=== PATIENT | male | born 1955 | race Hispanic/Latino ===

== ENCOUNTER 2020-06-10 17:31 | Inpatient (IN) | payer MEDICARE ==
[~2020-06-10] VITALS: Ht 167.6 cm; Wt 79.5 kg
--- NOTE | 2020-06-10 17:58 | Emergency Department Note ---
History of Present Illnes History of Present Illness Chief Complaint: General Medicine Complaints History of Present Illness This is a 64 year old male Presents to the ED for chills, n/v since 1600. Recently released from [facility] on 05/21/20 for dialysis infection . Past Medical/Family History Physician Review I have reviewed the patient's past medical and family history. Any updates have been documented here. Review of Systems Review of Systems Constitutional: Reports fever EENTM: Reports no symptoms Cardiovascular: Reports no symptoms Respiratory: Reports no symptoms Gastrointestinal: Reports no symptoms Genitourinary: Reports no symptoms Musculoskeletal: Reports no symptoms Integumentary: Reports no symptoms Neurological: Reports no symptoms Psychological: Reports no symptoms Endocrine: Reports no symptoms Hematological/Lymphatic: Reports no symptoms Physical Exam Related Data Allergies: Coded Allergies: No Known Allergies (Unverified , 06/10/20) Triage Vital Signs Vital Signs Date Time Temp Pulse Resp B/P (MAP) Pulse Ox O2 Delivery O2 Flow Rate FiO2 06/10/20 17:56 102.9 79 18 126/86 97 Room Air Vital signs reviewed: Yes Physical Exam CONSTITUTIONAL Constitutional: Present well-developed, Present well-nourished HENT HENT: Present normocephalic, Present atraumatic, Present oropharynx clear/moist, Present nose normal HENT L/R: Present left ext ear normal, Present right ext ear normal EYES Eyes: Reports PERRL, Reports conjunctivae normal NECK Neck: Present ROM normal PULMONARY Pulmonary: Present effort normal, Present breath sounds normal CARDIOVASCULAR Cardiovascular: Present regular rhythm, Present heart sounds normal, Present capillary refill normal, Present normal rate GASTROINTESTINAL Abdominal: Present soft, Present nontender, Present bowel sounds normal GENITOURINARY Genitourinary: Present exam deferred SKIN Skin: Present warm, Present dry MUSCULOSKELETAL Musculoskeletal: Present ROM normal NEUROLOGICAL Neurological: Present alert, Present oriented x 3, Present no gross motor or sensory deficits PSYCHOLOGICAL Psychological: Present mood/affect normal, Present judgement normal Results Laboratory Lab results reviewed: Yes Laboratory comments Laboratory Tests Test 06/10/20 18:29 White Blood Count 15.40 x10e3/uL (4.8-10.8) Red Blood Count 3.37 x10e6/uL (4.3-5.7) Hemoglobin 9.4 g/dL (14.0-18.0) Hematocrit 30.0 % (38.2-49.6) Mean Corpuscular Volume 89.0 fL (81-99) Mean Corpuscular Hemoglobin 27.9 pg (28-32) Mean Corpuscular Hemoglobin Concent 31.3 g/dL (31-35) Red Cell Distribution Width 14.2 % (11.7-14.4) Platelet Count 200 x10e3/uL (140-360) Neutrophils (%) (Auto) 89.7 % (38.7-80.0) Lymphocytes (%) (Auto) 4.2 % (18.0-39.1) Monocytes (%) (Auto) 5.0 % (4.4-11.3) Eosinophils (%) (Auto) 0.1 % (0.0-6.0) Basophils (%) (Auto) 0.2 % (0.0-1.0) Neutrophils # (Auto) 13.8 (2.1-6.9) Lymphocytes # (Auto) 0.6 (1.0-3.2) Monocytes # (Auto) 0.8 (0.2-0.8) Eosinophils # (Auto) 0.0 (0.0-0.4) Basophils # (Auto) 0.0 (0.0-0.1) Absolute Immature Granulocyte (auto 0.12 x10e3/uL (0-0.1) Sodium Level 139 mmol/L (136-145) Potassium Level 3.8 mmol/L (3.5-5.1) Chloride Level 99 mmol/L (98-107) Carbon Dioxide Level 29 mmol/L (22-29) Anion Gap 14.8 mmol/L (8-16) Blood Urea Nitrogen 24 mg/dL (7-26) Creatinine 5.03 mg/dL (0.72-1.25) Estimat Glomerular Filtration Rate 12 ML/MIN (60-) BUN/Creatinine Ratio 5 (6-25) Glucose Level 206 mg/dL (74-118) Lactic Acid Level 1.7 mmol/L (0.5-2.0) Calcium Level 8.0 mg/dL (8.4-10.2) Total Bilirubin 0.6 mg/dL (0.2-1.2) Aspartate Amino Transf (AST/SGOT) 14 IU/L (5-34) Alanine Aminotransferase (ALT/SGPT) 7 IU/L (0-55) Alkaline Phosphatase 118 IU/L (40-150) Creatine Kinase 31 IU/L (30-200) Creatine Kinase MB 0.40 ng/mL (0-5.0) Troponin I 0.015 ng/mL (0-0.300) Total Protein 6.8 g/dL (6.5-8.1) Albumin 2.8 g/dL (3.5-5.0) Globulin 4.0 g/dL (2.3-3.5) Albumin/Globulin Ratio 0.7 (0.8-2.0) Imaging Imaging results reviewed: Yes Impressions [place] [address] Patient Name: JED BASSETT MR #: [id number] : 1955 Age/Sex: 64/M Req #: [id number] Adm Physician: Ordered by: LILLIANA CRAFT DO Report #: [id number] Location: ER Room/Bed: Procedure: [id number] DX/CHEST SINGLE (PORTABLE) Exam Date: 06/10/20 Exam Time: 1821 REPORT STATUS: Signed EXAMINATION: CHEST SINGLE (PORTABLE) COMPARISON: None INDICATION: ^Chills n/v ^20200610 ^1821 DISCUSSION: Frontal view of the chest obtained at 1822 hours. HEART AND MEDIASTINUM: The heart is top normal in size. There are calcifications of the aortic arch LINES: Dual lumen central venous catheter terminates in the SVC LUNGS/PLEURA: The lungs are well inflated and clear. Pulmonary vascular markings are normal. No pneumonia or pulmonary edema. No pleural effusion or pneumothorax. BONES AND SOFT TISSUES: No focal osseous lesion. The soft tissues are normal. IMPRESSION: No acute cardiopulmonary disease. Signed by: Dr. Anyi Feliciano MD on 06/10/2020 6:48 PM Dictated By: ANYI FELICIANO MD 47 Transcribed By: RICARDO on 06/10/201847 COPY TO: LILLIANA CRAFT DO~ Assessment & Plan Medical Decision Making MDM 64 yom with fever without specific symptoms. Blood cx x 2 and blood cx ordered with abx given. Lactic acid obtained and reviewed. During the COVID-19 virus pandemic and has a clinical picture consistent with a COVID-19 source for sepsis. Thus, patient was treated for suspected viral sepsis rather than bacterial sepsis. Given the potential for ARDS and present suggestions of early data from COVID treatment in other areas, fluids were given sparingly and the SEP-1 guidelines were deviated from. For consideration of other sources, blood and urine cultures, lactic acid and antibiotics were ordered. Will continue to monitor blood pressure and adjust fluid resuscitation accordingly. Unable to discern source of fever. Plan to admit for observation with IV abx and consult to Dr Galdamez for evaluation of PD cathter Assessment & Plan Final Impression: (1) Fever (2) Chronic renal failure Depart Disposition: ADMITTED LILLIANA CRAFT DO Jun 10, 2020 17:58
[2020-06-10] MEDS ORDERED: PIPERACILLIN/TAZO 4.5 GM 100 ML IV STA (18:15)
[2020-06-10 18:45] LABS: BASOPHILS % 0.2 % (0.0-1.0); EOSINOPHILS % 0.1 % (0.0-6.0); HEMOGLOBIN 9.4 g/dL (14.0-18.0); LYMPHOCYTES # (AUTO) 0.6 (1.0-3.2); LYMPHOCYTES % 4.2 % (18.0-39.1); MEAN CORPUSCULAR HEMOGLOBIN 27.9 pg (28-32); MEAN CORPUSCULAR HGB CONC 31.3 g/dL (31-35); MONOCYTES # (AUTO) 0.8 (0.2-0.8); NEUTROPHILS # (AUTO) 13.8 (2.1-6.9); NEUTROPHILS % 89.7 % (38.7-80.0); PLATELET COUNT 200 x10e3/uL (140-360); RED BLOOD COUNT 3.37 x10e6/uL (4.3-5.7); RED CELL DISTRIBUTION WIDTH 14.2 % (11.7-14.4)
[2020-06-10] MEDS ORDERED: ACETAMINOPHEN 325 MG TAB PO ONE (18:49)
--- NOTE | 2020-06-10 18:51 | Diagnostic Imaging Report ---
EXAMINATION: CHEST SINGLE (PORTABLE) COMPARISON: None INDICATION: ^Chills n/v ^20200610 ^1821 DISCUSSION: Frontal view of the chest obtained at 1822 hours. HEART AND MEDIASTINUM: The heart is top normal in size. There are calcifications of the aortic arch LINES: Dual lumen central venous catheter terminates in the SVC LUNGS/PLEURA: The lungs are well inflated and clear. Pulmonary vascular markings are normal. No pneumonia or pulmonary edema. No pleural effusion or pneumothorax. BONES AND SOFT TISSUES: No focal osseous lesion. The soft tissues are normal. IMPRESSION: No acute cardiopulmonary disease. Signed by: Dr. Gemma Feliciano MD on 06/10/2020 6:48 PM
[2020-06-10] MEDS ORDERED: ACETAMINOPHEN 325 MG TAB ONE (18:57)
[2020-06-10 19:15] LABS: ALBUMIN 2.8 g/dL (3.5-5.0); ALBUMIN/GLOBULIN RATIO 0.7 (0.8-2.0); ANION GAP 14.8 mmol/L (8-16); CREATININE, SERUM 5.03 mg/dL (0.72-1.25); POTASSIUM 3.8 mmol/L (3.5-5.1)
--- OUTSIDE RECORDS SUMMARY | 2020-06-10 19:48 | XMS REPORT | Clinical Summary ---
Author Author [employer] [facility] Organization [facility] [employer] [facility] Address Unknown Phone Unavailable Care Team Providers Care Field Cane Scaler Name Role Phone Antony Mosley MD PCP Allergies No Known Allergies Medications End Date Status Medication Sig Dispensed Refills Start Date Active sevelamer (RENAGEL) 800 Take 800 mg 0 MG tablet by mouth 3 (three) times a day with meals. Active atorvastatin (LIPITOR) 80 Take 80 mg by 0 MG tablet mouth daily. Active lisinopril (PRINIVIL) 5 Take 5 mg by 0 mg tablet mouth daily. Active NIFEdipine XL (PROCARDIA Take 60 mg by 0 XL) 60 MG 24 hr tablet mouth daily. Active metoprolol succinate XL Take 50 mg by 0 (TOPROL-XL) 50 mg 24 hr mouth daily. tablet Active chlorthalidone (HYGROTEN) Take 25 mg by 0 25 MG tablet mouth daily. Active insulin degludec (TRESIBA Inject 14 0 FLEXTOUCH U-100) 100 Units under unit/mL (3 mL) insulin the skin pen daily. Active Problems Not on file Encounters Care Team Description Date Type Specialty Jyothi Scott DO Abdominal cramps (Primary Dx); ESRD (end stage renal disease) ([facility]) 08/31/2019 Emergency Emergency Medicine Ras Maharaj MD 2019 Documentation Cardiovascular after 06/10/2019 Immunizations Name Administration Dates Next Due Tdap 04/23/2019 Social History Date Tobacco Use Types Packs/Day Years Used Never Smoker Smokeless Tobacco: Never Used Drinks/Week oz/Week Comments Alcohol Use Never Alcohol Habits Answer Date Recorded How often do you have a drink containing alcohol? Never 04/23/2019 How many drinks containing alcohol do you have on No t asked a typical day when you are drinking? How often do you have six or more drinks on one Not asked occasion? Sex Assigned at Date Recorded Not on file Industry Job Start Date Occupation Not on file Not on file Not on file Travel End Travel History Travel Start No recent travel history available. Last Filed Vital Signs Reading Time Taken Comments Vital Sign 189/78 08/31/2019 9:05 PM [employer]ACE ENGINE[employer] Blood Pressure 71 08/31/2019 9:05 PM [employer]ACE ENGINEER Pulse 37 C (98.6 F) 08/31/2019 9:05 PM SPACE ENGINEER Temperature 19 08/31/2019 9:05 PM SPACE ENGINEER Respiratory Rate 99% 08/31/2019 9:05 PM SPACE ENGINEER Oxygen Saturation - - Inhaled Oxygen Concentration 81.6 kg (180 lb) 08/31/2019 3:20 PM SPACE ENGINEER Weight 167.6 cm (5' 6") 08/31/2019 3:20 PM SPACE ENGINEER Height 29.05 08/31/2019 3:20 PM SPACE ENGINEER Body Mass Index Plan of Treatment Health Maintenance Due Date Last Done Comments DIABETIC RETINAL EYE EXAM 1955 DIABETIC FOOT EXAM 1965 URINE MICROALBUMIN 1967 COLONOSCOPY SCREENING 2007 SHINGLES VACCINES (#2) 04/17/2017 02/15/2017 INFLUENZA VACCINE 07/21/2020 Procedures Comments Procedure Name Priority Date/Time Associated Diag nosis URINALYSIS SCREEN AND STAT 08/31/2019 MICROSCOPY, WITH REFLEX 3:21 PM SPACE ENGINEER TO CULTURE ESTIMATED GFR STAT 08/31/2019 3:19 PM SPACE ENGINEER LIPASE LEVEL STAT 08/31/2019 3:19 PM SPACE ENGINEER COMPREHENSIVE METABOLIC STAT 08/31/2019 PANEL 3:19 PM SPACE ENGINEER HC COMPLETE BLD COUNT STAT 08/31/2019 W/AUTO DIFF 3:19 PM SPACE ENGINEER after 06/10/2019 Results * Urinalysis screen and microscopy, with reflex to culture (08/31/2019 3:21 PM SPACE ENGINEER) Specimen site Clean catch [facility] Color, UA Yellow [facility] Appearance, UA Slightly-Cloudy [facility] Specific 1.015 1.001 - 1.035 [place] gravity, UA [facility] pH, UA 5.0 5.0 - 8.5 [facility] Protein, UA 3+ (A) Negative [facility] Glucose, UA 1+ (A) Negative [facility] Ketones, UA Negative Negative [facility] Bilirubin, UA Negative Negative [facility] Blood, UA Negative Negative [facility] Nitrite, UA Negative Negative [facility] Urobilinogen, Negative <2.0 [facility] Leukocyte Negative Negative [place] esterase, UA [facility] WBC, UA None seen 0 - 1 /HPF [facility] RBC, UA 3 0 - 5 /HPF [facility] Bacteria, UA Trace None seen [facility] Yeast, UA None seen [facility] Yeast with None seen [place] [facility] Specimen Urine Performing Organization Address City/[facility] Ph one Number [facility] DEPARTMENT OF [address] [place] [address] PATHOLOGY AND GENOMIC MEDICINE [address] * Estimated GFR (08/31/2019 3:19 PM SPACE ENGINEER) [facility] Estimated GFR 11 (A) mL/min/1.73 m2 [place] Comment: [facility] G1 >=90 Normal or high G2 60-89 Mildly decreased G3a 45-59 Mildly to moderately decreased G3b 30-44 Moderately to severely decreased G4 15-29 Severely decreased G5 <15 Kidney failure The eGFR was calculated using the Chronic Kidney Disease Epidemiology Collaboration (CKD-EPI) equation. Interpretation is based on recommendations of the National Kidney Foundation-Kidney Disease Outcomes Quality Initiative (NKF-KDOQI) published in 2014. Specimen Plasma specimen Performing Organization Address City/State[facility] Ph one Number [facility] DEPARTMENT OF [address] [place] [address] PATHOLOGY AND GENOMIC MEDICINE [address] * CBC with platelet and differential (08/31/2019 3:19 PM SPACE ENGINEER) [facility] WBC 7.6 4.2 - 11.0 k/uL [facility] RBC 2.97 (L) 4.04 - 5.86 m/uL [facility] HGB 8.1 (L) 13.0 - 17.3 g/dL [facility] HCT 26.5 (L) 34.0 - 45.0 % [facility] MCV 89.2 80.0 - 98.0 fL [facility] MCH 27.3 27.0 - 34.0 pg [facility] MCHC 30.6 (L) 31.5 - 36.5 g/dL [facility] RDW - SD 46.1 37.0 - 51.0 fL [facility] MPV 11.1 (H) 7.4 - 10.4 fL [facility] Platelet count 240 150 - 400 k/uL [facility] Nucleated RBC 0.00 /100 WBC [facility] Neutrophils 62.5 36.0 - 66.0 % [facility] Lymphocytes 26.3 24.0 - 44.0 % [facility] Monocytes 8.5 (H) 0.0 - 6.0 % [facility] Eosinophils 2.0 0.0 - 6.0 % [facility] Basophils 0.4 0.0 - 1.2 % [facility] Immature 0.3 0.0 - 1.0 % [place] granulocytes [facility] Specimen Blood Performing Organization Address City/State/[facility] Ph one Number [facility] DEPARTMENT OF [address] [place] [phone] PATHOLOGY AND GENOMIC MEDICINE [address] * Lipase level (08/31/2019 3:19 PM SPACE ENGINEER) Lipase 33 13 - 60 U/L [facility] Specimen Plasma specimen Performing Organization Address City/State/[facility] Ph one Number [facility] DEPARTMENT OF [address] [place] [address] PATHOLOGY AND GENOMIC MEDICINE [facility] [address] [place] [address] HOSPITAL * Comprehensive metabolic panel (08/31/2019 3:19 PM SPACE ENGINEER) Sodium 138 135 - 150 mEq/L [facility] Potassium 5.1 (H) 3.5 - 5.0 mEq/L [facility] Chloride 105 98 - 112 mEq/L [facility] CO2 15 (L) 24 - 31 mmol/L [facility] Anion gap 18@ANIO (H) 7 - 15 mEq/L [facility] BUN 93 (H) 7 - 18 mg/dL [facility] Creatinine 5.20 (H) 0.70 - 1.20 mg/dL [facility] Glucose 164 (H) 65 - 100 mg/dL [facility] Calcium 7.0 (L) 8.8 - 10.2 mg/dL [facility] Protein 6.5 6.3 - 8.3 g/dL [facility] Albumin 3.1 (L) 3.5 - 5.0 g/dL [facility] A/G ratio 0.9 0.7 - 3.8 [facility] Alkaline 103 0 - 129 U/L [place] phosphatase [facility] AST 17 10 - 50 U/L [facility] ALT 9 5 - 50 U/L [facility] Total bilirubin <0.3 0.2 - 1.2 mg/dL [facility] Specimen Plasma specimen Performing Organization Address City/State/Zipcode Ph one Number [facility] DEPARTMENT OF [address] [place] [phone] PATHOLOGY AND GENOMIC MEDICINE [facility] [place] [address] HOSPITAL after 06/10/2019 Insurance Type Payer Benefit Subscriber ID Effective Phone Address Plan / Dates Group HMO [employer] C[employer]NA xxxxxxxxxxx [id number] [employer] resent [facility] M[facility] ADV Advance Directives For more information, please contact: [phone] Patient Tellers Supervisor Explanation Type Date Recorded Advance Directives, 04/23/2019 11:05 PM Living Will and Medical Power of Financial Services Professional Advance Directives, 08/31/2019 8:28 PM Living Will and Medical Power of Financial Services Professional
--- OUTSIDE RECORDS SUMMARY | 2020-06-10 19:49 | XMS REPORT | Continuity of Care Document ---
Author Author [facility] t Organization [facility] Address [address] [place] [address] Phone Unavailable Care Team Providers Care Professor Of Education Name Role Phone MD ANTONY SMITH PCP LILLIANA CRAFT Attphys Unavailable JOHAN RANGEL Attphys Unavailable Evan Olmedo Attphys Unavailable Umang Levy Attphys Unavailable Marlene Hale Attphys Unavailable Namita Chen MD Attphys Namita CHEN Attphys Unavailable Brett Smith MD Attphys Cande [facility] Skye Attphys Unavailable Shania SHEPHERD, P Gretta Attphys Unavailable Olman Scott DO Attphys [phone] Ras Maharaj MD Attphys JOHAN RANGEL Admphys Unavailable Payers Payer Name Policy Type Policy Number Effective Date Expiration Date [facility] Ppo [id number] 2007 [facility]:00[facility]00 [facility] Contracted xxxxxxxxx [facility] HMO MCR ADVxxxxxx /10/2018-PresentHMO xxxxxxxxxxx 2018 00:00:00 Mera Meth odist Problems Condition Name Condition Details Condition Category Status Onset Date Resolution Date Last Treatment Date Treating Clinician Comments Source ESRD (end stage renal disease) on dialysis ESRD (end s tage renal disease) on dialysis Disease Active 2019-10-21 00:00:00 Overview: currently on HD; planned transition to CCPD [facility] Diabetic retinopathy Diabetic retinopathy Disease Active 00:00:00 Overview: Bilateral; s/p laser surgery t o L eye; pending to R eye [facility] Diabetes mellitus Diabetes mellitus Disease Active 2013-10-21 00:00:00 [facility] Hyperlipidemia Hyperlipidemia Disease Active 2013-10-21 00:00:00 [facility] Hypertension Hypertension Disease Active 1989-10-21 00:00:00 [facility] Fever of unknown origin Problem Active [facility] End-stage renal disease Problem Active [facility] Diabetic foot ulcer Problem Active [facility] Allergies, Adverse Reactions, Alerts Allergy Name Allergy Type Status Severity Reaction(s) Onset Date Inacti ve Date Treating Clinician Comments Source No Known Allergies DA Active U 2019-11-27 00:00:00 [facility] No Known Allergies DA Active U 2015-07-23 00:00:00 [facility] Family History Family Member Diagnosis Comments Start Date Stop Date Source Natural brother Diabetes [facility] Natural brother Hypertension [facility] Natural mother Diabetes [facility] Natural mother Hypertension [facility] Social History Social Habit Start Date Stop Date Quantity Comments Source History SDOH Alcohol Std Drinks [facility] History SDOH Alcohol Binge [facility] Sex Assigned At [facility] History SDOH Alcohol Frequency 2019-11-25 00:00:00 2019-11-25 00:00:0 0 1 [facility] Alcohol intake 2019-08-31 00:00:00 2019-08-31 00:00:00 Lifetime non-drinker (finding) [facility] Smoking Status Start Date Stop Date Source Never smoker [facility] Medications Ordered Medication Name Filled Medication Name Start Date Stop Da te Current Medication? Ordering Clinician Indication Dosage Frequency Signature (SIG) Comments Components Source calcium carbonate (TUMS) 500 mg chewable tablet 2019-11-25 10:56 :38 Yes 1{tbl} QD Take 1 tablet by mouth daily. [facility] insulin degludec (TRESIBA FLEXTOUCH U-200) 200 unit/mL (3 mL ) InPn 2019-11-25 10:54:50 Yes 16U Q24H 16 Units daily. [facility] ferrous fumarate 325 mg (106 mg iron) Tab 2019-11-25 10:54:50 Yes 650mg Q24H 650 mg daily. [facility] NIFEdipine (PROCARDIA-XL) 60 MG (OSM) 24 hr tablet 2019-11 10:54:49 Yes 60mg QD Take 60 mg by mouth daily. [facility] multivitamin (DAILY DIET SUPPORT ORAL) 2019-11-25 10:47:36 Yes QD daily. [facility] atorvastatin (LIPITOR) 80 MG tablet 2019-11-13 00:00:00 Yes QD daily. [facility] HYDROcodone-acetaminophen (NORCO 7.5-325) 7.5-325 mg per tab let 2019-11-10 00:00:00 Yes as needed. [facility] metoprolol (TOPROL-XL) 50 MG 24 hr tablet 2019-11-04 00:00:00 Yes TK 1 T PO ONCE D [facility] chlorthalidone (HYGROTON) 25 MG tablet 2019-11-04 00:00:00 Yes QD daily. [facility] chlorthalidone (HYGROTEN) 25 MG tablet 2019-08-31 20:50:59 Yes 25mg QD Take 25 mg by mouth daily. Ede mendoza insulin degludec (TRESIBA FLEXTOUCH U-100) 100 unit/mL (3 mL ) insulin pen 2019-08-31 20:50:59 Yes 14U QD Inject 14 Units un jesusita the skin daily. [facility] Felix atorvastatin (LIPITOR) 80 MG tablet 2019-08-31 20:50:58 Yes 80mg QD Take 80 mg by mouth daily. [facility] Felix lisinopril (PRINIVIL) 5 mg tablet 2019-08-31 20:50:58 Yes 5mg QD Take 5 mg by mouth daily. [facility] Felix NIFEdipine XL (PROCARDIA XL) 60 MG 24 hr tablet 2019-08-31 20:50 :58 Yes 60mg QD Take 60 mg by mouth daily. Ayo Felix metoprolol succinate XL (TOPROL-XL) 50 mg 24 hr tablet 2019-08-31 20:50:58 Yes 50mg QD Take 50 mg by mouth daily. Ede Felix sevelamer (RENAGEL) 800 MG tablet 2019-08-31 20:47:32 Ye s 800mg Q.[id number] Take 800 mg by mouth 3 (three) times a day with meals. Ede Felix Atorvastatin Calcium Atorvastatin Calcium Yes 80 Daily [facility] Insulin Degludec (Tresiba Flextouch U-100) 100 Unit/1 Ml INSULN.PEN Insulin Degludec (Tresiba Flextouch U-100) 100 Unit/1 Ml INSULN.PEN Yes 24 [facility] Metoprolol Succinate Metoprolol Succinate Yes 50 Daily [facility] Polyethylene Glycol 3350 (Miralax) 17 Gm POWD.PACK Jordan yethylene Glycol 3350 (Miralax) 17 Gm POWD.PACK Yes Daily as nee ded for Constipation [facility] Sevelamer Sevelamer Yes 800 Three Times Daily With Meals [facility] Chlorthalidone Chlorthalidone 2020-05-21 00:00:00 No 25 Daily [facility] Nefediac Nefediac 2020-05-21 00:00:00 No 60 Daily [facility] Immunizations Ordered Immunization Name Filled Immunization Name Date Status Comments Source Tdap 2019-04-23 00:00:00 Completed [facility] Vital Signs Vital Name Observation Time Observation Value Comments Source Body Temperature 2020-05-21 15:18:00 98.6 [degF] [facility] Weight 2020-05-20 00:44:00 173.50 [lb_av] [facility] BMI (Body Mass Index) 2020-05-20 00:44:00 23.5 kg/m2 [facility] Systolic blood pressure 2019-12-16 11:23:00 173 mm[Hg] [facility] Diastolic blood pressure 2019-12-16 11:23:00 70 mm[Hg] [facility] Heart rate 2019-12-16 11:23:00 90 /min [facility] Body height 2019-12-16 09:00:00 167.6 cm [facility] Body weight Measured 2019-12-16 09:00:00 79.833 kg [facility] BMI 2019-12-16 09:00:00 28.41 kg/m2 [facility] Body temperature 2019-11-25 13:03:00 36.61 Lili [facility] Respiratory rate 2019-11-25 13:03:00 18 /min [facility] Systolic blood pressure 2019-08-31 21:05:00 189 mm[Hg] [facility] Diastolic blood pressure 2019-08-31 21:05:00 78 mm[Hg] [facility] Heart rate 2019-08-31 21:05:00 71 /min [facility] Body temperature 2019-08-31 21:05:00 37 Lili Toni [facility] Respiratory rate 2019-08-31 21:05:00 19 /min Toni pugh [facility] Oxygen saturation in Arterial blood by Pulse oximetry 2018-10 21:05:00 99 /min [facility] Body height 2019-08-31 15:20:00 167.6 cm [facility] Body weight 2019-08-31 15:20:00 81.647 kg Ede Felix BMI 2019-08-31 15:20:00 29.05 kg/m2 [facility] Procedures Procedure Date / Time Performed Performing Clinician Hernando lyn PERIPHERAL VASCULAR REPORT - SCAN 2019-12-17 21:22:21 Provid er, Default Scanning [facility] ECHOCARDIOGRAM REPORT - SCAN 2019-12-17 21:20:34 ProviderConsuelo lt Scanning [facility] TRANSFUSION SERVICE REPORT - SCAN 2019-12-17 18:05:20 Provid er, Default Scanning [facility] STRESS ECHO 2019-12-16 11:08:14 Lisa Chen [facility] 2D ECHO W/ DOPPLER (CW/PW/COLOR) 2019-12-16 10:28:46 Andrey Chen [facility] TREADMILL TOLERANCE(NON-NUCLEAR TREADMILL) 2019-12-16 10:00: 09 Unknown, Hl7 Doctor [facility] ECG 12-LEAD 2019-12-16 09:18:16 Lisa Chen [facility] XR CHEST 2 VIEWS 2019-12-16 08:56:00 Lisa Chen [facility] US ABDOMEN COMPLETE 2019-12-16 08:07:00 Lisa Chen CH I [facility] PSA 2019-12-16 07:13:00 iLsa Chen [facility] LIPID PANEL 2019-12-16 07:13:00 Lisa Chen [facility] HEMOGLOBIN A1C 2019-12-16 07:13:00 Lisa Chen [facility] BLOOD TYPING, AUTOMATED 2019-12-16 07:13:00 Lisa Chen [facility] TRANSFUSION SERVICE REPORT - SCAN 2019-11-26 18:07:11 Provid er, Default Scanning [facility] HEPATITIS B SURFACE ANTIBODY 2019-11-25 11:50:00 Snow Chen [facility] HEPATITIS B SURFACE ANTIGEN 2019-11-25 11:50:00 Shital Chen [facility] HEPATITIS B CORE ANTIBODY, IGM 2019-11-25 11:50:00 Timmins, Mary Breaux [facility] HEPATITIS C ANTIBODY 2019-11-25 11:50:00 TimminsLisa [facility] HIV-1 ANTIGEN WITH HIV-1/2 ANTIBODY 2019-11-25 11:50:00 Timmins, Lsia Breaux [facility] PTH, INTACT 2019-11-25 11:50:00 Timmins, Lisa Breaux [facility] T SPOT TB 2019-11-25 11:50:00 Timmins, Lisa Breaux [facility] HLA TYPING CI 2019-11-25 11:50:00 Timmins, Lisa [facility] HLA TYPING CII 2019-11-25 11:50:00 [facility] ([facility]ELIPA[facility]DIRECT ANANYA 2019-11-25 11:50:[address] [facility] BLOOD TYPING, AUTOMATED 2019-11-25 11:50:00 Timmins, Lisa Godoy [facility] CYTOMEGALOVIRUS ANTIBODY, IGG 2019-11-25 11:49:00 Timmins, Clair moss [facility] CYTOMEGALOVIRUS ANTIBODY, IGM 2019-11-25 11:49:00 Timmins, Clair moss [facility] COMPREHENSIVE METABOLIC PANEL 2019-11-25 11:49:[address] [facility] EBV ANTIBODY, IGM 2019-11-25 11:49:00 [facility] GAMMA GLUTAMYL TRANSFERASE (GGT) 2019-11-25 11:49:00 Timmins, Andrey whiteside [facility] LACTATE DEHYDROGENASE (LDH) 2019-11-25 11:49:00 Timmins, Shital gonzalez [facility] PHOSPHORUS 2019-11-25 11:49:[facility]APTT 2019-11-25 11:49:00 [facility] RPR 2019-11-25 11:49:00 [facility] URIC ACID 2019-11-25 11:49:00 [facility] VARICELLA ZOSTER ANTIBODY, IGG 2019-11-25 11:49:00 [facility] FLOW PRA CLASS I WITH REFLEX TO ANTIBODY SPECIFICITY 2019-11 11:49:00 [facility] FLOW PRA CLASS II WITH REFLEX TO ANTIBODY SPECIFICITY 11-25 11:49:00 [facility] TITER 2019-11-25 11:49:00 [facility] TREPONEMA PALLIDUM - SYPHILIS IGG 2019-11-25 11:49:00 [facility] AB SPECIFICITY CLASS I 2019-11-25 11:49:00 [facility] CBC W/PLT COUNT & AUTO DIFFERENTIAL 2019-11-25 11:49:00 [facility] URINALYSIS SCREEN AND MICROSCOPY, WITH REFLEX TO CULTURE 201 07-01-11 15:21:00 Jim Aguillon HC COMPLETE BLD COUNT W/AUTO DIFF 2019-08-31 15:19:00 Myrna Aguillonos Mitul Felix COMPREHENSIVE METABOLIC PANEL 2019-08-31 15:19:00 Jim Aguillon LIPASE LEVEL 2019-08-31 15:19:00 Jim Aguillon ESTIMATED GFR 2019-08-31 15:19:00 Jim Aguillon Plan of Care Planned Activity Planned Date Details Comments Source Future Scheduled Test 2022-12-16 00:00:00 Lipid panel (proce dure) [code = 78379540] [facility] Future Scheduled Test 2021-08-13 00:00:00 PNEUMOCOCCAL VACCI NE 2-64 YEARS AT RISK (3 of 3 - PPSV23) [code = PNEUMOCOCCAL VACCINE 2-64 YEARS AT RISK (3 of 3 - PPSV23)] [facility] Scheduled Test 2020-07-21 00:00:00 INFLUENZA VACCINE [code = INFLUENZA VACCINE] [facility] Scheduled Test 2020-06-21 00:00:00 INFLUENZA VACCINE (#1) [code = INFLUENZA VACCINE (#1)] [facility] Scheduled Test 2020-06-15 00:00:00 Hemoglobin A1c juliette surement (procedure) [code = 51765218] [facility] Scheduled Test 2019-10-22 00:00:00 MEDICARE ANNUAL WE LLNESS (YEAR 2 or FIRST YEAR if no IPPE) [code = MEDICARE ANNUAL WELLNESS (YEAR 2 or FIRST YEAR if no IPPE)] [facility] Scheduled Test 2017-04-17 00:00:00 SHINGLES VACCINES (#2) [code = SHINGLES VACCINES (#2)] [facility] Scheduled Test 2007 00:00:00 COLONOSCOPY SCREEN ING [code = COLONOSCOPY SCREENING] [facility] Scheduled Test 1967 00:00:00 DIABETIC FOOT EXAM [code = DIABETIC FOOT EXAM] [facility] Scheduled Test 1967 00:00:00 URINE MICROALBUMIN [code = URINE MICROALBUMIN] [facility] Scheduled Test 1967 00:00:00 DIABETIC EYE EXAM [code = DIABETIC EYE EXAM] [facility] Scheduled Test 1967 00:00:00 Diabetic foot exam ination (regime/therapy) [code = 931152472] [facility] Future Scheduled Test 1967 00:00:00 Urine screening fo r protein (procedure) [code = 761747308] [facility] Future Scheduled Test 1957 00:00:00 DIABETIC RETINAL E YE EXAM [code = DIABETIC RETINAL EYE EXAM] [facility] Scheduled Test 1957 00:00:00 Screening for barbara gnant neoplasm of colon (procedure) [code = 965296566] [facility] Instructions Antibiotic Resistance [facility] Instructions Diabetes and Diet [facility] Instructions Foot Care for Diabetics [facility] Encounters Start Date/Time End Date/Time Encounter Type Admission Type [facility] Care Department Encounter ID Source 2019-08-31 00:00:00 2019-08-31 00:00:00 Emergency [facility] [id number] [place] [facility] Results Test Description Test Time Test Comments Results Result Comments Source CHEST SINGLE (PORTABLE) 2020-06-10 18:47:00 [facility] [address] [address] Patient Name: JED BASSETT MR #: [id number] : 1955 Age/Sex: 64/M Req #: [id number] Adm Physician: Ordered by: LILLIANA CRAFT DO Report #: [id number] Location: ER Room/Bed: Procedure: [id number] DX/CHEST SINGLE (PORTABLE) Exam Date: 06/10/20 Exam Time: 1821 REPORT STATUS: Signed EXAMINATION: CHEST SINGLE (PORTABLE) COMPARISON: None INDICATION: Chills n/v [id number] DISCUSSION: Frontal view of the chest obtained at 1822 hours. HEART AND MEDIASTINUM: The heart is top normal in size. There are calcifications of the aortic arch LINES: Dual lumen central venous catheter terminates in the SVC LUNGS/PLEURA: The lungs are well inflated and clear. Pulmonary vascular markings are normal. No pneumonia or pulmonary edema. No pleural effusion or pneumothorax. BONES AND SOFT TISSUES: No focal osseous lesion. The soft tissues are normal. IMPRESSION: No acute cardiopulmonary disease. Signed by: Dr. Gemma Harrell MD on 06/10/2020 6:48 PM Dictated By: GEMMA HARRELL MD 47 Transcribed By: RICARDO on 06/10/201847 COPY TO: LILLIANA CRAFT DO Capillary blood glucose measurement by glucometer (mas s/volume) 2020-05-21 14:49:00 Test Item Bedside Glucose (test code = 45476-6) 292 70-120 Meter ID: [id number] LevellandBlood leukocytes automated count (number/volume)2020-05-20 05:15:00* Test Item Value Reference Range Interpretation Comments White Blood Count (test code = 6690-2) 8.36 4.8-10.8 [facility] automated count (number/volume)2020-05-20 05:15:00* Test Item Value Reference Range Interpretation Comments Red Blood Count (test code = 789-8) 3.38 4.3-5.7 [facility] hemoglobin measurement (moles/volume)2020-05-20 05:15:00* Test Item Value Reference Range Interpretation Comments Hemoglobin (test code = 93535-4) 9.7 14.0-18.0 [facility] Center[facility] blood hematocrit (volume fraction)2020-05-20 05:15:00* Test Item Value Reference Range Interpretation Comments Hematocrit (test code = 4544-3) 30.7 38.2-49.6 [facility] Center[facility] erythrocyte mean corpuscular ydzdin4540-03-57 05:15:00* Test Item Value Reference Range Interpretation Comments Mean Corpuscular Volume (test code = 787-2) 90.8 81-99 [facility] Center[facility] erythrocyte mean corpuscular hemoglobin (mass per erythrocyte)2020-05-20 05:15:00* Test Item Value Reference Range Interpretation Comments Mean Corpuscular Hemoglobin (test code = 785-6) 28.7 28-32 [facility] Center[facility] erythrocyte mean corpuscular hemoglobin concentration measurement (mass/volume)2020-05-20 05:15:00* Test Item Value Reference Range Interpretation Comments Mean Corpuscular Hemoglobin Concent (test code = 786-4) 31.6 31-35 [facility] CenterRDW WneEu-Cgb8826-57-31 05:15:00* Test Item Value Reference Range Interpretation Comments Red Cell Distribution Width (test code = 21286-8) 14.0 11.7 -14.4 [facility] Center[facility] blood platelet count (count/volume)2020-05-20 05:15:00* Test Item Value Reference Range Interpretation Comments Platelet Count (test code = 777-3) 191 140-360 [facility] Center[facility] blood segmented neutrophil count as percentage of total oupeazzrdx7947-70-87 05:15:00* Test Item Value Reference Range Interpretation Comments Neutrophils (%) (Auto) (test code = 13792-8) 52.3 38.7-80.0 [facility] Center[facility] blood lymphocyte count as percentage ot total jfbhoytnle3829-86-65 05:15:00* Test Item Value Reference Range Interpretation Comments Lymphocytes (%) (Auto) (test code = 736-9) 30.6 18.0-39.1 [facility] Center[facility] blood monocyte count as percentage of total uukihngato8614-57-98 05:15:00* Test Item Value Reference Range Interpretation Comments Monocytes (%) (Auto) (test code = 5905-5) 14.8 4.4-11.3 [facility] Center[facility] blood eosinophil count as percentage of total wgwxszaxuo3737-62-26 05:15:00* Test Item Value Reference Range Interpretation Comments Eosinophils (%) (Auto) (test code = 713-8) 1.4 0.0-6.0 [facility] CenterAutom[facility] blood basophil count as percentage of total srohicrdet3074-95-86 05:15:00* Test Item Value Reference Range Interpretation Comments Basophils (%) (Auto) (test code = 706-2) 0.5 0.0-1.0 [facility] CenterFluoroscopic procedure less than one hour qvnmfdau7179-56-37 05:15:00* Test Item Value Reference Range Interpretation Comments IM GRANULOCYTES % (test code = IM GRANULOCYTES %) 0.4 0.0- 1.0 [facility] Center[facility] blood neutrophil count 2020-05-20 05:15:00* Test Item Value Reference Range Interpretation Comments Neutrophils # (Auto) (test code = 751-8) 4.4 2.1-6.9 [facility] Center[facility] lymphocytes count (number/volume) 2020-05-20 05:15:00* Test Item Value Reference Range Interpretation Comments Lymphocytes # (Auto) (test code = 18089-4) 2.6 1.0-3.2 [facility] Center[facility] monocytes automated count (number/volume)2020-05-20 05:15:00* Test Item Value Reference Range Interpretation Comments Monocytes # (Auto) (test code = 742-7) 1.2 0.2-0.8 [facility] Center[facility] blood eosinophil count 2020-05-20 05:15:00* Test Item Value Reference Range Interpretation Comments Eosinophils # (Auto) (test code = 711-2) 0.1 0.0-0.4 [facility] CenterAutom[facility] blood basophil count (count/volume)2020-05-20 05:15:00* Test Item Value Reference Range Interpretation Comments Basophils # (Auto) (test code = 704-7) 0.0 0.0-0.1 [facility] CenterFluoroscopic procedure less than one hour ihhudoav8689-36-01 05:15:00* Test Item Value Reference Range Interpretation Comments Absolute Immature Granulocyte (auto (marlon t code = Absolute Immature Granulocyte (auto) 0.03 0-0.1 [facility] or plasma sodium measurement (moles/volume)2020-05-18 04:40:00* Test Item Value Reference Range Interpretation Comments Sodium Level (test code = 2951-2) 140 136-145 [facility] Campuserum or plasma potassium measurement (moles/volume)2020-05-18 04:40:00* Test Item Value Reference Range Interpretation Comments Potassium Level (test code = 2823-3) 4.7 3.5-5.1 [facility] Campuserum or plasma chloride measurement (moles/volume)2020-05-18 04:40:00* Test Item Value Reference Range Interpretation Comments Chloride Level (test code = 2075-0) 103 98-107 [facility] Campuserum or plasma carbon dioxide, total measurement (moles/volume)2020-05-18 04:40:00* Test Item Value Reference Range Interpretation Comments Carbon Dioxide Level (test code = 2028-9) 26 22-29 [facility] Camp[facility]um or plasma anion tix0904-26-68 04:40:00* Test Item Value Reference Range Interpretation Comments Anion Gap (test code = 80927-3) 15.7 8-16 [facility] Camp[facility]um or plasma urea nitrogen measurement (mass/volume)2020-05-18 04:40:00* Test Item Value Reference Range Interpretation Comments Blood Urea Nitrogen (test code = 3094-0) 40 7-26 [facility] Campuserum or plasma creatinine measurement (mass/volume)2020-05-18 04:40:00* Test Item Value Reference Range Interpretation Comments Creatinine (test code = 2160-0) 5.59 0.72-1.25 [facility] Campuserum or plasma urea nitrogen/creatinine mass owzlu5532-32-41 04:40:00* Test Item Value Reference Range Interpretation Comments BUN/Creatinine Ratio (test code = 3097-3) 7 6-25 [facility] CenterEstimated glomerular filtration rate (GFR) yyiohptxemnyu1491-41-64 04:40:00* Test Item Value Reference Range Interpretation Comments Estimat Glomerular Filtration Rate (test code = 393834255) 10 >60 Ranges were taken from the National Kidney Disease Education Program and the [facility] Kid[facility] Foundation literature.Reference ranges:60 or greater: [id number] ( for 3 consecutive months): Chronic kidney disease 15 or less: Kidney failureSaint Camillus Medical CenterGlucose rvjkytkcubj0652-78-59 04:40:00* Test Item Value Reference Range Interpretation Comments Glucose Level (test code = DYH9898) 149 74-118 [facility] Campuserum or plasma calcium measurement (mass/volume)2020-05-18 04:40:00* Test Item Value Reference Range Interpretation Comments Calcium Level (test code = 82804-9) 8.3 8.4-10.2 [facility] CenterFluoroscopic procedure less than one hour [id number] 04:40:00* Test Item Value Reference Range Interpretation Comments Hemoglobin A1c Percent (test code = Hemoglobin A1c Percent) 8.3 4.0-7.0 [facility] Campuserum or plasma total bilirubin measurement (mass/volume)2020-05-18 04:40:00* Test Item Value Reference Range Interpretation Comments Total Bilirubin (test code = 1975-2) 0.5 0.2-1.2 [facility] CenterFluoroscopic procedure less than one hour ujwpzgah3879-26-69 04:40:00* Test Item Value Reference Range Interpretation Comments Aspartate Amino Transf (AST/SGOT) (test code = Aspartate Amino Transf (AST/SGOT)) 14 5-34 [facility] Campuserum or plasma alanine aminotransferase measurement (enzymatic activity/volume)2020-05-18 04:40:00* Test Item Value Reference Range Interpretation Comments Alanine Aminotransferase (ALT/SGPT) (test code = 1742-6) 12 0-55 [facility] Campuserum or plasma protein measurement (mass/volume)2020-05-18 04:40:00* Test Item Value Reference Range Interpretation Comments Total Protein (test code = 2885-2) 6.7 6.5-8.1 [facility] Campuserum or plasma albumin measurement (mass/volume)2020-05-18 04:40:00* Test Item Value Reference Range Interpretation Comments Albumin (test code = 1751-7) 2.7 3.5-5.0 [facility] CenterPlasma globulin measurement (mass/volume) 2020-05-18 04:40:00* Test Item Value Reference Range Interpretation Comments Globulin (test code = 80607-9) 4.0 2.3-3.5 [facility] Campuserum or plasma albumin/globulin mass bbirr0893-53-17 04:40:00* Test Item Value Reference Range Interpretation Comments Albumin/Globulin Ratio (test code = 1759-0) 0.7 0.8-2.0 [facility] Campuserum or plasma alkaline phosphatase measurement (enzymatic activity/volume)2020-05-18 04:40:00* Test Item Value Reference Range Interpretation Comments Alkaline Phosphatase (test code = 6768-6) 103 40-150 [facility] Campuserum or plasma triglyceride measurement (mass/volume)2020-05-18 04:40:00* Test Item Value Reference Range Interpretation Comments Triglycerides Level (test code = 2571-8) 122 0-149 [facility] Campuserum or plasma cholesterol measurement (mass/volume)2020-05-18 04:40:00* Test Item Value Reference Range Interpretation Comments Cholesterol Level (test code = 2093-3) 74 0-199 Less than 200 mg/dL Low Nlec833 - 239 mg/dL Borderline Wjiu010 m g/dl and greater High Risk [facility] Campuserum or plasma cholesterol in LDL measurement (mass/volume) 2020-05-18 04:40:00* Test Item Value Reference Range Interpretation Comments LDL Cholesterol (test code = 2089-1) 34 60-130 [facility] Campuserum or plasma cholesterol in HDL measurement (mass/volume)2020-05-18 04:40:00* Test Item Value Reference Range Interpretation Comments HDL Cholesterol (test code = 2085-9) 16 40-60 [facility] Campuserum or plasma total cholesterol/cholesterol in HDL mass qcqnv5471-19-61 04:40:00* Test Item Value Reference Range Interpretation Comments Cholesterol/HDL Ratio (test code = 9830-1) 4.6 3.9-4.7 [facility] CenterFOOT LEFT [id number] 14:45:00 [facility] [address] [address] Patient Name: EJD BASSETT JR MR #: [id number] : 1955 Age/Sex: 64/M Req #: [id number] Adm Physician: JOHAN RANGEL MD Ordered by: MAGDA SANABRIA MD Report #: [id number] Location: [facility] Room/Bed: [address] [place] [address] Procedure: [id number] DX/FOOT LEFT C OMPLETE Exam Date: 05/17/20 Exam Time: 1409 REPORT STATUS: Signed EXAMINATION: FOOT LEFT COMPLETE INDICATION: Plantar foot ulcer COMPARISON: None FINDINGS: AP, lateral and oblique radiographs of the left foot were obtained. No acute fracture or dislocation. Alignment is anatomic. Scattered d egenerative changes. Small plantar calcaneal spur. Soft tissues appear unremar kable. No specific radiographic evidence of osteomyelitis. Atherosclerotic art erial calcifications. IMPRESSION: No acute osseous injury. No spe cific radiographic evidence of osteomyelitis. Signed by: Cesia Polanco MD on 05/17/2020 2:47 PM Dictated By: CESIA POLANCO MD 46 Transcribed By: RICARDO on 05/17/201446 CO PY TO: MAGDA SANABRIA MD Urine color jrldiupilswut0165-12-94 13:39:00* Test Item Value Reference Range Interpretation Comments Urine Color (test code = 5778-6) YELLOW YELLOW [facility] CenterUrine adrkgbn6277-17-98 13:39:00* Test Item Value Reference Range Interpretation Comments Urine Clarity (test code = 66979-4) CLEAR CLEAR [facility] Campuspecific gravity of Urine by Test strip 2020-05-17 13:39:00* Test Item Value Reference Range Interpretation Comments Urine Specific [place] (test code = 5811-5) 1.020 1.010-1.02 5 [facility] CenterUrine pH measurement by automated test ccdxq6886-94-68 13:39:00* Test Item Value Reference Range Interpretation Comments Urine pH (test code = 81911-7) 6.5 5-7 [facility] CenterUrine leukocyte esterase detection by bwbkuknb7928-68-80 13:39:00* Test Item Value Reference Range Interpretation Comments Urine Leukocyte Esterase (test code = 5799-2) NEGATIVE NEGATIVE [facility] CenterUrine nitrite ltvlhlhbu1191-39-98 13:39:00* Test Item Value Reference Range Interpretation Comments Urine Nitrite (test code = 89929-9) NEGATIVE NEGATIVE [facility] CenterUrine protein measurement by test strip (mass/volume)2020-05-17 13:39:00* Test Item Value Reference Range Interpretation Comments Urine Protein (test code = 5804-0) >=300 NEGATIVE [facility] CenterUrine glucose bngcrlszr0975-34-66 13:39:00* Test Item Value Reference Range Interpretation Comments Urine Glucose (UA) (test code = 2349-9) NEGATIVE NEGATIVE [facility] CenterUrine ketones detection by automated test kwpzi0460-00-60 13:39:00* Test Item Value Reference Range Interpretation Comments Urine Ketones (test code = 12007-2) TRACE NEGATIVE [facility] CenterUrine urobilinogen measurement by test strip (mass/volume)2020-05-17 13:39:00* Test Item Value Reference Range Interpretation Comments Urine Urobilinogen (test code = 00713-5) 0.2 0.2-1 [facility] CenterUrine total bilirubin measurement (mass/volume)2020-05-17 13:39:00* Test Item Value Reference Range Interpretation Comments Urine Bilirubin (test code = 1978-6) SMALL NEGATIVE [facility] CenterUrine erythrocytes iuhduptex6313-20-18 13:39:00* Test Item Value Reference Range Interpretation Comments Urine Blood (test code = 79387-8) SMALL NEGATIVE [facility] CenterAutomated urine sediment leukocyte count by microscopy (number/high power field)2020-05-17 13:39:00* Test Item Value Reference Range Interpretation Comments Urine WBC (test code = 5821-4) 6-10 0-5 [facility] CenterErythrocytes detection in urine sediment by light jvnxpkhkdj0121-17-27 13:39:00* Test Item Value Reference Range Interpretation Comments Urine RBC (test code = 17082-3) 6-10 0-5 [facility] CenterBacteria detection in urine sediment by light sduazkyhmx8913-69-01 13:39:00* Test Item Value Reference Range Interpretation Comments Urine Bacteria (test code = 53408-6) RARE NONE [facility] CenterEpithelial cells detection in urine sediment by light rmhezomdzc3895-01-45 13:39:00* Test Item Value Reference Range Interpretation Comments Urine Epithelial Cells (test code = 04413-4) FEW NONE [facility] CenterCHEST SINGLE (PORTABLE)2020-05-17 12:54:00 [facility] [address] [address] Patient Name: JED BASSETT JR MR #: [id number] : 1955 Age/Sex: 64/M Req #: [id number] Adm Physician: JOHAN RANGEL MD Ordered by: MAGDA SANABRIA MD Report #: [id number] Location: [facility] Room/Bed: [employer] Procedure: [id number] DX/CHEST SINGL E (PORTABLE) Exam Date: 05/17/20 Exam Time: 1220 REPORT STATUS: Signed EXAMINATION: CHEST SINGLE (PORTABLE) INDICATION: Fever COMPARISON: None FINDINGS: LINES/TUBES:Right IJ tunneled hemodialysis catheter terminates in the superior vena cava. EKG leads overlie the chest. LUNGS:The lungs are well-inflated. No focal consolidation or pulmonary edema. PLEURA:No pl eural effusion or pneumothorax. MEDIASTINUM:The cardiomediastinal silhouett e appears normal in size and shape. Atherosclerotic calcifications of the thor acic aorta. BONES/SOFT TISSUES:No acute osseous injury. ABDOMEN:No susan e air under the diaphragm. IMPRESSION: No focal pneumonia or pulmonar y edema. Signed by: Cesia Polanco MD on 05/17/2020 12:54 PM Dictated By : CESIA POLANCO MD [id number] Trans cribed By: RICARDO on 05/17/20 1254 COPY TO: MAGDA SANABRIA MD Prothrombin time (PT) in platelet poor plasma by coagulation ywyzk1269-37-43 11:20:00* Test Item Value Reference Range Interpretation Comments Prothrombin Time (test code = 5902-2) 14.3 11.9-14.5 [facility] CenterINR in Platelet poor plasma by Coagulation eoaov0696-59-18 11:20:00* Test Item Value Reference Range Interpretation Comments Prothromb Time International Ratio (test code = 6301-6) 1.05 Oral Anticoagulant Therapy INR Values:1. Low Intensity Therapy 1.5 - 2.02 . Moderate Intensity Therapy 2.0 - 3.03. High Intensity Therapy(1) 2.5 - 3. 54. High Intensity Therapy(2) 3.0 - 4.05. Panic Value INR > 5.0 [facility] CenterActivated partial thromboplastin time (aPTT) in platelet poor plasma by coagulation biqmv2213-55-73 11:20:00* Test Item Value Reference Range Interpretation Comments Activated Partial Thromboplast Time (test code = 37892-8) 57.7 23.8-35.5 [facility] CenterFluoroscopic procedure less than one hour xznqjlbx8486-59-77 11:20:00* Test Item Value Reference Range Interpretation Comments Lactic Acid Level (test code = Lactic Acid Level) 2.3 0.5- 2.0 Results repeated and called to REZA HARRELL at 1302 on 05/17/20 by Daniel Montgomery . Read back and verified.[facility] CenterBNP Bld-mCnc 2020-05-17 11:20:00* Test Item Value Reference Range Interpretation Comments B-Type Natriuretic Peptide (test code = 95823-1) 608.5 0-100 [facility] Campuserum or plasma creatine kinase measurement (enzymatic activity/volume)2020-05-17 11:20:00* Test Item Value Reference Range Interpretation Comments Creatine Kinase (test code = 2157-6) 40 30-200 [facility] Campuserum or plasma creatine kinase MB measurement (mass/volume)2020-05-17 11:20:00* Test Item Value Reference Range Interpretation Comments Creatine Kinase MB (test code = 55683-2) 0.30 0-5.0 [facility] CenterTroponin I measurement by highly sensitive enzyme whqexlvahda4596-24-64 11:20:00* Test Item Value Reference Range Interpretation Comments Troponin I (test code = 61354-0) 0.032 0-0.300 [facility] CenterFluoroscopic procedure less than one hour dfopbcue5630-37-88 11:20:00* Test Item Value Reference Range Interpretation Comments Coronavirus (PCR) (test code = Coronavirus (PCR)) NOT DETECTED NOTD ETECTED SARS-COV2/RT-PCRNegative results do not preclude SARS-CoV-2 infection and should not be used as the sole basis for patient management decisions. Negative results must be combined with clinical observations, patient history, and epidemiologi eleni information. A false negative result may occur if a specimen is improperly c ollected, transported or handled.The limit of detection for this assay is 250 co pies/mLThe SARS-CoV-2 test is a rapid, real-time RT-PCR test intended for the qu alitative detection of nucleic acid from SARS-CoV-2 in nasopharyngeal swab speci men collected from individuals suspected of COVID-19 by their healthcare provide r. This test has not been Food and Drug Administration (FDA) cleared or approved and has been authorized by FDA under an Emergency Use Authorization (EUA). This EUA will be effective until the declaration that circumstances exist justifying the authorization of the emergency use of in vitro diagnostic test for detection and or diagnosis of COVID-19 is terminated under section 564(b) of the Act, or the the EUA is revoked under 564(g) of the ACT.Testing performed by [facility], [place] [address]GRWSaint Camillus Medical CenterBlood iosplob4735-48-93 11:20:00* Test Item Value Reference Range Interpretation Comments Blood Culture (test code = 69142170) NO GROWTH AFTER 72 HOURS [facility] CenterBacterial blood fhvhboe8498-23-35 11:20:00* Test Item Value Reference Range Interpretation Comments Blood Culture (test code = 600-7) ENTEROBACTER CLOACAE [facility] CenterTreadmill tolerance(Non-Nuclear Treadmill)2019-12-22 16:44:12Interface, External Ris In - 12/22/2019 4:44 PM CSTProtocol Name DOBUT TM-1 Time In Exercise Phase 00:12:15 Max. Systolic BP 206 mmHgMax Diastolic BP 78 mmHgMax Heart Rate 157 BPMMax Predicted Heart Rate 158 BPMReason For Termination Arrhythmias Reason for Test ESRD Target HR Formula (220 - Age)*100% Arrhythmias Sustained Ventricular Tachycardia Resting ECG Normal sinus rhythm ST Changes No Significant Changes Overall Impression Abnormal stress ECG Chest Pain none HR Response To Exercise appropriate BP Response To Exercise APPROPRIATE RESPONSE Functional Capacity Indeterminate due to pharmacologic stress NIFEDIPINEmetoprololTest suspended d/t VT The Ventricular Tachycardia was sustained, but self-terminated. Confirmed by MD SALDANA RAYMOND ([id number]) on 12/22/2019 4:44:04 [facility] CenterECG 12 [id number] 11:06:53Interface, External Ris In - 12/17/2019 11:06 AM CSTVentricular Rate 69 BPMAtrial Rate 69 BPMP-R Interval 282 msQRS Duration 100 msQ-T Interval 442 msQTC Calculation(Bazett) 473 msP [place] 71 degreesR [place] -43 degreesT [place] 60 degreesSinus rhythm with 1st degree A-V blockLeft axis deviationAbnormal ECGNo previous ECGs availableConfirmed by MD Randy, Alejandro ([id number]) on 12/17/2019 11:06:[address] [facility]2D Echo W/Doppler(CW/PW/Color)2019-12-17 07:21:02Ejection FractionSLEH ECHO HEARTLAB MKCKESSON CPACSInterface, External Ris In - 12/17/2019 7:21 AM CSTTransthoracic Echocardiography Report (TTE) Demographics Patient Name JED BASSETT Date of Study 12/16/2019 Gender Male Visit Number [id number] Race Unknown Room Number Number Date of 1955 Referring Physician April Breaux Age 64 year(s) [employer] Levy Alberto Interpreting Vijaya Whaley Physician Fellow Harrison Pond MD Procedure Type of Study TTE procedure:2DECHO W DOPPLER(CW/PW/COLOR) (Routine) Indications:Pre-surgical evaluation of organ transplant.Clinical HistoryDMESRDHTNHLDHeight: 66 inches Weight: 79.83 kg (176 lbs) BSA: 1.89 m^2 BMI: 28.41 kg/m^2HR: 65 bpm BP: 195/89 mmHg Summary 1. Normal LV size and fu nction. All segments contract normally. LV EF 2. Normal RV size and function. 3. Grade 1 diastolic dysfunction (impaired relaxation and low-normal LA pressure). 4. No significant pericardial effusion is visualized. Previous Study No prior studies available for comparison. Signature Findings Technical Quality: Technically adequa te exam. Rhythm/BP Regular sinus rhythm during the exam. Left Vent ricle The left ventricle is chamber size (by vol index) is normal (male - LVED vol - 34-74ml/m2). LV septal thickness is normal (0.6-1.1cm). LV posterior wall thic kness is mildly increased (1.2-1.4cm) . Borderline concentric LV hypertrophy. Grade 1 diast olic dysfunction (impaired relaxation and low-normal LA p ressure). Estimated LVEF by qualitative assessment is nor mal (>60%) . Left Atrium LA size is normal . Right Ventricle The right ventricular chamber size and systolic function are within normal limits. Right Atrium RA size is normal. Atrial Septum Normal interatrial septum by available views. Aortic Valve Normal AoV structure There is mild aortic stenosis. Mitral Valve Mild mitral annular calcification. No significant mitral regurgitation. Tricuspid Valve TV structure is normal. A trace of tricuspid regurgitation. Estimated peak systolic PA pressure is 20-25 mmHg . Pulmonic Valve Normal PV structure and function. Aorta Aortic root size (SInus of Valsalva diameter) is normal . Pericardium No significant pericardial effusion is visualized. IVC/SVC/PA/PV/Pleural The estimated RA pressure by IVC dynamics 5-10mmHg . Chambers/Structures Left Atrium LA Volume: 39.88 ml LA Area: 15.32 cm^2 LA Vol. Index: 21 ml/m^2 Left Ventricle LVIDd: 4.19 cm LVEDV:84.33 ml LV Septum Diastolic: 1.29 cm LV Septum Systolic: 1.11 cm LV PW Diastolic: 1.29 cm LV Length: 9.03 cm LV PW Systolic: 1.13 cm LVEDV Bernal's:77.83 ml LVEDVI: 41 ml/m^2 LVESV Bernal's:25.42 ml LVESVI: 13 ml/m^2 LVEF Bernal's: 67.3 % LVOT Diameter: 2.12 cm Right Ventricle RV Diast Dim.: 2.73 cm Aorta Ao Root S of Sofie.: 3.04 cm Ascending Aorta: 3.29 cm Doppler/Quantitative Measurements Mitral Valve MV Peak E-Wave: 0.77 m/s MV Peak A-Wave: 0.86 m/s E/A Ratio: 0.9 Mean Velocity: 0.67 m/s Peak Gradient: 2.38 mmHg Mean Gradient: 1.98 mmHg Deceleration Time: 272.9 msec Area (continuity): 2.08 cm^2 MV VTI: 36.1 cm MV Dario. Peak: 1.02 m/s Tissue Doppler E' Septal Velocity: 0.11 m/s E/E': 6.87 E' Lateral Velocity: 0.1 m/s Aortic Valve Peak Velocity: 1.47 m/s Mean Velocity: 0.95 m/s Peak Gradient: 8.62 mmHg Mean Gradient: 4.14 mmHg AV Area (continuity): 2.12 cm^2 AV VTI: 35.41 cm AV DVI: 0.6 LVOT Peak Velocity: 0.89 m/s Peak Gradient: 3.13 mmHg Mean Velocity: 0.58 m/s Mean Gradient: 1.56 mmHg LVOT Diameter: 2.12 cm LVOT VTI: 21.25 cm LVOT Area: 3.53 cm^2 LVOT SV:74.97 ml LVOT CO: 4.87 l/min LVOT CI: 2.58 l/min/m^2 RVOT RVOT VTI (PW): 23.72 cm [facility] Echo With [id number] 07:14:29Ejection FractionSLEH ECHO HEARTLAB MKCKESSON CPACSInterface, External Ris In - 12/17/2019 7:14 AM CSTStress Echocardiography Report Demographics Patient Name JED BASSETT Date of Study 12/16/2019 Gender Male Visit Number [id number] Race Unknown Room Number Number Date of 1955 Referring Physician April Breaux Age 64 year(s) [employer] Levy Alberto Interpreting Vijaya Whaley, Physician MD Fellow Harrison Pond MD Procedure Type of Study Stress procedure:STRESS(TMT)ECHO W/TMT TRACING (Routine) Indications:Pre-surgical evaluation of organ transplant.Clinical Hist oryDMESRDHTNHLDContrast Medium: Definity.Height: 66 inches Weight: 79.83 kg (176 lbs) BSA: 1.89 m^2 BMI: 28.41 kg/m^2HR: 65 bpm BP: 195/89 mmHg Rest ECG Sinus Rhythm. 1st Degree AV-block. Stress Stress Type: Pharmacologic Peak HR: 100 b pm HR BP Product: Peak BP: 206/78 mmHg Predicted HR : 158 bpm % of predicted HR: 63 Test Duration: 4:31 min Stress Interpretation Target HR was achieved (>85% peak predicted HR). All segments contract normally at baseline and at all stages of stress. Echocardiographically normal stress echo. ECG portion notable for hemodynamically stable, asymptomatic sustained VT with rate up to 190s. Results ECG no significant ST-T wave changes. Patient developed hemodynamically stable, sustained VT lasting up to 1 min w/ HR up to 190. Arrhythmias sustained ventricular tachycardia Symptoms No symptoms during stress test. Stress Protocol: Pharmacologic - Dobutamine+-----+-----+------+ +------+-----+--------+ --+--------+----+------+!Stage!Time !Dosage!Other !Dosage!Heart!Blood !CP! Pain !Pain!Pain !!# ! ! !Medication! !Rate !Pressure! !Loc ation!Type!Action!+-----+-----+------+ +------+-----+--------+--+------ --+----+------+!1.0 !03:21!10.00 ! ! !88 !206/78 ! ! ! ! !+-----+-----+------+ +------+-----+--------+--+--------+--- -+------+!2.0 !04:25!20.00 ! ! !100 !181/61 ! ! ! ! !+-----+-----+------+ +------+-----+--------+--+--------+----+---- --+!3.0 !04:31!30.00 ! ! !96 !160/52 ! ! ! ! ! +-----+-----+------+ +------+-----+--------+--+--------+----+------+ Gann flaquita This is a negative Echocardiographic Stress Test. Signature [facility] CampusHemoglobin [id number] 11:16:00* Test Item Value Reference Range Interpretation Comments Hemoglobin A1C (test code = 4548-4) 7.7 % 4.3-6.1 H Lab Interpretation (test code = 37362-6) Abnormal [facility] CampusHEMOGLOBIN [id number] 11:16:00* Test Item Value Reference Range Interpretation Comments HEMOGLOBIN A1C (BEAKER) (test code = 368) 7.7 % 4.3-6.1 H RAD, CHEST, 2 [id number] 10:01:00Reason for Exam:->Pre kidney transplant evaluation.FINAL REPORT INDICATION: Pre kidney transplant evaluation. COMPARISON: None TECHNIQUE: Frontal and lateral views of the chest. FINDINGS: Lungs and pleura: Clear lungs. No effusion.Heart and mediastinum: Normal heart size. Unremarkable mediastinal contours.Osseous structures: No acute abnormality.Additional findings: Right IJ dual-lumen central venous catheter terminates over the superior vena cava. IMPRESSION: No acute intrathoracic abnormality. Signed: JR Ev, Jesse [facility] Verified Date/Time: 12/16/2019 10:01:55 Reading Location: [facility] Radiology Reading Room chest 2 [id number] 10:01:00Interface, External Ris In - 12/16/2019 10:04 AM CSTFINAL REPORT INDICATION: Pre kidney transplant evaluation. COMPARISON: None TECHNIQUE: Frontal and lateral views of the chest. FINDINGS: Lungs and pleura: Clear lungs. No effusion.Heart and mediastinum: Normal heart size. Unremarkable mediastinal contours.Osseous structures: No acute abnormality.Additional findings: Right IJ dual-lumen central venous catheter terminates over the superior vena cava. IMPRESSION: No acute intrathoracic abnormality. Signed: JR Carreno Robert MDReport Verified Date/Time: 12/16/2019 10:01:55 Reading Location: [facility] Radiology Reading Room Electronically signed by: JESSE CARRENO on 0 12/16/2019 10:01 AM [facility] CampusU/S, ABDOMINAL, COMPLETE 2019-12-16 09:36:00Reason for Exam:->Kidney transplant evaluation; comment on number of renal cysts on each side to meet criteria for Acquired Cystic Kidney DiseaseFINAL REPORT Abdominal ultrasound dated 12/16/2019 History: Kidney transplant evaluation. COMPARISON: None Findings: Liver is normal in size and echogenicity. The liver measures 14 cm in length. No focal lesion is noted in the liver. Spleen is normal in size, 8.8 cm in length, without focal abnormality. Gallbladder is normal in appearance. No gallstone or biliary dilatation seen. Common bile duct measures four mm in diameter. Main portal vein measures 1.2 cm in diameter. Pancreas is normal in appearance. Right kidney measures 9.8 x 5.8 x 5.8 cm. Left kidney measures 9.8 x 5.4 x 4.6 cm. Echogenicity of both kidneys is normal. There is a 1.1 x 0.7 x 0.8 cm cyst in the mid region of the left kidney. No hydronephrosis, solid mass, or calculus seen. No ascites is present in the abdomen. Abdominal aorta is normal in caliber. IVC and hepatic veins are patent. Impression: Single 1.1 cm left renal cyst, otherwise unremarkable. Signed: Marianna Gaytaneport Verified Date/Time: 12/16/2019 09:36:15 Reading Location: [address] Radiology Reading Room abdomen [id number] 09:36:00Interface, External Ris In - 12/16/2019 9:38 AM CSTFINAL REPORT Abdominal ultrasound dated 12/16/2019 History: Kidney transplant evaluation. COMPARISON: None Findings: Liver is normal in size and echogenicity. The liver measures 14 cm in length. No focal lesion is noted in the liver. Spleen is normal in size, 8.8 cm in length, without focal abnormality. Gallbladder is normal in appearance. No gallstone or biliary dilatation seen. Common bile duct measures four mm in diameter. Main portal vein measures 1.2 cm in diameter. Pancreas is normal in appearance. Right kidney measures 9.8 x 5.8 x 5.8 cm. Left kidney measures 9.8 x 5.4 x 4.6 cm. Echogenicity of both kidneys is normal. There is a 1.1 x 0.7 x 0.8 cm cyst in the mid region of the left kidney. No hydronephrosis, solid mass, or calculus seen. No ascites is present in the abdomen. Abdominal aorta is normal in caliber. IVC and hepatic veins are patent. Impression: Single 1.1 cm left renal cyst, otherwise unremarkable. Signed: Marianna Gaytaneport Verified Date/Time: 12/16/2019 09:36:15 Reading Location: [address] Radiology Reading Room [facility]PSA2020-02-[facility] 08:48:00* Test Item Value Reference Range Interpretation Comments PSA (test code = 2857-1) 0.3 ng/mL 0-4 SOUTH (test code = SOUTH) Pipe Finishing Supervisor ID - DB Lab Interpretation (test code = 44782-9) Normal [facility]PSA2020-02-26 08:48:00* Test Item Value Reference Range Interpretation Comments PROSTATE SPECIFIC ANTIGEN (BEAKER) (test code = 844) 0.3 ng/mL 0 .0-4.0 Pipe Finishing Supervisor ID - DBBlood typing, [id number] 07:58:00* Test Item Value Reference Range Interpretation Comments ABO/RH AUTOMATED (BEAKER) (test code = 2260) O POSITIVE [facility] CampusLipid [id number] 07:56:00* Test Item Value Reference Range Interpretation Comments Triglycerides (test code = 2571-8) 120 mg/dL Cholesterol (test code = 2093-3) 105 mg/dL HDL (test code = 2085-9) 32 mg/dL LDL Calculated (test code = 28311-3) 49 mg/dL SOUTH (test code = SOUTH) Triglyceride Reference Range : Low Risk <150 Borderline 150-199 High Risk 200-499 Very High Risk >=500 Cholesterol Reference Range: Low Risk <200 Borderline 200-239 High Risk >240 HDL Cholesterol Reference Range: Low Risk >=60 High Risk <40 LDL Cholesterol Reference Range: Optimal <100 Near Optimal 100-129 Borderline 130-159 High 160-189 Very High >=190 Pipe Finishing Supervisor ID Lashell Yates [facility] CampusLIPID [id number] 07:56:00* Test Item Value Reference Range Interpretation Comments TRIGLYCERIDES (BEAKER) (test code = 540) 120 mg/dL CHOLESTEROL (BEAKER) (test code = 631) 105 mg/dL HDL CHOLESTEROL (BEAKER) (test code = 976) 32 mg/dL LDL CHOLESTEROL CALCULATED (BEAKER) (test code = 633) 49 mg/dL Triglyceride Reference Range: Low Risk <150 Borderline 150-199 High Risk 200-499 Very High Risk >=500Cholesterol Reference Range: Low Risk <200 Borderline 200-239 High Risk >240HDL Cholesterol Reference Range: Low Risk >=60 High Risk <40LDL Cholesterol Reference Range: Optimal <100 Near Optimal 100-129 Borderline 130-159 High 160-189 Very High >=190 Pipe Finishing Supervisor CARON SCOTTLA TYPING [id number] 22:51:00* Test Item Value Reference Range Interpretation Comments HLA-A AG1 (test code = 3466) 2 HLA-A AG2 (test code = 3467) 3 HLA-B AG1 (test code = 3468) 35 HLA-B AG2 (test code = 3469) 35 HLA-C AG1 (test code = 3470) 4 HLA-C AG2 (test code = 3471) 4 HLA-B BW1 (test code = 3234) 6 HLA-B BW2 (test code = 3235) 6 SOUTH (test code = SOUTH) Disclaimer: This test was de veloped and its performance characteristics determined by the [facility]. It has not been cleared or approved by the U.S. Food and Drug Administration. The FDA has determined that such clearance or approval is not necessary. This test is used for clinical purposes. It should not be regarded as investigational or for research. This laboratory is certified under the Clinical Laboratory Improvement Amendments of 1988 (CLIA-88) as qualified to perform high complexity clinical laboratory testing. [facility] CampusHLA TYPING [id number] 22:51:00* Test Item Value Reference Range Interpretation Comments HLA-DR AG1 (test code = 3465) 10 HLA-DR AG2 (test code = 3472) 1 HLA-DQA1 AG 1-1 (test code = 3463) 1 HLA-DQA1 AG 1-2 (test code = 3464) 1 HLA-DQB1 AG 1-1 (test code = 3244) 5 HLA-DQB1 AG 1-2 (test code = 3245) 5 HLA-DPA1 AG 1-1 (test code = 3246) 2 HLA-DPA1 AG 1-2 (test code = 3247) 2 HLA-DPB1 AG 1-1 (test code = 3248) 10:01 HLA-DPB1 AG 1-2 (test code = 3249) 17:01 SOUTH (test code = SOUTH) Disclaimer: This test was de veloped and its performance characteristics determined by the [facility]. It has not been cleared or approved by the U.S. Food and Drug Administration. The FDA has determined that such clearance or approval is not necessary. This test is used for clinical purposes. It should not be regarded as investigational or for research. This laboratory is certified under the Clinical Laboratory Improvement Amendments of 1988 (CLIA-88) as qualified to perform high complexity clinical laboratory testing. [facility]- XR RIBS UNI W/CXR 3+V [id number] 19:52:00 FAX: Maldonado Goldman Maribel: [place] St: REG Name: JED WHITEHEAD [facility] FS : [birth year] 59 Age/S: 64/M [address] [facility] Unit #: [id number] Loc: BRII [address] Phys: Maldonado Goldman MD [place], [place] [address] Acct: [id number] Dis Date: Status: REG ER PHONE #: Exam Date: 12/04/2019 6376 FAX #: Reason: FALL, RIGHT RIB PAIN EXAMS: CPT CODE: [id number] XR RIBS UNI W/CXR 3+V RT 19777 EXAM: Right-sided rib series, 4 vi ews; INFORMATION: Right-sided rib pain after fall; F INDINGS: There is a slightly displaced fracture of the anterior portion of the seventh rib on the right. There is also irregular configuration of the anterior lateral aspect of the 10th rib. This could be due to a no ndisplaced fracture or potentially an old fracture. The remainder of the ribs is intact. There is no evidence of pulmonary contusion or of a p neumothorax. IMPRESSION: 1. Acute fracture of the sevent h rib on the right. 2. Is a nondisplaced acute or chronic fracture of th e 10th rib on the right. Location code: [facility] at 1949 Reported and signed by: Hardy Juarez M.D. CC: Maldonado Goldman MD Technologist: April Louis Trnnerd Date/Time/By: 12/04/2019 (1949) : By: [email or web address] Orig Print D/T: S: 12/04/2019 (1953) PAGE 1 Signed Report HERNIA [id number] 14:34:00 RUN DATE: 12/03/19 [place] - Lab PAGE 1 RUN TIME: 1434 Specimen Inqui ry RUN USER: INTERFACE PATIENT: JED BASSETT JR ACCT #: [id number] [facility] #: [id number] AGE/SX: 64/M ROOM: RE12/02/19REG DR: Keron Galdamez MD : 59 BED: DIS: STATUS: [facility] TLOC: SPEC #: [id number] RECD: 12/02/19 [facility] RE #: [id number] SUSAN: 12/02/19- [facility] DR: Keron Galdamez MD ENTERED: 12/02/19 SP TYPE: HERNIA SAC OTHR DR: Antony Cox MD ORDERED: GROSS COPIES TO: Keron Galdamez MD [address] [place], [place] [id number] [place] [address] [place] [address] PROCEDURES: GROSS (12/03/19-1106) TISS UES: 1. INGUINAL REGION, NOS - RIGHT LIPOMA 2. INGUINAL REGION , NOS - LEFT LIPOMA CLINICAL HISTORY COLLECTION DATE: 12/02/19 FINAL DIAGNOSIS Right inguinal lipoma, inguinal hernia repair: ADIPOSE TISSUE CONSISTENT WITH HERNIA CONTENTS Left inguinal lipoma, ing uinal hernia repair: ADIPOSE TISSUE CONSISTENT WITH HERNIA CONTENTS DMW/sm D [id number] MACROSCOPIC Specimen (1) is received in [facility] labeled with the patient's name, "right lipoma" and consists of a porti on of yellow fatty tissue with smooth rounded margins that measures 11 cm in l ength with a diameter ranging from 1.5 up to 3.8 cm. The cut surface is homo genous. Geotechnical Engineering Technician tissue is submitted for histologic evaluation as (1). CONTINUED ON NEXT PAGE RUN DATE : 12/03/19 [facility] PAGE 2 RUN TIME: 1434 Specimen Inquiry RUN USER: INTERFACE SPEC #: [id number] PATIENT: JED BASSETT #V [id number] (Continued) MACROSCOPIC (Continue d) Specimen (2) is received in formalin labeled with the patient's name, "left lipoma" and consists of a portion of yellow fatty tissue with smooth rou nded contours measuring 7 cm in length with diameters up to 1.5 cm. The cut s urface is homogenous and yellow with no areas of hemorrhage and necrosis. R epresentative tissue is submitted as (2). GROSS PERFORMED AT [facility] [address] [place] [address] LINDA BHATTI [address] (p)[phone] MICROSCOPIC All of the stains, i ncluding any controls performed, stain appropriately. MICROSCOPIC PERFOR MED AT [facility] [address] [place] [address] (P)[phone] PERFORMING SITE Diagnosis performed at: [facility] [place] [facility] [address] [facility], [place] [address] Signed SIGNATURE ON FILE Margarito Moore MD 12/03/19 1434 END OF REPORT AB SPECIFICITY CLASS [id number] 11:01:00* Test Item Value Reference Range Interpretation Comments AB Specificity Class I (test code = 3457) NO CLASS I A NTIBODY DETECTED WITH MFIs > 4000 SOUTH (test code = SOUTH) Disclaimer: This test was de veloped and its performance characteristics determined by the [facility]. It has not been cleared or approved by the U.S. Food and Drug Administration. The FDA has determined that such clearance or approval is not necessary. This test is used for clinical purposes. It should not be regarded as investigational or for research. This laboratory is certified under the Clinical Laboratory Improvement Amendments of 1988 (CLIA-88) as qualified to perform high complexity clinical laboratory testing. [facility] CampusGLUBED2020-02-12 10:27:00* Test Item Value Reference Range Interpretation Comments GLUBED (test code = GLUBED) 180 mg/dL 74-106 H Performed by certified knife machine operator at [facility] [id number] 07:57:00* Test Item Value Reference Range Interpretation Comments POTASSIUM (test code = K) 3.8 mmol/L 3.5-5.1 N [id number] 07:49:00* Test Item Value Reference Range Interpretation Comments GLUBED (test code = GLUBED) 204 mg/dL 74-106 H Performed by certified knife machine operator at [facility] FLOW PRA CLASS I WITH REFLEX TO ANTIBODY [id number] 11:44:00* Test Item Value Reference Range Interpretation Comments Flow Class I Percent Positive (test code = 3229) 10 SOUTH (test code = SOUTH) Disclaimer: This test was de veloped and its performance characteristics determined by the [facility]. It has not been cleared or approved by the U.S. Food and Drug Administration. The FDA has determined that such clearance or approval is not necessary. This test is used for clinical purposes. It should not be regarded as investigational or for research. This laboratory is certified under the Clinical Laboratory Improvement Amendments of 1988 (CLIA-88) as qualified to perform high complexity clinical laboratory testing. [facility] CampusFLOW PRA CLASS II WITH REFLEX TO ANTIBODY [id number] 11:44:00* Test Item Value Reference Range Interpretation Comments Flow Class II Percent Positive (test code = 3231) 0 SOUTH (test code = SOUTH) Disclaimer: This test was de veloped and its performance characteristics determined by the [facility]. It has not been cleared or approved by the U.S. Food and Drug Administration. The FDA has determined that such clearance or approval is not necessary. This test is used for clinical purposes. It should not be regarded as investigational or for research. This laboratory is certified under the Clinical Laboratory Improvement Amendments of 1988 (CLIA-88) as qualified to perform high complexity clinical laboratory testing. [facility] CampusT Spot [id number] 19:29:00* Test Item Value Reference Range Interpretation Comments T-Spot TB (test code = 65734-0) Negative Neg Ctrl Spot Count (test code = 21753-6) 0 Panel A Spot (test code = 81844-0) 0 Panel B Spot (test code = 68586-0) [address] (test code = 33674-0) 0 Scan Result (test code = 9528533) [facility] CampusBASI METABOLIC [id number] 12:11:00* Test Item Value Reference Range Interpretation Comments SODIUM (test code = NA) 135 mmol/L 136-145 L POTASSIUM (test code = K) 3.5 mmol/L 3.5-5.1 N CHLORIDE (test code = CL) 97.0 mmol/L 98-107 L CARBON DIOXIDE (test code = CO2) 33.0 mmol/L 21-32 H ANION GAP (test code = GAP) 8.5 10-20 L GLUCOSE (test code = GLU) 244 mg/dL 74-106 H BLOOD UREA NITROGEN (test code = BUN) 29 mg/dL 7-18 H GLOMERULAR FILTRATION RATE (test code = GFR) 16 mL/min >=60 Estimated GFR by using Modified MDRD formula.Chronic kidney disease is defined as either kidney damageor GFR <60 mL/min/1.73 m2 for >3 months. CREATININE (test code = CREAT) 3.90 mg/dL 0.7-1.3 H BUN/CREATININE RATIO (test code = BUN/CREA) 7.4 10-20 L CALCIUM (test code = CA) 7.5 mg/dL 8.5-10.1 L CBC W/AUTO [id number] 11:39:00* Test Item Value Reference Range Interpretation Comments WHITE BLOOD CELL (test code = WBC) 8.7 K/mm3 4.5-12.5 N RED BLOOD CELL (test code = RBC) 3.90 mill/mm3 4.0-5.8 L HEMOGLOBIN (test code = HGB) 10.7 gram/dL 13.0-17.5 L HEMATOCRIT (test code = HCT) 34.0 % 42.0-52.0 L MEAN CELL VOLUME (test code = MCV) 87.2 fL 80-98 N MEAN CELL HGB (test code = MCH) 27.4 picogram 27.0-33.0 N MEAN CELL HGB CONCETRATION (test code = MCHC) 31.5 gram/dL 33.0-36. 0 L RED CELL DISTRIBUTION WIDTH (test code = RDW) 13.6 % 11.6-16. 2 N RED CELL DISTRIBUTION WIDTH SD (test code = RDW-SD) 41.8 fL 37 .0-51.0 N PLATELET COUNT (test code = PLT) 234 K/mm3 150-450 N MEAN PLATELET VOLUME (test code = MPV) 11.2 fL 6.7-11.0 H NEUTROPHIL % (test code = NT%) 60.4 % 39.0-69.0 N IMMATURE GRANULOCYTE % (test code = IG%) 0.3 % 0.0-5.0 N LYMPHOCYTE % (test code = LY%) 27.7 % 25.0-55.0 N MONOCYTE % (test code = MO%) 8.4 % 0.0-10.0 N EOSINOPHIL % (test code = EO%) 2.9 % 0.0-5.0 N BASOPHIL % (test code = BA%) 0.3 % 0.0-1.0 N NUCLEATED RBC % (test code = NRBC%) 0.0 % 0-0 N NEUTROPHIL # (test code = NT#) 5.21 K/mm3 1.8-7.7 N IMMATURE GRANULOCYTE # (test code = IG#) 0.03 x10 3/uL 0-0.03 N LYMPHOCYTE # (test code = LY#) 2.40 K/mm3 1.0-5.0 N MONOCYTE # (test code = MO#) 0.73 K/mm3 0-0.8 N EOSINOPHIL # (test code = EO#) 0.25 K/mm3 0.0-0.5 N BASOPHIL # (test code = BA#) 0.03 K/mm3 0.0-0.2 N NUCLEATED RBC # (test code = NRBC#) 0.00 K/mm3 0.0-0.1 N Cytomegalovirus antibody, [id number] 04:11:00* Test Item Value Reference Range Interpretation Comments CYTOMEGALOVIRUS, IGG (test code = 3429) Positive Negative, Equi vocal A SOUTH (test code = SOUTH) CMV IgG Result Interpretatio n: </= 0.8 Al Negative 0.9- 1.0 Al Equivocal >/=1.1 Al Positive Lab Interpretation (test code = 57485-4) Abnormal [facility] antibody, [id number] 04:11:00* Test Item Value Reference Range Interpretation Comments KEELY SHIEH VIRAL CAPSID ANTIGEN IGG (test code = 3415) Pos itive Negative, Equivocal A SOUTH (test code = SOUTH) Keely Hsieh Viral Capsid An tigen IgG Result Interpretation: </= 0.8 Al Negative 0.9-1.0 Al Equivocal >/= 1.1 Al Positive Lab Interpretation (test code = 08739-2) Abnormal [facility] CampusEBV-VCA antibody, [id number] 04:11:00* Test Item Value Reference Range Interpretation Comments KEELY HSIEH VIRAL CAPSID ANTIGEN IGM (test code = 3418) Neg ative Negative, Equivocal SOUTH (test code = SOUTH) Keely Hsieh Viral Capsid An tigen IgM Result Interpretation: </= 0.8 Al Negative 0.9-1.0 Al Equivocal >/= 1.1 Al Positive Lab Interpretation (test code = 83996-9) Normal [facility] CampusCytomegalovirus antibody, [id number] 04:11:00* Test Item Value Reference Range Interpretation Comments CMV IGM (test code = 3437) Negative Negative, Equivocal SOUTH (test code = SOUTH) CMV IgM Result Interpretatio n: </= 0.8 Al Negative 0.9-1.0 Al Equivocal >/= 1.1 Al Positive Lab Interpretation (test code = 20386-2) Normal [facility] CampusMHA - [id number] 04:11:00* Test Item Value Reference Range Interpretation Comments TREPONEMA PALLIDUM, SYPHILIS IGG (test code = 6561-5) Reactive Nonreactive AA SOUTH (test code = SOUTH) Test performed by CALEB method. Lab Interpretation (test code = 61607-6) Abnormal [facility] CampusCYTOMEGALOVIRUS ANTIBODY, [id number] 04:11:00* Test Item Value Reference Range Interpretation Comments CYTOMEGALOVIRUS, IGG (BEAKER) (test code = 3429) Positive Negat joe, Equivocal A CMV IgG Result Interpretation: </= 0.8 Al Negative 0.9-1.0 Al Equivocal > /=1.1 Al PositiveCYTOMEGALOVIRUS ANTIBODY, [id number] 04:11:00* Test Item Value Reference Range Interpretation Comments CYTOMEGALOVIRUS IGM ANTIBODY (BEAKER) (test code = 3437) Neg ative Negative, Equivocal CMV IgM Result Interpretation: </= 0.8 Al Negative 0.9-1.0 Al Equivocal > /= 1.1 Al PositiveEBV ANTIBODY, [id number] 04:11:00* Test Item Value Reference Range Interpretation Comments KEELY HSIEH VIRAL CAPSID ANTIGEN IGG (RdioAKER) (test code = 3415) Positive Negative, Equivocal A Keely Hsieh Viral Capsid Antigen IgG Result Interpretation: </= 0.8 Al Negative 0.9-1.0 Al Equivocal >/= 1.1 Al PositiveEBV ANTIBODY, [id number] 04:11:00* Test Item Value Reference Range Interpretation Comments KEELY HSIEH VIRAL CAPSID ANTIGEN IGM (RdioAKER) (test code = 3418) Negative Negative, Equivocal Keely Hsieh Viral Capsid Antigen IgM Result Interpretation: </= 0.8 Al Negative 0.9-1.0 Al Equivocal >/= 1.1 Al PositiveTREPONEMA PALLIDUM - SYPHILIS [id number] 04:11:00* Test Item Value Reference Range Interpretation Comments TREPONEMA PALLIDUM, SYPHILIS IGG (TWANAKER) (test code = 3427) Reactive Nonreactive AA Test performed by CALEB method.Varicella Zoster Antibody, [id number] 03:46:00 * Test Item Value Reference Range Interpretation Comments Varicella IgG (test code = 23038-9) 7.2 SOUTH (test code = SOUTH) VARICELLA ZOSTER RESULT INTE RPRETATIONS: <=0.8 Al Nonreactive: Presumed non-immune to VZV 0.9-1.0 Al Equivocal >=1.1 Al Reactive: Presumed immune to VZV [facility] CampusVARICELLA ZOSTER ANTIBODY, [id number] 03:46:00* Test Item Value Reference Range Interpretation Comments VARICELLA ZOSTER IGG (AL) (BEAKER) (test code = 3197) 7.2 VARICELLA ZOSTER RESULT INTERPRETATIONS: <=0.8 Al Nonreactive: Presumed non-immune to VZV 0.9-1.0 Al Equivocal >=1.1 Al Reactive: Presumed immune to VZVRPR [id number] 02:59:00* Test Item Value Reference Range Interpretation Comments RPR Titer (test code = 49616-4) 1:4 [facility] CampusRPR [id number] 02:59:00* Test Item Value Reference Range Interpretation Comments RPR TITER (BEAKER) (test code = 1485) :4 [id number] 02:58:00* Test Item Value Reference Range Interpretation Comments RPR (test code = 86387-8) Reactive Nonreactive A Lab Interpretation (test code = 77690-2) Abnormal [facility] CampusRPR2020-02-07 02:58:00* Test Item Value Reference Range Interpretation Comments RPR SCREEN (BEAKER) (test code = 420) Reactive Nonreactive A Hepatitis C [id number] 15:09:00* Test Item Value Reference Range Interpretation Comments Hepatitis C Ab (test code = 53703-9) Reactive Nonreactive A SOUTH (test code = SOUTH) Pipe Finishing Supervisor ID - TagorizeMAXWELL Lab Interpretation (test code = 36898-7) Abnormal [facility] CampusHEPATITIS C [id number] 15:09:00* Test Item Value Reference Range Interpretation Comments HEPATITIS C ANTIBODY (BEAKER) (test code = 367) Reactive Nonrea ctive Database Support ID - AFSANEHGDirect AHG (FELIPA)/Direct [id number] 14:09:00* Test Item Value Reference Range Interpretation Comments Direct AHG-IGG (test code = 1006-6) NEGATIVE saline control-negative Direct AHG-C3B, C3D (test code = 1003-3) NEGATVIE [facility] CampusHeselect specialty hospitaltis B surface [id number] 13:48:00* Test Item Value Reference Range Interpretation Comments Hep B S Ab (test code = 67397-4) <8.0 <8.0 mIU/mL SOUTH (test code = SOUTH) Pipe Finishing Supervisor ID - TagorizeJESS Lab Interpretation (test code = 20404-6) Normal [facility] B SURFACE [id number] 13:48:00* Test Item Value Reference Range Interpretation Comments HEPATITIS B SURFACE ANTIBODY (BEAKER) (test code = 647) < mIU/mL <8.0 Pipe Finishing Supervisor ID - ROSIANepatitis B surface [id number] 13:45:00* Test Item Value Reference Range Interpretation Comments HBsAg Screen (test code = 5195-3) Nonreactive Nonreactive SOUTH (test code = SOUTH) Pipe Finishing Supervisor ID - TagorizeMAXWELL Lab Interpretation (test code = 26609-9) Normal [facility] B core antibody, [id number] 13:45:00* Test Item Value Reference Range Interpretation Comments Hep B C IgM (test code = 33623-2) Nonreactive Nonreactive SOUTH (test code = SOUTH) Pipe Finishing Supervisor ID - PAPI Lab Interpretation (test code = 56927-5) Normal [facility] CampusHIV-1 Antigen with HIV-1/2 [id number] 13:45:00* Test Item Value Reference Range Interpretation Comments HIV-1 Antigen with HIV 1&2 Antibody (test code = 68185-2) No nreactive Nonreactive SOUTH (test code = SOUTH) Pipe Finishing Supervisor ID - PAPI Lab Interpretation (test code = 61336-5) Normal [facility] CampusHEPATITIS B SURFACE [id number] 13:45:00* Test Item Value Reference Range Interpretation Comments HEPATITIS B SURFACE ANTIGEN (2) (BEAKER) (test code = 2585) Nonreactive Nonreactive Pipe Finishing Supervisor ID Lashell SHELBYEPATITIS B CORE ANTIBODY, [id number] 13:45:00* Test Item Value Reference Range Interpretation Comments HEPATITIS B CORE IGM ANTIBODY (BEAKER) (test code = 645) Non reactive Nonreactive Pipe Finishing Supervisor ID - AFSANEHIV-1 ANTIGEN WITH HIV-1/2 [id number] 13:45:00* Test Item Value Reference Range Interpretation Comments HIV-1 ANTIGEN WITH HIV 1\\T\\2 ANTIBODY (2) (BEAKER) (te st code = 2586) Nonreactive Nonreactive Pipe Finishing Supervisor ID Lashell [facility], [id number] 13:32:00* Test Item Value Reference Range Interpretation Comments PTH (test code = 2731-8) 462.7 pg/mL 8.5-72.5 H SOUTH (test code = SOUTH) Pipe Finishing Supervisor ID - PAPI Lab Interpretation (test code = 47636-0) Abnormal [facility] CampusPTH, [id number] 13:32:00* Test Item Value Reference Range Interpretation Comments PARATHYROID HORMONE INTACT (BEAKER) (test code = 577) 462.7 pg/mL 8.5-72.5 H Pipe Finishing Supervisor ID - AFSANEHomprehensive metabolic [id number] 13:30:00* Test Item Value Reference Range Interpretation Comments Protein, Total (test code = 2885-2) 7.5 6.0- 8.3 gm/dL Albumin (test code = 82735-2) 4.0 g/dL 3.5-5 Alkaline Phosphatase (test code = 6768-6) 161 U/L 40-150 H Total Bilirubin (test code = 1975-2) 0.5 mg/dL 0.2-1.2 Sodium (test code = 2951-2) 133 meq/L 136-145 L Potassium (test code = 2823-3) 3.2 meq/L 3.5-5.1 L Chloride (test code = 5-0) 94 meq/L 98-107 L CO2 (test code = 2027-9) 27 meq/L 22-29 BUN (test code = 3094-0) 34 mg/dL 7-21 H Creatinine (test code = 2160-0) 5.10 mg/dL 0.57-1.25 H Glucose (test code = 2345-7) 243 mg/dL 70-105 H Calcium (test code = 34296-5) 8.0 mg/dL 8.4-10.2 L AST (test code = 1920-8) 18 U/L 5-34 ALT (test code = 1742-6) 20 U/L 6-55 EGFR (test code = 81785-3) 12 mL/min/1.73 sq m ESTIMATED GFR IS NOT ACCURATE CREATININE CLEARANCE IN PREDICTING GLOMERULAR FILTRATION RATE. ESTIMATED GFR IS NOT APPLICABLE FOR DIALYSIS PATIENTS. SOUTH (test code = SOUTH) Pipe Finishing Supervisor ID - ROSIANG Lab Interpretation (test code = 99513-5) [facility] [id number] 13:30:00* Test Item Value Reference Range Interpretation Comments TOTAL PROTEIN (BEAKER) (test code = 770) 7.5 gm/dL 6.0-8.3 ALBUMIN (BEAKER) (test code = 1145) 4.0 g/dL 3.5-5.0 ALKALINE PHOSPHATASE (BEAKER) (test code = 346) 161 U/L 40-150 H BILIRUBIN TOTAL (BEAKER) (test code = 377) 0.5 mg/dL 0.2-1.2 SODIUM (BEAKER) (test code = 381) 133 meq/L 136-145 L POTASSIUM (BEAKER) (test code = 379) 3.2 meq/L 3.5-5.1 L CHLORIDE (BEAKER) (test code = 382) 94 meq/L 98-107 L CO2 (BEAKER) (test code = 355) 27 meq/L 22-29 BLOOD UREA NITROGEN (BEAKER) (test code = 354) 34 mg/dL 7-21 H CREATININE (BEAKER) (test code = 358) 5.10 mg/dL 0.57-1.25 H GLUCOSE RANDOM (BEAKER) (test code = 652) 243 mg/dL 70-105 H CALCIUM (BEAKER) (test code = 697) 8.0 mg/dL 8.4-10.2 L AST (SGOT) (BEAKER) (test code = 353) 18 U/L 5-34 ALT (SGPT) (BEAKER) (test code = 347) 20 U/L 6-55 EGFR (BEAKER) (test code = 1092) 12 mL/min/1.73 sq m ESTIMATED GFR IS NOT ACCURATE CREATININE CLEARANCE IN PREDICTING GLOMERULAR FILTRATION RATE. ESTIMATED GFR IS NOT APPLICABLE FOR DIALYSIS PATIENTS. Pipe Finishing Supervisor ID - MARIANNEamma Glutamyl Transferase (GGT)2019-11-25 13:19:00* Test Item Value Reference Range Interpretation Comments GGT (test code = 2324-2) 84 U/L 9-64 H SOUTH (test code = SOUTH) Pipe Finishing Supervisor ID - Luminary Micro Lab Interpretation (test code = 24138-9) [facility]normal [facility]act[facility] Dehydrogenase (LDH)2019-11-25 13:19:00* Test Item Value Reference Range Interpretation Comments LDH (test code = 2532-0) 231 U/L 125-220 H SOUTH (test code = SOUTH) Pipe Finishing Supervisor ID - Luminary Micro Lab Interpretation (test code = 18423-8) Abnormal [facility]Phosph[facility]2020-02-05 13:19:00* Test Item Value Reference Range Interpretation Comments Phosphorus (test code = 2777-1) 4.7 mg/dL 2.3-4.7 SOUTH (test code = SOUTH) Pipe Finishing Supervisor ID - TagorizeIANMightyMeeting Lab Interpretation (test code = 27166-5) Normal [facility] CampusUric [id number] 13:19:00* Test Item Value Reference Range Interpretation Comments Uric Acid (test code = 3084-1) 4.6 mg/dL 2.6-7.2 SOUTH (test code = SOUTH) Pipe Finishing Supervisor ID - TagorizeIANG Lab Interpretation (test code = 41125-6) Normal [facility] CampusURIC [id number] 13:19:00* Test Item Value Reference Range Interpretation Comments URIC ACID (BEAKER) (test code = 773) 4.6 mg/dL 2.6-7.2 Pipe Finishing Supervisor ID - [id number] 13:19:00* Test Item Value Reference Range Interpretation Comments PHOSPHORUS (BEAKER) (test code = 604) 4.7 mg/dL 2.3-4.7 Pipe Finishing Supervisor ID - ROSIANGGAMMA GLUTAMYL TRANSFERASE (GGT)2019-11-25 13:19:00* Test Item Value Reference Range Interpretation Comments GAMMA GLUTAMYL TRANSFERASE (BEAKER) (test code = 364) 84 U/L 9-64 H Pipe Finishing Supervisor ID - ROSIANGLACTATE DEHYDROGENASE (LDH)2019-11-25 13:19:00* Test Item Value Reference Range Interpretation Comments LACTATE DEHYDROGENASE (BEAKER) (test code = 635) 231 U/L 125-2 20 H Pipe Finishing Supervisor ID - ROSIANGPT/[id number] 13:04:00* Test Item Value Reference Range Interpretation Comments Protime (test code = 5902-2) 13.7 11.9- 14.2 seconds INR (test code = 6301-6) 1.1 <=5.9 PTT (test code = 94311-6) 31.4 22.5- 36.0 seconds SOUTH (test code = SOUTH) Effective 03/18/2019: PT Refe rence Range ChangeNew: 11.9- 14.2 Previous: 11.7-14.7 RECOMMENDED COUMADIN/WARFARIN INR THERAPY RANGESSTANDARD DOSE: 2.0-3.0 Includes: PROPHYLAXIS for venous thrombosis, sys temic embolization; TREATMENT for venous thrombosis and/or pulmonary embolus.HIGH RISK: Target INR is 2.5-3.5 for patients wiht mechanical heart valves. Lab Interpretation (test code = 16551-0) Normal [facility] CampusPT/[id number] 13:04:00* Test Item Value Reference Range Interpretation Comments PROTIME (BEAKER) (test code = 759) 13.7 seconds 11.9-14.2 INR (BEAKER) (test code = 370) 1.1 <=5.9 PARTIAL THROMBOPLASTIN TIME (BEAKER) (test code = 760) 31.4 seconds 22.5-36.0 Effective 03/18/2019: PT Reference Range ChangeNew: 11.9-14.2 Previous: 11.7-14. 7RECOMMENDED COUMADIN/WARFARIN INR THERAPY RANGESSTANDARD DOSE: 2.0-3.0 Include s: PROPHYLAXIS for venous thrombosis, systemic embolization; TREATMENT for venou s thrombosis and/or pulmonary embolus.HIGH RISK: Target INR is 2.5-3.5 for patie nts wiht mechanical heart valves.CBC with platelet count + automated diff 2019-11-25 12:54:00* Test Item Value Reference Range Interpretation Comments WBC (test code = 6690-2) 10.2 3.5- 10.5 K/L RBC (test code = 789-8) 4.10 4.63- 6.08 M/L L MCHC (test code = 786-4) 32.3 32.3- 36.5 GM/DL L Hematocrit (test code = 4544-3) 35.6 % 40.1-51 L MCV (test code = 787-2) 86.8 fL 79-92.2 MCH (test code = 785-6) 28.0 pg 25.7-32.2 RDW (test code = 788-0) 13.5 % 11.6-14.4 Platelets (test code = 777-3) 265 150- 450 K/CU MM MPV (test code = 85579-3) 10.8 fL 9.4-12.4 nRBC (test code = 413) 0 0- 0 /100 WBC % Neutros (test code = 429) 60 % % Lymphs (test code = 430) 28 % % Monos (test code = 431) 9 % % Eos (test code = 432) 3 % % Baso (test code = 437) 1 % # Neutros (test code = 670) 6.10 1.78- 5.38 K/L H # Lymphs (test code = 414) 2.82 1.32- 3.57 K/L # Monos (test code = 415) 0.92 0.30- 0.82 K/L H # Eos (test code = 416) 0.31 0.04- 0.54 K/L # Baso (test code = 417) 0.05 0.01- 0.08 K/L Immature Granulocytes-Relative (test code = 2801) 0 % 0-1 Lab Interpretation (test code = 93312-6) Abnormal [facility] W/PLT COUNT & AUTO [id number] 12:54:00* Test Item Value Reference Range Interpretation Comments WHITE BLOOD CELL COUNT (BEAKER) (test code = 775) 10.2 K/ L 3.5- 10.5 RED BLOOD CELL COUNT (BEAKER) (test code = 761) 4.10 M/ L 4.63-6 .08 L HEMOGLOBIN (BEAKER) (test code = 410) 11.5 GM/DL 13.7-17.5 L HEMATOCRIT (BEAKER) (test code = 411) 35.6 % 40.1-51.0 L MEAN CORPUSCULAR VOLUME (BEAKER) (test code = 753) 86.8 fL 79. 0-92.2 MEAN CORPUSCULAR HEMOGLOBIN (BEAKER) (test code = 751) 28.0 pg 25.7-32.2 MEAN CORPUSCULAR HEMOGLOBIN CONC (BEAKER) (test code = 752) 32.3 GM/DL 32.3-36.5 RED CELL DISTRIBUTION WIDTH (BEAKER) (test code = 412) 13.5 % 11.6-14.4 PLATELET COUNT (BEAKER) (test code = 756) 265 K/CU MM 150-450 MEAN PLATELET VOLUME (BEAKER) (test code = 754) 10.8 fL 9.4-12 .4 NUCLEATED RED BLOOD CELLS (BEAKER) (test code = 413) 0 /100 WBC 0 -0 NEUTROPHILS RELATIVE PERCENT (BEAKER) (test code = 429) 60 % LYMPHOCYTES RELATIVE PERCENT (BEAKER) (test code = 430) 28 % MONOCYTES RELATIVE PERCENT (BEAKER) (test code = 431) 9 % EOSINOPHILS RELATIVE PERCENT (BEAKER) (test code = 432) 3 % BASOPHILS RELATIVE PERCENT (BEAKER) (test code = 437) 1 % NEUTROPHILS ABSOLUTE COUNT (BEAKER) (test code = 670) 6.10 K/ L 1.78-5.38 H LYMPHOCYTES ABSOLUTE COUNT (BEAKER) (test code = 414) 2.82 K/ L 1.32-3.57 MONOCYTES ABSOLUTE COUNT (BEAKER) (test code = 415) 0.92 K/ L 0. 30-0.82 H EOSINOPHILS ABSOLUTE COUNT (BEAKER) (test code = 416) 0.31 K/ L 0.04-0.54 BASOPHILS ABSOLUTE COUNT (BEAKER) (test code = 417) 0.05 K/ L 0. 01-0.08 IMMATURE GRANULOCYTES-RELATIVE PERCENT (BEAKER) (test code = 2801) 0 % 0-1 BASIC METABOLIC [id number] 19:24:00* Test Item Value Reference Range Interpretation Comments SODIUM (test code = NA) 139 mmol/L 136-145 N POTASSIUM (test code = K) 4.5 mmol/L 3.5-5.1 N CHLORIDE (test code = CL) 108.0 mmol/L 98-107 H CARBON DIOXIDE (test code = CO2) 21.0 mmol/L 21-32 N ANION GAP (test code = GAP) 14.5 10-20 N GLUCOSE (test code = GLU) 152 mg/dL 74-106 H BLOOD UREA NITROGEN (test code = BUN) 86 mg/dL 7-18 H GLOMERULAR FILTRATION RATE (test code = GFR) 8 mL/min >=60 Estimated GFR by using Modified MDRD formula.Chronic kidney disease is defined as either kidney damageor GFR <60 mL/min/1.73 m2 for >3 months. CREATININE (test code = CREAT) 7.30 mg/dL 0.7-1.3 H BUN/CREATININE RATIO (test code = BUN/CREA) 11.8 10-20 N CALCIUM (test code = CA) 6.8 mg/dL 8.5-10.1 L BASIC METABOLIC [id number] 19:16:00* Test Item Value Reference Range Interpretation Comments SODIUM (test code = NA) 139 mmol/L 136-145 N POTASSIUM (test code = K) 4.5 mmol/L 3.5-5.1 N CHLORIDE (test code = CL) 108.0 mmol/L 98-107 H CARBON DIOXIDE (test code = CO2) mmol/L 21-32 ANION GAP (test code = GAP) 10-20 GLUCOSE (test code = GLU) mg/dL 74-106 BLOOD UREA NITROGEN (test code = BUN) mg/dL 7-18 GLOMERULAR FILTRATION RATE (test code = GFR) mL/min >=60 CREATININE (test code = CREAT) mg/dL 0.7-1.3 BUN/CREATININE RATIO (test code = BUN/CREA) 10-20 CALCIUM (test code = CA) mg/dL 8.5-10.1 CBC W/AUTO [id number] 19:04:00* Test Item Value Reference Range Interpretation Comments WHITE BLOOD CELL (test code = WBC) 9.3 K/mm3 4.5-12.5 N RED BLOOD CELL (test code = RBC) 3.61 mill/mm3 4.0-5.8 L HEMOGLOBIN (test code = HGB) 10.1 gram/dL 13.0-17.5 L HEMATOCRIT (test code = HCT) 31.5 % 42.0-52.0 L MEAN CELL VOLUME (test code = MCV) 87.3 fL 80-98 N MEAN CELL HGB (test code = MCH) 28.0 picogram 27.0-33.0 N MEAN CELL HGB CONCETRATION (test code = MCHC) 32.1 gram/dL 33.0-36. 0 L RED CELL DISTRIBUTION WIDTH (test code = RDW) 13.3 % 11.6-16. 2 N RED CELL DISTRIBUTION WIDTH SD (test code = RDW-SD) 41.6 fL 37 .0-51.0 N PLATELET COUNT (test code = PLT) 363 K/mm3 150-450 N MEAN PLATELET VOLUME (test code = MPV) 10.4 fL 6.7-11.0 N NEUTROPHIL % (test code = NT%) 61.6 % 39.0-69.0 N IMMATURE GRANULOCYTE % (test code = IG%) 0.7 % 0.0-5.0 N LYMPHOCYTE % (test code = LY%) 23.7 % 25.0-55.0 L MONOCYTE % (test code = MO%) 9.7 % 0.0-10.0 N EOSINOPHIL % (test code = EO%) 3.9 % 0.0-5.0 N BASOPHIL % (test code = BA%) 0.4 % 0.0-1.0 N NUCLEATED RBC % (test code = NRBC%) 0.0 % 0-0 N NEUTROPHIL # (test code = NT#) 5.75 K/mm3 1.8-7.7 N IMMATURE GRANULOCYTE # (test code = IG#) 0.07 x10 3/uL 0-0.03 H LYMPHOCYTE # (test code = LY#) 2.21 K/mm3 1.0-5.0 N MONOCYTE # (test code = MO#) 0.91 K/mm3 0-0.8 H EOSINOPHIL # (test code = EO#) 0.36 K/mm3 0.0-0.5 N BASOPHIL # (test code = BA#) 0.04 K/mm3 0.0-0.2 N NUCLEATED RBC # (test code = NRBC#) 0.00 K/mm3 0.0-0.1 N MANUAL DIFF REQUIRED (test code = MDIFF) NO [id number] 20:30:00* Test Item Value Reference Range Interpretation Comments GLUBED (test code = GLUBED) 197 mg/dL 74-106 H Performed by certified knife machine operator at [facility] [id number] 19:20:00* Test Item Value Reference Range Interpretation Comments GLUBED (test code = GLUBED) 170 mg/dL 74-106 H Performed by certified knife machine operator at [facility] [id number] 13:00:00* Test Item Value Reference Range Interpretation Comments GLUBED (test code = GLUBED) 146 mg/dL 74-106 H Performed by certified knife machine operator at [facility] BASIC METABOLIC [id number] 07:51:00* Test Item Value Reference Range Interpretation Comments SODIUM (test code = NA) 135 mmol/L 136-145 L POTASSIUM (test code = K) 4.4 mmol/L 3.5-5.1 N CHLORIDE (test code = CL) 98.0 mmol/L 98-107 N CARBON DIOXIDE (test code = CO2) 28.0 mmol/L 21-32 N ANION GAP (test code = GAP) 13.4 10-20 N GLUCOSE (test code = GLU) 181 mg/dL 74-106 H BLOOD UREA NITROGEN (test code = BUN) 54 mg/dL 7-18 H GLOMERULAR FILTRATION RATE (test code = GFR) 8 mL/min >=60 Estimated GFR by using Modified MDRD formula.Chronic kidney disease is defined as either kidney damageor GFR <60 mL/min/1.73 m2 for >3 months. CREATININE (test code = CREAT) 6.90 mg/dL 0.7-1.3 H BUN/CREATININE RATIO (test code = BUN/CREA) 7.8 10-20 L CALCIUM (test code = CA) 8.0 mg/dL 8.5-10.1 L BASIC METABOLIC [id number] 07:47:00* Test Item Value Reference Range Interpretation Comments SODIUM (test code = NA) 135 mmol/L 136-145 L POTASSIUM (test code = K) 4.4 mmol/L 3.5-5.1 N CHLORIDE (test code = CL) 98.0 mmol/L 98-107 N CARBON DIOXIDE (test code = CO2) mmol/L 21-32 ANION GAP (test code = GAP) 10-20 GLUCOSE (test code = GLU) mg/dL 74-106 BLOOD UREA NITROGEN (test code = BUN) mg/dL 7-18 GLOMERULAR FILTRATION RATE (test code = GFR) mL/min >=60 CREATININE (test code = CREAT) mg/dL 0.7-1.3 BUN/CREATININE RATIO (test code = BUN/CREA) 10-20 CALCIUM (test code = CA) 8.0 mg/dL 8.5-10.1 L CBC W/AUTO [id number] 07:32:00* Test Item Value Reference Range Interpretation Comments WHITE BLOOD CELL (test code = WBC) 16.1 K/mm3 4.5-12.5 H RED BLOOD CELL (test code = RBC) 3.24 mill/mm3 4.0-5.8 L HEMOGLOBIN (test code = HGB) 9.0 gram/dL 13.0-17.5 L HEMATOCRIT (test code = HCT) 29.2 % 42.0-52.0 L MEAN CELL VOLUME (test code = MCV) 90.1 fL 80-98 N MEAN CELL HGB (test code = MCH) 27.8 picogram 27.0-33.0 N MEAN CELL HGB CONCETRATION (test code = MCHC) 30.8 gram/dL 33.0-36. 0 L RED CELL DISTRIBUTION WIDTH (test code = RDW) 13.1 % 11.6-16. 2 N RED CELL DISTRIBUTION WIDTH SD (test code = RDW-SD) 42.6 fL 37 .0-51.0 N PLATELET COUNT (test code = PLT) 270 K/mm3 150-450 N MEAN PLATELET VOLUME (test code = MPV) 10.4 fL 6.7-11.0 N NEUTROPHIL % (test code = NT%) 72.0 % 39.0-69.0 H IMMATURE GRANULOCYTE % (test code = IG%) 1.6 % 0.0-5.0 N LYMPHOCYTE % (test code = LY%) 17.8 % 25.0-55.0 L MONOCYTE % (test code = MO%) 7.7 % 0.0-10.0 N EOSINOPHIL % (test code = EO%) 0.7 % 0.0-5.0 N BASOPHIL % (test code = BA%) 0.2 % 0.0-1.0 N NUCLEATED RBC % (test code = NRBC%) 0.1 % 0-0 H NEUTROPHIL # (test code = NT#) 11.57 K/mm3 1.8-7.7 H IMMATURE GRANULOCYTE # (test code = IG#) 0.26 x10 3/uL 0-0.03 H LYMPHOCYTE # (test code = LY#) 2.87 K/mm3 1.0-5.0 N MONOCYTE # (test code = MO#) 1.24 K/mm3 0-0.8 H EOSINOPHIL # (test code = EO#) 0.12 K/mm3 0.0-0.5 N BASOPHIL # (test code = BA#) 0.03 K/mm3 0.0-0.2 N NUCLEATED RBC # (test code = NRBC#) 0.02 K/mm3 0.0-0.1 N MANUAL DIFF REQUIRED (test code = MDIFF) NO [id number] 20:29:00* Test Item Value Reference Range Interpretation Comments GLUBED (test code = GLUBED) 307 mg/dL 74-106 H Performed by certified knife machine operator at [facility] [id number] 17:51:00* Test Item Value Reference Range Interpretation Comments GLUBED (test code = GLUBED) 263 mg/dL 74-106 H Performed by certified knife machine operator at [facility] [id number] 12:58:00* Test Item Value Reference Range Interpretation Comments GLUBED (test code = GLUBED) 336 mg/dL 74-106 H Performed by certified knife machine operator at [facility] BASIC METABOLIC [id number] 07:58:00* Test Item Value Reference Range Interpretation Comments SODIUM (test code = NA) 138 mmol/L 136-145 N POTASSIUM (test code = K) 4.2 mmol/L 3.5-5.1 N CHLORIDE (test code = CL) 100.0 mmol/L 98-107 N CARBON DIOXIDE (test code = CO2) 29.0 mmol/L 21-32 N ANION GAP (test code = GAP) 13.2 10-20 N GLUCOSE (test code = GLU) 188 mg/dL 74-106 H BLOOD UREA NITROGEN (test code = BUN) 29 mg/dL 7-18 H RESULT VERIFIED BY REPEAT ANALYSIS GLOMERULAR FILTRATION RATE (test code = GFR) 15 mL/min >=60 Estimated GFR by using Modified MDRD formula.Chronic kidney disease is defined as either kidney damageor GFR <60 mL/min/1.73 m2 for >3 months. CREATININE (test code = CREAT) 4.10 mg/dL 0.7-1.3 H BUN/CREATININE RATIO (test code = BUN/CREA) 7.1 10-20 L CALCIUM (test code = CA) 7.5 mg/dL 8.5-10.1 L SPECIMEN COMMENTS: ADD ON TO THE AM LABSBASIC METABOLIC [id number] 07:27:00 * Test Item Value Reference Range Interpretation Comments SODIUM (test code = NA) 138 mmol/L 136-145 N POTASSIUM (test code = K) 4.2 mmol/L 3.5-5.1 N CHLORIDE (test code = CL) 100.0 mmol/L 98-107 N CARBON DIOXIDE (test code = CO2) mmol/L 21-32 ANION GAP (test code = GAP) 10-20 GLUCOSE (test code = GLU) mg/dL 74-106 BLOOD UREA NITROGEN (test code = BUN) mg/dL 7-18 GLOMERULAR FILTRATION RATE (test code = GFR) mL/min >=60 CREATININE (test code = CREAT) mg/dL 0.7-1.3 BUN/CREATININE RATIO (test code = BUN/CREA) 10-20 CALCIUM (test code = CA) mg/dL 8.5-10.1 SPECIMEN COMMENTS: ADD ON TO THE AM [id number] 05:46:00* Test Item Value Reference Range Interpretation Comments GLUBED (test code = GLUBED) 183 mg/dL 74-106 H Performed by certified knife machine operator at [facility] CBC W/AUTO [id number] 04:50:00* Test Item Value Reference Range Interpretation Comments WHITE BLOOD CELL (test code = WBC) 10.7 K/mm3 4.5-12.5 N RED BLOOD CELL (test code = RBC) 3.60 mill/mm3 4.0-5.8 L HEMOGLOBIN (test code = HGB) 10.2 gram/dL 13.0-17.5 L HEMATOCRIT (test code = HCT) 31.3 % 42.0-52.0 L MEAN CELL VOLUME (test code = MCV) 86.9 fL 80-98 N MEAN CELL HGB (test code = MCH) 28.3 picogram 27.0-33.0 N MEAN CELL HGB CONCETRATION (test code = MCHC) 32.6 gram/dL 33.0-36. 0 L RED CELL DISTRIBUTION WIDTH (test code = RDW) 13.1 % 11.6-16. 2 N RED CELL DISTRIBUTION WIDTH SD (test code = RDW-SD) 40.9 fL 37 .0-51.0 N PLATELET COUNT (test code = PLT) 281 K/mm3 150-450 N MEAN PLATELET VOLUME (test code = MPV) 10.7 fL 6.7-11.0 N NEUTROPHIL % (test code = NT%) 66.2 % 39.0-69.0 N IMMATURE GRANULOCYTE % (test code = IG%) 0.7 % 0.0-5.0 N LYMPHOCYTE % (test code = LY%) 20.1 % 25.0-55.0 L MONOCYTE % (test code = MO%) 10.4 % 0.0-10.0 H EOSINOPHIL % (test code = EO%) 2.2 % 0.0-5.0 N BASOPHIL % (test code = BA%) 0.4 % 0.0-1.0 N NUCLEATED RBC % (test code = NRBC%) 0.0 % 0-0 N NEUTROPHIL # (test code = NT#) 7.10 K/mm3 1.8-7.7 N IMMATURE GRANULOCYTE # (test code = IG#) 0.07 x10 3/uL 0-0.03 H LYMPHOCYTE # (test code = LY#) 2.16 K/mm3 1.0-5.0 N MONOCYTE # (test code = MO#) 1.12 K/mm3 0-0.8 H EOSINOPHIL # (test code = EO#) 0.24 K/mm3 0.0-0.5 N BASOPHIL # (test code = BA#) 0.04 K/mm3 0.0-0.2 N NUCLEATED RBC # (test code = NRBC#) 0.00 K/mm3 0.0-0.1 N [id number] 20:20:00* Test Item Value Reference Range Interpretation Comments GLUBED (test code = GLUBED) 200 mg/dL 74-106 H Performed by certified knife machine operator at [facility] [id number] 17:48:00* Test Item Value Reference Range Interpretation Comments GLUBED (test code = GLUBED) 145 mg/dL 74-106 H Performed by certified knife machine operator at [facility] UR CREATININE CLEARANCE [id number] 15:13:00* Test Item Value Reference Range Interpretation Comments CREATININE CLEARANCE RESULT (test code = CREATCLR) 8 mL/min 100 -120 L CREATININE (test code = CREAT) 4.00 mg/dL 0.7-1.3 H UR CREATININE RANDOM (test code = CREATU) 50.0 mg/dL 30-125 N UR VOLUME 24HR (test code = VOL) 900 mL/24hrs [id number] TOTAL VOLUME: 900mLUR CREATININE CLEARANCE [id number] 07:37:00* Test Item Value Reference Range Interpretation Comments CREATININE CLEARANCE RESULT (test code = CREATCLR) mL/min 100 -120 CREATININE (test code = CREAT) mg/dL 0.7-1.3 UR CREATININE RANDOM (test code = CREATU) 50.0 mg/dL 30-125 N UR VOLUME 24HR (test code = VOL) mL/24hrs [id number] TOTAL VOLUME: [id number] 06:47:00* Test Item Value Reference Range Interpretation Comments GLUBED (test code = GLUBED) 91 mg/dL 74-106 N Performed by certified knife machine operator at [facility] BASIC METABOLIC [id number] 05:40:00* Test Item Value Reference Range Interpretation Comments SODIUM (test code = NA) 142 mmol/L 136-145 N POTASSIUM (test code = K) 4.0 mmol/L 3.5-5.1 N CHLORIDE (test code = CL) 106.0 mmol/L 98-107 N CARBON DIOXIDE (test code = CO2) 28.0 mmol/L 21-32 N ANION GAP (test code = GAP) 12.0 10-20 N GLUCOSE (test code = GLU) 84 mg/dL 74-106 N BLOOD UREA NITROGEN (test code = BUN) 37 mg/dL 7-18 H GLOMERULAR FILTRATION RATE (test code = GFR) 18 mL/min >=60 Estimated GFR by using Modified MDRD formula.Chronic kidney disease is defined as either kidney damageor GFR <60 mL/min/1.73 m2 for >3 months. CREATININE (test code = CREAT) 3.50 mg/dL 0.7-1.3 H BUN/CREATININE RATIO (test code = BUN/CREA) 10.6 10-20 N CALCIUM (test code = CA) 7.5 mg/dL 8.5-10.1 L BASIC METABOLIC [id number] 05:35:00* Test Item Value Reference Range Interpretation Comments SODIUM (test code = NA) 142 mmol/L 136-145 N POTASSIUM (test code = K) 4.0 mmol/L 3.5-5.1 N CHLORIDE (test code = CL) 106.0 mmol/L 98-107 N CARBON DIOXIDE (test code = CO2) mmol/L 21-32 ANION GAP (test code = GAP) 10-20 GLUCOSE (test code = GLU) mg/dL 74-106 BLOOD UREA NITROGEN (test code = BUN) mg/dL 7-18 GLOMERULAR FILTRATION RATE (test code = GFR) mL/min >=60 CREATININE (test code = CREAT) mg/dL 0.7-1.3 BUN/CREATININE RATIO (test code = BUN/CREA) 10-20 CALCIUM (test code = CA) mg/dL 8.5-10.1 CBC W/O [id number] 05:32:00* Test Item Value Reference Range Interpretation Comments WHITE BLOOD CELL (test code = WBC) 10.0 K/mm3 4.5-12.5 N RED BLOOD CELL (test code = RBC) 3.42 mill/mm3 4.0-5.8 L HEMOGLOBIN (test code = HGB) 9.6 gram/dL 13.0-17.5 L HEMATOCRIT (test code = HCT) 29.8 % 42.0-52.0 L MEAN CELL VOLUME (test code = MCV) 87.1 fL 80-98 N MEAN CELL HGB (test code = MCH) 28.1 picogram 27.0-33.0 N MEAN CELL HGB CONCETRATION (test code = MCHC) 32.2 gram/dL 33.0-36. 0 L RED CELL DISTRIBUTION WIDTH (test code = RDW) 13.1 % 11.6-16. 2 N PLATELET COUNT (test code = PLT) 254 K/mm3 150-450 N MEAN PLATELET VOLUME (test code = MPV) 11.0 fL 6.7-11.0 N [id number] 21:27:00* Test Item Value Reference Range Interpretation Comments GLUBED (test code = GLUBED) 92 mg/dL 74-106 N Performed by certified knife machine operator at [facility] [id number] 17:07:00* Test Item Value Reference Range Interpretation Comments GLUBED (test code = GLUBED) 145 mg/dL 74-106 H Performed by certified knife machine operator at [facility] [id number] 13:57:00* Test Item Value Reference Range Interpretation Comments GLUBED (test code = GLUBED) 155 mg/dL 74-106 H Performed by certified knife machine operator at [facility] AB HEPATITIS B [id number] 13:10:00* Test Item Value Reference Range Interpretation Comments AB HEPATITIS B SURFACE (test code = HBSAB) Non Reactive () Non Reactive: Inconsistent with immunity, less than 10 mIU/mL Reactive: Consistent with immunity, greater than 9.9 mIU/mLPerformed At: [facility] [address] [id number] Shah MD Ph:[phone] HEPATITIS B CORE ANTIBODY,[id number] 13:10:00* Test Item Value Reference Range Interpretation Comments HEPATITIS B CORE ANTIBODY,TOT (test code = HBCAB) Positive Nega tive A Performed At: HD [facility] [address] [id number] Shah MD Ph:[phone] - GUIDANCE [facility] [id number] 08:44:00 Name: JED BASSETT [facility] : 1955 Age/S: 64 / M [address] [facility] Unit #: [id number] Loc: LINDA [place] [address] Phys: Russell Davis MD Acct: [id number] Dis Date: Status: ADM IN PHONE #: [phone] Exam Date: 11/02/2019 1642 FAX #: [phone] Reason: EXAMS: CPT CODE: [id number] US GUIDANCE VASC ACCESS [id number] Fluoro Time: DAP (Gy m2): Air Kerma (mGy): REASON FOR EXAM: ESRD Referring Physician: Russell Davis MD PROCEDURE: Ultrasound and fluoroscopic guided tunneled hemodialysis catheter placement with IV conscious sedation CPT code: 11509, 13555,12044 [id number] procedure time is approximately: 45 minutes FINDINGS: After informed consent was obtained, the patient was brought to special procedures and placed supine on the table. The right neck and chest wall were prepped and draped in the usual fashion. All elements of maximal sterile barrier technique were followed. US shows patency of the right IJ. Images of the vein were submitted to PACS. The vein is patent and compressible. 2% local lidocaine was given for local anesthetic in the neck and chest wall. Under real time ultrasound guidance, a micropuncture needle was used to access the vein. A lobsterman dialysis catheter was tunneled under the subcutaneous tissue and inserted through a sheath with the tip positioned in the SVC under direct fluoroscopic guidance. The catheter was sutured to the subcutaneous tissue with prolene sutures and is ready for use. MEDICATIONS: 1mg versed, 25mcg fentanyl. COMPLICATIONS: None. Blood loss: less than 5cc Fluoroscopic time:6 sec Fluoroscopic dose:1 mGy Number of fluoroscopic images obtained: 2 IMPRESSION: right IJ tunneled hemodialysis catheter is ready for use. at 0844 Reported and signed by: Marcellus Urena M.D. CC: Russell Davis MD; Antony Smith Technologist: Mishel Castillo RT(R) Trnscb Date/Time: 11/03/2019 (843) Tyrell Orig Print D/T: S: 11/03/2019 (1354) PAGE 1 Signed Report - SP FLUORO GUID CTRL ACC DEV 2019-11-03 08:44:00 Name: JED BASSETT [facility] : 1955 Age/S: 64 / M [address] Unit #: [id number] Loc: [place] [address] Phys: Russell Davis MD Acct: [id number] Dis Date: Status: ADM IN PHONE #: [phone] Exam Date: 11/02/2019 1642 FAX #: [phone] Reason: EXAMS: CPT CODE: [id number] SP FLUORO GUID CTRL ACC DEV 56495 Fluoro Time: 6 DAP (Gy m2): 0.51 Air Kerma (mGy): 1 REASON FOR EXAM: ESRD Referring Physician: Russell Davis MD PROCEDURE: Ultrasound and fluoroscopic guided tunneled hemodialysis catheter placement with IV conscious sedation CPT code: 12182, 26081,06338 Prto-vy-vycw procedure time is approximately: 45 minutes FINDINGS: After informed consent was obtained, the patient was brought to special procedures and placed supine on the table. The right neck and chest wall were prepped and draped in the usual fashion. All elements of maximal sterile barrier technique were followed. US shows patency of the right IJ. Images of the vein were submitted to PACS. The vein is patent and compressible. 2% local lidocaine was given for local anesthetic in the neck and chest wall. Under real time ultrasound guidance, a micropuncture needle was used to access the vein. A lobsterman dialysis catheter was tunneled under the subcutaneous tissue and inserted through a sheath with the tip positioned in the SVC under direct fluoroscopic guidance. The catheter was sutured to the subcutaneous tissue with prolene sutures and is ready for use. MEDICATIONS: 1mg versed, 25mcg fentanyl. COMPLICATIONS: None. Blood loss: less than 5cc Fluoroscopic time:6 sec Fluoroscopic dose:1 mGy Number of fluoroscopic images obtained: 2 IMPRESSION: right IJ tunneled hemodialysis catheter is ready for use. at 0844 Reported and signed by: Marcellus Urena M.D. CC: Russell Davis MD; Antony Smith Technologist: Mishel Castillo RT(R) Trnscb Date/Time: 11/03/2019 (0844) HerminioL Orig Print D/T: S: 11/03/2019 (4962) PAGE 1 Signed Report [id number] 06:33:00* Test Item Value Reference Range Interpretation Comments GLUBED (test code = GLUBED) 101 mg/dL 74-106 N Performed by certified knife machine operator at [facility] COMPREHENSIVE METABOLIC [id number] 05:04:00* Test Item Value Reference Range Interpretation Comments SODIUM (test code = NA) 141 mmol/L 136-145 N POTASSIUM (test code = K) 3.8 mmol/L 3.5-5.1 N CHLORIDE (test code = CL) 106.0 mmol/L 98-107 N CARBON DIOXIDE (test code = CO2) 26.0 mmol/L 21-32 N ANION GAP (test code = GAP) 12.8 10-20 N GLUCOSE (test code = GLU) 130 mg/dL 74-106 H BLOOD UREA NITROGEN (test code = BUN) 52 mg/dL 7-18 H RESULT VERIFIED BY REPEAT ANALYSIS GLOMERULAR FILTRATION RATE (test code = GFR) 15 mL/min >=60 Estimated GFR by using Modified MDRD formula.Chronic kidney disease is defined as either kidney damageor GFR <60 mL/min/1.73 m2 for >3 months. CREATININE (test code = CREAT) 4.00 mg/dL 0.7-1.3 H BUN/CREATININE RATIO (test code = BUN/CREA) 13.0 10-20 N TOTAL PROTEIN (test code = PROT) 6.1 gram/dL 6.4-8.2 L ALBUMIN (test code = ALB) 2.4 g/dL 3.4-5.0 L GLOBULIN (test code = GLOB) 3.7 gram/dL 2.7-4.2 N ALBUMIN/GLOBULIN RATIO (test code = A/G) 0.7 0.75-1.50 L CALCIUM (test code = CA) 6.9 mg/dL 8.5-10.1 L BILIRUBIN TOTAL (test code = BILT) 0.20 mg/dL 0.0-1.0 N SGOT/AST (test code = AST) 18 IUnit/L 15-37 N SGPT/ALT (test code = ALT) 22 IUnit/L 12-78 N ALKALINE PHOSPHATASE TOTAL (test code = ALKP) 137 IUnit/L 45-117 H Note change in reference range due to change in reagent. COMPREHENSIVE METABOLIC [id number] 04:48:00* Test Item Value Reference Range Interpretation Comments SODIUM (test code = NA) 141 mmol/L 136-145 N POTASSIUM (test code = K) 3.8 mmol/L 3.5-5.1 N CHLORIDE (test code = CL) 106.0 mmol/L 98-107 N CARBON DIOXIDE (test code = CO2) mmol/L 21-32 ANION GAP (test code = GAP) 10-20 GLUCOSE (test code = GLU) mg/dL 74-106 BLOOD UREA NITROGEN (test code = BUN) mg/dL 7-18 GLOMERULAR FILTRATION RATE (test code = GFR) mL/min >=60 CREATININE (test code = CREAT) mg/dL 0.7-1.3 BUN/CREATININE RATIO (test code = BUN/CREA) 10-20 TOTAL PROTEIN (test code = PROT) gram/dL 6.4-8.2 ALBUMIN (test code = ALB) g/dL 3.4-5.0 GLOBULIN (test code = GLOB) gram/dL 2.7-4.2 ALBUMIN/GLOBULIN RATIO (test code = A/G) 0.75-1.50 CALCIUM (test code = CA) mg/dL 8.5-10.1 BILIRUBIN TOTAL (test code = BILT) mg/dL 0.0-1.0 SGOT/AST (test code = AST) IUnit/L 15-37 SGPT/ALT (test code = ALT) IUnit/L 12-78 ALKALINE PHOSPHATASE TOTAL (test code = ALKP) IUnit/L 45-117 [id number] 21:03:00* Test Item Value Reference Range Interpretation Comments GLUBED (test code = GLUBED) 125 mg/dL 74-106 H Performed by certified knife machine operator at [facility] - XR CHEST 1 [id number] 20:25:00 FAX: Russell Arizmendi [phone] Maribel: B St: ADM FAX: Antony oNble [phone] Name: JED BASSETT [facility] : 1955 Age/S: 64/M [address] Unit #: [id number] Loc: V.2064 [place] [address] Phys: Marcellus Urena MD Acct: [id number] Dis Date: Status: ADM IN PHONE #: [phone] Exam Date: 11/02/2019 1700 FAX #: [phone] Reason: POST LINE PLACEMENT EXAMS: CPT CODE: [id number] XR CHEST 1 V 05534 EXAM: Chest x-ray, one view; INFORMATION: Post line placement; IMPRESSION: 1. The tip of a new tunneled right IJ hemodialysis catheter is positioned at the SVC/right atrial junction. 2. No evidence of a pneumothorax. 3. Otherwise significant improvement compared with yesterday's study with resolution of pulmonary edema and decrease in heart size. The heart is now borderline in size. Location code: [facility] at 2024 Reported and signed by: Hardy Juarez M.D. CC: Russell Davis MD; Antony Smith Technologist: DIPTI TracyR Trnscrd Date/Time/By: 11/02/2019 (2024) : By: SvetlanaGRW Orig Print D/T: S: 11/02/2019 (2027) PAGE 1 Signed Report - CT ABD PELVIS W/O [id number] 16:12:00 Name: JED BASSETT [facility] : 1955 Age/S: 64 / M [address] Unit #: [id number] Loc: [place] [address] Phys: Concepcion Shaw MD Acct: [id number] Dis Date: Status: ADM IN PHONE #: [phone] Exam Date: 11/02/2019 1430 FAX #: [phone] Reason: CONSTIPATION EXAMS: CPT CODE: [id number] CT ABD PELVIS W/O CONT 14247 EXAM: CT of the abdomen and pelvis without contrast; INFORMATION: Abdominal pain, constipation; end-stage renal disease; TECHNIQUE AND FINDINGS: CT dose reduction protocol; 5 mm cuts through the abdomen and pelvis without contrast. Liver and spleen are of normal size and shape; no focal lesions. No abnormalities of the biliary system. Atrophic pancreas without focal lesions. Adrenal glands unremarkable. The kidneys are of normal size and shape; no hydronephrosis, no stones. There are multiple sigmoid diverticula; no evidence of diverticulitis or other acute bowel abnorma lities. Extensive calcifications of the abdominal aorta and visceral as we ll as iliofemoral arteries. No pelvic mass lesions. Lung bases are clear. IMPRESSION: 1. No acute abdominal or pelvic abnormalities. 2. No evidence of renal or ureteral stones or of obstruct joe uropathy. 3. Sigmoid diverticulosis without evidence of diverticulit is. Location code: [facility] Electronically Sig omar by Leni Juarez on 11/02/2019 at 1612 Reported and signed by: Hardy Juarez M.D. CC: Russell Davis MD; Antony Smith; Concepcion Shaw MD Technolog ist:Marlen López RT(R),CT CTDI: DLP: Trnscb Date/Time: 0 11/02/2019 (161) [email or web address] Orig Print D/T: S: 11/02/2019 (1615) PAGE 1 Signed Report FE W/TOTAL IRON BINDING CAP.2019-11-02 15:46:00* Test Item Value Reference Range Interpretation Comments SERUM IRON (test code = IRON) 30 ug/dL 50-175 L TOTAL IRON BINDING CAPACITY (test code = TIBC) 271 mcg/dL 250-450 N IRON SATURATION (test code = FESAT) 11.07 % 13-45 L [id number] 15:46:00* Test Item Value Reference Range Interpretation Comments FERRITIN (test code = KEITH) 71 ng/mL 8-388 N CBC W/AUTO [id number] 14:30:00* Test Item Value Reference Range Interpretation Comments WHITE BLOOD CELL (test code = WBC) 8.3 K/mm3 4.5-12.5 N RED BLOOD CELL (test code = RBC) 2.48 mill/mm3 4.0-5.8 L HEMOGLOBIN (test code = HGB) 6.8 gram/dL 13.0-17.5 L HEMATOCRIT (test code = HCT) 22.2 % 42.0-52.0 L MEAN CELL VOLUME (test code = MCV) 89.5 fL 80-98 N MEAN CELL HGB (test code = MCH) 27.4 picogram 27.0-33.0 N MEAN CELL HGB CONCETRATION (test code = MCHC) 30.6 gram/dL 33.0-36. 0 L RED CELL DISTRIBUTION WIDTH (test code = RDW) 13.1 % 11.6-16. 2 N RED CELL DISTRIBUTION WIDTH SD (test code = RDW-SD) 42.7 fL 37 .0-51.0 N PLATELET COUNT (test code = PLT) 253 K/mm3 150-450 N MEAN PLATELET VOLUME (test code = MPV) 10.5 fL 6.7-11.0 N NEUTROPHIL % (test code = NT%) 67.3 % 39.0-69.0 N IMMATURE GRANULOCYTE % (test code = IG%) 0.5 % 0.0-5.0 N LYMPHOCYTE % (test code = LY%) 21.1 % 25.0-55.0 L MONOCYTE % (test code = MO%) 8.4 % 0.0-10.0 N EOSINOPHIL % (test code = EO%) 2.3 % 0.0-5.0 N BASOPHIL % (test code = BA%) 0.4 % 0.0-1.0 N NUCLEATED RBC % (test code = NRBC%) 0.0 % 0-0 N NEUTROPHIL # (test code = NT#) 5.61 K/mm3 1.8-7.7 N IMMATURE GRANULOCYTE # (test code = IG#) 0.04 x10 3/uL 0-0.03 H LYMPHOCYTE # (test code = LY#) 1.76 K/mm3 1.0-5.0 N MONOCYTE # (test code = MO#) 0.70 K/mm3 0-0.8 N EOSINOPHIL # (test code = EO#) 0.19 K/mm3 0.0-0.5 N BASOPHIL # (test code = BA#) 0.03 K/mm3 0.0-0.2 N NUCLEATED RBC # (test code = NRBC#) 0.00 K/mm3 0.0-0.1 N MANUAL DIFF REQUIRED (test code = MDIFF) NO [id number] 13:55:00* Test Item Value Reference Range Interpretation Comments GLUBED (test code = GLUBED) 237 mg/dL 74-106 H Performed by certified knife machine operator at [facility] [id number] 06:18:00* Test Item Value Reference Range Interpretation Comments GLUBED (test code = GLUBED) 118 mg/dL 74-106 H Performed by certified knife machine operator at [facility] RENAL FUNCTION [id number] 05:02:00* Test Item Value Reference Range Interpretation Comments SODIUM (test code = NA) 144 mmol/L 136-145 N POTASSIUM (test code = K) 4.0 mmol/L 3.5-5.1 N CHLORIDE (test code = CL) 111.0 mmol/L 98-107 H CARBON DIOXIDE (test code = CO2) 23.0 mmol/L 21-32 N ANION GAP (test code = GAP) 14.0 10-20 N GLUCOSE (test code = GLU) 136 mg/dL 74-106 H BLOOD UREA NITROGEN (test code = BUN) 86 mg/dL 7-18 H CREATININE (test code = CREAT) 5.30 mg/dL 0.7-1.3 H ALBUMIN (test code = ALB) 2.3 g/dL 3.4-5.0 L CALCIUM (test code = CA) 6.6 mg/dL 8.5-10.1 L Res ults called to by LENKA 11/02/19 0502Critical results verified and read back by Nurse? PHOSPHORUS (test code = PHOS) 6.1 mg/dL 2.5-4.9 H RENAL FUNCTION [id number] 04:41:00* Test Item Value Reference Range Interpretation Comments SODIUM (test code = NA) 144 mmol/L 136-145 N POTASSIUM (test code = K) 4.0 mmol/L 3.5-5.1 N CHLORIDE (test code = CL) 111.0 mmol/L 98-107 H CARBON DIOXIDE (test code = CO2) mmol/L 21-32 ANION GAP (test code = GAP) 10-20 GLUCOSE (test code = GLU) mg/dL 74-106 BLOOD UREA NITROGEN (test code = BUN) mg/dL 7-18 CREATININE (test code = CREAT) mg/dL 0.7-1.3 ALBUMIN (test code = ALB) g/dL 3.4-5.0 CALCIUM (test code = CA) mg/dL 8.5-10.1 PHOSPHORUS (test code = PHOS) mg/dL 2.5-4.9 AG HEPAT B [id number] 23:10:00* Test Item Value Reference Range Interpretation Comments AG HEPAT B SURF (test code = HBSAG) Nonreactive Index Nonreactive [id number] 20:29:00* Test Item Value Reference Range Interpretation Comments GLUBED (test code = GLUBED) 197 mg/dL 74-106 H Performed by certified knife machine operator at [facility] [id number] 19:30:00* Test Item Value Reference Range Interpretation Comments TROPONIN-I (test code = TROPI) 0.213 ng/mL 0-0.045 HH Results previously called COMMENTS TO REFRIGERATION BRAZER/SOLDERER: COLLECT 3 HOURS AFTER PREVIOUS [id number] 14:31:00* Test Item Value Reference Range Interpretation Comments TROPONIN-I (test code = TROPI) 0.227 ng/mL 0-0.045 HH Results called to [id number] by MARIO 11/01/19 1430Critical results verified and read back by Nurse? Y COMMENTS TO REFRIGERATION BRAZER/SOLDERER: COLLECT 3 HOURS AFTER PREVIOUS SAMPLECBC W/O [id number] 04:32:00* Test Item Value Reference Range Interpretation Comments WHITE BLOOD CELL (test code = WBC) 13.5 K/mm3 4.5-12.5 H RED BLOOD CELL (test code = RBC) 2.83 mill/mm3 4.0-5.8 L HEMOGLOBIN (test code = HGB) 7.8 gram/dL 13.0-17.5 L HEMATOCRIT (test code = HCT) 24.7 % 42.0-52.0 L MEAN CELL VOLUME (test code = MCV) 87.3 fL 80-98 N MEAN CELL HGB (test code = MCH) 27.6 picogram 27.0-33.0 N MEAN CELL HGB CONCETRATION (test code = MCHC) 31.6 gram/dL 33.0-36. 0 L RED CELL DISTRIBUTION WIDTH (test code = RDW) 13.3 % 11.6-16. 2 N RED CELL DISTRIBUTION WIDTH SD (test code = RDW-SD) 43.5 fL 37 .0-51.0 N PLATELET COUNT (test code = PLT) 273 K/mm3 150-450 N MEAN PLATELET VOLUME (test code = MPV) 10.5 fL 6.7-11.0 N B-TYPE NATRIURETIC [id number] 04:30:00* Test Item Value Reference Range Interpretation Comments B-TYPE NATRIURETIC PEPTIDE (test code = BNP) 696 pg/mL 0-100 H BASIC METABOLIC [id number] 04:29:00* Test Item Value Reference Range Interpretation Comments SODIUM (test code = NA) 141 mmol/L 128-145 N POTASSIUM (test code = K) 4.3 mmol/L 3.5-5.1 N CHLORIDE (test code = CL) 105.0 mmol/L 98-107 N CARBON DIOXIDE (test code = CO2) 23.1 mmol/L 22-29 N ANION GAP (test code = GAP) 17 mmol/L 10-20 N GLUCOSE (test code = GLU) 173 mg/dL 70-110 H BLOOD UREA NITROGEN (test code = BUN) 86 mg/dL 7-22 H GLOMERULAR FILTRATION RATE (test code = GFR) 11 mL/min >=60 Estimated GFR by using Modified MDRD formula.Chronic kidney disease is defined as either kidney damageor GFR <60 mL/min/1.73 m2 for >3 months. CREATININE (test code = CREAT) 5.34 mg/dL 0.55-1.3 H BUN/CREATININE RATIO (test code = BUN/CREA) 16.1 10-20 N CALCIUM (test code = CA) 6.2 mg/dL 8.0-10.5 LL HEPATIC FUNCTION [id number] 04:29:00* Test Item Value Reference Range Interpretation Comments TOTAL PROTEIN (test code = PROT) 7.1 gram/dL 6.1-7.8 N ALBUMIN (test code = ALB) 2.8 g/dL 3.3-4.4 L GLOBULIN (test code = GLOB) 4.3 G/DL 1-10 N ALBUMIN/GLOBULIN RATIO (test code = A/G) 0.7 0.75-1.50 L BILIRUBIN TOTAL (test code = BILT) 0.30 mg/dL 0.2-1.2 N BILIRUBIN DIRECT (test code = BILD) 0.10 mg/dL 0.0-0.30 N SGOT/AST (test code = AST) 34 U/L 10-39 N SGPT/ALT (test code = ALT) 49 U/L 10-69 N ALKALINE PHOSPHATASE TOTAL (test code = ALKP) 202 U/L 50-139 H [id number] 04:29:00* Test Item Value Reference Range Interpretation Comments LIPASE (test code = LIP) 117 Unit/L 144-286 L [id number] 04:29:00* Test Item Value Reference Range Interpretation Comments TROPONIN-I (test code = TROPI) 0.02 ng/mL 0.00-0.056 N PROTHROMBIN [id number] 04:27:00* Test Item Value Reference Range Interpretation Comments PROTHROMBIN TIME PATIENT (test code = PTP) 10.3 seconds 9.0-13.0 N INTERNATIONAL NORMAL RATIO (test code = INR) 1.1 0.8-1.2 N The therapeutic range for oral anticoagulant therapy formost indications is an international normalized ratio (INR)of between 2.0 and 3.0. The recommended therapeutic INRrange for various clinical situations is listed below: Clinical Situation INR range Pulmonary e mbolism treatment (2.0-3.0)Venous thrombosis treatmentVenous thrombosis prophylaxis (high risk surgery)Prevention of systemic embolism from: Acute myocardial infarction Valvular heart disease Atrial fibrillation Mechanical prosthetic heart valves (2.5-3.5) IS PATIENT ON ANTICOAGULANTS? NTHROMBOPLASTIN TIME [id number] 04:27:00* Test Item Value Reference Range Interpretation Comments THROMBOPLASTIN TIME PARTIAL (test code = PTT) 27.5 seconds 25.5-34. 3 N Therapeutic Range for patients on Heparin Therapy is 2 to2.5 times their baseline PTT level. IS PATIENT ON ANTICOAGULANTS? NBASIC METABOLIC [id number] 04:23:00* Test Item Value Reference Range Interpretation Comments SODIUM (test code = NA) 141 mmol/L 128-145 N POTASSIUM (test code = K) 4.3 mmol/L 3.5-5.1 N CHLORIDE (test code = CL) 105.0 mmol/L 98-107 N CARBON DIOXIDE (test code = CO2) 23.1 mmol/L 22-29 N ANION GAP (test code = GAP) 17 mmol/L 10-20 N GLUCOSE (test code = GLU) 173 mg/dL 70-110 H BLOOD UREA NITROGEN (test code = BUN) 86 mg/dL 7-22 H GLOMERULAR FILTRATION RATE (test code = GFR) 11 mL/min >=60 Estimated GFR by using Modified MDRD formula.Chronic kidney disease is defined as either kidney damageor GFR <60 mL/min/1.73 m2 for >3 months. CREATININE (test code = CREAT) 5.34 mg/dL 0.55-1.3 H BUN/CREATININE RATIO (test code = BUN/CREA) 16.1 10-20 N CALCIUM (test code = CA) 6.2 mg/dL 8.0-10.5 LL HEPATIC FUNCTION [id number] 04:23:00* Test Item Value Reference Range Interpretation Comments TOTAL PROTEIN (test code = PROT) gram/dL 6.4-8.2 ALBUMIN (test code = ALB) g/dL 3.4-5.0 GLOBULIN (test code = GLOB) G/DL 1-10 ALBUMIN/GLOBULIN RATIO (test code = A/G) 0.75-1.50 BILIRUBIN TOTAL (test code = BILT) mg/dL 0.0-1.0 BILIRUBIN DIRECT (test code = BILD) mg/dL 0.0-0.20 SGOT/AST (test code = AST) IUnit/L 15-37 SGPT/ALT (test code = ALT) IUnit/L 12-78 ALKALINE PHOSPHATASE TOTAL (test code = ALKP) IUnit/L 45-117 [id number] 04:23:00* Test Item Value Reference Range Interpretation Comments LIPASE (test code = LIP) U/L 73.0-393.0 [id number] 04:23:00* Test Item Value Reference Range Interpretation Comments TROPONIN-I (test code = TROPI) ng/mL 0-0.045 - XR CHEST 1 [id number] 04:19:00 FAX: Davy Rose MD [phone] Maribel: [place] St: REG FAX: Catarina Martinez [phone] Name: SERJIOJED [facility] FSED : 1955 Age/S: 64/M [address] [facility] Unit #: [id number] Loc: [employer] [facility] [address] Phys: Davy Adam MD [place], [place] [address] Acct: [id number] Dis Date: Status: REG ER PHONE #: Exam Date: 11/01/2019 0416 FAX #: Reason: CHEST PAIN EXAMS: CPT CODE: [id number] XR CHEST 1 V 01277 - XR CHEST 1 V, 11/01/2019 3:57 AM Reason For Examination: CHEST PAIN Comparison: April 2016 Location: R16 Findings LUNGS: Low lung volumes limit evaluation. Likely moderate pulmonary edema although underlying consolidation difficult to exclude PLEURA: No pleural effusions CARDIOMEDIASTINAL SILHOUETTE Mildly Enlarged IMPRESSION: Mildly enlarged cardiac silhouette Low lung volumes limit evaluation. Likely moderate pulmonary edema although underlying consolidation difficult to exclude at 0419 Reported and signed by: Oneyda Dillard M.D. CC: Davy Adam MD; Antony Martinez MD Technologist: Sean Banda Trnscrd Date/Time/By: 11/01/2019 (0419) : By: SvetlanaSR31 Orig Print D/T: S: 11/01/2019 (9826) PAGE 1 Signed Report Comprehensive metabolic [id number] 16:41:22* Test Item Value Reference Range Interpretation Comments Sodium (test code = 2951-2) 138 135- 150 mEq/L Potassium (test code = 2823-3) 5.1 3.5- 5.0 mEq/L H Chloride (test code = 2075-0) 105 98- 112 mEq/L CO2 (test code = 2027-9) 15 mmol/L 24-31 L Anion gap (test code = 57384-3) 18@ANIO 7- 15 mEq/L H BUN (test code = 3094-0) 93 mg/dL 7-18 H Creatinine (test code = 2160-0) 5.20 mg/dL 0.7-1.2 H Glucose (test code = 2345-7) 164 mg/dL 65-100 H Calcium (test code = 28162-0) 7.0 mg/dL 8.8-10.2 L Protein (test code = 2885-2) 6.5 g/dL 6.3-8.3 Albumin (test code = 1751-7) 3.1 g/dL 3.5-5 L A/G ratio (test code = 1759-0) 0.9 0.7-3.8 Alkaline phosphatase (test code = 6768-6) 103 U/L 0-129 AST (test code = 1920-8) 17 U/L 10-50 ALT (test code = 1742-6) 9 U/L 5-50 Total bilirubin (test code = 1974-2) <0.3 0.2-1.2 Lab Interpretation (test code = 70858-4) Abnormal [place] MethodistLipase [id number] 16:41:21* Test Item Value Reference Range Interpretation Comments Lipase (test code = 3040-3) 33 U/L 13-60 [place] MethodistEstimated [id number] 16:41:21* Test Item Value Reference Range Interpretation Comments Estimated GFR (test code = 5488) 11 mL/min/1.73 m2 A Catergory Units InterpretationG1 >=90 Normal or highG2 60-89 Mildly yplfatmhbG0k 45-59 Mildly to moderately etszeanrqO9t 30-44 Moderately to severely decreasedG4 15-29 Severely decreasedG5 <15 Kidney failureThe eGFR was calculated using the Chronic Kidney Disease Epidemiology Collaboration (CKD-EPI) equation. Interpretation is based on recommendations of the National Kidney Foundation-Kidney Disease Outcomes Quality Initiative (NKF-KDOQI) published in 2014. Lab Interpretation (test code = 16853-4) Abnormal [place] MethodistUrinalysis screen and microscopy, with reflex to culture 2019-08-31 16:37:50* Test Item Value Reference Range Interpretation Comments Specimen site (test code = 8865184) Clean catch Color, UA (test code = 5778-6) Yellow Appearance, UA (test code = 5767-9) Slightly-Cloudy Specific gravity, UA (test code = 5811-5) 1.015 1.001-1.035 pH, UA (test code = 5803-2) 5.0 5.0-8.5 Protein, UA (test code = 01175-9) 3+ Negative A Glucose, UA (test code = 33836-3) 1+ Negative A Ketones, UA (test code = 2514-8) Negative Negative Bilirubin, UA (test code = 5770-3) Negative Negative Blood, UA (test code = 5794-3) Negative Negative Nitrite, UA (test code = 5802-4) Negative Negative Urobilinogen, UA (test code = 63903-1) Negative <2.0 Leukocyte esterase, UA (test code = 5799-2) Negative Negative WBC, UA (test code = 5821-4) None seen 0- 1 /HPF RBC, UA (test code = 13516-1) 3 0- 5 /HPF Bacteria, UA (test code = 79810-1) Trace None seen Yeast, UA (test code = 31465-3) None seen Yeast with pseudohyphae, UA (test code = 00101-1) None seen Lab Interpretation (test code = 08565-0) Abnormal [place] MethodistCBC with platelet and [id number] 16:21:01* Test Item Value Reference Range Interpretation Comments WBC (test code = 45133-4) 7.6 4.2- 11.0 k/uL RBC (test code = 85843-6) 2.97 m/uL 4.04-5.86 L HGB (test code = 718-7) 8.1 g/dL 13-17.3 L HCT (test code = 4544-3) 26.5 % 34-45 L MCV (test code = 787-2) 89.2 fL 80-98 MCH (test code = 785-6) 27.3 pg 27-34 MCHC (test code = 786-4) 30.6 g/dL 31.5-36.5 L RDW - SD (test code = 11905-5) 46.1 fL 37-51 MPV (test code = 32992-1) 11.1 fL 7.4-10.4 H Platelet count (test code = 12790-5) 240 150- 400 k/uL Nucleated RBC (test code = 19863-9) 0.00 /100 WBC Neutrophils (test code = 52390-9) 62.5 % 36-66 Lymphocytes (test code = 36367-0) 26.3 % 24-44 Monocytes (test code = 71446-5) 8.5 % 0-6 H Eosinophils (test code = 08883-9) 2.0 % 0-6 Basophils (test code = 18495-3) 0.4 % 0-1.2 Immature granulocytes (test code = 27901-8) 0.3 % 0-1 Lab Interpretation (test code = 41774-0) Abnormal Ede Felix
--- OUTSIDE RECORDS SUMMARY | 2020-06-10 19:49 | XMS REPORT | Clinical Summary ---
[facility] Address Unknown Phone Unavailable Care Team Providers Care Retail Stocker Name Role Phone Antony Mosley MD PCP Allergies No Known Allergies Medications End Date Status Medication Sig Dispensed Refills Start Date Active multivitamin (DAILY DIET daily. 0 SUPPORT ORAL) Active atorvastatin (LIPITOR) 80 daily. 0 10/22 MG tablet 0 Active NIFEdipine (PROCARDIA-XL) Take 60 mg by 0 60 MG (OSM) 24 hr tablet mouth daily. Active metoprolol (TOPROL-XL) 50 TK 1 T PO 2 10/21 MG 24 hr tablet ONCE D 0 Active chlorthalidone (HYGROTON) daily. 3 10/21 25 MG tablet 0 Active HYDROcodone-acetaminophen as needed. 0 10/22 (NORCO 7.5-325) 7.5-325 0 mg per tablet Active insulin degludec (TRESIBA 16 Units 0 FLEXTOUCH U-200) 200 daily. unit/mL (3 mL) InPn Active ferrous fumarate 325 mg 650 mg daily. 0 (106 mg iron) Tab Active calcium carbonate (TUMS) Take 1 tablet 0 500 mg chewable by mouth tabletIndications: 2 tabs daily. BID Active Problems Problem Noted Date ESRD (end stage renal disease) on dialysis 0 Overview: currently on HD; planned transition to [facility] Diabetic retinopathy 10/21/2018 Overview: Bilateral; s/p laser surgery to L eye; pending to R eye Diabetes mellitus 10/21/2013 Hyperlipidemia 10/21/2013 Hypertension 10/21/1989 Encounters Care Team Description Date Type Specialty Evan Olmedo 01/28/2020 Documentation Transplant Umang Levy Appointment 01/22/2020 Telephone Transplant Marlene Hale 01/13/2020 Telephone Hepatology Marlene Hale Appointment 01/13/2020 Telephone Hepatology Lisa Chen MD CKD (chronic kidney disease), stage IV ( HCC); Hypertensive renal disease; Diabetes mellitus due to underlying condition with chronic kidney disease on chronic dialysis, without long-term current use of insulin (HCC); Pre-transplant evaluation for chronic kidney disease 12/16/2019 Hospital Cardiology Encounter Lisa Chen MD CKD (chronic kidney disease), stage IV ( HCC); Hypertensive renal disease; Diabetes mellitus due to underlying condition with chronic kidney disease on chronic dialysis, without long-term current use of insulin (HCC); Pre-transplant evaluation for chronic kidney disease 12/16/2019 [facility] Cardiology Encounter Lisa Chen MD CKD (chronic kidney disease), stage IV ( HCC); Hypertensive renal disease; Diabetes mellitus due to underlying condition with chronic kidney disease on chronic dialysis, without long-term current use of insulin (HCC); Pre-transplant evaluation for chronic kidney disease 12/16/2019 Hospital Encounter Lisa Chen MD CKD (chronic kidney disease), stage IV ( HCC); Hypertensive renal disease; Diabetes mellitus due to underlying condition with chronic kidney disease on chronic dialysis, without long-term current use of insulin (HCC); Pre-transplant evaluation for chronic kidney disease 12/16/2019 [facility] Radiology Encounter Lisa Chen MD CKD (chronic kidney disease), stage IV ( HCC); Hypertensive renal disease; Diabetes mellitus due to underlying condition with chronic kidney disease on chronic dialysis, without long-term current use of insulin (HCC); Pre-transplant evaluation for chronic kidney disease 12/16/2019 Orders Only Lab Antony Mosley MD 12/16/2019 Outside Orders Skye Castellon RPH 11/26/2019 Documentation Pharmacy Lisa Chen MD Pre-transplant evaluation for chronic ki dney disease (Primary Dx) 11/25/2019 Evaluation Transplant Lisa Chen MD Pre-transplant evaluation for chronic ki dney disease (Primary Dx); Essential hypertension; Type 2 diabetes mellitus with chronic kidney disease on chronic dialysis, 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 use (HCC); Diabetic retinopathy of both eyes without macular edema associated with diabetes mellitus due to underlying condition, unspecified retinopathy severity (HCC); ESRD (end stage renal disease) on dialysis (HCC); Other hyperlipidemia 11/25/2019 Evaluation Transplant Lisa Chen MD Labrador, Florencia P, RN CKD (chronic kidney disease), stage IV ( HCC) (Primary Dx); Hypertensive renal disease; Diabetes mellitus due to underlying condition with chronic kidney disease on chronic dialysis, without long-term current use of insulin (HCC); Pre-transplant evaluation for chronic kidney disease 11/25/2019 Office Visit Transplant Lisa Chen MD CKD (chronic kidney disease), stage IV ( HCC); Hypertensive renal disease; Diabetes mellitus due to underlying condition with chronic kidney disease on chronic dialysis, without long-term current use of insulin (HCC); Pre-transplant evaluation for chronic kidney disease 11/25/2019 Orders Only Transplant Hepatolo gy Evan Olmedo 10/16/2019 Abstract Transplant Evan Olmedo 10/02/2019 Abstract Transplant Evan Olmedo 10/02/2019 Abstract Transplant Evan Olmedo 10/02/2019 Abstract Transplant after 06/10/2019 Family History Medical History Relation Name Comments Diabetes Brother Hypertension Brother Diabetes Mother Hypertension Mother Relation Name Status Comments Brother Mother Social History Date Tobacco Use Types Packs/Day Years Used Never Smoker Smokeless Tobacco: Never Used Tobacco Cessation: Counseling Given: Yes Alcohol Use Drinks/Week oz/Week Comments No Alcohol Habits Answer Date Recorded How often do you have a drink containing alcohol? Never 11/25/2019 How many drinks containing alcohol do you [...] travel history available. Last Filed Vital Signs Time Taken Vital Sign Reading 12/16/2019 11:23 AM [employer] Blood Pressure 173/70 12/16/2019 11:23 AM [employer] Pulse 90 11/25/2019 1:03 PM [employer] Temperature 36.6 C (97.9 F) 11/25/2019 1:03 PM [employer] Respiratory Rate 18 - Oxygen Saturation - - Inhaled Oxygen - Concentration 12/16/2019 9:00 AM [employer] Weight 79.8 kg (176 lb) 12/16/2019 9:00 AM [employer] Height 167.6 cm (5' 6") 12/16/2019 9:00 AM [employer] Body Mass Index 28.41 Plan of Treatment Health Maintenance Due Date Last Done Comments COLON CANCER SCREENING 1955 COLONOSCOPY DIABETIC EYE EXAM 1967 DIABETIC FOOT EXAM 1965 URINE MICROALBUMIN 1965 MEDICARE ANNUAL WELLNESS 10/22/2019 (YEAR 2 or FIRST YEAR if no IPPE) HEMOGLOBIN A1C 06/15/2020 12/16/2019 INFLUENZA VACCINE (#1) 2020 07/20/2017 PNEUMOCOCCAL VACCINE 2-64 08/13/2021 08/13/2016, 04/08/2015 YEARS AT RISK (3 of 3 - PPSV23) LIPID PANEL 12/16/2022 12/16/2019 Procedures Comments Procedure Name Priority Date/Time Associated Diag nosis PERIPHERAL VASCULAR 12/17/2019 REPORT - SCAN 9:22 PM [employer] ECHOCARDIOGRAM REPORT - 12/17/2019 SCAN 9:20 PM [employer] TRANSFUSION SERVICE 12/17/2019 REPORT - SCAN 6:05 PM [employer] STRESS ECHO Routine 12/16/2019 CKD (chronic ki dney 11:08 AM [employer] disease), stage IV (HCC) Hypertensive renal disease Diabetes mellitus due to underlying condition with chronic kidney disease on chronic dialysis, without long-term current use of insulin (HCC) Pre-transplant evaluation for chronic kidney disease 2D ECHO W/ DOPPLER Routine 12/16/2019 CKD (chroni c kidney (CW/PW/COLOR) 10:28 AM [employer] disease), stage IV (HCC) Hypertensive renal disease Diabetes mellitus due to underlying condition with chronic kidney disease on chronic dialysis, without long-term current use of insulin (HCC) Pre-transplant evaluation for chronic kidney disease TREADMILL Routine 12/16/2019 TOLERANCE(NON-NUCLEAR 10:00 AM [employer] TREADMILL) ECG 12-LEAD Routine 12/16/2019 CKD (chronic ki dney 9:18 AM [employer] disease), stage IV (HCC) Hypertensive renal disease Diabetes mellitus due to underlying condition with chronic kidney disease on chronic dialysis, without long-term current use of insulin (HCC) Pre-transplant evaluation for chronic kidney disease XR CHEST 2 VIEWS Routine 12/16/2019 CKD (chronic kidney 8:56 AM [employer] disease), stage IV (HCC) Hypertensive renal disease Diabetes mellitus due to underlying condition with chronic kidney disease on chronic dialysis, without long-term current use of insulin (HCC) Pre-transplant evaluation for chronic kidney disease US ABDOMEN COMPLETE Routine 12/16/2019 CKD (chron ic kidney 8:07 AM [employer] disease), stage IV (HCC) Hypertensive renal disease Diabetes mellitus due to underlying condition with chronic kidney disease on chronic dialysis, without long-term current use of insulin (HCC) Pre-transplant evaluation for chronic kidney disease BLOOD TYPING, AUTOMATED Routine 12/16/2019 CKD (c hronic kidney 7:13 AM [employer] disease), stage IV (HCC) Hypertensive renal disease Diabetes mellitus due to underlying condition with chronic kidney disease on chronic dialysis, without long-term current use of insulin (HCC) Pre-transplant evaluation for chronic kidney disease HEMOGLOBIN A1C Routine 12/16/2019 CKD (chronic ki dney 7:13 AM [employer] disease), stage IV (HCC) Hypertensive renal disease Diabetes mellitus due to underlying condition with chronic kidney disease on chronic dialysis, without long-term current use of insulin (HCC) Pre-transplant evaluation for chronic kidney disease LIPID PANEL Routine 12/16/2019 CKD (chronic ki dney 7:13 AM [employer] disease), stage IV (HCC) Hypertensive renal disease Diabetes mellitus due to underlying condition with chronic kidney disease on chronic dialysis, without long-term current use of insulin (HCC) Pre-transplant evaluation for chronic kidney disease PSA Routine 12/16/2019 CKD (chronic ki dney 7:13 AM [employer] disease), stage IV (HCC) Hypertensive renal disease Diabetes mellitus due to underlying condition with chronic kidney disease on chronic dialysis, without long-term current use of insulin (HCC) Pre-transplant evaluation for chronic kidney disease TRANSFUSION SERVICE 11/26/2019 REPORT - SCAN 6:07 PM [employer] BLOOD TYPING, AUTOMATED Routine 11/25/2019 CKD (c hronic kidney 11:50 AM [employer] disease), stage IV (HCC) Hypertensive renal disease Diabetes mellitus due to underlying condition with chronic kidney disease on chronic dialysis, without long-term current use of insulin (HCC) Pre-transplant evaluation for chronic kidney disease DIRECT AHG (FELIPA)/DIRECT Routine 11/25/2019 CKD (c hronic kidney ZEESHAN 11:50 AM [employer] disease), stage IV (HCC) Hypertensive renal disease Diabetes mellitus due to underlying condition with chronic kidney disease on chronic dialysis, without long-term current use of insulin (HCC) Pre-transplant evaluation for chronic kidney disease HLA TYPING CII Routine 11/25/2019 CKD (chronic ki dney 11:50 AM [employer] disease), stage IV (HCC) Hypertensive renal disease Diabetes mellitus due to underlying condition with chronic kidney disease on chronic dialysis, without long-term current use of insulin (HCC) Pre-transplant evaluation for chronic kidney disease HLA TYPING CI Routine 11/25/2019 CKD (chronic ki dney 11:50 AM [employer] disease), stage IV (HCC) Hypertensive renal disease Diabetes mellitus due to underlying condition with chronic kidney disease on chronic dialysis, without long-term current use of insulin (HCC) Pre-transplant evaluation for chronic kidney disease T SPOT TB Routine 11/25/2019 CKD (chronic ki dney 11:50 AM [employer] disease), stage IV (HCC) Hypertensive renal disease Diabetes mellitus due to underlying condition with chronic kidney disease on chronic dialysis, without long-term current use of insulin (HCC) Pre-transplant evaluation for chronic kidney disease PTH, INTACT Routine 11/25/2019 CKD (chronic ki dney 11:50 AM [employer] disease), stage IV (HCC) Hypertensive renal disease Diabetes mellitus due to underlying condition with chronic kidney disease on chronic dialysis, without long-term current use of insulin (HCC) Pre-transplant evaluation for chronic kidney disease HIV-1 ANTIGEN WITH Routine 11/25/2019 CKD (chroni c kidney HIV-1/2 ANTIBODY 11:50 AM [employer] disease), stage IV (HCC) Hypertensive renal disease Diabetes mellitus due to underlying condition with chronic kidney disease on chronic dialysis, without long-term current use of insulin (HCC) Pre-transplant evaluation for chronic kidney disease HEPATITIS C ANTIBODY Routine 11/25/2019 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 ricky kidney 11:50 AM [employer] disease), stage IV (HCC) Hypertensive renal disease Diabetes mellitus due to underlying condition with chronic kidney disease on chronic dialysis, without long-term current use of insulin (HCC) Pre-transplant evaluation for chronic kidney disease HEPATITIS B CORE Routine 11/25/2019 CKD (chronic kidney ANTIBODY, IGM 11:50 AM [employer] disease), stage IV (HCC) Hypertensive renal disease Diabetes mellitus due to underlying condition with chronic kidney disease on chronic dialysis, without long-term current use of insulin (HCC) Pre-transplant evaluation for chronic kidney disease HEPATITIS B SURFACE Routine 11/25/2019 CKD (chron ic kidney ANTIGEN 11:50 AM [employer] disease), stage IV (HCC) Hypertensive renal disease Diabetes mellitus due to underlying condition with chronic kidney disease on chronic dialysis, without long-term current use of insulin (HCC) Pre-transplant evaluation for chronic kidney disease HEPATITIS B SURFACE Routine 11/25/2019 CKD (chron ic kidney ANTIBODY 11:50 AM [employer] disease), stage IV (HCC) Hypertensive renal disease Diabetes mellitus due to underlying condition with chronic kidney disease on chronic dialysis, without long-term current use of insulin (HCC) Pre-transplant evaluation for chronic kidney disease CBC W/PLT COUNT & AUTO Routine 11/25/2019 CKD (ch ronic kidney DIFFERENTIAL 11:49 AM [employer] disease), stage IV (HCC) Hypertensive renal disease Diabetes mellitus due to underlying condition with chronic kidney disease on chronic dialysis, without long-term current use of insulin (HCC) Pre-transplant evaluation for chronic kidney disease AB SPECIFICITY CLASS I Routine 11/25/2019 CKD (ch ronic kidney 11:49 AM [employer] disease), stage IV (HCC) Hypertensive renal disease Diabetes mellitus due to underlying condition with chronic kidney disease on chronic dialysis, without long-term current use of insulin (HCC) Pre-transplant evaluation for chronic kidney disease TREPONEMA PALLIDUM - Routine 11/25/2019 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 ricky kidney SYPHILIS IGG 11:49 AM [employer] disease), stage IV (HCC) Hypertensive renal disease Diabetes mellitus due to underlying condition with chronic kidney disease on chronic dialysis, without long-term current use of insulin (HCC) Pre-transplant evaluation for chronic kidney disease RPR TITER Routine 11/25/2019 CKD (chronic ki dney 11:49 AM [employer] disease), stage IV (HCC) Hypertensive renal disease Diabetes mellitus due to underlying condition with chronic kidney disease on chronic dialysis, without long-term current use of insulin (HCC) Pre-transplant evaluation for chronic kidney disease FLOW PRA CLASS II WITH Routine 11/25/2019 CKD (ch ronic kidney REFLEX TO ANTIBODY 11:49 AM [employer] disease), stage IV (HCC) SPECIFICITY Hypertensive renal disease Diabetes mellitus due to underlying condition with chronic kidney disease on chronic dialysis, without long-term current use of insulin (HCC) Pre-transplant evaluation for chronic kidney disease FLOW PRA CLASS I WITH Routine 11/25/2019 CKD (chr onic kidney REFLEX TO ANTIBODY 11:49 AM [employer] disease), stage IV (HCC) SPECIFICITY Hypertensive renal disease Diabetes mellitus due to underlying condition with chronic kidney disease on chronic dialysis, without long-term current use of insulin (HCC) Pre-transplant evaluation for chronic kidney disease VARICELLA ZOSTER Routine 11/25/2019 CKD (chronic kidney ANTIBODY, IGG 11:49 AM [employer] disease), stage IV (HCC) Hypertensive renal disease Diabetes mellitus due to underlying condition with chronic kidney disease on chronic dialysis, without long-term current use of insulin (HCC) Pre-transplant evaluation for chronic kidney disease URIC ACID Routine 11/25/2019 CKD (chronic ki dney 11:49 AM [employer] disease), stage IV (HCC) Hypertensive renal disease Diabetes mellitus due to underlying condition with chronic kidney disease on chronic dialysis, without long-term current use of insulin (HCC) Pre-transplant evaluation for chronic kidney disease RPR Routine 11/25/2019 CKD (chronic ki dney 11:49 AM [employer] disease), stage IV (HCC) Hypertensive renal disease Diabetes mellitus due to underlying condition with chronic kidney disease on chronic dialysis, without long-term current use of insulin (HCC) Pre-transplant evaluation for chronic kidney disease PT/APTT Routine 11/25/2019 CKD (chronic ki dney 11:49 AM [employer] disease), stage IV (HCC) Hypertensive renal disease Diabetes mellitus due to underlying condition with chronic kidney disease on chronic dialysis, without long-term current use of insulin (HCC) Pre-transplant evaluation for chronic kidney disease PHOSPHORUS Routine 11/25/2019 CKD (chronic ki dney 11:49 AM [employer] disease), stage IV (HCC) Hypertensive renal disease Diabetes mellitus due to underlying condition with chronic kidney disease on chronic dialysis, without long-term current use of insulin (HCC) Pre-transplant evaluation for chronic kidney disease LACTATE DEHYDROGENASE Routine 11/25/2019 CKD (chr onic kidney (LDH) 11:49 AM [employer] disease), stage IV (HCC) Hypertensive renal disease Diabetes mellitus due to underlying condition with chronic kidney disease on chronic dialysis, without long-term current use of insulin (HCC) Pre-transplant evaluation for chronic kidney disease GAMMA GLUTAMYL Routine 11/25/2019 CKD (chronic ki dney TRANSFERASE (GGT) 11:49 AM [employer] disease), stage IV (HCC) Hypertensive renal disease Diabetes mellitus due to underlying condition with chronic kidney disease on chronic dialysis, without long-term current use of insulin (HCC) Pre-transplant evaluation for chronic kidney disease EBV ANTIBODY, IGM Routine 11/25/2019 CKD (chronic kidney 11:49 AM [employer] disease), stage IV (HCC) Hypertensive renal disease Diabetes mellitus due to underlying condition with chronic kidney disease on chronic dialysis, without long-term current use of insulin (HCC) Pre-transplant evaluation for chronic kidney disease EBV ANTIBODY, IGG Routine 11/25/2019 CKD (chronic kidney 11:49 AM [employer] disease), stage IV (HCC) Hypertensive renal disease Diabetes mellitus due to underlying condition with chronic kidney disease on chronic dialysis, without long-term current use of insulin (HCC) Pre-transplant evaluation for chronic kidney disease COMPREHENSIVE METABOLIC Routine 11/25/2019 CKD (c hronic kidney PANEL 11:49 AM [employer] disease), stage IV (HCC) Hypertensive renal disease Diabetes mellitus due to underlying condition with chronic kidney disease on chronic dialysis, without long-term current use of insulin (HCC) Pre-transplant evaluation for chronic kidney disease CYTOMEGALOVIRUS ANTIBODY, Routine 11/25/2019 CKD (chronic kidney IGM 11:49 AM [employer] disease), stage IV (HCC) Hypertensive renal disease Diabetes mellitus due to underlying condition with chronic kidney disease on chronic dialysis, without long-term current use of insulin (HCC) Pre-transplant evaluation for chronic kidney disease CYTOMEGALOVIRUS ANTIBODY, Routine 11/25/2019 CKD (chronic kidney IGG 11:49 AM [employer] disease), stage IV (HCC) Hypertensive renal disease Diabetes mellitus due to underlying condition with chronic kidney disease on chronic dialysis, without long-term current use of insulin (HCC) Pre-transplant evaluation for chronic kidney disease CBC W/PLT COUNT & AUTO Routine 11/25/2019 CKD (ch ronic kidney DIFFERENTIAL 11:49 AM [employer] disease), stage IV (HCC) Hypertensive renal disease Diabetes mellitus due to underlying condition with chronic kidney disease on chronic dialysis, without long-term current use of insulin (HCC) Pre-transplant evaluation for chronic kidney disease after 06/10/2019 Results * PERIPHERAL VASCULAR REPORT - SCAN (12/17/2019 9:22 PM [employer]) Narrative Performed At This result has an attachment that is n ot available. * ECHOCARDIOGRAM REPORT - SCAN (12/17/2019 9:20 PM [employer]) Narrative Performed At This result has an attachment that is n ot available. * TRANSFUSION SERVICE REPORT - SCAN (12/17/2019 6:05 PM [employer]) Only the most recent of 2 results within the time period is included. Narrative Performed At This result has an attachment that is n ot available. * Stress Echo With Tracing (12/16/2019 11:08 AM [employer]) Ejection Fraction [facility] Specimen Narrative Performed At Stress Echocardiography Report [facility] Demographics [facility] Patient Name ROES HENRIQUEZ ate of Study 12/16/2019 [id number] GenderMale Visit Number [id number] RaceUnk nown [id number] Room Number Number Date of Birth1955 Referring Physician April Breaux Age64 year(s) Screen Printer Helper Levy Whaley, Physician Fellow Harrison Pond MD Procedure Type of Study Stress procedure:STRESS(T MT)ECHO W/TMT TRACING (Routine) Indications:Pre-surgical evaluation of organ transplant. Clinical History DM ESRD HTN HLD Contrast Medium: Definity. Height: 66 inches Weight: 79.83 kg (176 lbs) BSA: 1.89 m^2 BMI: 28.41 kg/m^2 HR: 65 bpm BP: 195/89 mmHg Rest ECG Sinus Rhythm. 1st Degree AV-block. Stress Stress Type: Pharmacologic Peak HR: 100 bpm HR BP Product: Peak BP: 206/78 mmHg Predicted HR: 158 bpm % of predicted HR: 63 Test Duration: 4:31 min Stress Interpretation Target HR was achieved (>85% peak predi cted HR). All segments contract normally at basel ine and at all stages of stress. Echocardiographically normal stress ech o. ECG portion notable for hemodynamically stable, asymptomatic sustained VT with rate up to 190s. Results ECG no significant ST-T wave changes. Patient developed hemodynamically stabl e, sustained VT lasting up to 1 min w/ HR up to 190. Arrhythmias sustained ventricular tachycardia Symptoms No symptoms during stress test. Stress Protocol: Pharmacologic - [place] mine +-----+-----+------+ +------+- ----+--------+--+--------+----+------+ !Stage!Time !Dosage!Other !Dosa ge!Heart!Blood !CP!Pain!Pain!Pain! !#! !!Medic ation!!Rate !Pressure!!Location!Type!Action! +-----+-----+------+ +------+- ----+--------+--+--------+----+------+ !1.0!03:21!10.00 ! !!88 !206/78!!! !! +-----+-----+------+ +------+- ----+--------+--+--------+----+------+ !2.0!04:25!20.00 !!!100!181/61!!! !! +-----+-----+------+ +------+- ----+--------+--+--------+----+------+ !3.0!04:31!30.00 ! !!96 !160/52!!! !! +-----+-----+------+ +------+- ----+--------+--+--------+----+------+ Summary This is a negative Echocardiographic St ress Test. Signature Procedure Note Interface, External Ris In - 12/17/2019 7:14 AM [employer] [employer] Stress Echocardiography Report Demographics Patient Name SILVER HENRIQUEZ Date of Study 12/16/2019 Gender Male Visit Number [id number] Race Unknown Room Number Number Date of 1955 Referring Physician April Breaux Age 64 year(s) Screen Printer Helper Levy Alberto Interpreting Vijaya Whaley, Physician MD Fellow Harrison Pond MD Procedure Type of Study Stress procedure:STRESS(TMT)ECHO W/TMT TRACING (Routine) Indications:Pre-surgical evaluation of organ transplant. Clinical History DM ESRD HTN HLD Contrast Medium: Definity. Height: 66 inches Weight: 79.83 kg (176 lbs) BSA: 1.89 m^2 BMI: 28.41 kg/m^2 HR: 65 bpm BP: 195/89 mmHg Rest ECG Sinus Rhythm. 1st Degree AV-block. Stress Stress Type: Pharmacologic Peak HR: 100 bpm HR BP Product: [id number] Peak BP: 206/78 mmHg Predicted HR: 158 bpm % of predicted HR: 63 [...] during stress test. Stress Protocol: Pharmacologic - Dobutamine +-----+-----+------+ +------+-- ---+--------+--+--------+----+------+ !Stage!Time !Dosage!Other !Dosage!Heart!Blood !CP!Pain !Pain!Pain ! !# ! ! !Medication! !Rate !Pressure! !Location!Type!Action! +-----+-----+------+ +------+-- ---+--------+--+--------+----+------+ !1.0 !03:21!10.00 ! ! !88 !206/78 ! ! ! ! ! +-----+-----+------+ +------+-- ---+--------+--+--------+----+------+ !2.0 !04:25!20.00 ! ! !100 !181/61 ! ! ! ! ! +-----+-----+------+ +------+-- ---+--------+--+--------+----+------+ !3.0 !04:31!30.00 ! ! !96 !160/52 ! ! ! ! ! +-----+-----+------+ +------+-- ---+--------+--+--------+----+------+ Summary This is a negative Echocardiographic Stress Test. Signature Performing Organization Address City/State/Zipcode Ph one Number [facility] * 2D Echo W/Doppler(CW/PW/Color) (12/16/2019 10:28 AM [employer]) Ejection Fraction [facility] [employer] [facility] [facility] Specimen Narrative Performed At Transthoracic Echocardiography Report (TTE) [facility] ECH O [facility] Demographics ANTOINETTE [facility] Patient Name ROSE HENRIQUEZ ate of Study 12/16/2019 [id number] GenderMale Visit Number [id number] Alanis gonzalez [id number] Room Number Number Date of Birth1955 Referring Physician April Breaux Age64 year(s) Screen Printer Helper Levy Whaley, Physician MD Fellow Harrison Pond MD Procedure Type of Study TTE procedure:2DECHO W DO PPLER(CW/PW/COLOR) (Routine) Indications:Pre-surgical evaluation of organ transplant. Clinical History DM ESRD HTN HLD Height: 66 inches Weight: 79.83 kg (176 lbs) BSA: 1.89 m^2 BMI: 28.41 kg/m^2 HR: 65 bpm BP: 195/89 mmHg Summary 1. Normal LV size and function. All seg ments contract normally. LV EF 2. Normal RV size and function. 3. Grade 1 diastolic dysfunction (impai red relaxation and low-normal LA pressure). 4. No significant pericardial effusion is visualized. Previous Study No prior studies available for comparis on. Signature Findings Technical Quality: Technically adequate exam. Rhythm/BPRe gular sinus rhythm during the exam. Left Ventricle The left ventricle is chamber size (by vol index) is normal (male - LVED vol - 34-74ml/m2). LV septal thickness is normal (0.6-1.1cm). LV posterior wall thickness is mildly increased (1.2-1.4cm) . Borderline concentric LV hypertrophy. Grade 1 diastolic dysfunction (impaired relaxation and low-normal LA pressure). Estimated LVEF by qualitative assessment is normal (>60%) . Left AtriumLA s ize is normal . Right VentricleThe righ t ventricular chamber size and systolic function are within normal limits. Right Atrium RA siz e is normal. Atrial SeptumNormal interatrial septum by available views. Aortic Valve Normal AoV structure There is mild aortic stenosis. Mitral Valve Mild m itral annular calcification. No significant mitral regurgitation. Tricuspid ValveTV struc ture is normal. A trace of tricuspid regurgitation. Estimated peak systolic PA pressure is 20-25 mmHg . Pulmonic Valve Normal P V structure and function. Aorta Aortic root size (SInus of Valsalva diameter) is normal . PericardiumNo s ignificant pericardial effusion is visualized. IVC/SVC/PA/PV/PleuralThe estimated RA pressure by IVC dynamics 5-10mmHg [...] l/min/m^2 RVOT RVOT VTI (PW): 23.72 cm Procedure Note Interface, External Ris In - 12/17/2019 7:21 AM [employer] Transthoracic Echocardiography Report (TTE) Demographics Patient Name SILVER HENRIQUEZ Date of Study 12/16/2019 Gender Male Visit Number [id number] Race Unknown Room Number Number Date of 1955 Referring Physician April Breaux Age 64 year(s) Screen Printer Helper Levy Alberto Interpreting Vijaya Whaley, Physician MD Fellow Harrison Pond MD Procedure Type of Study TTE procedure:2DECHO W DOPPLER(CW/PW/COLOR) (Routine) Indications:Pre-surgical evaluation of organ transplant. Clinical History DM ESRD HTN HLD Height: 66 inches Weight: 79.83 kg (176 lbs) BSA: 1.89 m^2 BMI: 28.41 kg/m^2 HR: 65 bpm BP: 195/89 mmHg Summary 1. Normal LV size and function. All segments contract normally. LV EF 2. Normal RV size and function. 3. Grade 1 diastolic dysfunction (impaired relaxation and low-normal LA pressure). 4. No significant pericardial effusion is visualized. Previous Study No prior studies available for comparison. Signature Findings Technical Quality: Technically adequate exam. Rhythm/BP Regular sinus rhythm during the exam. Left Ventricle The left ventricle is chamber size (by vol index) is normal (male - LVED vol - 34-74ml/m2). LV septal thickness is normal (0.6-1.1cm). LV posterior wall thickness is mildly increased (1.2-1.4cm) . Borderline concentric LV hypertrophy. Grade 1 diastolic dysfunction (impaired relaxation and low-normal LA pressure). Estimated LVEF by qualitative assessment is normal (>60%) . Left Atrium LA size is [...] l/min/m^2 RVOT RVOT VTI (PW): 23.72 cm Performing Organization Address City/State/[facility] Ph one Number [facility] ECHO [facility] * Treadmill tolerance(Non-Nuclear Treadmill) (12/16/2019 10:00 AM [employer]) Specimen Narrative Performed At Protocol Name DOBUT TM-1 GE MUSE Time In Exercise Phase 00:12:15 Max. Systolic BP 206 mmHg Max Diastolic BP 78 mmHg Max Heart Rate 157 BPM Max Predicted Heart Rate 158 BPM Reason For Termination Arrhythmias Reason for Test ESRD Target HR Formula (220 - Age)*100% Arrhythmias Sustained Ventricular Tachy cardia Resting ECG Normal sinus rhythm ST Changes No Significant Changes Overall Impression Abnormal stress ECG Chest Pain none HR Response To Exercise appropriate BP Response To Exercise APPROPRIATE RES PONSE Functional Capacity Indeterminate due t o pharmacologic stress NIFEDIPINE metoprolol Test suspended d/t VT The Ventricular T achycardia was sustained, but self-terminated. Confirmed by MD SALDANA RAYMOND ([id number]) on 12/22/2019 4:44:04 PM Procedure Note Interface, External Ris In - 12/22/2019 4:44 PM [employer] Protocol Name DOBUT TM-1 Time In Exercise Phase 00:12:15 Max. Systolic BP 206 mmHg Max Diastolic BP 78 mmHg Max Heart Rate 157 BPM Max Predicted Heart Rate 158 BPM Reason For Termination Arrhythmias Reason for Test ESRD Target HR Formula (220 - Age)*100% Arrhythmias Sustained Ventricular Tachycardia Resting ECG Normal sinus rhythm ST Changes No Significant Changes Overall Impression Abnormal stress ECG Chest Pain none HR Response To Exercise appropriate BP Response To Exercise APPROPRIATE RESPONSE Functional Capacity Indeterminate due to pharmacologic stress NIFEDIPINE metoprolol Test suspended d/t VT The Ventricular Tachycardia was sustained, but self- terminated. Confirmed by MD SALDANA RAYMOND ([id number]) on 12/22/2019 4:44:04 PM Performing Organization Address [facility] one Number GE MUSE * ECG 12 lead (12/16/2019 9:18 AM [employer]) Specimen Narrative Performed At Ventricular Rate 69 BPM GE MUSE Atrial Rate 69 BPM P-R Interval 282 ms QRS Duration 100 ms Q-T Interval 442 ms QTC Calculation(Bazett) 473 ms P Lisco 71 degrees R Lisco -43 degrees T Lisco 60 degrees Sinus rhythm with 1st degree A-V block Left axis deviation Abnormal ECG No previous ECGs available Confirmed by MD Padilla Roberto ([id number]) on 12/17/2019 11:06:49 AM Procedure Note Interface, External Ris In - 12/17/2019 11:06 AM [employer] Ventricular Rate 69 BPM Atrial Rate 69 BPM P-R Interval 282 ms QRS Duration 100 ms Q-T Interval 442 ms QTC Calculation(Bazett) 473 ms P Lisco 71 degrees R Lisco -43 degrees T Lisco 60 degrees Sinus rhythm with 1st degree A-V block Left axis deviation Abnormal ECG No previous ECGs available Confirmed by MD Padilla Roberto ([id number]) on 12/17/2019 11:06:49 AM Performing Organization Address [facility] Ph one Number GE MUSE * XR chest 2 views (12/16/2019 8:56 AM [employer]) Specimen Narrative Performed At FINAL REPORT GE RIS INDICATION: Pre kidney transplant evalu ation. COMPARISON: None TECHNIQUE: Frontal and lateral views of the chest. FINDINGS: Lungs and pleura: Clear lungs. No effus ion. Heart and mediastinum: Normal heart siz e. Unremarkable mediastinal contours. Osseous structures: No acute abnormalit y. Additional findings: Right IJ dual-lume n central venous catheter terminates over the superior vena cava. IMPRESSION: No acute intrathoracic abnormality. Signed: JR Carreno Robert MD Report Verified Date/Time: 0 10:01:55 Reading Location: [facility] Radiolo gy Reading Room Procedure Note Interface, External Ris In - 12/16/2019 10:04 AM [employer] FINAL REPORT INDICATION: Pre kidney transplant evaluation. COMPARISON: None TECHNIQUE: Frontal and lateral views of the chest. FINDINGS: Lungs and pleura: Clear lungs. No effusion. Heart and mediastinum: Normal heart size. Unremarkable mediastinal contours. Osseous structures: No acute abnormality. Additional findings: Right IJ dual-lumen central venous catheter terminates over the superior vena cava. IMPRESSION: No acute intrathoracic abnormality. Signed: JR Carreno Robert MD Report Verified Date/Time: 12/16/2019 10:01:55 Reading Location: [facility] Radiology Reading Room Performing Organization Address City/State/Zipcode Ph one Number [employer] * US abdomen complete (12/16/2019 8:07 AM [employer]) Specimen Narrative Performed At FINAL REPORT [employer] Abdominal ultrasound dated 12/16/2019 History: Kidney transplant evaluation. COMPARISON: None Findings: Liver is normal in size and echogenicit y.The liver cowkttmk78 cm in length.No focal lesion is noted in the liver.Spleen is normal in size, 8.8 cm in length, without foca l abnormality. Gallbladder is normal in appearance. No gallstone or biliary dilatation seen. Common bile duct measu res four mm in diameter.Main portal vein measures 1.2 cm in diameter . Pancreas is normal in appearance. Right kidney measures 9.8 x 5.8 x 5.8 c m.Left kidney measures 9.8 x 5.4 x 4.6 cm.Echogenicity of both k idneys is normal. There is a 1.1 x 0.7 x 0.8 cm cyst in the mid region o f the left kidney. No hydronephrosis, solid mass, or calculus seen. No ascites is present in the abdomen. Abdominal aorta is normal in caliber. I VC and hepatic veins are patent. Impression: Single 1.1 cm left renal cyst, otherwis e unremarkable. Signed: Marianna Gaytan MD Report Verified Date/Time: 0 09:36:15 Reading Location: [address] Radiolo gy Reading Room Procedure Note Interface, External Ris In - 12/16/2019 9:38 AM [employer] FINAL REPORT Abdominal ultrasound dated 12/16/2019 History: Kidney [...] 5.4 x 4.6 cm. Echogenicity of both kidn eys is normal. There is a 1.1 x 0.7 x 0.8 cm cyst in the mid region of the left kidney. No hydronephrosis, solid mass, or calculus seen. No ascites is present in the abdomen. Abdominal aorta is normal in caliber. IVC and hepatic veins are patent. Impression: Single 1.1 cm left renal cyst, otherwise unremarkable. Signed: Marianna Gaytan MD Report Verified Date/Time: 12/16/2019 09:36:15 Reading Location: [address] Radiology Reading Room Performing Organization Address City/State/Zipcode Ph one Number [facility]IS * Blood typing, automated (12/16/2019 7:13 AM [employer]) Only the most recent of 2 results within the time period is included. ABO/RH AUTOMATED (BEAKER) O POSITIVE [facility] Specimen Blood Performing Organization Address [facility] Ph one Number [address] [address] [facility] * PSA (12/16/2019 7:13 AM [employer]) PSA 0.3 0.0 - 4.0 ng/mL [facility] Specimen Blood Narrative Performed At Leather Repairer ID - DB [facility] Performing Organization Address [facility] one Number [address] [address] [facility] * Hemoglobin A1c (12/16/2019 7:13 AM [employer]) Hemoglobin A1C 7.7 (H) 4.3 - 6.1 % [facility] Specimen Blood Performing Organization Address [facility] one Number [address] [facility] * Lipid panel (12/16/2019 7:13 AM [employer]) Triglycerides 120 mg/dL [facility] Cholesterol 105 mg/dL [facility] HDL 32 mg/dL [facility] LDL Calculated 49 mg/dL [facility] Specimen Blood Narrative Performed At Triglyceride Reference Range: [facility] Low Risk <150 [facility] [id number] High Risk 200-499 Very High Risk>=500 Cholesterol Reference Range: Low Risk <200 Boztcvlret266-247 High Risk>240 HDL Cholesterol Reference Range: Low Risk >=60 High Risk <40 LDL Cholesterol Reference Range: Optimal<100 Near [id number] [id number] Bydg545-614 Very High >=190 Leather Repairer ID - HUY Yates Performing Organization Address City/[facility] Ph one Number [facility] [address] [place], [place] [address] [facility] * HLA TYPING CII (11/25/2019 11:50 AM [employer]) HLA-DR AG1 10 [facility] HLA-DR AG2 1 [facility] HLA-DQA1 AG 1-1 01 [facility] HLA-DQA1 AG 1-2 01 [facility] HLA-DQB1 AG 1-1 5 [facility] HLA-DQB1 AG 1-2 5 [facility] HLA-DPA1 AG 1-1 02 [facility] HLA-DPA1 AG 1-2 02 [facility] HLA-DPB1 AG 1-1 10:01 [facility] HLA-DPB1 AG 1-2 17:01 [facility] Specimen Blood Narrative Performed At Disclaimer: [facility] This test was developed and its perform ance characteristics determined by the [facility]. It has not been cleared or approved by the U.S. Food and Drug Administration. The FDA has determined that such clearance or approval is not necessary. This test is used for clinic al purposes. It should not be regarded as investigational or for research. This [facility] is certified under the Clinical Laboratory Improvement Amendments of 19 88 (CLIA-88) as qualified to perform high complexity clinical laboratory testing. Performing Organization Address [facility] one Number [facility] ONE [facility] Shara, MS: [id number], [place] [address] CLIA#[id number] CAP#[id number] UNOS#[id number] * HLA TYPING CI (11/25/2019 11:50 AM [employer]) HLA-A AG1 2 [facility] HLA-A AG2 3 [facility] HLA-B AG1 35 [facility] HLA-B AG2 35 [facility] HLA-C AG1 4 [facility] HLA-C AG2 4 [facility] HLA-B BW1 6 [facility] HLA-B BW2 6 [facility] Specimen Blood Narrative Performed At Disclaimer: [facility] This test was developed and its perform ance characteristics determined by the [facility]. It has not been cleared or approved by the U.S. Food and Drug Administration. The FDA has determined that such clearance or approval is not necessary. This test is used for clinic al purposes. It should not be regarded as investigational or for research. This l aboratory is certified under the Clinical Laboratory Improvement Amendments of 19 88 (CLIA-88) as qualified to perform high complexity clinical laboratory testing. Performing Organization Address City/State/[facility] Ph one Number [facility] ONE Mark Olmedo, MS: [id number], [place] [address] CLIA#[id number] CAP#[id number] UNOS#[id number] * T Spot TB (11/25/2019 11:50 AM [employer]) T-Spot TB Negative [facility] Neg Ctrl Spot Count 0 [facility] Panel A Spot 0 [facility] Panel B Spot 1 [facility] Pos Ctrl Spot Ct 0 [facility] Scan Result [facility] Specimen Blood Narrative Performed At This result has an attachment that is n ot available. Performing Organization Address City/[facility] Ph one Number [facility] [address] [place] [address] LABORATORIES 100 * HIV-1 Antigen with HIV-1/2 Antibody (11/25/2019 11:50 AM [employer]) HIV-1 Antigen with HIV Nonreactive Nonreactive [facility] 1&2 Antibody [facility] Specimen Blood Narrative Performed At Leather Repairer ID [facility] Performing Organization Address City/[facility] Ph one [place] [address] [facility] * Hepatitis C Antibody (11/25/2019 11:50 AM [employer]) Hepatitis C Ab Reactive (A) Nonreactive [facility] Specimen Blood Narrative Performed At Leather Repairer ID [facility] Performing Organization Address City/[facility] Ph one [address] [facility] * Hepatitis B core antibody, IgM (11/25/2019 11:50 AM [employer]) Hep B C IgM Nonreactive Nonreactive [facility] Specimen Blood Narrative Performed At [facility] Performing Organization Address City/[facility] Ph one [place] [address] [address] [phone] [place] [address] * Hepatitis B surface antibody (11/25/2019 11:50 AM [employer]) Hep B S Ab <8.0 <8.0 mIU/mL [facility] Specimen Blood Narrative Performed At Leather Repairer ID - [facility] Performing Organization Address [facility] Ph one [address] * Hepatitis B surface antigen (11/25/2019 11:50 AM [employer]) HBsAg Screen Nonreactive Nonreactive [facility] Specimen Blood Narrative Performed At Leather Repairer ID - [facility] Performing Organization Address [facility] Ph one [address] * Direct [facility] (FELIPA)/Direct Zeeshan (11/25/2019 11:50 AM [employer]) Direct [facility]-IGG NEGATIVEComment: saline [facility] control-negative [facility] Direct [facility]HG-C3B, C3D NEGATVIE [facility] Specimen Blood Performing Organization Address City/[facility]/Zipcode Ph one [place] [address] [phone] [facility] * PTH, Intact (11/25/2019 11:50 AM [employer]) PTH 462.7 (H) 8.5 - 72.5 pg/mL [facility] Specimen Blood Narrative Performed At Leather Repairer ID - [facility] Performing Organization Address City/[facility]/Zipcode Ph one [facility] [address] [place], [place] [address] [facility] * MHA - TP (11/25/2019 11:49 AM [employer]) TREPONEMA PALLIDUM, Reactive (AA) Nonreactive [facility] SY[facility]IL[facility] IGG [facility] Specimen Blood Narrative Performed At Test performed by CALEB method. [facility] Performing Organization Address City/[facility] Ph one Number [facility] [address] [place], [place] [address] [facility] * FLOW PRA CLASS II WITH REFLEX TO ANTIBODY SPECIFICITY (11/25/2019 11:49 AM [employer]) Flow Class II Percent 0 [facility] NG Positive Specimen Blood Narrative Performed At Disclaimer: [facility] This test was developed and its perform ance characteristics determined by the [facility]. It has not been cleared or approved by the U.S. Food and Drug Administration. The FDA has determined that such clearance or approval is not necessary. This test is used for clinic al purposes. It should not be regarded as investigational or for research. This l aboratory is certified under the Clinical Laboratory Improvement Amendments of 19 88 (CLIA-88) as qualified to perform high complexity clinical laboratory testing. Performing Organization Address City/[facility] Ph one Number [facility] ONE Mark Olmedo, MS: [id number], [place] [address] CLIA#[id number] CAP#[id number] UNOS#[id number] * FLOW PRA CLASS I WITH REFLEX TO ANTIBODY SPECIFICITY (11/25/2019 11:49 AM [employer]) Flow Class I Percent 10 [facility] G Positive Specimen Blood Narrative Performed At Disclaimer: [facility] This test was developed and its perform ance characteristics determined by the [facility]. It has not been cleared or approved by the U.S. Food and Drug Administration. The FDA has determined that such clearance or approval is not necessary. This test is used for clinic al purposes. It should not be regarded as investigational or for research. This l aboratory is certified under the Clinical Laboratory Improvement Amendments of 19 88 (CLIA-88) as qualified to perform high complexity clinical laboratory testing. Performing Organization Address City/[facility] Ph one Number [facility] ONE Mark Shara, MS: [id number], [place] [address] CLIA#[id number] CAP#[id number] UNOS#[id number] * AB SPECIFICITY CLASS I (11/25/2019 11:49 AM [employer]) AB Specificity Class I NO CLASS I ANTIBODY DETECTED [facility] TEST[facility] WITH MFIs > 4000 Specimen Blood Narrative Performed At Disclaimer: [facility] This test was developed and its perform ance characteristics determined by the [facility]. It has not been cleared or approved by the U.S. Food and Drug Administration. The FDA has determined that such clearance or approval is not necessary. This test is used for clinic al purposes. It should not be regarded as investigational or for research. This l aboratory is certified under the Clinical Laboratory Improvement Amendments of 19 88 (CLIA-88) as qualified to perform high complexity clinical laboratory testing. Performing Organization Address [facility] Ph one Number [facility] HLA TESTING ONE Mark Olmedo, MS: [id number], [place] [address] CLIA#[id number] CAP#[id number] UNOS#[id number] * RPR Titer (11/25/2019 11:49 AM [employer]) RPR Titer 1:4 [facility] Specimen Blood Performing Organization Address City/[facility] one Number [address] [facility] [facility] * PT/aPTT (11/25/2019 11:49 AM [employer]) Protime 13.7 11.9 - 14.2 seconds [facility] INR 1.1 <=5.9 [facility] PTT 31.4 22.5 - 36.0 seconds [facility] Specimen Blood Narrative Performed At Effective 03/18/2019: PT Reference Range Change [facility] New: 11.9-14.2Previous: 11.7-14.[address] [facility] CE NTER RECOMMENDED COUMADIN/WARFARIN INR THERA PY RANGES STANDARD DOSE: 2.0-3.0Includes: PRO PHYLAXIS for venous thrombosis, systemic embolization; TREATMENT for venous thro mbosis and/or pulmonary embolus. HIGH RISK: Target INR is 2.5-3.5 for pa tients wiht mechanical heart valves. Performing Organization Address City/State/Zipcode Ph one Number [facility] [address] [place], [place] [address] [facility] * CBC with platelet count + automated diff (11/25/2019 11:49 AM [employer]) WBC 10.2 3.5 - 10.5 K/L [facility] RBC 4.10 (L) 4.63 - 6.08 M/L [facility] Hemoglobin 11.5 (L) 13.7 - 17.5 GM/DL [facility] Hematocrit 35.6 (L) 40.1 - 51.0 % [facility] MCV 86.8 79.0 - 92.2 fL [facility] MCH 28.0 25.7 - 32.2 pg [facility] MCHC 32.3 32.3 - 36.5 GM/DL [facility] RDW 13.5 11.6 - 14.4 % [facility] Platelets 265 150 - 450 K/CU MM [facility] MPV 10.8 9.4 - 12.4 fL [facility] nRBC 0 0 - 0 /100 WBC [facility] % Neutros 60 % [facility] % Lymphs 28 % [facility] % Monos 9 % [facility] % Eos 3 % [facility] % Baso 1 % [facility] # Neutros 6.10 (H) 1.78 - 5.38 K/L [facility] # Lymphs 2.82 1.32 - 3.57 K/L [facility] # Monos 0.92 (H) 0.30 - 0.82 K/L [facility] # Eos 0.31 0.04 - 0.54 K/L [facility] # Baso 0.05 0.01 - 0.08 K/L [facility] Immature 0 0 - 1 % [facility] Granulocytes-Relative [facility] Specimen Blood Performing Organization Address [facility] one Number [address] * Cytomegalovirus antibody, IgM (11/25/2019 11:49 AM [employer]) CMV IGM Negative Negative, Equivocal [facility] Specimen Blood Narrative Performed At CMV IgM Result Interpretation: [facility] </= 0.8 Al Negative [facility] 0.9-1.0 Al Equivocal >/= 1.1 Al Positive Performing Organization Address [facility] one Number [address] * EBV-VCA antibody, IgM (11/25/2019 11:49 AM [employer]) KEELY HSIEH VIRAL CAPSID Negative Negative, Equivocal [facility] ANTIGEN IGM [facility] Specimen Blood Narrative Performed At Keely Hsieh Viral Capsid Antigen IgM Result Interpre tation: [facility] </= 0.8 Al Negative [facility] 0.9-1.0 Al Equivocal >/= 1.1 Al Positive Performing Organization Address [facility] one Number [place] [phone] * EBV-VCA antibody, IgG (11/25/2019 11:49 AM [employer]) KEELY HSIEH VIRAL CAPSID Positive (A) Negative, Equivocal [facility] ANTIGEN IGG [facility] Specimen Blood Narrative Performed At Keely Hsieh Viral Capsid Antigen IgG Result Interpre tation: [facility] </= 0.8 Al Negative [facility] 0.9-1.0 Al Equivocal >/= 1.1 Al Positive Performing Organization Address [facility] one Number [place] [address] [phone] [place] [address] * RPR (11/25/2019 11:49 AM [employer]) RPR Reactive (A) Nonreactive [facility] Specimen Blood Performing Organization Address [facility] one Number [address] * Cytomegalovirus antibody, IgG (11/25/2019 11:49 AM [employer]) CYTOMEGALOVIRUS, IGG Positive (A) Negative, Equivocal [facility] Specimen Blood Narrative Performed At CMV IgG Result Interpretation: [facility] </= 0.8 Al Negative [facility] 0.9-1.0 Al Equivocal >/=1.1 AlPositive Performing Organization Address [facility] one Number [address] * Varicella Zoster Antibody, IgG (11/25/2019 11:49 AM [employer]) Varicella IgG 7.2 [facility] Specimen Blood Narrative Performed At VARICELLA ZOSTER RESULT INTERPRETATIONS: [facility] <=0.8 AlNo nreactive:Presumed non-immune to VZV [facility] 0.9-1.0 AlEqui vocal >=1.1 AlRe active:Presumed immune to VZV Performing Organization Address [facility] one Number [place] [address] 0 [phone] [place] [address] * Uric Acid (11/25/2019 11:49 AM [employer]) Uric Acid 4.6 2.6 - 7.2 mg/dL [facility] Specimen Blood Narrative Performed At [employer]airer ID [facility] Performing Organization Address City/[facility] Ph one [address] * Phosphorus (11/25/2019 11:49 AM [employer]) Phosphorus 4.7 2.3 - 4.7 mg/dL [facility] Specimen Blood Narrative Performed At [employer]r [employer] [facility] Performing Organization Address City/[facility] Ph one [address] * Lactate Dehydrogenase (LDH) (11/25/2019 11:49 AM [employer]) LDH 231 (H) 125 - 220 U/L [facility] Specimen Blood Narrative Performed At [employer]r [employer] [facility] Performing Organization Address City/[facility] Ph one [address] * Gamma Glutamyl Transferase (GGT) (11/25/2019 11:49 AM [employer]) GGT 84 (H) 9 - 64 U/L [facility] Specimen Blood Narrative Performed At [employer] [facility] Performing Organization Address City/[facility] Ph one [place] [address] [phone] [place] [address] * Comprehensive metabolic panel (11/25/2019 11:49 AM [employer]) Protein, Total 7.5 6.0 - 8.3 gm/dL [facility] Albumin 4.0 3.5 - 5.0 g/dL [facility] Alkaline Phosphatase 161 (H) 40 - 150 U/L [facility] Total Bilirubin 0.5 0.2 - 1.2 mg/dL [facility] Sodium 133 (L) 136 - 145 meq/L [facility] Potassium 3.2 (L) 3.5 - 5.1 meq/L [facility] Chloride 94 (L) 98 - 107 meq/L [facility] CO2 27 22 - 29 meq/L [facility] BUN 34 (H) 7 - 21 mg/dL [facility] Creatinine 5.10 (H) 0.57 - 1.25 mg/dL [facility] Glucose 243 (H) 70 - 105 mg/dL [facility] Calcium 8.0 (L) 8.4 - 10.2 mg/dL [facility] AST 18 5 - 34 U/L [facility] ALT 20 6 - 55 U/L [facility] EGFR 12Comment: ESTIMATED GFR IS mL/min/1.73 sq m [facility] NOT ACCURATE CREATININE [facility] CLEARANCE IN PREDICTING GLOMERULAR FILTRATION RATE. ESTIMATED GFR IS NOT APPLICABLE FOR DIALYSIS PATIENTS. Specimen Blood Narrative Performed At [employer]ather [employer]airer ID - ROSIANG [facility] Performing Organization Address City/State/Zipcode Ph one Number [facility] [address], [place] [address] [facility] after 06/10/2019 Insurance Payer Benefit Subscriber ID Type Phone Address Plan / Group [employer] NAVAS xxxxxxxxx [facility]ALTHSPRI Contracted [place] [phone]
--- OUTSIDE RECORDS SUMMARY | 2020-06-10 20:28 | XMS REPORT | Clinical Summary ---
Author Author NO[facility] Address Unknown Phone Unavailable Care Team Providers Care Steamfitter Supervisor Name Role Phone Antony Mosley MD PCP [...] Pre-transplant evaluation for chronic kidney disease 12/16/2019 [facility] Cardiology Encounter Lisa Chen MD [...] Pre-transplant evaluation for chronic kidney disease 12/16/2019 [facility] Radiology Encounter Lisa Chen MD [...] kidney disease on chronic dialysis, unspecified whether rat exterminator insulin use (HCC); Diabetic retinopathy of both [...] Taken Vital Sign Reading 12/16/2019 11:23 AM COP BREAKER Blood Pressure 173/70 12/16/2019 11:23 AM COP BREAKER Pulse 90 11/25/2019 1:03 PM COP BREAKER Temperature 36.6 C (97.9 F) 11/25/2019 1:03 PM COP BREAKER Respiratory Rate 18 - Oxygen Saturation - - Inhaled Oxygen - Concentration 12/16/2019 9:00 AM COP BREAKER Weight 79.8 kg (176 lb) 12/16/2019 9:00 AM COP BREAKER Height 167.6 cm (5' 6") 12/16/2019 9:00 AM COP BREAKER Body Mass Index 28.41 Plan of Treatment [...] VASCULAR 12/17/2019 REPORT - SCAN 9:22 PM COP BREAKER ECHOCARDIOGRAM REPORT - 12/17/2019 SCAN 9:20 PM COP BREAKER TRANSFUSION SERVICE 12/17/2019 REPORT - SCAN 6:05 PM COP BREAKER STRESS ECHO Routine 12/16/2019 CKD (chronic ki dney 11:08 AM COP BREAKER disease), stage IV (HCC) Hypertensive renal disease Diabetes mellitus due to underlying condition with chronic kidney disease on chronic dialysis, without long-term current use of insulin (HCC) Pre-transplant evaluation for chronic kidney disease 2D ECHO W/ DOPPLER Routine 12/16/2019 CKD (chroni c kidney (CW/PW/COLOR) 10:28 AM COP BREAKER disease), stage IV (HCC) Hypertensive renal disease Diabetes mellitus due to underlying condition with chronic kidney disease on chronic dialysis, without long-term current use of insulin (HCC) Pre-transplant evaluation for chronic kidney disease TREADMILL Routine 12/16/2019 TOLERANCE(NON-NUCLEAR 10:00 AM COP BREAKER TREADMILL) ECG 12-LEAD Routine 12/16/2019 CKD (chronic ki dney 9:18 AM COP BREAKER disease), stage IV (HCC) Hypertensive renal disease Diabetes mellitus due to underlying condition with chronic kidney disease on chronic dialysis, without long-term current use of insulin (HCC) Pre-transplant evaluation for chronic kidney disease XR CHEST 2 VIEWS Routine 12/16/2019 CKD (chronic kidney 8:56 AM COP BREAKER disease), stage IV (HCC) Hypertensive renal disease Diabetes mellitus due to underlying condition with chronic kidney disease on chronic dialysis, without long-term current use of insulin (HCC) Pre-transplant evaluation for chronic kidney disease US ABDOMEN COMPLETE Routine 12/16/2019 CKD (chron ic kidney 8:07 AM COP BREAKER disease), stage IV (HCC) Hypertensive renal disease Diabetes mellitus due to underlying condition with chronic kidney disease on chronic dialysis, without long-term current use of insulin (HCC) Pre-transplant evaluation for chronic kidney disease BLOOD TYPING, AUTOMATED Routine 12/16/2019 CKD (c hronic kidney 7:13 AM COP BREAKER disease), stage IV (HCC) Hypertensive renal disease Diabetes mellitus due to underlying condition with chronic kidney disease on chronic dialysis, without long-term current use of insulin (HCC) Pre-transplant evaluation for chronic kidney disease HEMOGLOBIN A1C Routine 12/16/2019 CKD (chronic ki dney 7:13 AM COP BREAKER disease), stage IV (HCC) Hypertensive renal disease Diabetes mellitus due to underlying condition with chronic kidney disease on chronic dialysis, without long-term current use of insulin (HCC) Pre-transplant evaluation for chronic kidney disease LIPID PANEL Routine 12/16/2019 CKD (chronic ki dney 7:13 AM COP BREAKER disease), stage IV (HCC) Hypertensive renal disease Diabetes mellitus due to underlying condition with chronic kidney disease on chronic dialysis, without long-term current use of insulin (HCC) Pre-transplant evaluation for chronic kidney disease PSA Routine 12/16/2019 CKD (chronic ki dney 7:13 AM COP BREAKER disease), stage IV (HCC) Hypertensive renal disease Diabetes mellitus due to underlying condition with chronic kidney disease on chronic dialysis, without long-term current use of insulin (HCC) Pre-transplant evaluation for chronic kidney disease TRANSFUSION SERVICE 11/26/2019 REPORT - SCAN 6:07 PM COP BREAKER BLOOD TYPING, AUTOMATED Routine 11/25/2019 CKD (c hronic kidney 11:50 AM COP BREAKER disease), stage IV (HCC) Hypertensive renal disease Diabetes mellitus due to underlying condition with chronic kidney disease on chronic dialysis, without long-term current use of insulin (HCC) Pre-transplant evaluation for chronic kidney disease DIRECT AHG (FELIPA)/DIRECT Routine 11/25/2019 CKD (c hronic kidney ZEESHAN 11:50 AM COP BREAKER disease), stage IV (HCC) Hypertensive renal disease Diabetes mellitus due to underlying condition with chronic kidney disease on chronic dialysis, without long-term current use of insulin (HCC) Pre-transplant evaluation for chronic kidney disease HLA TYPING CII Routine 11/25/2019 CKD (chronic ki dney 11:50 AM COP BREAKER disease), stage IV (HCC) Hypertensive renal disease Diabetes mellitus due to underlying condition with chronic kidney disease on chronic dialysis, without long-term current use of insulin (HCC) Pre-transplant evaluation for chronic kidney disease HLA TYPING CI Routine 11/25/2019 CKD (chronic ki dney 11:50 AM COP BREAKER disease), stage IV (HCC) Hypertensive renal disease Diabetes mellitus due to underlying condition with chronic kidney disease on chronic dialysis, without long-term current use of insulin (HCC) Pre-transplant evaluation for chronic kidney disease T SPOT TB Routine 11/25/2019 CKD (chronic ki dney 11:50 AM COP BREAKER disease), stage IV (HCC) Hypertensive renal disease Diabetes mellitus due to underlying condition with chronic kidney disease on chronic dialysis, without long-term current use of insulin (HCC) Pre-transplant evaluation for chronic kidney disease PTH, INTACT Routine 11/25/2019 CKD (chronic ki dney 11:50 AM COP BREAKER disease), stage IV (HCC) Hypertensive renal disease Diabetes mellitus due to underlying condition with chronic kidney disease on chronic dialysis, without long-term current use of insulin (HCC) Pre-transplant evaluation for chronic kidney disease HIV-1 ANTIGEN WITH Routine 11/25/2019 CKD (chroni c kidney HIV-1/2 ANTIBODY 11:50 AM COP BREAKER disease), stage IV (HCC) Hypertensive renal disease Diabetes mellitus due to underlying condition with chronic kidney disease on chronic dialysis, without long-term current use of insulin (HCC) Pre-transplant evaluation for chronic kidney disease HEPATITIS C ANTIBODY Routine 11/25/2019 CKD (gun synchronizer ricky kidney 11:50 AM COP BREAKER disease), stage IV (HCC) Hypertensive renal disease Diabetes mellitus due to underlying condition with chronic kidney disease on chronic dialysis, without long-term current use of insulin (HCC) Pre-transplant evaluation for chronic kidney disease HEPATITIS B CORE Routine 11/25/2019 CKD (chronic kidney ANTIBODY, IGM 11:50 AM COP BREAKER disease), stage IV (HCC) Hypertensive renal disease Diabetes mellitus due to underlying condition with chronic kidney disease on chronic dialysis, without long-term current use of insulin (HCC) Pre-transplant evaluation for chronic kidney disease HEPATITIS B SURFACE Routine 11/25/2019 CKD (chron ic kidney ANTIGEN 11:50 AM COP BREAKER disease), stage IV (HCC) Hypertensive renal disease Diabetes mellitus due to underlying condition with chronic kidney disease on chronic dialysis, without long-term current use of insulin (HCC) Pre-transplant evaluation for chronic kidney disease HEPATITIS B SURFACE Routine 11/25/2019 CKD (chron ic kidney ANTIBODY 11:50 AM COP BREAKER disease), stage IV (HCC) Hypertensive renal disease Diabetes mellitus due to underlying condition with chronic kidney disease on chronic dialysis, without long-term current use of insulin (HCC) Pre-transplant evaluation for chronic kidney disease CBC W/PLT COUNT & AUTO Routine 11/25/2019 CKD (ch ronic kidney DIFFERENTIAL 11:49 AM COP BREAKER disease), stage IV (HCC) Hypertensive renal disease Diabetes mellitus due to underlying condition with chronic kidney disease on chronic dialysis, without long-term current use of insulin (HCC) Pre-transplant evaluation for chronic kidney disease AB SPECIFICITY CLASS I Routine 11/25/2019 CKD (ch ronic kidney 11:49 AM COP BREAKER disease), stage IV (HCC) Hypertensive renal disease Diabetes mellitus due to underlying condition with chronic kidney disease on chronic dialysis, without long-term current use of insulin (HCC) Pre-transplant evaluation for chronic kidney disease TREPONEMA PALLIDUM - Routine 11/25/2019 CKD (gun synchronizer ricky kidney SYPHILIS IGG 11:49 AM COP BREAKER disease), stage IV (HCC) Hypertensive renal disease Diabetes mellitus due to underlying condition with chronic kidney disease on chronic dialysis, without long-term current use of insulin (HCC) Pre-transplant evaluation for chronic kidney disease RPR TITER Routine 11/25/2019 CKD (chronic ki dney 11:49 AM COP BREAKER disease), stage IV (HCC) Hypertensive renal disease Diabetes mellitus due to underlying condition with chronic kidney disease on chronic dialysis, without long-term current use of insulin (HCC) Pre-transplant evaluation for chronic kidney disease FLOW PRA CLASS II WITH Routine 11/25/2019 CKD (ch ronic kidney REFLEX TO ANTIBODY 11:49 AM COP BREAKER disease), stage IV (HCC) SPECIFICITY Hypertensive renal disease Diabetes mellitus due to underlying condition with chronic kidney disease on chronic dialysis, without long-term current use of insulin (HCC) Pre-transplant evaluation for chronic kidney disease FLOW PRA CLASS I WITH Routine 11/25/2019 CKD (chr onic kidney REFLEX TO ANTIBODY 11:49 AM COP BREAKER disease), stage IV (HCC) SPECIFICITY Hypertensive renal disease Diabetes mellitus due to underlying condition with chronic kidney disease on chronic dialysis, without long-term current use of insulin (HCC) Pre-transplant evaluation for chronic kidney disease VARICELLA ZOSTER Routine 11/25/2019 CKD (chronic kidney ANTIBODY, IGG 11:49 AM COP BREAKER disease), stage IV (HCC) Hypertensive renal disease Diabetes mellitus due to underlying condition with chronic kidney disease on chronic dialysis, without long-term current use of insulin (HCC) Pre-transplant evaluation for chronic kidney disease URIC ACID Routine 11/25/2019 CKD (chronic ki dney 11:49 AM COP BREAKER disease), stage IV (HCC) Hypertensive renal disease Diabetes mellitus due to underlying condition with chronic kidney disease on chronic dialysis, without long-term current use of insulin (HCC) Pre-transplant evaluation for chronic kidney disease RPR Routine 11/25/2019 CKD (chronic ki dney 11:49 AM COP BREAKER disease), stage IV (HCC) Hypertensive renal disease Diabetes mellitus due to underlying condition with chronic kidney disease on chronic dialysis, without long-term current use of insulin (HCC) Pre-transplant evaluation for chronic kidney disease PT/APTT Routine 11/25/2019 CKD (chronic ki dney 11:49 AM COP BREAKER disease), stage IV (HCC) Hypertensive renal disease Diabetes mellitus due to underlying condition with chronic kidney disease on chronic dialysis, without long-term current use of insulin (HCC) Pre-transplant evaluation for chronic kidney disease PHOSPHORUS Routine 11/25/2019 CKD (chronic ki dney 11:49 AM COP BREAKER disease), stage IV (HCC) Hypertensive renal disease Diabetes mellitus due to underlying condition with chronic kidney disease on chronic dialysis, without long-term current use of insulin (HCC) Pre-transplant evaluation for chronic kidney disease LACTATE DEHYDROGENASE Routine 11/25/2019 CKD (chr onic kidney (LDH) 11:49 AM COP BREAKER disease), stage IV (HCC) Hypertensive renal disease Diabetes mellitus due to underlying condition with chronic kidney disease on chronic dialysis, without long-term current use of insulin (HCC) Pre-transplant evaluation for chronic kidney disease GAMMA GLUTAMYL Routine 11/25/2019 CKD (chronic ki dney TRANSFERASE (GGT) 11:49 AM COP BREAKER disease), stage IV (HCC) Hypertensive renal disease Diabetes mellitus due to underlying condition with chronic kidney disease on chronic dialysis, without long-term current use of insulin (HCC) Pre-transplant evaluation for chronic kidney disease EBV ANTIBODY, IGM Routine 11/25/2019 CKD (chronic kidney 11:49 AM COP BREAKER disease), stage IV (HCC) Hypertensive renal disease Diabetes mellitus due to underlying condition with chronic kidney disease on chronic dialysis, without long-term current use of insulin (HCC) Pre-transplant evaluation for chronic kidney disease EBV ANTIBODY, IGG Routine 11/25/2019 CKD (chronic kidney 11:49 AM COP BREAKER disease), stage IV (HCC) Hypertensive renal disease Diabetes mellitus due to underlying condition with chronic kidney disease on chronic dialysis, without long-term current use of insulin (HCC) Pre-transplant evaluation for chronic kidney disease COMPREHENSIVE METABOLIC Routine 11/25/2019 CKD (c hronic kidney PANEL 11:49 AM COP BREAKER disease), stage IV (HCC) Hypertensive renal disease Diabetes mellitus due to underlying condition with chronic kidney disease on chronic dialysis, without long-term current use of insulin (HCC) Pre-transplant evaluation for chronic kidney disease CYTOMEGALOVIRUS ANTIBODY, Routine 11/25/2019 CKD (chronic kidney IGM 11:49 AM COP BREAKER disease), stage IV (HCC) Hypertensive renal disease Diabetes mellitus due to underlying condition with chronic kidney disease on chronic dialysis, without long-term current use of insulin (HCC) Pre-transplant evaluation for chronic kidney disease CYTOMEGALOVIRUS ANTIBODY, Routine 11/25/2019 CKD (chronic kidney IGG 11:49 AM COP BREAKER disease), stage IV (HCC) Hypertensive renal disease Diabetes mellitus due to underlying condition with chronic kidney disease on chronic dialysis, without long-term current use of insulin (HCC) Pre-transplant evaluation for chronic kidney disease CBC W/PLT COUNT & AUTO Routine 11/25/2019 CKD (ch ronic kidney DIFFERENTIAL 11:49 AM COP BREAKER disease), stage IV (HCC) Hypertensive renal disease Diabetes mellitus due to underlying condition with chronic kidney disease on chronic dialysis, without long-term current use of insulin (HCC) Pre-transplant evaluation for chronic kidney disease after 06/10/2019 Results * PERIPHERAL VASCULAR REPORT - SCAN (12/17/2019 9:22 PM COP BREAKER) Narrative Performed At This result has an attachment that is n ot available. * ECHOCARDIOGRAM REPORT - SCAN (12/17/2019 9:20 PM COP BREAKER) Narrative Performed At This result has an attachment that is n ot available. * TRANSFUSION SERVICE REPORT - SCAN (12/17/2019 6:05 PM COP BREAKER) Only the most recent of 2 results within the time period is included. Narrative Performed At This result has an attachment that is n ot available. * Stress Echo With Tracing (12/16/2019 11:08 AM COP BREAKER) Ejection Fraction [facility] ECHO HEARTLAB [facility] Specimen Narrative Performed At Stress Echocardiography Report [facility] ECHO HEARTLAB Demographics [facility] Patient Name ROSE HENRIQUEZ ate of Study 12/16/2019 [id number] GenderMale Visit Number [id number] RaceUnk nown [id number] Room Number Number Date of Birth1955 Referring Physician April Breaux Age64 year(s) Duck Operator Levy Whaley, Physician Fellow Harrison Pond MD [...] External Ris In - 12/17/2019 7:14 AM COP BREAKER Stress Echocardiography Report Demographics Patient Name SILVER HENRIQUEZ Date of Study 12/16/2019 Gender Male Visit Number [id number] Race Unknown Room Number Number Date of 1955 Referring Physician April Breaux Age 64 year(s) Duck Operator Levy Alberto Interpreting Vijaya Whaley, Physician MD [...] Peak HR: 100 bpm HR BP Product: 14669 Peak BP: 206/78 mmHg Predicted HR: 158 [...] Performing Organization Address City/State/Zipcode Ph one Number [facility] [employer] [facility] * 2D Echo W/Doppler(CW/PW/Color) (12/16/2019 10:28 AM COP BREAKER) Ejection Fraction [facility] [employer] [facility] Specimen Narrative Performed At Transthoracic Echocardiography Report (TTE) [facility] ECH O HEARTLAB Demographics [employer] [facility] Patient Name ROSE HENRIQUEZ ate of Study 12/16/2019 [id number] GenderMale Visit Number [id number] Alanis gonzalez [id number] Room Number Number Date of Birth1955 Referring Physician April Breaux Age64 year(s) Duck Operator Levy Whaley, Physician MD Fellow Harrison Pond [...] External Ris In - 12/17/2019 7:21 AM COP BREAKER Transthoracic Echocardiography Report (TTE) Demographics Patient Name SILVER HENRIQUEZ Date of Study 12/16/2019 Gender Male Visit Number [id number] Race Unknown Room Number Number Date of 1955 Referring Physician April Breaux Age 64 year(s) Duck Operator Levy Alberto Interpreting Vijaya Whaley, Physician MD [...] VTI (PW): 23.72 cm Performing Organization Address City/State/[facility] Ph one Number [facility] ECHO HEARTLAB [facility] * Treadmill tolerance(Non-Nuclear Treadmill) (12/16/2019 10:00 AM COP BREAKER) Specimen Narrative Performed At Protocol Name DOBUT [...] but self-terminated. Confirmed by MD SALDANA RAYMOND ([id number]) on 12/22/2019 4:44:04 PM Procedure Note Interface, External Ris In - 12/22/2019 4:44 PM COP BREAKER Protocol Name DOBUT TM-1 Time In Exercise [...] self- terminated. Confirmed by MD SALDANA RAYMOND ([id number]) on 12/22/2019 4:44:04 PM Performing Organization Address [facility] one Number GE MUSE * ECG 12 lead (12/16/2019 9:18 AM COP BREAKER) Specimen Narrative Performed At Ventricular Rate 69 BPM GE MUSE Atrial Rate 69 BPM P-R Interval 282 ms QRS Duration 100 ms Q-T Interval 442 ms QTC Calculation(Bazett) 473 ms P Hondo 71 degrees R Hondo -43 degrees T Hondo 60 degrees Sinus rhythm with 1st degree A-V block Left axis deviation Abnormal ECG No previous ECGs available Confirmed by MD Padilla Roberto ([id number]) on 12/17/2019 11:06:49 AM Procedure Note Interface, External Ris In - 12/17/2019 11:06 AM COP BREAKER Ventricular Rate 69 BPM Atrial Rate 69 BPM P-R Interval 282 ms QRS Duration 100 ms Q-T Interval 442 ms QTC Calculation(Bazett) 473 ms P Hondo 71 degrees R Hondo -43 degrees T Hondo 60 degrees Sinus rhythm with 1st degree A-V block Left axis deviation Abnormal ECG No previous ECGs available Confirmed by MD Padilla Roberto ([id number]) on 12/17/2019 11:06:49 AM Performing Organization Address [facility] Ph one Number GE MUSE * XR chest 2 views (12/16/2019 8:56 AM COP BREAKER) Specimen Narrative Performed At FINAL REPORT GE [...] Report Verified Date/Time: 0 10:01:55 Reading Location: [facility] Radiolo gy Reading Room Procedure Note Interface, External Ris In - 12/16/2019 10:04 AM COP BREAKER FINAL REPORT INDICATION: Pre kidney transplant evaluation. [...] Report Verified Date/Time: 12/16/2019 10:01:55 Reading Location: [facility] Radiology Reading Room Performing Organization Address City/State/Zipcode Ph one Number [facility] * US abdomen complete (12/16/2019 8:07 AM COP BREAKER) Specimen Narrative Performed At FINAL REPORT [facility] Abdominal ultrasound dated 12/16/2019 History: Kidney transplant evaluation. COMPARISON: None Findings: Liver is normal in size and echogenicit y.The liver [id number] cm in length.No focal lesion is noted [...] Report Verified Date/Time: 0 09:36:15 Reading Location: [address] Radiolo gy Reading Room Procedure Note Interface, External Ris In - 12/16/2019 9:38 AM COP BREAKER FINAL REPORT Abdominal ultrasound dated 12/16/2019 History: [...] Report Verified Date/Time: 12/16/2019 09:36:15 Reading Location: [address] Radiology Reading Room Performing Organization Address City/State/Zipcode Ph one Number [facility] * Blood typing, automated (12/16/2019 7:13 AM COP BREAKER) Only the most recent of 2 results within the time period is included. ABO/RH AUTOMATED (BEAKER) O POSITIVE [facility] Specimen Blood Performing Organization Address [facility] Ph one Number [address] [address] [facility] * PSA (12/16/2019 7:13 AM COP BREAKER) PSA 0.3 0.0 - 4.0 ng/mL [facility] Specimen Blood Narrative Performed At Wall Crane Operator ID - DB [facility] Performing Organization Address [facility] one Number [address] [address] [facility] * Hemoglobin A1c (12/16/2019 7:13 AM COP BREAKER) Hemoglobin A1C 7.7 (H) 4.3 - 6.1 % [facility] Specimen Blood Performing Organization Address [facility] one Number [address] [address] [facility] * Lipid panel (12/16/2019 7:13 AM COP BREAKER) Triglycerides 120 mg/dL [facility] Cholesterol 105 mg/dL [facility] HDL 32 mg/dL [facility] LDL Calculated 49 mg/dL [facility] Specimen Blood Narrative Performed At Triglyceride Reference Range: [facility] Low Risk <150 [facility] [id number] High Risk 200-499 Very High Risk>=500 Cholesterol Reference Range: Low Risk <200 [id number] High Risk>240 HDL Cholesterol Reference Range: Low Risk >=60 High Risk <40 LDL Cholesterol Reference Range: Optimal<100 Near [id number] Euoh704-643 Very High >=190 Wall Crane Operator ID - HUY Yates Performing Organization Address City/[facility] Ph one Number [facility] [address] [place], [place] [address] [facility] * HLA TYPING CII (11/25/2019 11:50 AM COP BREAKER) HLA-DR AG1 10 [facility] HLA TESTING HLA-DR AG2 1 [facility] HLA TEST[facility] HLA-DQA1 AG 1-1 01 [facility] HLA TESTING HLA-DQA1 AG 1-2 01 [facility] HLA TESTING HLA-DQB1 AG 1-1 5 [facility] HLA TESTING HLA-DQB1 AG 1-2 5 [facility] HLA TESTING HLA-DPA1 AG 1-1 02 [facility] HLA TESTING HLA-DPA1 AG 1-2 02 [facility] HLA TESTING HLA-DPB1 AG 1-1 10:01 [facility] HLA TESTING HLA-DPB1 AG 1-2 17:01 [facility] TEST[facility] Specimen Blood Narrative Performed At Disclaimer: [facility] TEST[facility] This test was developed and its perform ance characteristics determined by the [facility] Laboratory. It has not been cleared or approved by the U.S. Food and Drug Administration. The FDA has determined that such clearance or approval is not necessary. This test is used for clinic al purposes. It should not be regarded as investigational or for research. [facility] is certified under the Clinical Laboratory Improvement Amendments of 19 88 (CLIA-88) as qualified to perform high complexity clinical laboratory testing. Performing Organization Address [facility] one Number [facility] HLA TEST[facility] [address] [facility] [address], [address]: [id number], [place] [address] CLIA#[id number] CAP#[id number] UNOS#[id number] * HLA TYPING CI (11/25/2019 11:50 AM COP BREAKER) HLA-A AG1 2 [facility] [facility] HLA-A AG2 3 [facility] HLA TESTING HLA[facility]B AG1 35 [facility] HLA TESTING HLA-B AG2 35 [facility] HLA TESTING HLA-C AG1 4 [facility] HLA TESTING HLA-C AG2 4 [facility] HLA TESTING HLA-B BW1 6 [facility] HLA TESTING HLA-B BW2 6 [facility] HLA TESTING Specimen Blood Narrative Performed At Disclaimer: [facility] HLA TESTING This test was developed and its perform ance characteristics determined by the [facility] Laboratory. It has not been cleared or [...] complexity clinical laboratory testing. Performing Organization Address City/State/[facility] Ph one Number [facility] HLA TESTING ONE Mark Olmedo, MS: [id number], [place] [address] CLIA#[id number] CAP#[id number] UNOS#[id number] * T Spot TB (11/25/2019 11:50 AM COP BREAKER) T-Spot TB Negative [facility] Neg Ctrl Spot Count 0 [facility] Panel A Spot 0 [facility] Panel B Spot 1 [facility] Pos Ctrl Spot Ct 0 [facility] Scan Result [facility] Specimen Blood Narrative Performed At This result has an attachment that is n ot available. Performing Organization Address City/[facility] Ph one Number [facility] [address] [place] [address] LABORATORIES 100 * HIV-1 Antigen with HIV-1/2 Antibody (11/25/2019 11:50 AM COP BREAKER) HIV-1 Antigen with HIV Nonreactive Nonreactive [facility] 1&2 Antibody [facility] Specimen Blood Narrative Performed At Wall Crane Operator ID [facility] Performing Organization Address City/[facility] Cent[facility] Ph one [place] [address] [facility] * Hepatitis C Antibody (11/25/2019 11:50 AM COP BREAKER) Hepatitis C Ab Reactive (A) Nonreactive [facility] Specimen Blood Narrative Performed At Wall Crane Operator ID [facility] Performing Organization Address City/[facility] Ph one [address] [facility] * Hepatitis B core antibody, IgM (11/25/2019 11:50 AM COP BREAKER) Hep B C IgM Nonreactive Nonreactive [facility] Specimen Blood Narrative Performed At [facility] Crane [facility] Performing Organization Address City/[facility] Cent[facility]ode Ph one [place] [address] 0 [phone] [place] [address] * Hepatitis B surface antibody (11/25/2019 11:50 AM COP BREAKER) Hep B S Ab <8.0 <8.0 mIU/mL [facility] Specimen Blood Narrative Performed At Wall Crane Operator ID - [facility] Performing Organization Address [facility] Ph one [address] * Hepatitis B surface antigen (11/25/2019 11:50 AM COP BREAKER) HBsAg Screen Nonreactive Nonreactive [facility] Specimen Blood Narrative Performed At Wall Crane Operator ID - [facility] Performing Organization Address [facility] Ph one [address] * Direct [facility]HG (FELIPA)/Direct Zeeshan (11/25/2019 11:50 AM COP BREAKER) Direct [facility]HG-IGG NEGATIVEComment: saline [facility] control-negative [facility] EM[facility] Direct [facility]HG-C3B, C3D NEGATVIE [facility] Specimen Blood Performing Organization Address City/[facility]/Zipcode Ph one [place] [address] [phone] [facility] * PTH, Intact (11/25/2019 11:50 AM COP BREAKER) PTH 462.7 (H) 8.5 - 72.5 pg/mL [facility] Specimen Blood Narrative Performed At Wall Crane Operator ID - [facility] Performing Organization Address City/[facility]/Zipcode Ph one [facility] [address] [place], [place] [address] [facility] * MHA - TP (11/25/2019 11:49 AM COP BREAKER) TREPONEMA PALLIDUM, Reactive (AA) Nonreactive SYPHILIS IGG [facility] Specimen Blood Narrative Performed At Test performed by CALEB method. [facility] Performing Organization Address City/[facility] Ph one Number [facility] [address] [place], [place] [address] [facility] * FLOW PRA CLASS II WITH REFLEX TO ANTIBODY SPECIFICITY (11/25/2019 11:49 AM COP BREAKER) Flow Class II Percent 0 [facility] HLA TESTI NG Positive Specimen Blood Narrative Performed At Disclaimer: [facility] HLA TESTING This test was developed and its perform ance characteristics determined by the [facility] Laboratory. It has not been cleared or [...] complexity clinical laboratory testing. Performing Organization Address City/[facility] Ph one Number [facility] HLA TESTING ONE Mark Olmedo, MS: [id number], [place] [address] CLIA#[id number] CAP#[id number] UNOS#[id number] * FLOW PRA CLASS I WITH REFLEX TO ANTIBODY SPECIFICITY (11/25/2019 11:49 AM COP BREAKER) Flow Class I Percent 10 [facility] HLA TESTIN G Positive Specimen Blood Narrative Performed At Disclaimer: [facility] HLA TESTING This test was developed and its perform ance characteristics determined by the [facility] Laboratory. It has not been cleared or [...] complexity clinical laboratory testing. Performing Organization Address City/[facility] Ph one Number [facility] HLA TESTING ONE Mark Shara, MS: [id number], [place] [address] CLIA#[id number] CAP#[id number] UNOS#[id number] * AB SPECIFICITY CLASS I (11/25/2019 11:49 AM COP BREAKER) AB Specificity Class I NO CLASS I ANTIBODY DETECTED [facility] TESTING WITH MFIs > 4000 Specimen Blood Narrative Performed At Disclaimer: [facility] HLA TESTING This test was developed and its perform ance characteristics determined by the [facility] Laboratory. It has not been cleared or [...] complexity clinical laboratory testing. Performing Organization Address [facility] Ph one Number [facility] HLA TESTING ONE Mark Olmedo, MS: [id number], [place] [address] CLIA#[id number] CAP#[id number] UNOS#[id number] * RPR Titer (11/25/2019 11:49 AM COP BREAKER) RPR Titer 1:4 [facility] Specimen Blood Performing Organization Address City/[facility] one Number [address] [address] MEDICAL CENTER * PT/aPTT (11/25/2019 11:49 AM COP BREAKER) Protime 13.7 11.9 - 14.2 seconds [facility] INR 1.1 <=5.9 [facility] PTT 31.4 22.5 - 36.0 seconds [facility] Specimen Blood Narrative Performed At Effective 03/18/2019: PT Reference Range Change [facility] New: 11.9-14.2Previous: 11.7-14.7 [facility] MEDICAL CE NTER RECOMMENDED COUMADIN/WARFARIN INR THERA PY RANGES STANDARD DOSE: 2.0-3.0Includes: PRO PHYLAXIS for venous thrombosis, systemic embolization; TREATMENT for venous thro mbosis and/or pulmonary embolus. HIGH RISK: Target INR is 2.5-3.5 for pa tients wiht mechanical heart valves. Performing Organization Address City/State/Zipcode Ph one Number [facility] [address] [place], [place] [address] MEDICAL CENTER * CBC with platelet count + automated diff (11/25/2019 11:49 AM COP BREAKER) WBC 10.2 3.5 - 10.5 K/L [facility] RBC 4.10 (L) 4.63 - 6.08 M/L [facility] Hemoglobin 11.5 (L) 13.7 - 17.5 GM/DL [facility] Hematocrit 35.6 (L) 40.1 - 51.0 % [facility] MCV 86.8 79.0 - 92.2 fL [facility] MCH 28.0 25.7 - 32.2 pg [facility] MCHC 32.3 32.3 - 36.5 GM/DL [facility] RDW 13.5 11.6 - 14.4 % [facility] Platelets 265 150 - 450 K/CU MM [facility] MPV 10.8 9.4 - 12.4 fL [facility] nRBC 0 0 - 0 /100 WBC [facility] % Neutros 60 % [facility] % Lymphs 28 % [facility] % Monos 9 % [facility] % Eos 3 % [facility] % Baso 1 % [facility] # Neutros 6.10 (H) 1.78 - 5.38 K/L [facility] # Lymphs 2.82 1.32 - 3.57 K/L [facility] # Monos 0.92 (H) 0.30 - 0.82 K/L [facility] # Eos 0.31 0.04 - 0.54 K/L [facility] # Baso 0.05 0.01 - 0.08 K/L [facility] Immature 0 0 - 1 % [facility] Granulocytes-Relative [facility] Specimen Blood Performing Organization Address [facility] one Number [address] * Cytomegalovirus antibody, IgM (11/25/2019 11:49 AM COP BREAKER) CMV IGM Negative Negative, Equivocal [facility] Specimen Blood Narrative Performed At CMV IgM Result Interpretation: [facility] </= 0.8 Al Negative [facility] 0.9-1.0 Al Equivocal >/= 1.1 Al Positive Performing Organization Address [facility] one Number [address] * EBV-VCA antibody, IgM (11/25/2019 11:49 AM COP BREAKER) KEELY HSIEH VIRAL CAPSID Negative Negative, Equivocal [facility] ANTIGEN IGM [facility] Specimen Blood Narrative Performed At Keely Hsieh Viral Capsid Antigen IgM Result Interpre tation: [facility] </= 0.8 Al Negative [facility] 0.9-1.0 Al Equivocal >/= 1.1 Al Positive Performing Organization Address [facility] one Number [place] [phone] * EBV-VCA antibody, IgG (11/25/2019 11:49 AM COP BREAKER) KEELY HSIEH VIRAL CAPSID Positive (A) Negative, Equivocal [facility] ANTIGEN IGG [facility] Specimen Blood Narrative Performed At Keely Hsieh Viral Capsid Antigen IgG Result Interpre tation: [facility] </= 0.8 Al Negative [facility] 0.9-1.0 Al Equivocal >/= 1.1 Al Positive Performing Organization Address [facility] one Number [place] [address] 0 [phone] [place] [address] * RPR (11/25/2019 11:49 AM COP BREAKER) RPR Reactive (A) Nonreactive [facility] Specimen Blood Performing Organization Address [facility] one Number [address] * Cytomegalovirus antibody, IgG (11/25/2019 11:49 AM COP BREAKER) CYTOMEGALOVIRUS, IGG Positive (A) Negative, Equivocal [facility] Specimen Blood Narrative Performed At CMV IgG Result Interpretation: [facility] </= 0.8 Al Negative [facility] 0.9-1.0 Al Equivocal >/=1.1 AlPositive Performing Organization Address [facility] one Number [address] * Varicella Zoster Antibody, IgG (11/25/2019 11:49 AM COP BREAKER) Varicella IgG 7.2 [facility] Specimen Blood Narrative Performed At VARICELLA ZOSTER RESULT INTERPRETATIONS: [facility] <=0.8 AlNo nreactive:Presumed non-immune to VZV [facility] 0.9-1.0 AlEqui vocal >=1.1 AlRe active:Presumed immune to VZV Performing Organization Address [facility] one Number [place] [address] 0 [phone] [place] [address] * Uric Acid (11/25/2019 11:49 AM COP BREAKER) Uric Acid 4.6 2.6 - 7.2 mg/dL [facility] Specimen Blood Narrative Performed At Wall Crane Operator ID [facility] Performing Organization Address City/[facility] Cent[facility]ode Ph one [address] * Phosphorus (11/25/2019 11:49 AM COP BREAKER) Phosphorus 4.7 2.3 - 4.7 mg/dL [facility] Specimen Blood Narrative Performed At Wall Crane Operator ID [facility] Performing Organization Address City/[facility] Ph one [address] * Lactate Dehydrogenase (LDH) (11/25/2019 11:49 AM COP BREAKER) LDH 231 (H) 125 - 220 U/L [facility] Specimen Blood Narrative Performed At Wall Crane Operator ID [facility] Performing Organization Address City/[facility]ode Ph one [address] * Gamma Glutamyl Transferase (GGT) (11/25/2019 11:49 AM COP BREAKER) GGT 84 (H) 9 - 64 U/L [facility] Specimen Blood Narrative Performed At Wall Crane Operator ID [facility] Performing Organization Address City/[facility] Centercode Ph one [place] [address] 0 [phone] [place] [address] * Comprehensive metabolic panel (11/25/2019 11:49 AM COP BREAKER) Protein, Total 7.5 6.0 - 8.3 gm/dL [facility] Albumin 4.0 3.5 - 5.0 g/dL [facility] Alkaline Phosphatase 161 (H) 40 - 150 U/L [facility] Total Bilirubin 0.5 0.2 - 1.2 mg/dL [facility] Sodium 133 (L) 136 - 145 meq/L [facility] Potassium 3.2 (L) 3.5 - 5.1 meq/L [facility] Chloride 94 (L) 98 - 107 meq/L [facility] CO2 27 22 - 29 meq/L [facility] BUN 34 (H) 7 - 21 mg/dL [facility] Creatinine 5.10 (H) 0.57 - 1.25 mg/dL [facility] Glucose 243 (H) 70 - 105 mg/dL [facility] Calcium 8.0 (L) 8.4 - 10.2 mg/dL [facility] AST 18 5 - 34 U/L [facility] ALT 20 6 - 55 U/L [facility] EGFR 12Comment: ESTIMATED GFR IS mL/min/1.73 sq m [facility] NOT ACCURATE CREATININE [facility] CLEARANCE IN PREDICTING GLOMERULAR FILTRATION RATE. ESTIMATED GFR IS NOT APPLICABLE FOR DIALYSIS PATIENTS. Specimen Blood Narrative Performed At Wall Crane Operator ID - ROSIANG [facility] Performing Organization Address City/State/Zipcode Ph one Number [facility] [address] [place], [place] [address] MEDICAL CENTER after 06/10/2019 Insurance Payer Benefit Subscriber ID Type Phone Address Plan / Group [employer]F [employer]DE NAVAS xxxxxxxxx [facility] HEALTHSPRI Contracted [place] ALL [id number]
--- OUTSIDE RECORDS SUMMARY | 2020-06-10 20:28 | XMS REPORT | Clinical Summary ---
Author Author [facility] Organization [facility] Address Unknown Phone Unavailable Care Team Providers Care Long Distance Billing Operator Name Role Phone Antony Mosley MD PCP [...] (Primary Dx); ESRD (end stage renal disease) ([facility]) 08/31/2019 Emergency Emergency Medicine Ras Maharaj MD [...] Comments Vital Sign 189/78 08/31/2019 9:05 PM SEED CLEANER OPERATOR Blood Pressure 71 08/31/2019 9:05 PM SEED CLEANER OPERATOR Pulse 37 C (98.6 F) 08/31/2019 9:05 PM SEED CLEANER OPERATOR Temperature 19 08/31/2019 9:05 PM SEED CLEANER OPERATOR Respiratory Rate 99% 08/31/2019 9:05 PM SEED CLEANER OPERATOR Oxygen Saturation - - Inhaled Oxygen Concentration 81.6 kg (180 lb) 08/31/2019 3:20 PM SEED CLEANER OPERATOR Weight 167.6 cm (5' 6") 08/31/2019 3:20 PM SEED CLEANER OPERATOR Height 29.05 08/31/2019 3:20 PM SEED CLEANER OPERATOR Body Mass Index Plan of Treatment Health Maintenance Due Date Last Done Comments DIABETIC RETINAL EYE EXAM 1957 DIABETIC FOOT EXAM 1967 URINE MICROALBUMIN 1967 COLONOSCOPY SCREENING 2007 SHINGLES VACCINES (#2) 04/17/2017 02/15/2017 INFLUENZA VACCINE 07/21/2020 Procedures Comments Procedure Name Priority Date/Time Associated Diag nosis URINALYSIS SCREEN AND STAT 08/31/2019 MICROSCOPY, WITH REFLEX 3:21 PM SEED CLEANER OPERATOR TO CULTURE ESTIMATED GFR STAT 08/31/2019 3:19 PM SEED CLEANER OPERATOR LIPASE LEVEL STAT 08/31/2019 3:19 PM SEED CLEANER OPERATOR COMPREHENSIVE METABOLIC STAT 08/31/2019 PANEL 3:19 PM SEED CLEANER OPERATOR HC COMPLETE BLD COUNT STAT 08/31/2019 W/AUTO DIFF 3:19 PM SEED CLEANER OPERATOR after 06/10/2019 Results * Urinalysis screen and microscopy, with reflex to culture (08/31/2019 3:21 PM SEED CLEANER OPERATOR) Specimen site Clean catch [facility] Color, UA Yellow [facility] Appearance, UA Slightly-Cloudy [facility] Specific 1.015 1.001 - 1.035 [place] gravity, UA [facility] pH, UA 5.0 5.0 - 8.5 [facility] Protein, UA 3+ (A) Negative [facility] Glucose, UA 1+ (A) Negative [facility] Ketones, UA Negative Negative [facility] Bilirubin, UA Negative Negative [facility] Blood, UA Negative Negative [facility] Nitrite, UA Negative Negative [facility] Urobilinogen, Negative <2.0 [facility] Leukocyte Negative Negative [place] esterase, UA [facility] WBC, UA None seen 0 - 1 /HPF [facility] RBC, UA 3 0 - 5 /HPF [facility] Bacteria, UA Trace None seen [facility] Yeast, UA None seen [facility] Yeast with None seen [place] [facility] Specimen Urine Performing Organization Address City/[facility] Ph one Number [facility] [place] [place] DEPARTMENT OF [address] [place] [address] PATHOLOGY AND GENOMIC MEDICINE [address] * Estimated GFR (08/31/2019 3:19 PM SEED CLEANER OPERATOR) [facility] Estimated GFR 11 (A) mL/min/1.73 m2 [place] Comment: [facility] G1 >=90 Normal or high G2 60-89 [...] 2014. Specimen Plasma specimen Performing Organization Address [facility] Ph [facility] Number [facility] [place] [place] DEPARTMENT OF [address] [place] [address] PATHOLOGY AND GENOMIC MEDICINE [address] * CBC with platelet and differential (08/31/2019 3:19 PM SEED CLEANER OPERATOR) [facility] WBC 7.6 4.2 - 11.0 k/uL [facility] RBC 2.97 (L) 4.04 - 5.86 m/uL [facility] HGB 8.1 (L) 13.0 - 17.3 g/dL [facility] HCT 26.5 (L) 34.0 - 45.0 % [facility] MCV 89.2 80.0 - 98.0 fL [facility] MCH 27.3 27.0 - 34.0 pg [facility] MCHC 30.6 (L) 31.5 - 36.5 g/dL [facility] RDW - SD 46.1 37.0 - 51.0 fL [facility] MPV 11.1 (H) 7.4 - 10.4 fL [facility] Platelet count 240 150 - 400 k/uL [facility] Nucleated RBC 0.00 /100 WBC [facility] Neutrophils 62.5 36.0 - 66.0 % [facility] Lymphocytes 26.3 24.0 - 44.0 % [facility] Monocytes 8.5 (H) 0.0 - 6.0 % [facility] Eosinophils 2.0 0.0 - 6.0 % [facility] Basophils 0.4 0.0 - 1.2 % [facility] Immature 0.3 0.0 - 1.0 % [place] granulocytes [facility] Specimen Blood Performing Organization Address City/State/[facility] Ph one Number [facility] [place] [place] DEPARTMENT OF [address] [place] [phone] PATHOLOGY AND GENOMIC MEDICINE [address] * Lipase level (08/31/2019 3:19 PM SEED CLEANER OPERATOR) Lipase 33 13 - 60 U/L [facility] Specimen Plasma specimen Performing Organization Address City/State[facility] Ph one Number [facility] [place] [place] DEPARTMENT OF [address] [place] [address] PATHOLOGY AND GENOMIC MEDICINE [facility] [address] [place] [address] HOSPITAL * Comprehensive metabolic panel (08/31/2019 3:19 PM SEED CLEANER OPERATOR) Sodium 138 135 - 150 mEq/L [facility] Potassium 5.1 (H) 3.5 - 5.0 mEq/L [facility] Chloride 105 98 - 112 mEq/L [facility] CO2 15 (L) 24 - 31 mmol/L [facility] Anion gap 18@ANIO (H) 7 - 15 mEq/L [facility] BUN 93 (H) 7 - 18 mg/dL [facility] Creatinine 5.20 (H) 0.70 - 1.20 mg/dL [facility] Glucose 164 (H) 65 - 100 mg/dL [facility] Calcium 7.0 (L) 8.8 - 10.2 mg/dL [facility] Protein 6.5 6.3 - 8.3 g/dL [facility] Albumin 3.1 (L) 3.5 - 5.0 g/dL [facility] A/G ratio 0.9 0.7 - 3.8 [facility] Alkaline 103 0 - 129 U/L [place] phosphatase [facility] AST 17 10 - 50 U/L [facility] ALT 9 5 - 50 U/L [facility] Total bilirubin <0.3 0.2 - 1.2 mg/dL [facility] Specimen Plasma specimen Performing Organization Address City/State/Zipcode Ph one Number [facility] [place] [place] DEPARTMENT OF [address] [place] [phone] PATHOLOGY AND GENOMIC MEDICINE [facility] [place] [address] [address] HOSPITAL after 06/10/2019 Insurance Type Payer Benefit Subscriber ID Effective Phone Address Plan / Dates Group HMO [employer] C[employer] xxxxxxxxxxx [id number] [facility] Advance Directives For more information, please contact: [phone] Patient Loan Auditor Explanation Type Date Recorded Advance Directives, 04/23/2019 11:05 PM Living Will and Medical Power of [employer] Advance Directives, 08/31/2019 8:28 PM Living Will and Medical Power of [employer]
--- OUTSIDE RECORDS SUMMARY | 2020-06-10 20:29 | XMS REPORT | Continuity of Care Document ---
Author Author [facility] [place] t Organization [facility] Address [address] [place] [id number] Phone Unavailable Care Team Providers Care Clinical Lab Technologist Name Role Phone MD ANTONY SMITH PCP LILLIANA CRAFT Attphys Unavailable JOHAN RANGEL Attphys Unavailable Evan Olmedo Attphys Unavailable Umang Levy Attphys Unavailable Marlene Hale Attphys Unavailable Namita Chen MD Attphys Namita CHEN Attphys Unavailable Brett Smith MD Attphys Cande [facility] [place] Attphys Unavailable Shania SHEPHERD, P Gretta Attphys Unavailable Olman Scott DO Attphys [phone] Ras Maharaj MD Attphys JOHAN RANGEL Admphys Unavailable Payers Payer Name Policy Type Policy Number Effective Date Expiration Date [facility] Ppo [id number] 2007 00:00:00 [facility] ALL[facility]xM[facility] Contracted xxxxxxxxx [facility] [employer] HMO MCR ADVxxxxxx /10/2018-PresentHMO xxxxxxxxxxx 2018 00:00:00 Mera Meth odist Problems Condition Name Condition Details Condition Category Status Onset Date Resolution Date Last Treatment Date Treating Clinician Comments Source ESRD (end stage renal disease) on dialysis ESRD (end s tage renal disease) on dialysis Disease Active 2019-10-21 00:00:00 Overview: currently on HD; planned transition to CCPD [facility] Diabetic retinopathy Diabetic retinopathy Disease Active 00:00:00 Overview: Bilateral; s/p laser surgery t o L eye; pending to R eye [facility] Diabetes mellitus Diabetes mellitus Disease Active 2013-10-21 00:00:00 [facility] Hyperlipidemia Hyperlipidemia Disease Active 2013-10-21 00:00:00 [facility] Hypertension Hypertension Disease Active 1989-10-21 00:00:00 [facility] Fever of unknown origin Problem Active [facility] End-stage renal disease Problem Active [facility] Diabetic foot ulcer Problem Active [facility] Allergies, Adverse Reactions, Alerts Allergy Name Allergy Type Status Severity Reaction(s) Onset Date Inacti ve Date Treating Clinician Comments Source No Known Allergies DA Active U 2019-11-27 00:00:00 [facility] No Known Allergies DA Active U 2015-07-23 00:00:00 [facility] Family History Family Member Diagnosis Comments Start Date Stop Date Source Natural brother Diabetes [facility] Natural brother Hypertension [facility] Natural mother Diabetes [facility] Natural mother Hypertension [facility] Social History Social Habit Start Date Stop Date Quantity Comments Source History SDOH Alcohol Std Drinks [facility] History SDOH Alcohol Binge [facility] Sex Assigned At [facility] History SDOH Alcohol Frequency 2019-11-25 00:00:00 2019-11-25 00:00:0 0 1 [facility] Alcohol intake 2019-08-31 00:00:00 2019-08-31 00:00:00 Lifetime non-drinker (finding) [facility] Smoking Status Start Date Stop Date Source Never smoker [facility] Medications Ordered Medication Name Filled Medication Name Start Date Stop Da te Current Medication? Ordering Clinician Indication Dosage Frequency Signature (SIG) Comments Components Source calcium carbonate (TUMS) 500 mg chewable tablet 2019-11-25 10:56 :38 Yes 1{tbl} QD Take 1 tablet by mouth daily. [facility] insulin degludec (TRESIBA FLEXTOUCH U-200) 200 unit/mL (3 mL ) InPn 2019-11-25 10:54:50 Yes 16U Q24H 16 Units daily. [facility] ferrous fumarate 325 mg (106 mg iron) Tab 2019-11-25 10:54:50 Yes 650mg Q24H 650 mg daily. [facility] NIFEdipine (PROCARDIA-XL) 60 MG (OSM) 24 hr tablet 2019-11 10:54:49 Yes 60mg QD Take 60 mg by mouth daily. [facility] multivitamin (DAILY DIET SUPPORT ORAL) 2019-11-25 10:47:36 Yes QD daily. [facility] atorvastatin (LIPITOR) 80 MG tablet 2019-11-13 00:00:00 Yes QD daily. [facility] HYDROcodone-acetaminophen (NORCO 7.5-325) 7.5-325 mg per tab let 2019-11-10 00:00:00 Yes as needed. [facility] metoprolol (TOPROL-XL) 50 MG 24 hr tablet 2019-11-04 00:00:00 Yes TK 1 T PO ONCE D [facility] chlorthalidone (HYGROTON) 25 MG tablet 2019-11-04 00:00:00 Yes QD daily. [facility] chlorthalidone (HYGROTEN) 25 MG tablet 2019-08-31 20:50:59 [...] MG tablet 2019-08-31 20:47:32 Ye s 800mg Q.[id number] Take 800 mg by mouth 3 (three) times a day with meals. [facility] Atorvastatin Calcium Atorvastatin Calcium Yes 80 Daily [facility] Insulin Degludec (Tresiba Flextouch U-100) 100 Unit/1 Ml INSULN.PEN Insulin Degludec (Tresiba Flextouch U-100) 100 Unit/1 Ml INSULN.PEN Yes 24 [facility] Metoprolol Succinate Metoprolol Succinate Yes 50 Daily [facility] Polyethylene Glycol 3350 (Miralax) 17 Gm POWD.PACK Jordan yethylene Glycol 3350 (Miralax) 17 Gm POWD.PACK Yes Daily as nee ded for Constipation [facility] Sevelamer Sevelamer Yes 800 Three Times Daily With Meals [facility] Chlorthalidone Chlorthalidone 2020-05-21 00:00:00 No 25 Daily [facility] Nefediac Nefediac 2020-05-21 00:00:00 No 60 Daily [facility] Immunizations Ordered Immunization Name Filled Immunization Name Date Status Comments Source Tdap 2019-04-23 00:00:00 Completed [facility] Vital Signs Vital Name Observation Time Observation Value Comments Source Body Temperature 2020-05-21 15:18:00 98.6 [degF] [facility] Weight 2020-05-20 00:44:00 173.50 [lb_av] [facility] BMI (Body Mass Index) 2020-05-20 00:44:00 23.5 kg/m2 [facility] Systolic blood pressure 2019-12-16 11:23:00 173 mm[Hg] [facility] Diastolic blood pressure 2019-12-16 11:23:00 70 mm[Hg] [facility] Heart rate 2019-12-16 11:23:00 90 /min [facility] Body height 2019-12-16 09:00:00 167.6 cm [facility] Body weight Measured 2019-12-16 09:00:00 79.833 kg [facility] BMI 2019-12-16 09:00:00 28.41 kg/m2 [facility] Body temperature 2019-11-25 13:03:00 36.61 Lili [facility] Respiratory rate 2019-11-25 13:03:00 18 /min [facility] Systolic blood pressure 2019-08-31 21:05:00 189 mm[Hg] [facility] Diastolic blood pressure 2019-08-31 21:05:00 78 mm[Hg] [facility] Heart rate 2019-08-31 21:05:00 71 /min [facility] Body temperature 2019-08-31 21:05:00 37 Lili [facility] Respiratory rate 2019-08-31 21:05:00 19 /min [facility] Oxygen saturation in Arterial blood by Pulse oximetry 2018-10 21:05:00 99 /min [facility] Body height 2019-08-31 15:20:00 167.6 cm [facility] Body weight 2019-08-31 15:20:00 81.647 kg [facility] BMI 2019-08-31 15:20:00 29.05 kg/m2 [facility] Procedures Procedure Date / Time Performed Performing Clinician Hernando lyn PERIPHERAL VASCULAR REPORT - SCAN 2019-12-17 21:22:21 Provid er, Default Scanning [facility] ECHOCARDIOGRAM REPORT - SCAN 2019-12-17 21:20:34 ProviderConsuelo lt Scanning [facility] TRANSFUSION SERVICE REPORT - SCAN 2019-12-17 18:05:20 Provid er, Default Scanning [facility] STRESS ECHO 2019-12-16 11:08:14 Lisa Chen [facility] 2D ECHO W/ DOPPLER (CW/PW/COLOR) 2019-12-16 10:28:46 Andrey Chen [facility] TREADMILL TOLERANCE(NON-NUCLEAR TREADMILL) 2019-12-16 10:00: 09 Unknown, Hl7 Doctor [facility] ECG 12-LEAD 2019-12-16 09:18:16 Lisa Chen [facility] XR CHEST 2 VIEWS 2019-12-16 08:56:00 Lisa Chen [facility] US ABDOMEN COMPLETE 2019-12-16 08:07:00 Lisa Chen [facility] PSA 2019-12-16 07:13:00 Lisa Chen [facility] LIPID PANEL 2019-12-16 07:13:00 Lisa Chen [facility] HEMOGLOBIN A1C 2019-12-16 07:13:00 Lisa Chen [facility] BLOOD TYPING, AUTOMATED 2019-12-16 07:13:00 Lisa Chen [facility] TRANSFUSION SERVICE REPORT - SCAN 2019-11-26 18:07:11 Provid er, Default Scanning [facility] HEPATITIS B SURFACE ANTIBODY 2019-11-25 11:50:00 Snow Chen [facility] HEPATITIS B SURFACE ANTIGEN 2019-11-25 11:50:00 Shital Chen [facility] HEPATITIS B CORE ANTIBODY, IGM 2019-11-25 11:50:00 Timmins, Mary Breaux [facility] HEPATITIS C ANTIBODY 2019-11-25 11:50:00 TimminsLisa [facility] HIV-1 ANTIGEN WITH HIV-1/2 ANTIBODY 2019-11-25 11:50:00 Timmins, Lisa Breaux [facility] PTH, INTACT 2019-11-25 11:50:00 Timmins, Lisa Breaux [facility] T SPOT TB 2019-11-25 11:50:00 Timmins, Lisa Breaux [facility] HLA TYPING CI 2019-11-25 11:50:00 Timmins, Lisa [facility] HLA TYPING CII 2019-11-25 11:50:00 [facility] (FELIPA[facility]DIRECT ANANYA 2019-11-25 11:50:00 TimminsMary [facility] BLOOD TYPING, AUTOMATED 2019-11-25 11:50:00 Timmins, Lisa God[facility] CYTOMEGALOVIRUS ANTIBODY, IGG 2019-11-25 11:49:00 Timmins, Clair moss [facility] CYTOMEGALOVIRUS ANTIBODY, IGM 2019-11-25 11:49:00 Timmins, Clair moss [facility] COMPREHENSIVE METABOLIC PANEL 2019-11-25 11:49:00 TimminsClair [facility] EBV ANTIBODY, IGM 2019-11-25 11:49:00 [facility]ins[facility] GAMMA GLUTAMYL TRANSFERASE (GGT) 2019-11-25 11:49:00 Timmins, Andrey whiteside [facility] LACTATE DEHYDROGENASE (LDH) 2019-11-25 11:49:00 Timmins, Shital gonzalez [facility] PHOSPHORUS 2019-11-25 11:49:00 [facility] PT/APTT 2019-11-25 11:49:00 [employer] god[facility] RPR 2019-11-25 11:49:00 [facility] URIC ACID 2019-11-25 11:49:00 [facility] VARICELLA ZOSTER ANTIBODY, IGG 2019-11-25 11:49:00 [facility] FLOW PRA CLASS I WITH REFLEX TO ANTIBODY SPECIFICITY 2019-11 11:49:[facility] FLOW PRA CLASS II WITH REFLEX TO ANTIBODY SPECIFICITY 11-25 11:49:00 [facility] RPR TITER 2019-11-25 11:49:00 [facility] TREPONEMA PALLIDUM - SYPHILIS IGG 2019-11-25 11:49:00 [facility] SPECIFICITY CLASS I 2019-11-25 11:49:00 [facility] CBC W/PLT COUNT & AUTO DIFFERENTIAL 2019-11-25 11:49:00 [facility] URINALYSIS SCREEN AND MICROSCOPY, WITH REFLEX [...] 00:00:00 Lipid panel (proce dure) [code = 20987868] [facility] Future Scheduled Test 2021-08-13 00:00:00 PNEUMOCOCCAL VACCI NE 2-64 YEARS AT RISK (3 of 3 - PPSV23) [code = PNEUMOCOCCAL VACCINE 2-64 YEARS AT RISK (3 of 3 - PPSV23)] [facility] Scheduled Test 2020-07-21 00:00:00 INFLUENZA VACCINE [code = INFLUENZA VACCINE] [facility] Scheduled Test 2020-06-21 00:00:00 INFLUENZA VACCINE (#1) [code = INFLUENZA VACCINE (#1)] [facility] Scheduled Test 2020-06-15 00:00:00 Hemoglobin A1c juliette surement (procedure) [code = 06064012] [facility] Scheduled Test 2019-10-22 00:00:00 MEDICARE ANNUAL WE LLNESS (YEAR 2 or FIRST YEAR if no IPPE) [code = MEDICARE ANNUAL WELLNESS (YEAR 2 or FIRST YEAR if no IPPE)] [facility] Scheduled Test 2017-04-17 00:00:00 SHINGLES VACCINES (#2) [code = SHINGLES VACCINES (#2)] [facility] Scheduled Test 2007 00:00:00 COLONOSCOPY SCREEN ING [code = COLONOSCOPY SCREENING] [facility] Scheduled Test 1967 00:00:00 DIABETIC FOOT EXAM [code = DIABETIC FOOT EXAM] [facility] Scheduled Test 1967 00:00:00 URINE MICROALBUMIN [code = URINE MICROALBUMIN] [facility] Scheduled Test 1967 00:00:00 DIABETIC EYE EXAM [code = DIABETIC EYE EXAM] [facility] Scheduled Test 1967 00:00:00 Diabetic foot exam ination (regime/therapy) [code = 370003125] [facility] Future Scheduled Test 1967 00:00:00 Urine screening fo r protein (procedure) [code = 421954939] [facility] Future Scheduled Test 1957 00:00:00 DIABETIC RETINAL E YE EXAM [code = DIABETIC RETINAL EYE EXAM] [facility] Scheduled Test 1957 00:00:00 Screening for barbara gnant neoplasm of colon (procedure) [code = 272398908] [facility] Instructions Antibiotic Resistance [facility] Instructions Diabetes and Diet [facility] Instructions Foot Care for Diabetics [facility] Encounters Start Date/Time End Date/Time Encounter Type Admission Type Attendi [facility] Care Department Encounter ID Source 2019-08-31 00:00:00 2019-08-31 00:00:00 Emergency FR[facility]ES SCOTT [facility] [id number] [place] [employer] Results Test Description Test Time Test Comments Results Result Comments Source CHEST SINGLE (PORTABLE) 2020-06-10 18:47:00 [facility] [address] [address] Patient Name: JED BASSETT MR #: [id number] : 1955 Age/Sex: 64/M Req #: [id number] Adm Physician: Ordered by: LILLIANA CRAFT DO Report #: [id number] Location: ER Room/Bed: Procedure: [id number] DX/CHEST SINGLE (PORTABLE) Exam Date: 06/10/20 Exam [...] Test Item Bedside Glucose (test code = 04677-7) 292 70-120 Meter ID: [id number] [facility] CenterBlood leukocytes automated count (number/volume)2020-05-20 05:15:00* Test Item Value Reference Range Interpretation Comments White Blood Count (test code = 6690-2) 8.36 4.8-10.8 [facility] erythrocytes automated count (number/volume)2020-05-20 05:15:00* Test Item Value Reference Range Interpretation Comments Red Blood Count (test code = 789-8) 3.38 4.3-5.7 [facility] Lake[facility] hemoglobin measurement (moles/volume)2020-05-20 05:15:00* Test Item Value Reference Range Interpretation Comments Hemoglobin (test code = 47294-5) 9.7 14.0-18.0 [facility] Lake[facility]ated blood hematocrit (volume fraction)2020-05-20 05:15:00* Test Item Value Reference Range Interpretation Comments Hematocrit (test code = 4544-3) 30.7 38.2-49.6 [facility] Lake[facility]ated erythrocyte mean corpuscular kaxxdo7079-41-74 05:15:00* Test Item Value Reference Range Interpretation Comments Mean Corpuscular Volume (test code = 787-2) 90.8 81-99 [facility] Lake[facility] erythrocyte mean corpuscular hemoglobin (mass per erythrocyte)2020-05-20 05:15:00* Test Item Value Reference Range Interpretation Comments Mean Corpuscular Hemoglobin (test code = 785-6) 28.7 28-32 [facility] LakeAutomated erythrocyte mean corpuscular hemoglobin concentration measurement (mass/volume)2020-05-20 05:15:00* Test Item Value Reference Range Interpretation Comments Mean Corpuscular Hemoglobin Concent (test code = 786-4) 31.6 31-35 [facility] LakeRDW CrnSf-Lmm5254-15-31 05:15:00* Test Item Value Reference Range Interpretation Comments Red Cell Distribution Width (test code = 95543-9) 14.0 11.7 -14.4 [facility] LakeAutomated blood platelet count (count/volume)2020-05-20 05:15:00* Test Item Value Reference Range Interpretation Comments Platelet Count (test code = 777-3) 191 140-360 [facility] LakeAutomated blood segmented neutrophil count as percentage of total etphtvfkpz8873-41-65 05:15:00* Test Item Value Reference Range Interpretation Comments Neutrophils (%) (Auto) (test code = 86042-7) 52.3 38.7-80.0 [facility] LakeAutomated blood lymphocyte count as percentage ot total tmtlbhzsxm8069-92-37 05:15:00* Test Item Value Reference Range Interpretation Comments Lymphocytes (%) (Auto) (test code = 736-9) 30.6 18.0-39.1 [facility] LakeAutomated blood monocyte count as percentage of total lvusdohwxd1527-29-05 05:15:00* Test Item Value Reference Range Interpretation Comments Monocytes (%) (Auto) (test code = 5905-5) 14.8 4.4-11.3 [facility] Lake[facility]ated blood eosinophil count as percentage of total naoufgwbzt9924-64-76 05:15:00* Test Item Value Reference Range Interpretation Comments Eosinophils (%) (Auto) (test code = 713-8) 1.4 0.0-6.0 [facility] LakeAutomated blood basophil count as percentage of total lqncdabgza7249-77-09 05:15:00* Test Item Value Reference Range Interpretation Comments Basophils (%) (Auto) (test code = 706-2) 0.5 0.0-1.0 [facility] LakeFluoroscopic procedure less than one hour fhwzmwgc2086-02-89 05:15:00* Test Item Value Reference Range Interpretation Comments IM GRANULOCYTES % (test code = IM GRANULOCYTES %) 0.4 0.0- 1.0 [facility] Lake[facility] blood neutrophil count 2020-05-20 05:15:00* Test Item Value Reference Range Interpretation Comments Neutrophils # (Auto) (test code = 751-8) 4.4 2.1-6.9 [facility] Lake[facility] lymphocytes count (number/volume) 2020-05-20 05:15:00* Test Item Value Reference Range Interpretation Comments Lymphocytes # (Auto) (test code = 62126-1) 2.6 1.0-3.2 [facility] Lake[facility] monocytes automated count (number/volume)2020-05-20 05:15:00* Test Item Value Reference Range Interpretation Comments Monocytes # (Auto) (test code = 742-7) 1.2 0.2-0.8 [facility] LakeAutomated blood eosinophil count 2020-05-20 05:15:00* Test Item Value Reference Range Interpretation Comments Eosinophils # (Auto) (test code = 711-2) 0.1 0.0-0.4 [facility] LakeAutomated blood basophil count (count/volume)2020-05-20 05:15:00* Test Item Value Reference Range Interpretation Comments Basophils # (Auto) (test code = 704-7) 0.0 0.0-0.1 [facility] LakeFluoroscopic procedure less than one hour mwekfohu9103-59-04 05:15:00* Test Item Value Reference Range Interpretation Comments Absolute Immature Granulocyte (auto (marlon t code = Absolute Immature Granulocyte (auto) 0.03 0-0.1 [facility] sodium measurement (moles/volume)2020-05-18 04:40:00* Test Item Value Reference Range Interpretation Comments Sodium Level (test code = 2951-2) 140 136-145 [facility] potassium measurement (moles/volume)2020-05-18 04:40:00* Test Item Value Reference Range Interpretation Comments Potassium Level (test code = 2823-3) 4.7 3.5-5.1 [facility] chloride measurement (moles/volume)2020-05-18 04:40:00* Test Item Value Reference Range Interpretation Comments Chloride Level (test code = 2075-0) 103 98-107 [facility] plasma carbon dioxide, total measurement (moles/volume)2020-05-18 04:40:00* Test Item Value Reference Range Interpretation Comments Carbon Dioxide Level (test code = 2028-9) 26 22-29 [facility] anion ide9036-97-39 04:40:00* Test Item Value Reference Range Interpretation Comments Anion Gap (test code = 88834-6) 15.7 8-16 [facility] plasma urea nitrogen measurement (mass/volume)2020-05-18 04:40:00* Test Item Value Reference Range Interpretation Comments Blood Urea Nitrogen (test code = 3094-0) 40 7-26 [facility] plasma creatinine measurement (mass/volume)2020-05-18 04:40:00* Test Item Value Reference Range Interpretation Comments Creatinine (test code = 2160-0) 5.59 0.72-1.25 [facility] plasma urea nitrogen/creatinine mass yfawi7321-02-45 04:40:00* Test Item Value Reference Range Interpretation Comments BUN/Creatinine Ratio (test code = 3097-3) 7 6-25 [facility] LakeEstimated glomerular filtration rate (GFR) gjpuohjeczdgk3767-53-54 04:40:00* Test Item Value Reference Range Interpretation Comments Estimat Glomerular Filtration Rate (test code = 513259418) 10 >60 Ranges were taken from the National Kidney Disease Education Program and the [facility] literature.Reference ranges:60 or greater: Olgivv39-04 ( for 3 consecutive months): Chronic kidney disease 15 or less: Kidney failureHCA Houston Healthcare Clear LakeGlucose ifdvrjwaopo5638-96-59 04:40:00* Test Item Value Reference Range Interpretation Comments Glucose Level (test code = TQQ6548) 149 74-118 [facility] plasma calcium measurement (mass/volume)2020-05-18 04:40:00* Test Item Value Reference Range Interpretation Comments Calcium Level (test code = 59473-2) 8.3 8.4-10.2 [facility] LakeFluoroscopic procedure less than one hour xcpqinuk5040-98-81 04:40:00* Test Item Value Reference Range Interpretation Comments Hemoglobin A1c Percent (test code = Hemoglobin A1c Percent) 8.3 4.0-7.0 [facility] plasma total bilirubin measurement (mass/volume)2020-05-18 04:40:00* Test Item Value Reference Range Interpretation Comments Total Bilirubin (test code = 1975-2) 0.5 0.2-1.2 [facility] LakeFluoroscopic procedure less than one hour blxyyegd9690-76-26 04:40:00* Test Item Value Reference Range Interpretation Comments Aspartate Amino Transf (AST/SGOT) (test code = Aspartate Amino Transf (AST/SGOT)) 14 5-34 [facility] or plasma alanine aminotransferase measurement (enzymatic activity/volume)2020-05-18 04:40:00* Test Item Value Reference Range Interpretation Comments Alanine Aminotransferase (ALT/SGPT) (test code = 1742-6) 12 0-55 [facility] plasma protein measurement (mass/volume)2020-05-18 04:40:00* Test Item Value Reference Range Interpretation Comments Total Protein (test code = 2885-2) 6.7 6.5-8.1 [facility] albumin measurement (mass/volume)2020-05-18 04:40:00* Test Item Value Reference Range Interpretation Comments Albumin (test code = 1751-7) 2.7 3.5-5.0 [facility] LakePlasma globulin measurement (mass/volume) 2020-05-18 04:40:00* Test Item Value Reference Range Interpretation Comments Globulin (test code = 87550-1) 4.0 2.3-3.5 [facility] albumin/globulin mass tijby8291-05-41 04:40:00* Test Item Value Reference Range Interpretation Comments Albumin/Globulin Ratio (test code = 1759-0) 0.7 0.8-2.0 [facility] plasma alkaline phosphatase measurement (enzymatic activity/volume)2020-05-18 04:40:00* Test Item Value Reference Range Interpretation Comments Alkaline Phosphatase (test code = 6768-6) 103 40-150 [facility] triglyceride measurement (mass/volume)2020-05-18 04:40:00* Test Item Value Reference Range Interpretation Comments Triglycerides Level (test code = 2571-8) 122 0-149 [facility] plasma cholesterol measurement (mass/volume)2020-05-18 04:40:00* Test Item Value Reference Range Interpretation Comments Cholesterol Level (test code = 2093-3) 74 0-199 Less than 200 mg/dL Low Fpdg221 - 239 mg/dL Borderline Fluj509 m g/dl and greater High Risk [facility] plasma cholesterol in LDL measurement (mass/volume) 2020-05-18 04:40:00* Test Item Value Reference Range Interpretation Comments LDL Cholesterol (test code = 2089-1) 34 60-130 [facility] plasma cholesterol in HDL measurement (mass/volume)2020-05-18 04:40:00* Test Item Value Reference Range Interpretation Comments HDL Cholesterol (test code = 2085-9) 16 40-60 [facility] or plasma total cholesterol/cholesterol in HDL mass gxhdz9673-44-97 04:40:00* Test Item Value Reference Range Interpretation Comments Cholesterol/HDL Ratio (test code = 9830-1) 4.6 3.9-4.7 [facility] LakeFOOT LEFT FLNGTPVK3882-84-01 14:45:00 [facility] [address] [address] Patient Name: JED BASSETT JR MR #: [id number] : 1955 Age/Sex: 64/M Req #: [id number] Adm Physician: JOHAN RANGEL MD Ordered by: MAGAD SANABRIA MD Report #: [id number] Location: [facility] Room/Bed: [address] [address] Procedure: [id number] DX/FOOT LEFT C OMPLETE Exam Date: 05/17/20 [...] PY TO: MAGDA SANABRIA MD Urine color imlxbndrqucli4215-72-63 13:39:00* Test Item Value Reference Range Interpretation Comments Urine Color (test code = 5778-6) YELLOW YELLOW [facility] LakeUrine gezxhcx4365-76-59 13:39:00* Test Item Value Reference Range Interpretation Comments Urine Clarity (test code = 14089-1) CLEAR CLEAR [facility] Centerpecific gravity of Urine by Test strip 2020-05-17 13:39:00* Test Item Value Reference Range Interpretation Comments Urine Specific [place] (test code = 5811-5) 1.020 1.010-1.02 5 [facility] Lake[facility] pH measurement by automated test gnvcc3788-59-05 13:39:00* Test Item Value Reference Range Interpretation Comments Urine pH (test code = 70258-6) 6.5 5-7 [facility] LakeUrine leukocyte esterase detection by medponqv1094-06-96 13:39:00* Test Item Value Reference Range Interpretation Comments Urine Leukocyte Esterase (test code = 5799-2) NEGATIVE NEGATIVE [facility] LakeUrine nitrite fnbuafmrh1507-71-21 13:39:00* Test Item Value Reference Range Interpretation Comments Urine Nitrite (test code = 22448-3) NEGATIVE NEGATIVE [facility] LakeUrine protein measurement by test strip (mass/volume)2020-05-17 13:39:00* Test Item Value Reference Range Interpretation Comments Urine Protein (test code = 5804-0) >=300 NEGATIVE [facility] LakeUrine glucose pcsumsosc3968-42-64 13:39:00* Test Item Value Reference Range Interpretation Comments Urine Glucose (UA) (test code = 2349-9) NEGATIVE NEGATIVE [facility] LakeUrine ketones detection by automated test lukex8495-54-89 13:39:00* Test Item Value Reference Range Interpretation Comments Urine Ketones (test code = 87937-4) TRACE NEGATIVE [facility] LakeUrine urobilinogen measurement by test strip (mass/volume)2020-05-17 13:39:00* Test Item Value Reference Range Interpretation Comments Urine Urobilinogen (test code = 22106-0) 0.2 0.2-1 [facility] LakeUrine total bilirubin measurement (mass/volume)2020-05-17 13:39:00* Test Item Value Reference Range Interpretation Comments Urine Bilirubin (test code = 1978-6) SMALL NEGATIVE [facility] LakeUrine erythrocytes bbxledxwo1182-06-95 13:39:00* Test Item Value Reference Range Interpretation Comments Urine Blood (test code = 26670-5) SMALL NEGATIVE [facility] LakeAutomated urine sediment leukocyte count by microscopy (number/high power field)2020-05-17 13:39:00* Test Item Value Reference Range Interpretation Comments Urine WBC (test code = 5821-4) 6-10 0-5 [facility] LakeErythrocytes detection in urine sediment by light nnmmrwukee7160-68-81 13:39:00* Test Item Value Reference Range Interpretation Comments Urine RBC (test code = 16440-8) 6-10 0-5 [facility] LakeBacteria detection in urine sediment by light nnmsopwzmy7186-22-63 13:39:00* Test Item Value Reference Range Interpretation Comments Urine Bacteria (test code = 44472-1) RARE NONE [facility] LakeEpithelial cells detection in urine sediment by light qefuiuougr5487-59-00 13:39:00* Test Item Value Reference Range Interpretation Comments Urine Epithelial Cells (test code = 01064-5) FEW NONE [facility] LakeCHEST SINGLE (PORTABLE)2020-05-17 12:54:00 [facility] [address] [address] Patient Name: JED BASSETT JR MR #: [id number] : 1955 Age/Sex: 64/M Req #: [id number] Adm Physician: JOHAN RANGEL MD Ordered by: MAGDA SANABRIA MD Report #: [id number] Location: [facility]/SURG3 Room/Bed: [facility] Procedure: [id number] DX/CHEST SINGL E (PORTABLE) Exam Date: 05/17/20 [...] (PT) in platelet poor plasma by coagulation alcvh6410-45-54 11:20:00* Test Item Value Reference Range Interpretation Comments Prothrombin Time (test code = 5902-2) 14.3 11.9-14.5 [facility] LakeINR in Platelet poor plasma by Coagulation kcmyj7689-82-59 11:20:00* Test Item Value Reference Range Interpretation Comments Prothromb Time International Ratio (test code = 6301-6) 1.05 Oral Anticoagulant Therapy INR Values:1. Low Intensity Therapy 1.5 - 2.02 . Moderate Intensity Therapy 2.0 - 3.03. High Intensity Therapy(1) 2.5 - 3. 54. High Intensity Therapy(2) 3.0 - 4.05. Panic Value INR > 5.0 [facility] LakeActivated partial thromboplastin time (aPTT) in platelet poor plasma by coagulation ymrfs8639-64-90 11:20:00* Test Item Value Reference Range Interpretation Comments Activated Partial Thromboplast Time (test code = 61772-7) 57.7 23.8-35.5 [facility] LakeFluoroscopic procedure less than one hour brdkokvw8134-44-75 11:20:00* Test Item Value Reference Range Interpretation Comments Lactic Acid Level (test code = Lactic Acid Level) 2.3 0.5- 2.0 Results repeated and called to REZA HARRELL at 1302 on 05/17/20 by Daniel Montgoemry . Read back and verified.[facility] LakeBNP Bld-mCnc 2020-05-17 11:20:00* Test Item Value Reference Range Interpretation Comments B-Type Natriuretic Peptide (test code = 14652-4) 608.5 0-100 [facility]ererum or plasma creatine kinase measurement (enzymatic activity/volume)2020-05-17 11:20:00* Test Item Value Reference Range Interpretation Comments Creatine Kinase (test code = 2157-6) 40 30-200 [facility]ererum or plasma creatine kinase MB measurement (mass/volume)2020-05-17 11:20:00* Test Item Value Reference Range Interpretation Comments Creatine Kinase MB (test code = 87252-2) 0.30 0-5.0 [facility] LakeTroponin I measurement by highly sensitive enzyme yncwcxqtcxl3896-08-91 11:20:00* Test Item Value Reference Range Interpretation Comments Troponin I (test code = 96307-3) 0.032 0-0.300 [facility] LakeFluoroscopic procedure less than one hour ssmuhjit1086-67-71 11:20:00* Test Item Value Reference Range Interpretation [...] under 564(g) of the ACT.Testing performed by [facility] [place], [place] [address]LXJHCA [facility] Healthcare Clear LakeBlood akhzbgc8776-89-96 11:20:00* Test Item Value Reference Range Interpretation Comments Blood Culture (test code = 14143884) NO GROWTH AFTER 72 HOURS [facility] LakeBacterial blood igfgolr4040-39-54 11:20:00* Test Item Value Reference Range Interpretation Comments Blood Culture (test code = 600-7) ENTEROBACTER CLOACAE [facility] LakeTreadmill tolerance(Non-Nuclear Treadmill)2019-12-22 16:44:12Interface, External Ris In - [...] MD SALDANA RAYMOND ([id number]) on 12/22/2019 4:44:04 [facility] odak4499-28-06 11:06:53Interface, External Ris In - 12/17/2019 11:06 AM CSTVentricular Rate 69 BPMAtrial Rate 69 BPMP-R Interval 282 msQRS Duration 100 msQ-T Interval 442 msQTC Calculation(Bazett) 473 msP Inkom 71 degreesR Inkom -43 degreesT Inkom 60 degreesSinus rhythm with 1st degree A-V blockLeft axis deviationAbnormal ECGNo previous ECGs availableConfirmed by MD Randy, Alejandro ([id number]) on 12/17/2019 11:06:49 [facility] Echo W/Doppler(CW/PW/Color)2019-12-17 07:21:02Ejection FractionSLEH ECHO HEARTLAB MKCKESSON CPACSInterface, External Ris In - 12/17/2019 7:21 AM CSTTransthoracic Echocardiography Report (TTE) Demographics Patient Name JED BASSETT Date of Study 12/16/2019 Gender Male Visit Number [id number] Race Unknown Room Number Number Date of 1955 Referring Physician April Breaux Age 64 year(s) Respite Worker Levy Alberto Interpreting Vijaya Whaley Physician Fellow [...] RVOT RVOT VTI (PW): 23.72 cm [facility] Echo With Mtzatxb5805-97-82 07:14:29Ejection FractionSLEH ECHO HEARTLAB MKCKESSON CPACSInterface, External Ris In - 12/17/2019 7:14 AM CSTStress Echocardiography Report Demographics Patient Name JED BASSETT Date of Study 12/16/2019 Gender Male Visit Number [id number] Race Unknown Room Number Number Date of 1955 Referring Physician April Breaux Age 64 year(s) Respite Worker Levy Alberto Interpreting Vijaya Whaley, Physician MD [...] is a negative Echocardiographic Stress Test. Signature [facility] HospitalHemoglobin [id number] 11:16:00* Test Item Value Reference Range Interpretation Comments Hemoglobin A1C (test code = 4548-4) 7.7 % 4.3-6.1 H Lab Interpretation (test code = 72494-9) Abnormal [facility] HospitalHEMOGLOBIN [id number] 11:16:00* Test Item Value Reference Range Interpretation Comments HEMOGLOBIN A1C (BEAKER) (test code = 368) 7.7 % 4.3-6.1 H RAD, CHEST, 2 [id number] 10:01:00Reason for Exam:->Pre kidney transplant evaluation.FINAL REPORT [...] acute intrathoracic abnormality. Signed: JR Ev, [facility] Verified Date/Time: 12/16/2019 10:01:55 Reading Location: [facility] Radiology Reading Room chest 2 sustk5727-46-13 10:01:00Interface, External Ris In - 12/16/2019 10:04 [...] MDReport Verified Date/Time: 12/16/2019 10:01:55 Reading Location: [facility] Radiology Reading Room Electronically signed by: JESSE CARRENO on 0 12/16/2019 10:01 AM [facility]U/S, ABDOMINAL, COMPLETE 2019-12-16 09:36:00Reason for Exam:->Kidney transplant [...] Gaytaneport Verified Date/Time: 12/16/2019 09:36:15 Reading Location: [address] Radiology Reading Room abdomen xnkoapkh5429-97-74 09:36:00Interface, External Ris In - 12/16/2019 9:38 [...] Gaytaneport Verified Date/Time: 12/16/2019 09:36:15 Reading Location: [address] Radiology Reading Room [facility] HospitalPSA2020-02-26 08:48:00* Test Item Value Reference Range Interpretation Comments PSA (test code = 2857-1) 0.3 ng/mL 0-4 SOUTH (test code = SOUTH) Manager Trust ID - DB Lab Interpretation (test code = 19815-2) Normal [facility] HospitalPSA2020-02-26 08:48:00* Test Item Value Reference Range Interpretation Comments PROSTATE SPECIFIC ANTIGEN (BEAKER) (test code = 844) 0.3 ng/mL 0 .0-4.0 Manager Trust ID - DBBlood typing, ucdpliakl1868-51-00 07:58:00* Test Item Value Reference Range Interpretation Comments ABO/RH AUTOMATED (BEAKER) (test code = 2260) O POSITIVE [facility] HospitalLipid ghfox2077-39-13 07:56:00* Test Item Value Reference Range Interpretation Comments Triglycerides (test code = 2571-8) 120 mg/dL Cholesterol (test code = 2093-3) 105 mg/dL HDL (test code = 2085-9) 32 mg/dL LDL Calculated (test code = 97961-4) 49 mg/dL SOUTH (test code = SOUTH) Triglyceride Reference Range : Low Risk <150 Borderline 150-199 High Risk 200-499 Very High Risk >=500 Cholesterol Reference Range: Low Risk <200 Borderline 200-239 High Risk >240 HDL Cholesterol Reference Range: Low Risk >=60 High Risk <40 LDL Cholesterol Reference Range: Optimal <100 Near Optimal 100-129 Borderline 130-159 High 160-189 Very High >=190 Manager Trust ID Lashell Yates [facility] HospitalLIPID [id number] 07:56:00* Test Item Value Reference Range Interpretation [...] Borderline 130-159 High 160-189 Very High >=190 Manager Trust CARON SCOTTLA TYPING [id number] 22:51:00* Test Item Value Reference Range Interpretation [...] and its performance characteristics determined by the [facility]. It has not been cleared or [...] to perform high complexity clinical laboratory testing. [facility] HospitalHLA TYPING [id number] 22:51:00* Test Item Value Reference Range Interpretation [...] and its performance characteristics determined by the [facility]. It has not been cleared or [...] to perform high complexity clinical laboratory testing. [facility]- XR RIBS UNI W/CXR 3+V IJ4003-31-47 19:52:00 FAX: Maldonado Goldman [place]: [place] St: REG Name: JED [facility] FS : [birth year] Age/S: 64/M [address] [facility] Unit #: [id number] Loc: BRII [address] Phys: Maldonado Goldman MD [place], [place] [address] Acct: [id number] Dis Date: Status: REG ER PHONE #: Exam Date: 12/04/2019 3577 FAX #: Reason: FALL, RIGHT RIB PAIN EXAMS: CPT CODE: [id number] XR RIBS UNI W/CXR 3+[place] [address] EXAM: Right-sided rib series, 4 vi ews; [...] 10th rib on the right. Location code: [facility] at 1949 Reported and signed by: Hardy Juarez M.D. CC: Maldonado Goldman MD Technologist: April Louis Trnhird Date/Time/By: 12/04/2019 (1949) : By: [email or web address].GRW Orig Print D/T: S: 12/04/2019 (1953) PAGE 1 Signed Report HERNIA RCJ5612-21-04 14:34:00 RUN DATE: 12/03/19 [place] - Lab PAGE 1 RUN TIME: 1434 Specimen Inqui ry RUN USER: INTERFACE PATIENT: JED BASSETT JR ACCT #: V [id number] [facility] #: [id number] AGE/SX: 64/M ROOM: RE12/02/19REG DR: Keron Galdamez MD : [birth year] BED: DIS: STATUS: [facility] TLOC: SPEC #: [id number] RECD: 12/02/19 [facility]US[facility]ISVerónica RE #: [id number] SUSAN: 12/02/19- [facility] DR: Keron Galdamez MD ENTERED: 12/02/19 SP TYPE: HERNIA SAC OTHR DR: Antony Cox MD ORDERED: GROSS COPIES TO: Keron Galdamez MD [address] [place], [place] [id number] [place] [address] [place] [address] PROCEDURES: GROSS (12/03/19-1106) TISS UES: 1. INGUINAL REGION, NOS - RIGHT LIPOMA 2. INGUINAL REGION , NOS - LEFT LIPOMA CLINICAL HISTORY COLLECTION DATE: 12/02/19 FINAL DIAGNOSIS Right inguinal lipoma, inguinal hernia repair: ADIPOSE TISSUE CONSISTENT WITH HERNIA CONTENTS Left inguinal lipoma, ing uinal hernia repair: ADIPOSE TISSUE CONSISTENT WITH HERNIA CONTENTS DMW/sm D [id number] MACROSCOPIC Specimen (1) is [facility] labeled with the patient's name, "right lipoma" and consists of a porti on of yellow fatty tissue with smooth rounded margins that measures 11 cm in l ength with a diameter ranging from 1.5 up to 3.8 cm. The cut surface is homo genous. Commissary Assistant tissue is submitted for histologic evaluation as (1). CONTINUED ON NEXT PAGE RUN DATE : 12/03/19 [facility] PAGE 2 RUN TIME: 1434 Specimen Inquiry RUN USER: INTERFACE SPEC #: [id number] PATIENT: JED BASSETT #V [id number] (Continued) MACROSCOPIC (Continue d) Specimen (2) is [...] is submitted as (2). GROSS PERFORMED AT [facility] [address] [place] [address] LINDA BHATTI [address] (p)[phone] MICROSCOPIC All of the stains, i ncluding any controls performed, stain appropriately. MICROSCOPIC PERFOR MED AT [facility] [address] [place] [address] (P)[phone] PERFORMING SITE Diagnosis performed at: [facility] [address] [facility], [place] [address] [phone] Signed SIGNATURE ON FILE Margarito Moore MD 12/03/19 1434 END OF REPORT AB SPECIFICITY CLASS [id number] 11:01:00* Test Item Value Reference Range Interpretation Comments AB Specificity Class I (test code = 3457) NO CLASS I A NTIBODY DETECTED WITH MFIs > 4000 SOUTH (test code = SOUTH) Disclaimer: This test was de veloped and its performance characteristics determined by the [facility]. It has not been cleared or [...] to perform high complexity clinical laboratory testing. [facility] HospitalGLUBED2020-02-12 10:27:00* Test Item Value Reference Range Interpretation Comments GLUBED (test code = GLUBED) 180 mg/dL 74-106 H Performed by certified foil operator at [facility] UWSYBOQYH8614-09-62 07:57:00* Test Item Value Reference Range Interpretation Comments POTASSIUM (test code = K) 3.8 mmol/L 3.5-5.1 N [id number] 07:49:00* Test Item Value Reference Range Interpretation Comments GLUBED (test code = GLUBED) 204 mg/dL 74-106 H Performed by certified foil operator at [facility] FLOW PRA CLASS I WITH REFLEX TO ANTIBODY MTJBZGEAIFP2378-44-80 11:44:00* Test Item Value Reference Range Interpretation Comments Flow Class I Percent Positive (test code = 3229) 10 SOUTH (test code = SOUTH) Disclaimer: This test was de veloped and its performance characteristics determined by the [facility]. It has not been cleared or [...] to perform high complexity clinical laboratory testing. [facility] HospitalFLOW PRA CLASS II WITH REFLEX TO ANTIBODY JMFFGYYHIZP9288-60-25 11:44:00* Test Item Value Reference Range Interpretation Comments Flow Class II Percent Positive (test code = 3231) 0 SOUTH (test code = SOUTH) Disclaimer: This test was de veloped and its performance characteristics determined by the [facility]. It has not been cleared or [...] to perform high complexity clinical laboratory testing. [facility] HospitalT Spot [id number] 19:29:00* Test Item Value Reference Range Interpretation Comments T-Spot TB (test code = 06923-7) Negative Neg Ctrl Spot Count (test code = 05813-8) 0 Panel A Spot (test code = 61254-6) 0 Panel B Spot (test code = 08511-7) [address] (test code = 79827-5) 0 Scan Result (test code = 5091569) [facility] HospitalBASI METABOLIC [id number] 12:11:00* Test Item Value Reference Range Interpretation [...] CA) 7.5 mg/dL 8.5-10.1 L CBC W/AUTO [id number] 11:39:00* Test Item Value Reference Range Interpretation [...] NRBC#) 0.00 K/mm3 0.0-0.1 N Cytomegalovirus antibody, [id number] 04:11:00* Test Item Value Reference Range Interpretation Comments CYTOMEGALOVIRUS, IGG (test code = 3429) Positive Negative, Equi vocal A SOUTH (test code = SOUTH) CMV IgG Result Interpretatio n: </= 0.8 Al Negative 0.9- 1.0 Al Equivocal >/=1.1 Al Positive Lab Interpretation (test code = 49539-5) Abnormal [facility] antibody, [id number] 04:11:00* Test Item Value Reference Range Interpretation Comments KEELY HSIEH VIRAL CAPSID ANTIGEN IGG (test code = 3415) Pos itive Negative, Equivocal A SOUTH (test code = SOUTH) Keely Hsieh Viral Capsid An tigen IgG Result Interpretation: </= 0.8 Al Negative 0.9-1.0 Al Equivocal >/= 1.1 Al Positive Lab Interpretation (test code = 16209-6) Abnormal [facility] HospitalEBV-VCA antibody, [id number] 04:11:00* Test Item Value Reference Range Interpretation Comments KEELY HSIEH VIRAL CAPSID ANTIGEN IGM (test code = 3418) Neg ative Negative, Equivocal SOUTH (test code = SOUTH) Keely Hsieh Viral Capsid An tigen IgM Result Interpretation: </= 0.8 Al Negative 0.9-1.0 Al Equivocal >/= 1.1 Al Positive Lab Interpretation (test code = 21201-4) Normal [facility] HospitalCytomegalovirus antibody, [id number] 04:11:00* Test Item Value Reference Range Interpretation Comments CMV IGM (test code = 3437) Negative Negative, Equivocal SOUTH (test code = SOUTH) CMV IgM Result Interpretatio n: </= 0.8 Al Negative 0.9-1.0 Al Equivocal >/= 1.1 Al Positive Lab Interpretation (test code = 41979-2) Normal [facility] HospitalMHA - [id number] 04:11:00* Test Item Value Reference Range Interpretation Comments TREPONEMA PALLIDUM, SYPHILIS IGG (test code = 6561-5) Reactive Nonreactive AA SOUTH (test code = SOUTH) Test performed by CALEB method. Lab Interpretation (test code = 95527-8) Abnormal [facility] HospitalCYTOMEGALOVIRUS ANTIBODY, [id number] 04:11:00* Test Item Value Reference Range Interpretation Comments CYTOMEGALOVIRUS, IGG (BEAKER) (test code = 3429) Positive Negat joe, Equivocal A CMV IgG Result Interpretation: </= 0.8 Al Negative 0.9-1.0 Al Equivocal > /=1.1 Al PositiveCYTOMEGALOVIRUS ANTIBODY, [id number] 04:11:00* Test Item Value Reference Range Interpretation Comments CYTOMEGALOVIRUS IGM ANTIBODY (BEAKER) (test code = 3437) Neg ative Negative, Equivocal CMV IgM Result Interpretation: </= 0.8 Al Negative 0.9-1.0 Al Equivocal > /= 1.1 Al PositiveEBV ANTIBODY, [id number] 04:11:00* Test Item Value Reference Range Interpretation Comments KEELY HSIEH VIRAL CAPSID ANTIGEN IGG (dotCloudAKER) (test code = 3415) Positive Negative, Equivocal A Keely Hsieh Viral Capsid Antigen IgG Result Interpretation: </= 0.8 Al Negative 0.9-1.0 Al Equivocal >/= 1.1 Al PositiveEBV ANTIBODY, [id number] 04:11:00* Test Item Value Reference Range Interpretation Comments KEELY HSIEH VIRAL CAPSID ANTIGEN IGM (dotCloudAKER) (test code = 3418) Negative Negative, Equivocal Keely Hsieh Viral Capsid Antigen IgM Result Interpretation: </= 0.8 Al Negative 0.9-1.0 Al Equivocal >/= 1.1 Al PositiveTREPONEMA PALLIDUM - SYPHILIS [id number] 04:11:00* Test Item Value Reference Range Interpretation Comments TREPONEMA PALLIDUM, SYPHILIS IGG (TWANAKER) (test code = 3427) Reactive Nonreactive AA Test performed by CALEB method.Varicella Zoster Antibody, [id number] 03:46:00 * Test Item Value Reference Range Interpretation Comments Varicella IgG (test code = 71676-0) 7.2 SOUTH (test code = SOUTH) VARICELLA ZOSTER RESULT INTE RPRETATIONS: <=0.8 Al Nonreactive: Presumed non-immune to VZV 0.9-1.0 Al Equivocal >=1.1 Al Reactive: Presumed immune to VZV [facility] HospitalVARICELLA ZOSTER ANTIBODY, [id number] 03:46:00* Test Item Value Reference Range Interpretation Comments VARICELLA ZOSTER IGG (AL) (BEAKER) (test code = 3197) 7.2 VARICELLA ZOSTER RESULT INTERPRETATIONS: <=0.8 Al Nonreactive: Presumed non-immune to VZV 0.9-1.0 Al Equivocal >=1.1 Al Reactive: Presumed immune to VZVRPR Xjity6815-02-51 02:59:00* Test Item Value Reference Range Interpretation Comments RPR Titer (test code = 52127-5) 1:4 [facility] HospitalRPR [id number] 02:59:00* Test Item Value Reference Range Interpretation Comments RPR TITER (BEAKER) (test code = 1485) :4 [id number] 02:58:00* Test Item Value Reference Range Interpretation Comments RPR (test code = 17684-0) Reactive Nonreactive A Lab Interpretation (test code = 15089-4) Abnormal [facility] HospitalRPR2020-02-07 02:58:00* Test Item Value Reference Range Interpretation Comments RPR SCREEN (BEAKER) (test code = 420) Reactive Nonreactive A Hepatitis C Pydtteux1504-10-75 15:09:00* Test Item Value Reference Range Interpretation Comments Hepatitis C Ab (test code = 05821-0) Reactive Nonreactive A SOUTH (test code = SOUTH) Manager Trust ID - MineWhatMAXWELL Lab Interpretation (test code = 54279-3) Abnormal [facility] HospitalHEPATITIS C [id number] 15:09:00* Test Item Value Reference Range Interpretation Comments HEPATITIS C ANTIBODY (BEAKER) (test code = 367) Reactive Nonrea ctive Contact And Service Clerks Supervisor ID - AFSANEHGDirect AHG (FELIPA)/Direct Snuqqj9920-21-73 14:09:00* Test Item Value Reference Range Interpretation Comments Direct AHG-IGG (test code = 1006-6) NEGATIVE saline control-negative Direct AHG-C3B, C3D (test code = 1003-3) NEGATVIE [facility] HospitalHebaptist health lexingtontis B surface gluvfzwt5179-32-85 13:48:00* Test Item Value Reference Range Interpretation Comments Hep B S Ab (test code = 50013-4) <8.0 <8.0 mIU/mL SOUTH (test code = SOUTH) Manager Trust ID - MineWhatJESS Lab Interpretation (test code = 68881-8) Normal [facility] B SURFACE VPOPWAHK5748-58-43 13:48:00* Test Item Value Reference Range Interpretation Comments HEPATITIS B SURFACE ANTIBODY (BEAKER) (test code = 647) < mIU/mL <8.0 Manager Trust ID - ROSIANepatitis B surface gsxzyoz2002-16-39 13:45:00* Test Item Value Reference Range Interpretation Comments HBsAg Screen (test code = 5195-3) Nonreactive Nonreactive SOUTH (test code = SOUTH) Manager Trust ID - MineWhatMAXWELL Lab Interpretation (test code = 58041-7) Normal [facility] B core antibody, [id number] 13:45:00* Test Item Value Reference Range Interpretation Comments Hep B C IgM (test code = 96577-7) Nonreactive Nonreactive SOUTH (test code = SOUTH) Manager Trust ID - PAPI Lab Interpretation (test code = 00684-5) [facility] Ant[facility] with HIV-1/2 Dsgarwfy8962-18-65 13:45:00* Test Item Value Reference Range Interpretation Comments HIV-1 Antigen with HIV 1&2 Antibody (test code = 92520-2) No nreactive Nonreactive SOUTH (test code = SOUTH) Manager Trust ID - PAPI Lab Interpretation (test code = 63551-9) [facility] SUR[facility] [id number] 13:45:00* Test Item Value Reference Range Interpretation Comments HEPATITIS B SURFACE ANTIGEN (2) (BEAKER) (test code = 2585) Nonreactive Nonreactive Manager Trust ID Lashell SHELBYEPATITIS B CORE ANTIBODY, [id number] 13:45:00* Test Item Value Reference Range Interpretation Comments HEPATITIS B CORE IGM ANTIBODY (BEAKER) (test code = 645) Non reactive Nonreactive Manager Trust ID - AFSANEHIV-1 ANTIGEN WITH HIV-1/2 [id number] 13:45:00* Test Item Value Reference Range Interpretation Comments HIV-1 ANTIGEN WITH HIV 1\\T\\2 ANTIBODY (2) (BEAKER) (te st code = 2586) Nonreactive Nonreactive Manager Trust ID Lashell [facility], Ztbyxb7346-93-77 13:32:00* Test Item Value Reference Range Interpretation Comments PTH (test code = 2731-8) 462.7 pg/mL 8.5-72.5 H SOUTH (test code = SOUTH) Manager Trust ID - PAPI Lab Interpretation (test code = 87982-8) [facility]normal [facility], [id number] 13:32:00* Test Item Value Reference Range Interpretation Comments PARATHYROID HORMONE INTACT (BEAKER) (test code = 577) 462.7 pg/mL 8.5-72.5 H Manager Trust ID - AFSANEHomprehensive metabolic klmdd4994-75-60 13:30:00* Test Item Value Reference Range Interpretation Comments Protein, Total (test code = 2885-2) 7.5 6.0- 8.3 gm/dL Albumin (test code = 22442-2) 4.0 g/dL 3.5-5 Alkaline Phosphatase (test code [...] mg/dL 70-105 H Calcium (test code = 17795-5) 8.0 mg/dL 8.4-10.2 L AST (test code = 1920-8) 18 U/L 5-34 ALT (test code = 1742-6) 20 U/L 6-55 EGFR (test code = 70977-4) 12 mL/min/1.73 sq m ESTIMATED GFR IS NOT ACCURATE CREATININE CLEARANCE IN PREDICTING GLOMERULAR FILTRATION RATE. ESTIMATED GFR IS NOT APPLICABLE FOR DIALYSIS PATIENTS. SOUTH (test code = SOUTH) Manager Trust ID - ROSIANG Lab Interpretation (test code = 23967-1) [facility] [id number] 13:30:00* Test Item Value Reference Range Interpretation [...] GFR IS NOT APPLICABLE FOR DIALYSIS PATIENTS. Manager Trust ID - MARIANNEamma Glutamyl Transferase (GGT)2019-11-25 13:19:00* Test Item Value Reference Range Interpretation Comments GGT (test code = 2324-2) 84 U/L 9-64 H SOUTH (test code = SOUTH) Manager Trust ID - [employer] Lab Interpretation (test code = 69087-6) Abnormal [facility] HospitalLactate Dehydrogenase (LDH)2019-11-25 13:19:00* Test Item Value Reference Range Interpretation Comments LDH (test code = 2532-0) 231 U/L 125-220 H SOUTH (test code = SOUTH) Manager Trust ID - [employer] Lab Interpretation (test code = 24985-1) Abnormal [facility] HospitalPhosphorus2020-02-05 13:19:00* Test Item Value Reference Range Interpretation Comments Phosphorus (test code = 2777-1) 4.7 mg/dL 2.3-4.7 SOUTH (test code = SOUTH) Manager Trust ID - MineWhatIANMyWerx Lab Interpretation (test code = 56841-3) Normal [facility] HospitalUric Jshj0035-12-88 13:19:00* Test Item Value Reference Range Interpretation Comments Uric Acid (test code = 3084-1) 4.6 mg/dL 2.6-7.2 SOUTH (test code = SOUTH) Manager Trust ID - MineWhatIANG Lab Interpretation (test code = 07021-7) Normal [facility] HospitalURIC [id number] 13:19:00* Test Item Value Reference Range Interpretation Comments URIC ACID (BEAKER) (test code = 773) 4.6 mg/dL 2.6-7.2 Manager Trust ID - YCLLBXFNUDXQKPHFU1749-03-93 13:19:00* Test Item Value Reference Range Interpretation Comments PHOSPHORUS (BEAKER) (test code = 604) 4.7 mg/dL 2.3-4.7 Manager Trust ID - ROSIANGGAMMA GLUTAMYL TRANSFERASE (GGT)2019-11-25 13:19:00* Test Item Value Reference Range Interpretation Comments GAMMA GLUTAMYL TRANSFERASE (BEAKER) (test code = 364) 84 U/L 9-64 H Manager Trust ID - ROSIANGLACTATE DEHYDROGENASE (LDH)2019-11-25 13:19:00* Test Item Value Reference Range Interpretation Comments LACTATE DEHYDROGENASE (BEAKER) (test code = 635) 231 U/L 125-2 20 H Manager Trust ID - ROSIANGPT/zWLZ1248-42-40 13:04:00* Test Item Value Reference Range Interpretation Comments Protime (test code = 5902-2) 13.7 11.9- 14.2 seconds INR (test code = 6301-6) 1.1 <=5.9 PTT (test code = 94265-0) 31.4 22.5- 36.0 seconds SOUTH (test code = SOUTH) Effective 03/18/2019: PT Refe rence Range ChangeNew: 11.9- 14.2 Previous: 11.7-14.7 RECOMMENDED COUMADIN/WARFARIN INR THERAPY RANGESSTANDARD DOSE: 2.0-3.0 Includes: PROPHYLAXIS for venous thrombosis, sys temic embolization; TREATMENT for venous thrombosis and/or pulmonary embolus.HIGH RISK: Target INR is 2.5-3.5 for patients wiht mechanical heart valves. Lab Interpretation (test code = 24477-5) Normal [facility] HospitalPT/[id number] 13:04:00* Test Item Value Reference Range Interpretation [...] 450 K/CU MM MPV (test code = 21487-0) 10.8 fL 9.4-12.4 nRBC (test code = [...] % 0-1 Lab Interpretation (test code = 15006-4) Abnormal [facility] W/PLT COUNT & AUTO [id number] 12:54:00* Test Item Value Reference Range Interpretation [...] = 2801) 0 % 0-1 BASIC METABOLIC [id number] 19:24:00* Test Item Value Reference Range Interpretation [...] CA) 6.8 mg/dL 8.5-10.1 L BASIC METABOLIC [id number] 19:16:00* Test Item Value Reference Range Interpretation [...] code = CA) mg/dL 8.5-10.1 CBC W/AUTO [id number] 19:04:00* Test Item Value Reference Range Interpretation [...] DIFF REQUIRED (test code = MDIFF) NO [id number] 20:30:00* Test Item Value Reference Range Interpretation Comments GLUBED (test code = GLUBED) 197 mg/dL 74-106 H Performed by certified foil operator at [facility] [id number] 19:20:00* Test Item Value Reference Range Interpretation Comments GLUBED (test code = GLUBED) 170 mg/dL 74-106 H Performed by certified foil operator at [facility] [id number] 13:00:00* Test Item Value Reference Range Interpretation Comments GLUBED (test code = GLUBED) 146 mg/dL 74-106 H Performed by certified foil operator at [facility] BASIC METABOLIC [id number] 07:51:00* Test Item Value Reference Range Interpretation [...] CA) 8.0 mg/dL 8.5-10.1 L BASIC METABOLIC [id number] 07:47:00* Test Item Value Reference Range Interpretation [...] CA) 8.0 mg/dL 8.5-10.1 L CBC W/AUTO [id number] 07:32:00* Test Item Value Reference Range Interpretation [...] DIFF REQUIRED (test code = MDIFF) NO [id number] 20:29:00* Test Item Value Reference Range Interpretation Comments GLUBED (test code = GLUBED) 307 mg/dL 74-106 H Performed by certified foil operator at [facility] [id number] 17:51:00* Test Item Value Reference Range Interpretation Comments GLUBED (test code = GLUBED) 263 mg/dL 74-106 H Performed by certified foil operator at [facility] [id number] 12:58:00* Test Item Value Reference Range Interpretation Comments GLUBED (test code = GLUBED) 336 mg/dL 74-106 H Performed by certified foil operator at [facility] BASIC METABOLIC [id number] 07:58:00* Test Item Value Reference Range Interpretation [...] ADD ON TO THE AM LABSBASIC METABOLIC [id number] 07:27:00 * Test Item Value Reference Range [...] SPECIMEN COMMENTS: ADD ON TO THE AM [id number] 05:46:00* Test Item Value Reference Range Interpretation Comments GLUBED (test code = GLUBED) 183 mg/dL 74-106 H Performed by certified foil operator at [facility] CBC W/AUTO [id number] 04:50:00* Test Item Value Reference Range Interpretation [...] code = NRBC#) 0.00 K/mm3 0.0-0.1 N [id number] 20:20:00* Test Item Value Reference Range Interpretation Comments GLUBED (test code = GLUBED) 200 mg/dL 74-106 H Performed by certified foil operator at [facility] [id number] 17:48:00* Test Item Value Reference Range Interpretation Comments GLUBED (test code = GLUBED) 145 mg/dL 74-106 H Performed by certified foil operator at [facility] UR CREATININE CLEARANCE [id number] 15:13:00* Test Item Value Reference Range Interpretation Comments CREATININE CLEARANCE RESULT (test code = CREATCLR) 8 mL/min 100 -120 L CREATININE (test code = CREAT) 4.00 mg/dL 0.7-1.3 H UR CREATININE RANDOM (test code = CREATU) 50.0 mg/dL 30-125 N UR VOLUME 24HR (test code = VOL) 900 mL/24hrs 9496-3353 TOTAL VOLUME: 900mLUR CREATININE CLEARANCE [id number] 07:37:00* Test Item Value Reference Range Interpretation Comments CREATININE CLEARANCE RESULT (test code = CREATCLR) mL/min 100 -120 CREATININE (test code = CREAT) mg/dL 0.7-1.3 UR CREATININE RANDOM (test code = CREATU) 50.0 mg/dL 30-125 N UR VOLUME 24HR (test code = VOL) mL/24hrs 7502-9053 TOTAL VOLUME: [id number] 06:47:00* Test Item Value Reference Range Interpretation Comments GLUBED (test code = GLUBED) 91 mg/dL 74-106 N Performed by certified foil operator at [facility] BASIC METABOLIC [id number] 05:40:00* Test Item Value Reference Range Interpretation [...] CA) 7.5 mg/dL 8.5-10.1 L BASIC METABOLIC [id number] 05:35:00* Test Item Value Reference Range Interpretation [...] code = CA) mg/dL 8.5-10.1 CBC W/O [id number] 05:32:00* Test Item Value Reference Range Interpretation [...] code = MPV) 11.0 fL 6.7-11.0 N [id number] 21:27:00* Test Item Value Reference Range Interpretation Comments GLUBED (test code = GLUBED) 92 mg/dL 74-106 N Performed by certified foil operator at [facility] [id number] 17:07:00* Test Item Value Reference Range Interpretation Comments GLUBED (test code = GLUBED) 145 mg/dL 74-106 H Performed by certified foil operator at [facility] [id number] 13:57:00* Test Item Value Reference Range Interpretation Comments GLUBED (test code = GLUBED) 155 mg/dL 74-106 H Performed by certified foil operator at [facility] AB HEPATITIS B [id number] 13:10:00* Test Item Value Reference Range Interpretation Comments AB HEPATITIS B SURFACE (test code = HBSAB) Non Reactive () Non Reactive: Inconsistent with immunity, less than 10 mIU/mL Reactive: Consistent with immunity, greater than 9.9 mIU/mLPerformed At: [facility] [address] [id number] Shah MD Ph:[phone] HEPATITIS B CORE ANTIBODY,[id number] 13:10:00* Test Item Value Reference Range Interpretation Comments HEPATITIS B CORE ANTIBODY,TOT (test code = HBCAB) Positive Nega tive A Performed At: [facility] [address] [id number] Shah MD Ph:[phone] - GUIDANCE [facility] [id number] 08:44:00 Name: JED BASSETT [facility] : 1955 Age/S: 64 / M [address] Unit #: [id number] Loc: [place] [address] Phys: Russell Davis MD Acct: [id number] Dis Date: Status: ADM IN PHONE #: [phone] Exam Date: 11/02/2019 1642 FAX #: [phone] Reason: EXAMS: CPT CODE: [id number] US GUIDANCE VASC ACCESS 47350 Fluoro Time: DAP (Gy m2): Air Kerma (mGy): REASON FOR EXAM: ESRD Referring Physician: Russell Davis MD PROCEDURE: Ultrasound and fluoroscopic guided tunneled hemodialysis catheter placement with IV conscious sedation CPT code: 77954, 61273,15729 Meqe-bd-ksvw procedure time is approximately: 45 minutes FINDINGS: [...] was used to access the vein. A long term care social worker dialysis catheter was tunneled under the subcutaneous [...] (843) Tyrell Orig Print D/T: S: 11/03/2019 (2124) PAGE 1 Signed Report - SP FLUORO GUID CTRL ACC DEV 2019-11-03 08:44:00 Name: JED BASSETT [facility] : 1955 Age/S: 64 / M [address] Unit #: [id number] Loc: [place] [address] Phys: Russell Davis MD Acct: [id number] Dis Date: Status: ADM IN PHONE #: [phone] Exam Date: 11/02/2019 1642 FAX #: [phone] Reason: EXAMS: CPT CODE: [id number] SP FLUORO GUID CTRL ACC DEV 04159 Fluoro Time: 6 DAP (Gy m2): 0.51 Air Kerma (mGy): 1 REASON FOR EXAM: ESRD Referring Physician: Russell Davis MD PROCEDURE: Ultrasound and fluoroscopic guided tunneled hemodialysis catheter placement with IV conscious sedation CPT code: 16347, 52178,53084 Bwms-vy-tmim procedure time is approximately: 45 minutes FINDINGS: [...] was used to access the vein. A long term care social worker dialysis catheter was tunneled under the subcutaneous [...] (0844) HerminioL Orig Print D/T: S: 11/03/2019 (3915) PAGE 1 Signed Report [id number] 06:33:00* Test Item Value Reference Range Interpretation Comments GLUBED (test code = GLUBED) 101 mg/dL 74-106 N Performed by certified foil operator at [facility] COMPREHENSIVE METABOLIC [id number] 05:04:00* Test Item Value Reference Range Interpretation [...] due to change in reagent. COMPREHENSIVE METABOLIC [id number] 04:48:00* Test Item Value Reference Range Interpretation [...] TOTAL (test code = ALKP) IUnit/L 45-117 [id number] 21:03:00* Test Item Value Reference Range Interpretation Comments GLUBED (test code = GLUBED) 125 mg/dL 74-106 H Performed by certified foil operator at [facility] - XR CHEST 1 [id number] 20:25:00 FAX: Russell Arizmendi [phone] [place]: [address] St: ADM FAX: Antony Noble [phone] Name: JED BASSETT [facility] : 1955 Age/S: 64/M [address] Unit #: [id number] Loc: V.2064 [place] [address] Phys: Marcellus Urena MD Acct: [id number] Dis Date: Status: ADM IN PHONE #: [phone] Exam Date: 11/02/2019 1700 FAX #: [phone] Reason: POST LINE PLACEMENT EXAMS: CPT CODE: [id number] XR CHEST 1 V 46334 EXAM: Chest x-ray, one view; INFORMATION: Post line placement; IMPRESSION: 1. The tip of a new tunneled right IJ hemodialysis catheter is positioned at the SVC/right atrial junction. 2. No evidence of a pneumothorax. 3. Otherwise significant improvement compared with yesterday's study with resolution of pulmonary edema and decrease in heart size. The heart is now borderline in size. Location code: [facility] at 2024 Reported and signed by: Hardy Juarez M.D. CC: Russell Davis MD; Antony Smith Technologist: DIPTI TracyR Trnscrd Date/Time/By: 11/02/2019 (2024) : By: SvetlanaGRW Orig Print D/T: S: 11/02/2019 (2027) PAGE 1 Signed Report - CT ABD PELVIS W/O [id number] 16:12:00 Name: JED BASSETT [facility] : 1955 Age/S: 64 / M [address] Unit #: [id number] Loc: [place] [address] Phys: Concepcion Shaw MD Acct: [id number] Dis Date: Status: ADM IN PHONE #: [phone] Exam Date: 11/02/2019 1430 FAX #: [phone] Reason: CONSTIPATION EXAMS: CPT CODE: [id number] CT ABD PELVIS W/O CONT 52454 EXAM: CT of the abdomen and pelvis [...] without evidence of diverticulit is. Location code: [facility] Electronically Sig omar by Leni Juarez on [...] code = FESAT) 11.07 % 13-45 L [id number] 15:46:00* Test Item Value Reference Range Interpretation Comments FERRITIN (test code = KEITH) 71 ng/mL 8-388 N CBC W/AUTO [id number] 14:30:00* Test Item Value Reference Range Interpretation [...] DIFF REQUIRED (test code = MDIFF) NO [id number] 13:55:00* Test Item Value Reference Range Interpretation Comments GLUBED (test code = GLUBED) 237 mg/dL 74-106 H Performed by certified foil operator at [facility] [id number] 06:18:00* Test Item Value Reference Range Interpretation Comments GLUBED (test code = GLUBED) 118 mg/dL 74-106 H Performed by certified foil operator at [facility] RENAL FUNCTION [id number] 05:02:00* Test Item Value Reference Range Interpretation [...] PHOS) 6.1 mg/dL 2.5-4.9 H RENAL FUNCTION [id number] 04:41:00* Test Item Value Reference Range Interpretation [...] = PHOS) mg/dL 2.5-4.9 AG HEPAT B [id number] 23:10:00* Test Item Value Reference Range Interpretation Comments AG HEPAT B SURF (test code = HBSAG) Nonreactive Index Nonreactive [id number] 20:29:00* Test Item Value Reference Range Interpretation Comments GLUBED (test code = GLUBED) 197 mg/dL 74-106 H Performed by certified foil operator at [facility] [id number] 19:30:00* Test Item Value Reference Range Interpretation Comments TROPONIN-I (test code = TROPI) 0.213 ng/mL 0-0.045 HH Results previously called COMMENTS TO LEVER TENDER: COLLECT 3 HOURS AFTER PREVIOUS [id number] 14:31:00* Test Item Value Reference Range Interpretation Comments TROPONIN-I (test code = TROPI) 0.227 ng/mL 0-0.045 HH Results called to [id number] by MARIO 11/01/19 1430Critical results verified and read back by Nurse? Y COMMENTS TO LEVER TENDER: COLLECT 3 HOURS AFTER PREVIOUS SAMPLECBC W/O [id number] 04:32:00* Test Item Value Reference Range Interpretation [...] MPV) 10.5 fL 6.7-11.0 N B-TYPE NATRIURETIC [id number] 04:30:00* Test Item Value Reference Range Interpretation Comments B-TYPE NATRIURETIC PEPTIDE (test code = BNP) 696 pg/mL 0-100 H BASIC METABOLIC [id number] 04:29:00* Test Item Value Reference Range Interpretation [...] CA) 6.2 mg/dL 8.0-10.5 LL HEPATIC FUNCTION [id number] 04:29:00* Test Item Value Reference Range Interpretation [...] code = ALKP) 202 U/L 50-139 H [id number] 04:29:00* Test Item Value Reference Range Interpretation Comments LIPASE (test code = LIP) 117 Unit/L 144-286 L [id number] 04:29:00* Test Item Value Reference Range Interpretation Comments TROPONIN-I (test code = TROPI) 0.02 ng/mL 0.00-0.056 N PROTHROMBIN [id number] 04:27:00* Test Item Value Reference Range Interpretation [...] (2.5-3.5) IS PATIENT ON ANTICOAGULANTS? NTHROMBOPLASTIN TIME [id number] 04:27:00* Test Item Value Reference Range Interpretation Comments THROMBOPLASTIN TIME PARTIAL (test code = PTT) 27.5 seconds 25.5-34. 3 N Therapeutic Range for patients on Heparin Therapy is 2 to2.5 times their baseline PTT level. IS PATIENT ON ANTICOAGULANTS? NBASIC METABOLIC [id number] 04:23:00* Test Item Value Reference Range Interpretation [...] CA) 6.2 mg/dL 8.0-10.5 LL HEPATIC FUNCTION [id number] 04:23:00* Test Item Value Reference Range Interpretation [...] TOTAL (test code = ALKP) IUnit/L 45-117 [id number] 04:23:00* Test Item Value Reference Range Interpretation Comments LIPASE (test code = LIP) U/L 73.0-393.0 [id number] 04:23:00* Test Item Value Reference Range Interpretation Comments TROPONIN-I (test code = TROPI) ng/mL 0-0.045 - XR CHEST 1 [id number] 04:19:00 FAX: Davy Rose MD [phone] [place]: [place] St: REG FAX: Catarina Martinez [phone] Name: SERJIOJED [facility] FSED : 1955 Age/S: 64/M [address] [facility] Unit #: [id number] Loc: [facility] [address] Phys: Davy Adam MD [place], [place] [address] Acct: [id number] Dis Date: Status: REG ER PHONE #: Exam Date: 11/01/2019 0415 FAX #: Reason: CHEST PAIN EXAMS: CPT CODE: [id number] XR CHEST 1 V 65571 - XR CHEST 1 V, 11/01/2019 3:57 [...] By: SvetlanaSR31 Orig Print D/T: S: 11/01/2019 (1350) PAGE 1 Signed Report Comprehensive metabolic [id number] 16:41:22* Test Item Value Reference Range Interpretation Comments Sodium (test code = 2951-2) 138 135- 150 mEq/L Potassium (test code = 2823-3) 5.1 3.5- 5.0 mEq/L H Chloride (test code = 2075-0) 105 98- 112 mEq/L CO2 (test code = 2027-9) 15 mmol/L 24-31 L Anion gap (test code = 33479-8) 18@ANIO 7- 15 mEq/L H BUN (test code = 3094-0) 93 mg/dL 7-18 H Creatinine (test code = 2160-0) 5.20 mg/dL 0.7-1.2 H Glucose (test code = 2345-7) 164 mg/dL 65-100 H Calcium (test code = 33348-9) 7.0 mg/dL 8.8-10.2 L Protein (test code [...] <0.3 0.2-1.2 Lab Interpretation (test code = 88338-1) Abnormal [place] [facility] [id number] 16:41:21* Test Item Value Reference Range Interpretation Comments Lipase (test code = 3040-3) 33 U/L 13-60 [place] MethodistEstimated [id number] 16:41:21* Test Item Value Reference Range Interpretation Comments Estimated GFR (test code = 5488) 11 mL/min/1.73 m2 A Catergory Units InterpretationG1 >=90 Normal or highG2 60-89 Mildly mksvmjrbgN3n 45-59 Mildly to moderately iubqqzgrkY7f 30-44 Moderately to severely decreasedG4 15-29 Severely decreasedG5 <15 Kidney failureThe eGFR was calculated using the Chronic Kidney Disease Epidemiology Collaboration (CKD-EPI) equation. Interpretation is based on recommendations of the National Kidney Foundation-Kidney Disease Outcomes Quality Initiative (NKF-KDOQI) published in 2014. Lab Interpretation (test code = 01901-8) Abnormal [place] MethodistUrinalysis screen and microscopy, with reflex to culture 2019-08-31 16:37:50* Test Item Value Reference Range Interpretation Comments Specimen site (test code = 2268892) Clean catch Color, UA (test code = 5778-6) Yellow Appearance, UA (test code = 5767-9) Slightly-Cloudy Specific gravity, UA (test code = 5811-5) 1.015 1.001-1.035 pH, UA (test code = 5803-2) 5.0 5.0-8.5 Protein, UA (test code = 72289-5) 3+ Negative A Glucose, UA (test code = 57986-6) 1+ Negative A Ketones, UA (test code = 2514-8) Negative Negative Bilirubin, UA (test code = 5770-3) Negative Negative Blood, UA (test code = 5794-3) Negative Negative Nitrite, UA (test code = 5802-4) Negative Negative Urobilinogen, UA (test code = 40705-7) Negative <2.0 Leukocyte esterase, UA (test code = 5799-2) Negative Negative WBC, UA (test code = 5821-4) None seen 0- 1 /HPF RBC, UA (test code = 25127-5) 3 0- 5 /HPF Bacteria, UA (test code = 63351-2) Trace None seen Yeast, UA (test code = 78234-8) None seen Yeast with pseudohyphae, UA (test code = 27688-0) None seen Lab Interpretation (test code = 45004-9) Abnormal [place] MethodistCBC with platelet and pjxtjupoupkf8689-06-92 16:21:01* Test Item Value Reference Range Interpretation Comments WBC (test code = 14820-1) 7.6 4.2- 11.0 k/uL RBC (test code = 15279-4) 2.97 m/uL 4.04-5.86 L HGB (test code = 718-7) 8.1 g/dL 13-17.3 L HCT (test code = 4544-3) 26.5 % 34-45 L MCV (test code = 787-2) 89.2 fL 80-98 MCH (test code = 785-6) 27.3 pg 27-34 MCHC (test code = 786-4) 30.6 g/dL 31.5-36.5 L RDW - SD (test code = 60971-9) 46.1 fL 37-51 MPV (test code = 51430-5) 11.1 fL 7.4-10.4 H Platelet count (test code = 18538-4) 240 150- 400 k/uL Nucleated RBC (test code = 01865-2) 0.00 /100 WBC Neutrophils (test code = 94909-2) 62.5 % 36-66 Lymphocytes (test code = 69416-2) 26.3 % 24-44 Monocytes (test code = 90508-9) 8.5 % 0-6 H Eosinophils (test code = 59153-0) 2.0 % 0-6 Basophils (test code = 60340-7) 0.4 % 0-1.2 Immature granulocytes (test code = 87493-9) 0.3 % 0-1 Lab Interpretation (test code = 63400-0) Abnormal Ede Felix
[2020-06-10] MEDS ORDERED: ONDANSETRON HCL INJ 2MG/ML 2ML 2 MG/ML VIAL IV PRN (20:30)
[2020-06-10] MEDS ORDERED: ASPIRIN 81 MG CHEW TAB PO ONE (20:30)
[2020-06-10 20:56] LABS: CREATINE KINASE MB 0.4 ng/mL (0-5.0)
[2020-06-10] MEDS ORDERED: ACETAMINOPHEN 325 MG TAB PO PRN (23:15)
[2020-06-10 23:19] VITALS: BP 108/55
[2020-06-11] VITALS (8 sets, daily range): BP systolic 108–152; BP diastolic 47–95
--- NOTE | 2020-06-11 00:30 | NUR ---
Patient received from stretcher from ER. AAO x 3. Patient had no complaints of pain. Respirations even and non-labored. Patient oriented to room, call light, visiting policy , and plan of care. Dressing to right foot changed. Safety measures implemented. Patient instructed to call for assistance when needed. Call light within reach.
[2020-06-11 01:50] LABS: BILIRUBIN,URINE NEGATIVE (NEGATIVE); CLARITY,URINE SL CLOUDY (CLEAR); COLOR,URINE YELLOW (YELLOW); KETONES,URINE NEGATIVE (NEGATIVE); LEUKOCYTE ESTERASE ,URINE NEGATIVE (NEGATIVE); NITRITE,URINE NEGATIVE (NEGATIVE); PROTEIN,URINE DIPSTICK >=300 (NEGATIVE); URINE UROBILINOGEN 0.2 mg/dL (0.2 - 1)
--- NOTE | 2020-06-11 01:57 | NUR ---
Urine specimen sent to lab for analysis.
[2020-06-11 01:59] LABS: AMORPHOUS SEDIMENT,URINE MODERATE (FEW); BACTERIA,URINE FEW /HPF; EPITHELIAL CELLS,URINE FEW /LPF; RBC,URINE 0-5 /HPF (0-5); WBC,URINE (MAN) 0-5 /HPF (0-5)
[2020-06-11] MEDS ORDERED: NIFEDIPINE ER30 M1 PO (02:27)
[2020-06-11] MEDS ORDERED: ATORVASTATIN CA20 MG PO (02:27)
[2020-06-11] MEDS ORDERED: METOPROLOL SUCC50 MG PO (02:27)
[2020-06-11] MEDS ORDERED: RENVELA0.8 GM PO (02:27)
[2020-06-11] MEDS ORDERED: NORCO 10-325 T1 EACH PO (02:27)
[2020-06-11] MEDS ORDERED: TRESIBA FL100 UNIT/1 SQ (02:27)
[2020-06-11] MEDS ORDERED: [UNRECOGNIZED DRUG - OTHER] PO (02:27)
[2020-06-11] MEDS ORDERED: CHLORTHALIDONE25 MG PO (02:27)
[2020-06-11] MEDS ORDERED: TUMS200 MG PO (02:27)
[2020-06-11] MEDS ORDERED: DOCUSATE SODIU100 MG PO (02:27)
[2020-06-11] MEDS ORDERED: CIPRO500 MG PO (02:27)
[2020-06-11] MEDS ORDERED: MIRALAX17 GM PO (02:27)
--- NOTE | 2020-06-11 02:52 | NUR ---
Blood specimen sent to lab for analysis of cardiac enzymes
[2020-06-11 03:17] LABS: CREATINE KINASE MB 0.4 ng/mL (0-5.0)
[2020-06-11 06:04] LABS: BASOPHILS # (AUTO) 0.1 (0.0-0.1); BASOPHILS % 0.3 % (0.0-1.0); EOSINOPHILS # (AUTO) 0.1 (0.0-0.4); EOSINOPHILS % 0.6 % (0.0-6.0); HEMATOCRIT 30.2 % (38.2-49.6); HEMOGLOBIN 9.5 g/dL (14.0-18.0); LYMPHOCYTES # (AUTO) 3.6 (1.0-3.2); LYMPHOCYTES % 22.8 % (18.0-39.1); MEAN CORPUSCULAR HEMOGLOBIN 29.5 pg (28-32); MEAN CORPUSCULAR HGB CONC 31.5 g/dL (31-35); MEAN CORPUSCULAR VOLUME 93.8 fL (81-99); MONOCYTES # (AUTO) 1.5 (0.2-0.8); MONOCYTES % 9.3 % (4.4-11.3); NEUTROPHILS # (AUTO) 10.6 (2.1-6.9); NEUTROPHILS % 66.5 % (38.7-80.0); PLATELET COUNT 194 x10e3/uL (140-360); RED BLOOD COUNT 3.22 x10e6/uL (4.3-5.7); RED CELL DISTRIBUTION WIDTH 14.4 % (11.7-14.4)
[2020-06-11 06:36] LABS: ALBUMIN 2.7 g/dL (3.5-5.0); ALBUMIN/GLOBULIN RATIO 0.7 (0.8-2.0); ANION GAP 15.4 mmol/L (8-16); CALCIUM 8.3 mg/dL (8.4-10.2); CREATININE, SERUM 5.88 mg/dL (0.72-1.25); POTASSIUM 4.4 mmol/L (3.5-5.1)
[2020-06-11] MEDS ORDERED: FLUCONAZOLE100 MG PO (06:40)
--- NOTE | 2020-06-11 06:41 | NUR ---
Dr. Briggs (covering for Dr. Galdamez) notified of "Routine Consult". Reason: Peritoneal Dialysis Catheter
--- NOTE | 2020-06-11 06:52 | NUR ---
Patient resting comfortably. Walking rounds done. Bed-side report given to oncoming nurse regarding patient's status.
--- NOTE | 2020-06-11 07:22 | NUR ---
H&P cc: fever HPI: 64yoM, PCP , Nephr , developed fever and chills for past 4-5 days. Pt develops symptoms mainly during HD. No sob/cp/cough/diarrhea. No pain at HD or PD sites. Pt has had ulcer on left foot over a week. PMH: DM2, Diabetic nephropathy, ESRD on HD T/Th/S, DFU s/p Right TMA PSHx: right chest HD catheter, PD catheter, Right TMA, Allergies; see emr Fh/SH; ; no cigs meds see MAR ROS; no PAGE/cp/sob/skin rash/cough/dizziness/back pain/confusion/vision changes/mood changes v/s; revd PE tired appearing anicteric ns1s2 mod bs soft nt nd no edema of legs; RIGHT TMA WELL HEALED; LEFT PLANTAR SURFACE OF 1ST MTP WITH SKIN BREAKDOWN PD CATHETER ABDOMEN- NO SURROUNDING ERYTHEMA/TENDERNESS; RIGHT CHEST HD CATHETER, NO SURROUNDING ERYTHEMA/TENDERNESS skin dry n. affect a&ox3; ward labs/meds revd A/P: 64yoM Sepsis- empiric abx; CXR and UA negative; No erythema/tenderness at PD or HD catheter sites; may need 2D echo DFU left foot 1st MTP- IV abx; check Xray; may be source; DM2- hab1c/lipids; insulin; ADA diet Diabetic nephropathy ESRD - HD per nephrology HLD- cont statin prop; scd; dispo: f/u COVID testing; get XR foot; ID consultation. JOHAN RANGEL MD, PHD.
[2020-06-11] MEDS ORDERED: ACETAMINOPHEN 325 MG TAB PO PRN (07:30)
[2020-06-11] MEDS ORDERED: DEXTROSE 50% SYRINGE 50 ML IV PRN (07:30)
[2020-06-11] MEDS ORDERED: POLYETHYLENE GLYCOL 3350 17 GM PACK PO PRN (07:30)
[2020-06-11] MEDS ORDERED: ZOLPIDEM TARTRATE 5 MG TAB PO PRN (07:30)
[2020-06-11 07:49] LABS: CHOL/HDL RATIO 2.4 (3.9-4.7)
[2020-06-11] MEDS: INSULIN REGULAR, HUMAN 100 UNIT/1 ML 3ML VIAL SQ SCH ×4 (08:11→21:00)
[2020-06-11] MEDS: [UNRECOGNIZED DRUG - OTHER] SQ SCH (08:12)
[2020-06-11] MEDS: DOCUSATE SODIUM 100 MG CAP PO SCH ×2 (08:12→17:14)
[2020-06-11] MEDS: SEVELAMER CARBONATE 800 MG TAB PO SCH ×3 (08:12→17:14)
[2020-06-11] MEDS ORDERED: INSULIN DEGLUDEC 24 UNIT SQ SCH (09:00)
[2020-06-11] MEDS: MORPHINE SULFATE INJ 4 MG/ML INJ 1ML IV PRN ×3 (09:55→19:36)
[2020-06-11] MEDS ORDERED: SODIUM CHLORIDE 0.9% 250ML 250 ML ONE (11:57)
--- NOTE | 2020-06-11 12:02 | Consultation ---
DATE OF CONSULTATION: 06/11/2020 CHIEF COMPLAINT: Fever. HISTORY OF PRESENT ILLNESS: The patient is a 64-year-old male with chief complaint of fever up to 101 yesterday with no chills or rigors. The patient has had recurrent fever and chills in the recent past and was negative for COVID testing. He denied abdominal pain or nausea. PAST MEDICAL HISTORY: Positive for metabolic syndrome with diabetes, hypertension, and hyperlipidemia. PAST SURGICAL HISTORY: Positive for placement of peritoneal dialysis catheter six months ago for end-stage renal disease for which he is currently undergoing both hemo and peritoneal dialysis. ALLERGIES: THE PATIENT HAS NO DRUG ALLERGIES. SOCIAL HABITS: He denies smoking or drinking. REVIEW OF SYSTEMS: No chest pain, shortness of breath, cough, or fevers. PHYSICAL EXAMINATION: VITAL SIGNS: Stable. He is afebrile. The patient is awake and alert in no apparent distress. HEENT: Sclerae nonicteric. NECK: Supple. LUNGS: Clear. HEART: Regular rate and rhythm. ABDOMEN: Soft and nontender. PEG site is clean without any redness or drainage. EXTREMITIES: No cyanosis or edema. LABORATORY DATA: White cell count 15.9, hemoglobin of 9.5, and platelet count is 194,000. Creatinine 5.88. Chest x-ray showed no active disease. ASSESSMENT: Fever of unknown origin with no sign of peritonitis or peritoneal dialysis catheter infection. Plan to continue monitored. We will follow patient with you. The patient may use peritoneal dialysis. MD DANELLE White/DIANE /[id number]
[2020-06-11] MEDS: PIPERACILLIN/TAZO 2.25 GM 50 ML IV SCH ×2 (12:31→17:14)
[2020-06-11 12:43] LABS: CREATINE KINASE MB 0.4 ng/mL (0-5.0)
[2020-06-11] MEDS ORDERED: SODIUM CHLORIDE 0.9% 1000ML 2,000 ML ONE (16:37)
--- NOTE | 2020-06-11 16:47 | NUR ---
DIALYSIS NURSE AT BEDSIDE TO INITIATE TREATMENT. PATIENT STATES, "MY LAST DIALYSIS TREATMENT WAS ON SATURDAY AT THE CLINIC." DIALYSIS TREATMENT ON HOLD UNTIL FURTHER ORDER FROM NEW CONSULT, DR. CAMARENA. SHANNAN
--- NOTE | 2020-06-11 19:50 | NUR ---
RECEIVED PATIENT IN BED AOX3 RT FOOT WOUND LEFT TMA LEFT FA 20G S/L NO S/S OF DISTRESS. BED LOW, WHEELS LOCKED, SIDE RAILS X2. CALL LIGHT IN REACH WILL CONTINUE TO MONITOR.
[2020-06-11] MEDS: ATORVASTATIN 20 MG TAB PO SCH (20:42)
[2020-06-12] VITALS (8 sets, daily range): BP systolic 142–190; BP diastolic 53–69
--- NOTE | 2020-06-12 06:25 | NUR ---
PT RESTED DURING THE NIGHT ,DENIES PAIN CALL LIGHT WITH IN RERACH ,CONTINUE TO MONITOR
--- NOTE | 2020-06-12 07:10 | NUR ---
BEDSIDE REPORT GIVEN TO THE ONCOMING NURSE
[2020-06-12] MEDS: INSULIN REGULAR, HUMAN 100 UNIT/1 ML 3ML VIAL SQ SCH ×4 (08:30→20:46)
[2020-06-12] MEDS: [UNRECOGNIZED DRUG - OTHER] SQ SCH (09:00)
[2020-06-12] MEDS: SEVELAMER CARBONATE 800 MG TAB PO SCH ×3 (09:36→16:15)
[2020-06-12] MEDS: DOCUSATE SODIUM 100 MG CAP PO SCH ×2 (09:36→16:15)
[2020-06-12] MEDS: MORPHINE SULFATE INJ 4 MG/ML INJ 1ML IV PRN ×3 (09:42→20:18)
--- NOTE | 2020-06-12 09:49 | NUR ---
IM- progress note O/N see below ROS; no PAGE/cp/sob/skin rash/cough/dizziness/back pain/confusion/vision changes/mood changes v/s; revd PE tired appearing anicteric ns1s2 mod bs soft nt nd no edema of legs; RIGHT TMA WELL HEALED; LEFT PLANTAR SURFACE OF 1ST MTP WITH SKIN BREAKDOWN PD CATHETER ABDOMEN- NO SURROUNDING ERYTHEMA/TENDERNESS; RIGHT CHEST HD CATHETER, NO SURROUNDING ERYTHEMA/TENDERNESS skin dry n. affect a&ox3; ward labs/meds revd A/P: 64yoM Sepsis- empiric abx; CXR and UA negative; No erythema/tenderness at PD or HD catheter sites; may need 2D echo DFU left foot 1st MTP- IV abx; check Xray; may be source; DM2- hab1c/lipids; insulin; ADA diet Diabetic nephropathy ESRD - HD per nephrology HLD- cont statin prop; scd; dispo: f/u COVID testing; get XR foot; ID consultation. 8-23 no fever overnight; check CBC; awaiting XR of foot. cont antimicrobials; COVID testing Negative. JOHAN RANGEL MD, PHD.
--- NOTE | 2020-06-12 10:11 | Consultation ---
DATE OF CONSULTATION: 06/12/2020 ATTENDING PHYSICIAN: Dr. Davy Markham. REASON FOR CONSULTATION: Fever of unknown origin. Thank you, Dr. Bhatti, for asking me to see this patient. HISTORY OF PRESENT ILLNESS: The patient is a 64-year-old man who was referred for fever of unknown origin. He was sent to the emergency department from outpatient hemodialysis when he developed a fever, chills, and vomiting at the end of hemodialysis on Saturday. He denies cough, shortness of breath, chest pain, diarrhea, or abdominal pain. He has a right internal jugular vein tunneled hemodialysis catheter as well as peritoneal dialysis catheter placed about 6 months ago. Currently, he is undergoing training for peritoneal dialysis while using hemodialysis as a bridge. The patient was hospitalized about three weeks ago for similar symptoms and was later discharged home on oral ciprofloxacin. The SARS-CoV-2 virus PCR was negative during the hospitalization. In the emergency department, he was noted to have temperature of 102.9 degrees Fahrenheit, pulse rate 79, respiratory rate 18, blood pressure 126/86, and oxygen saturation 97% on room air. Initial laboratory studies showed blood leukocyte count of 15,400 with 89.7% neutrophils and SARS-CoV-2 PCR negative. PAST MEDICAL HISTORY: Diabetes mellitus type 2, hypertension, hyperlipidemia, end-stage renal disease, and left foot ulcer. PAST SURGICAL HISTORY: Right internal jugular vein hemodialysis PermCath placement, peritoneal dialysis catheter placement, and right transmetatarsal amputation. ALLERGIES: NO KNOWN DRUG ALLERGIES. MEDICATIONS: The current antibiotic is Zosyn 2.25 g IV piggyback q.6 hours. FAMILY HISTORY: The patient is unaware of any family history. SOCIAL HISTORY: No tobacco, alcohol, or recreational drug use. REVIEW OF SYSTEMS: As per history of present illness. The fever and chills subsided following admission and management. The patient currently has no complaints. PHYSICAL EXAMINATION: GENERAL: No acute distress. VITAL SIGNS: T-max 98.8, pulse rate 62, respiratory rate 18, blood pressure 161/65, and weight 176 pounds. HEENT: Normocephalic and atraumatic. There is no icterus or injection of conjunctivae. There is no ear or nasal discharge. There is moist oral mucosa. No pharyngeal erythema or exudate. LUNGS: Clear to auscultation bilaterally. HEART: Normal S1, S2. Regular. ABDOMEN: Soft and nontender. The peritoneal dialysis catheter exit site is without drainage or redness. EXTREMITIES: There is right TMA. There is no edema, clubbing, or cyanosis. There is debrided dry callus on the plantar aspect of the left 1st metatarsophalangeal joint. There is no erythema or edema. SKIN: As per extremities. 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 Nonfocal. LABORATORY AND DIAGNOSTICS: On 06/11/2020, WBC 15,940, hemoglobin 9.5, and platelets 194,000, neutrophils 66.5, lymphocytes 22.8, monocytes 9.3, eosinophils 0.20-0.6, and basophils 0.3. Blood glucose 191. Blood culture, no growth so far. Chest x-ray showed no acute cardiopulmonary disease. IMPRESSION: Fever. The etiology is unclear, but hemodialysis catheter infection and peritonitis related to peritoneal dialysis catheter cannot be excluded. Left foot wound does not appear infected. PLAN: 1. Check peritoneal fluid cell count, Gram stain, culture and sensitivity. Also, check blood culture while the patient is on hemodialysis. If peritoneal fluid cell count is normal, PermCath should be removed on peritoneal dialysis commenced. 2. Local wound care. MD BETTY Jansen/DIANE /[id number]
[2020-06-12 10:12] LABS: BASOPHILS % 0.4 % (0.0-1.0); EOSINOPHILS # (AUTO) 0.2 (0.0-0.4); EOSINOPHILS % 2.5 % (0.0-6.0); HEMATOCRIT 29.1 % (38.2-49.6); HEMOGLOBIN 8.9 g/dL (14.0-18.0); MEAN CORPUSCULAR HEMOGLOBIN 27.6 pg (28-32); MEAN CORPUSCULAR HGB CONC 30.6 g/dL (31-35); MEAN CORPUSCULAR VOLUME 90.1 fL (81-99); MONOCYTES # (AUTO) 0.7 (0.2-0.8); MONOCYTES % 9.3 % (4.4-11.3); NEUTROPHILS # (AUTO) 4.9 (2.1-6.9); NEUTROPHILS % 62.4 % (38.7-80.0); PLATELET COUNT 216 x10e3/uL (140-360); RED BLOOD COUNT 3.23 x10e6/uL (4.3-5.7); RED CELL DISTRIBUTION WIDTH 14.2 % (11.7-14.4)
--- NOTE | 2020-06-12 10:53 | Diagnostic Imaging Report ---
FOOT LEFT AP LAT - 3 views HISTORY: Left foot wound. Concern for a small areas. COMPARISON: None available. FINDINGS: Bones: There is no acute fracture. Diffuse periarticular osteopenia. Small plantar calcaneal enthesophyte. Joints: Abnormal fifth metatarsophalangeal joint with subchondral erosive changes of the fifth metatarsal head without superimposed Soft tissues: Atherosclerotic vascular calcifications. IMPRESSION: Abnormal fifth metatarsophalangeal joint with with mild erosive changes/cyst lysis of the fifth metatarsal head and base of the proximal phalanx may be infectious in etiology. Consider further evaluation with MRI of foot without and with contrast. Signed by: Dr. Jeramy Lerma M.D. on 06/12/2020 10:50 AM
[2020-06-12] MEDS: PIPERACILLIN/TAZO 2.25 GM 50 ML IV SCH ×3 (15:00→22:00)
--- NOTE | 2020-06-12 19:22 | NUR ---
RECEIVED PATIENT SITTING ON THE CHAIR NO S/S OF DISTRESS. PERITONEAL DIALYSIS HAS DONE TODAY BED LOW, WHEELS LOCKED, SIDE RAILS X2. CALL LIGHT IN REACH WILL CONTINUE TO MONITOR.
[2020-06-12] MEDS: ATORVASTATIN 20 MG TAB PO SCH (20:57)
[2020-06-13] VITALS (8 sets, daily range): BP systolic 159–187; BP diastolic 48–77
[2020-06-13] MEDS: PIPERACILLIN/TAZO 2.25 GM 50 ML IV SCH ×3 (06:00→22:00)
--- NOTE | 2020-06-13 07:10 | NUR ---
BEDSIDE REPORT GIVEN TO THE ONCOMING NURSE
--- NOTE | 2020-06-13 07:20 | NUR ---
ASSUMED CARE. PATIENT RESTING IN BED. NO DISTRESS NOTED. CALL LIGHT IN REACH. SIDE RAILS UP X2. BED LOW AND LOCKED.
[2020-06-13] MEDS: INSULIN REGULAR, HUMAN 100 UNIT/1 ML 3ML VIAL SQ SCH ×4 (08:30→21:53)
[2020-06-13] MEDS: [UNRECOGNIZED DRUG - OTHER] SQ SCH (09:00)
--- NOTE | 2020-06-13 09:35 | Diagnostic Imaging Report ---
MRI of the left forefoot without contrast. History: Foot infection. Infection at the bottom of the toes. Fever of unknown origin. Osteomyelitis. Hypertension. Diabetes. Technique: Multiplanar multisequence MRI of the foot without contrast. Comparison: Radiographs 06/12/2020 Findings: Abnormal skin thickening and blistering of the plantar aspect of the foot most pronounced at the first metatarsophalangeal joint level. This is best seen on series 3 image 13 through 16. No well-formed drainable fluid collection/abscess is seen. Chronic appearing deformity of the fifth metatarsophalangeal joint. Scattered degenerative change. No osseous erosion. No focal bone marrow edema or cortical destruction is seen to suggest osteomyelitis. Diffuse muscle atrophy. No ligamentous or tendon tear. The visualized neurovascular bundles are intact. Impression: Chronic appearing deformity of the fifth metatarsophalangeal joint. Scattered degenerative change. No focal bone marrow edema or cortical destruction is seen to suggest osteomyelitis. Abnormal skin thickening and blistering of the plantar aspect of the foot most pronounced at the first metatarsophalangeal joint level. This is best seen on series 3 image 13 through 16. No well-formed drainable fluid collection/abscess is seen. Findings are most consistent with cellulitis. Signed by: Dr. Andrew Pat M.D. on 06/13/2020 9:32 AM
[2020-06-13] MEDS: DOCUSATE SODIUM 100 MG CAP PO SCH ×2 (10:00→16:31)
[2020-06-13] MEDS: SEVELAMER CARBONATE 800 MG TAB PO SCH ×3 (10:00→16:31)
--- NOTE | 2020-06-13 10:54 | NUR ---
IM- progress note O/N see below ROS; no PAGE/cp/sob/skin rash/cough/dizziness/back pain/confusion/vision changes/mood changes v/s; revd PE tired appearing anicteric ns1s2 mod bs soft nt nd no edema of legs; RIGHT TMA WELL HEALED; LEFT PLANTAR SURFACE OF 1ST MTP WITH SKIN BREAKDOWN PD CATHETER ABDOMEN- NO SURROUNDING ERYTHEMA/TENDERNESS; RIGHT CHEST HD CATHETER, NO SURROUNDING ERYTHEMA/TENDERNESS skin dry n. affect a&ox3; ward labs/meds revd A/P: 64yoM Sepsis- empiric abx; CXR and UA negative; No erythema/tenderness at PD or HD catheter sites; may need 2D echo DFU left foot 1st MTP- IV abx; check Xray; may be source; DM2- hab1c/lipids; insulin; ADA diet Diabetic nephropathy ESRD - HD per nephrology HLD- cont statin prop; scd; dispo: f/u COVID testing; get XR foot; ID consultation. 8- no fever overnight; check CBC; awaiting XR of foot. cont antimicrobials; COVID testing Negative. 8-24 check labs; f/u cultures; MRI cellulitis only; plan to d/c home tomorrow with oral antibiotics. JOHAN RANGEL MD, PHD.
[2020-06-13 11:50] LABS: BASOPHILS % 0.4 % (0.0-1.0); EOSINOPHILS # (AUTO) 0.2 (0.0-0.4); EOSINOPHILS % 2.4 % (0.0-6.0); HEMOGLOBIN 9.2 g/dL (14.0-18.0); LYMPHOCYTES % 28.3 % (18.0-39.1); MEAN CORPUSCULAR HEMOGLOBIN 27.6 pg (28-32); MEAN CORPUSCULAR HGB CONC 30.7 g/dL (31-35); MEAN CORPUSCULAR VOLUME 90.1 fL (81-99); MONOCYTES # (AUTO) 0.6 (0.2-0.8); MONOCYTES % 7.9 % (4.4-11.3); NEUTROPHILS # (AUTO) 4.2 (2.1-6.9); NEUTROPHILS % 60.9 % (38.7-80.0); PLATELET COUNT 247 x10e3/uL (140-360); RED BLOOD COUNT 3.33 x10e6/uL (4.3-5.7)
[2020-06-13 12:06] LABS: ANION GAP 16.2 mmol/L (8-16); CALCIUM 7.5 mg/dL (8.4-10.2); CREATININE, SERUM 6.31 mg/dL (0.72-1.25); POTASSIUM 5.2 mmol/L (3.5-5.1)
[2020-06-13 13:21] LABS: BODY FLUID APPEARANCE CLEAR; BODY FLUID COLOR COLORLESS; BODY FLUID TYPE PERITONEAL
[2020-06-13 13:37] LABS: RBC,BODY FLUID 19 cells/uL; WBC,BODY FLUID 14 cells/uL
[2020-06-13] MEDS: MORPHINE SULFATE INJ 4 MG/ML INJ 1ML IV PRN ×3 (14:30→22:00)
[2020-06-13 14:41] LABS: LYMPHOCYTES,BODY FLUID 22 %; MONO/MACROPHG,BODY FLUID 74 %; NEUTROPHILS,BODY FLUID 4 %
--- NOTE | 2020-06-13 15:29 | Consultation ---
DATE OF CONSULTATION: 06/13/2020 REASON FOR CONSULTATION: Lesion to the left foot. HISTORY OF PRESENT ILLNESS: A pleasant 64-year-old male, who was seen at bedside, who is currently denying history of fever, chills, nausea, and vomiting, was admitted for chills and fever. Relates that he has been treating his left foot for approximately a month at [facility]. Denies any drainage or any foul smell from the left lower extremity. PAST MEDICAL HISTORY: Remarkable for diabetes, hypertension, hypercholesterolemia, currently on peritoneal dialysis. PAST SURGICAL HISTORY: Remarkable for right foot TMA 5 to 6 years ago. ALLERGIES: THE PATIENT DENIES. SOCIAL HISTORY: Denies any smoking, drinking, or recreational drug use. Lives with his , had 8 kids. FAMILY HISTORY: Remarkable for diabetes. REVIEW OF SYSTEMS: CARDIAC: Denies any palpitations or arrhythmias. RESPIRATORY: Denies any shortness of breath or productive cough. GASTROINTESTINAL: Denies any diarrhea or constipation with decreased pain. PHYSICAL EXAMINATION: VITAL SIGNS: Afebrile, pulse rate 54, respirations 20, blood pressure 187/48, and O2 saturation 98%. Podiatric physical examination reveals the following: VASCULATURE: Pedal pulses of both the DP and PT are palpable. CFT to all toes less than 4 seconds. NEUROLOGICAL: Shows some loss of protective sensation. MUSCULOSKELETAL: Reveals muscle mass to be symmetrical. Muscle strength to be 5/5 to all muscle groups. DERMATOLOGICAL: Shows a grade 1 lesion plantar aspect left foot, 1.5 to 2 cm in diameter with no drainage. ASSESSMENT: Grade 1 lesion/cellulitis. PLAN: We will start applying Bactroban ointment b.i.d. to the affected foot. The patient upon discharge needs to follow up for biomechanical arthroses to distribute the weight healing for any further deepening of the lesion, which could lead to osteomyelitis down the road. TERESE Hamilton/DIANE /[id number]
[2020-06-13] MEDS ORDERED: SODIUM CHLORIDE 0.9% 1000ML 2,000 ML ONE (15:30)
[2020-06-13] MEDS ORDERED: HEPARIN SOD (PORCINE) 1000 UNIT/ML 10ML MDV IV ONE (15:45)
[2020-06-13] MEDS ORDERED: HEPARIN SOD (PORCINE) 1000 UNIT/ML SDV IV PRN (16:00)
[2020-06-13] MEDS: MUPIROCIN 2% OINT 22 GM TUBE TOP SCH (18:38)
--- NOTE | 2020-06-13 19:00 | NUR ---
Resumed care of patient. Patient awake and sitting up in bed, currently undergoing hemodialysis, vital signs stable from baseline. Dialysis nurse at bedside. All safety measures in place.
--- NOTE | 2020-06-13 19:59 | NUR ---
3L fluid removed per dialysis nurse.
[2020-06-13] MEDS: ATORVASTATIN 20 MG TAB PO SCH (21:53)
[2020-06-14] VITALS: BP 158/50
[2020-06-14 04:00] VITALS: BP 175/62
[2020-06-14] MEDS: PIPERACILLIN/TAZO 2.25 GM 50 ML IV SCH (05:37)
[2020-06-14] MEDS: MUPIROCIN 2% OINT 22 GM TUBE TOP SCH (05:38)
--- NOTE | 2020-06-14 07:07 | NUR ---
Bedside report given to oncoming nurse. Patient resting quietly in bed, no s/s of distress at this time. All safety measures in place.
[2020-06-14] MEDS ORDERED: KEFLEX500 MG PO (07:33)
[2020-06-14] MEDS ORDERED: MUPIROCIN22 GM TOP (07:33)
--- NOTE | 2020-06-14 07:36 | NUR ---
D/C Summary Principal Dx: Sepsis- empiric abx; CXR and UA negative; No erythema/tenderness at PD or HD catheter sites; may need 2D echo DFU left foot 1st MTP- IV abx; check Xray; may be source; Secondary Dx: DM2- hab1c/lipids; insulin; ADA diet Diabetic nephropathy ESRD - HD per nephrology HLD- cont statin prop; scd; dispo: f/u COVID testing; get XR foot; ID consultation. 06-12 no fever overnight; check CBC; awaiting XR of foot. cont antimicrobials; COVID testing Negative. 06-13 check labs; f/u cultures; MRI cellulitis only; plan to d/c home tomorrow with oral antibiotics. d/c home stable f/u pcp 2 days and nephrology 1 week stable d/C>35mins JOHAN RANGEL MD, PHD.
[2020-06-14 08:00] VITALS: BP 168/55
[2020-06-14 08:14] VITALS: BP 168/55
[2020-06-14] MEDS: SEVELAMER CARBONATE 800 MG TAB PO SCH (08:44)
[2020-06-14] MEDS: DOCUSATE SODIUM 100 MG CAP PO SCH (08:44)
[2020-06-14] MEDS: [UNRECOGNIZED DRUG - OTHER] SQ SCH (08:44)
--- NOTE | 2020-06-14 09:27 | NUR ---
IMM letter delivered and explained to pt. He verbalized understanding, states he's ready to go home. Copy given to pt. Signed copy placed in chart.
--- NOTE | 2020-06-14 09:53 | NUR ---
pt discharged home,with instruction to follow up with PCP, Infectious, disease, pt was educated on his mediations, iv site removed catheter tip intact.
--- NOTE | 2020-06-14 09:58 | Progress Note ---
DATE: 06/14/2020 SUBJECTIVE: The patient is seen at bedside, doing significantly better. Denies any history of fever, chills, nausea, or vomiting. OBJECTIVE: VITAL SIGNS: Afebrile. Vital signs stable. EXTREMITIES: Ulceration, grade 1 lesion to the plantar aspect left foot, stable. ASSESSMENT: Grade 1 lesion with neuropathy. PLAN: The patient instructed upon discharge to follow up, have some custom-made arch supports made to prevent the ulcerations, which could lead to amputation down the road. We will continue Bactroban ointment. TERESE Hamilton/DIANE /[id number]
== END 2020-06-14 09:51 | disposition home or self-care (01) | DRG 871 ==
LOC: ER 17:55 → ERHOLD 20:23 → MED/SURG2 23:39 → INTOOBSV 06-12 10:15 → OBSVTOIN 06-12 10:15
PROVIDERS: ADMIT Internal Medicine; ATTEND Internal Medicine
PROC: 3E1M39Z Irrigation of Peritoneal Cavity using Dialysate, Percutaneous Approach (ICD-10-PCS; principal; 2020-06-12)
PROC: 3E1M39Z Irrigation of Peritoneal Cavity using Dialysate, Percutaneous Approach (ICD-10-PCS; 2020-06-13)
DX: A41.9 Sepsis, unspecified organism (principal); N18.6 End stage renal disease; I12.0 Hypertensive chronic kidney disease with stage 5 chronic kidney disease or end stage renal disease; L03.116 Cellulitis of left lower limb; N17.9 Acute kidney failure, unspecified; E11.621 Type 2 diabetes mellitus with foot ulcer; E11.21 Type 2 diabetes mellitus with diabetic nephropathy; E78.5 Hyperlipidemia, unspecified; L97.521 Non-pressure chronic ulcer of other part of left foot limited to breakdown of skin; Z99.2 Dependence on renal dialysis; Z89.431 Acquired absence of right foot; Z11.59 Encounter for screening for other viral diseases; D64.9 Anemia, unspecified; E87.5 Hyperkalemia; Z79.4 Long term (current) use of insulin
CPT/HCPCS: 36415; 71045; 80048; 80053; 80061; 81001; 82550; 82553; 82948; 83036; 83605; 84484; 85025; 86705; 86706; 87040; 87070; 87081; 87205; 87340; 89051; 90962; 96372; 99284; G0378; J1644; J1817; J2270; J2405; J2543; J7030; J7050; U0002

== ENCOUNTER 2020-06-24 15:20 | Inpatient (IN) | payer MEDICARE, OTHER ==
[~2020-06-24] VITALS: Ht 170.2 cm; Wt 79.4 kg
[~2020-06-24 15:20] MED LIST: ATORVASTATIN CA20 MG PO; CHLORTHALIDONE25 MG PO; CIPRO500 MG PO; DOCUSATE SODIU100 MG PO; FLUCONAZOLE100 MG PO; KEFLEX500 MG PO; METOPROLOL SUCC50 MG PO; MIRALAX17 GM PO; MUPIROCIN22 GM TOP; NIFEDIPINE ER30 M1 PO; NORCO 10-325 T1 EACH PO; RENVELA0.8 GM PO; TRESIBA FL100 UNIT/1 SQ; TUMS200 MG PO; [UNRECOGNIZED DRUG - OTHER] PO
[2020-06-24] MEDS ORDERED: ACETAMINOPHEN 325 MG TAB PO ONE (16:30)
[2020-06-24 16:53] LABS: BASOPHILS % 0.2 % (0.0-1.0); EOSINOPHILS % 0.1 % (0.0-6.0); HEMOGLOBIN 8.7 g/dL (14.0-18.0); LYMPHOCYTES # (AUTO) 0.7 (1.0-3.2); MEAN CORPUSCULAR HEMOGLOBIN 27.7 pg (28-32); MEAN CORPUSCULAR HGB CONC 31.1 g/dL (31-35); MEAN CORPUSCULAR VOLUME 89.2 fL (81-99); MONOCYTES # (AUTO) 0.9 (0.2-0.8); MONOCYTES % 5.2 % (4.4-11.3); NEUTROPHILS # (AUTO) 15.6 (2.1-6.9); NEUTROPHILS % 89.8 % (38.7-80.0); PLATELET COUNT 318 x10e3/uL (140-360); RED BLOOD COUNT 3.14 x10e6/uL (4.3-5.7); RED CELL DISTRIBUTION WIDTH 13.9 % (11.7-14.4)
--- OUTSIDE RECORDS SUMMARY | 2020-06-24 16:53 | XMS REPORT | Clinical Summary ---
Author Author Maynard Mosque Organization Maynard Mosque Address Unknown Phone Unavailable Care Team Providers Care Curriculum Specialist Name Role Phone Antony Mosley MD PCP [...] (Primary Dx); ESRD (end stage renal disease) ([facility]) 08/31/2019 Emergency Emergency Medicine Ras Maharaj MD 2019 Documentation Cardiovascular after 06/24/2019 Immunizations Name Administration Dates Next Due Tdap [...] Comments Vital Sign 189/78 08/31/2019 9:05 PM [employer] Blood Pressure 71 08/31/2019 9:05 PM [employer] Pulse 37 C (98.6 F) 08/31/2019 9:05 PM [employer] SUPER[employer]OR Temperature 19 08/31/2019 9:05 PM [employer] SUPER[employer]OR Respiratory Rate 99% 08/31/2019 9:05 PM [employer] SUPER[employer]OR Oxygen Saturation - - Inhaled Oxygen Concentration 81.6 kg (180 lb) 08/31/2019 3:20 PM [employer]PER[employer] Weight 167.6 cm (5' 6") 08/31/2019 3:20 PM [employer] SUPER[employer]OR Height 29.05 08/31/2019 3:20 PM [employer] SUPER[employer]OR Body Mass Index Plan of Treatment Health Maintenance Due Date Last Done Comments DIABETIC RETINAL EYE EXAM 1957 DIABETIC FOOT EXAM 1967 URINE MICROALBUMIN 1967 COLONOSCOPY SCREENING 2007 SHINGLES VACCINES (#2) 04/17/2017 02/15/2017 INFLUENZA VACCINE 07/21/2020 Procedures Comments Procedure Name Priority Date/Time Associated Diag nosis URINALYSIS SCREEN AND STAT 08/31/2019 MICROSCOPY, WITH REFLEX 3:21 PM [employer] TO CULTURE ESTIMATED GFR STAT 08/31/2019 3:19 PM [employer] LIPASE LEVEL STAT 08/31/2019 3:19 PM [employer] COMPREHENSIVE METABOLIC STAT 08/31/2019 PANEL 3:19 PM [employer] HC COMPLETE BLD COUNT STAT 08/31/2019 W/AUTO DIFF 3:19 PM [employer] after 06/24/2019 Results * Urinalysis screen and microscopy, with reflex to culture (08/31/2019 3:21 PM [employer]PER[employer]) Specimen site Clean catch [facility] Color, UA Yellow [facility] Appearance, UA Slightly-Cloudy [facility] Specific 1.015 1.001 - 1.035 [facility] gravity, UA [facility] pH, UA 5.0 5.0 - 8.5 [facility] Protein, UA 3+ (A) Negative [facility] Glucose, UA 1+ (A) Negative [facility] Ketones, UA Negative Negative [facility] Bilirubin, UA Negative Negative [facility] Blood, UA Negative Negative [facility] Nitrite, UA Negative Negative [facility] Urobilinogen, Negative <2.0 [facility] Leukocyte Negative Negative [facility] esterase, UA [facility] WBC, UA None seen 0 - 1 /HPF [facility] RBC, UA 3 0 - 5 /HPF [facility] Bacteria, UA Trace None seen [facility] Yeast, UA None seen [facility] Yeast with None seen [facility] Specimen Urine Performing Organization Address City/[facility] Ph one Number [facility] DEPARTMENT OF [address] [place] [address] PATHOLOGY AND GENOMIC MEDICINE [address] * Estimated GFR (08/31/2019 3:19 PM [employer] SUPERVISOR) [facility] Estimated GFR 11 (A) mL/min/1.73 m2 [facility] Comment: [facility] G1 >=90 Normal or high G2 60-89 [...] 2014. Specimen Plasma specimen Performing Organization Address City/State/[facility] Ph one Number [facility] DEPARTMENT OF [address] [place] [address] PATHOLOGY AND GENOMIC MEDICINE [address] * CBC with platelet and differential (08/31/2019 3:19 PM [employer] SUPERVISOR) [facility] WBC 7.6 4.2 - 11.0 k/uL [facility] RBC 2.97 (L) 4.04 - 5.86 m/uL [facility] HGB 8.1 (L) 13.0 - 17.3 g/dL [facility] HCT 26.5 (L) 34.0 - 45.0 % [facility] MCV 89.2 80.0 - 98.0 fL [facility] MCH 27.3 27.0 - 34.0 pg [facility] MCHC 30.6 (L) 31.5 - 36.5 g/dL [facility] RDW - SD 46.1 37.0 - 51.0 fL [facility] MPV 11.1 (H) 7.4 - 10.4 fL [facility] Platelet count 240 150 - 400 k/uL [facility] Nucleated RBC 0.00 /100 WBC [facility] Neutrophils 62.5 36.0 - 66.0 % [facility] Lymphocytes 26.3 24.0 - 44.0 % [facility] Monocytes 8.5 (H) 0.0 - 6.0 % [facility] Eosinophils 2.0 0.0 - 6.0 % [facility] Basophils 0.4 0.0 - 1.2 % [facility] Immature 0.3 0.0 - 1.0 % [facility] granulocytes [facility] Specimen Blood Performing Organization Address City/State/[facility] Ph one Number [facility] DEPARTMENT OF [address] [place] [phone] PATHOLOGY AND GENOMIC MEDICINE [address] * Lipase level (08/31/2019 3:19 PM [employer]PER[employer]OR) Lipase 33 13 - 60 U/L [facility] Specimen Plasma specimen Performing Organization Address City/State/[facility] Ph one Number [facility] DEPARTMENT OF [address] [place] [address] PATHOLOGY AND GENOMIC MEDICINE [facility] [address] [place] [address] HOSPITAL * Comprehensive metabolic panel (08/31/2019 3:19 PM [employer] SUPER[employer]OR) Sodium 138 135 - 150 mEq/L [facility] Potassium 5.1 (H) 3.5 - 5.0 mEq/L [facility] Chloride 105 98 - 112 mEq/L [facility] CO2 15 (L) 24 - 31 mmol/L [facility] Anion gap 18@ANIO (H) 7 - 15 mEq/L [facility] BUN 93 (H) 7 - 18 mg/dL [facility] Creatinine 5.20 (H) 0.70 - 1.20 mg/dL [facility] Glucose 164 (H) 65 - 100 mg/dL [facility] Calcium 7.0 (L) 8.8 - 10.2 mg/dL [facility] Protein 6.5 6.3 - 8.3 g/dL [facility] Albumin 3.1 (L) 3.5 - 5.0 g/dL [facility] A/G ratio 0.9 0.7 - 3.8 [facility] Alkaline 103 0 - 129 U/L [facility] phosphatase [facility] AST 17 10 - 50 U/L [facility] ALT 9 5 - 50 U/L [facility] Total bilirubin <0.3 0.2 - 1.2 mg/dL [facility] Specimen Plasma specimen Performing Organization Address City/State/Zipcode Ph one Number [facility] DEPARTMENT OF [facility] [place] [phone] PATHOLOGY AND GENOMIC MEDICINE [facility] [place] [address] HOSPITAL after 06/24/2019 Insurance Type Payer Benefit Subscriber ID Effective Phone Address Plan / Dates Group HMO [employer] C[employer] xxxxxxxxxxx [id number] [facility] Advance Directives For more information, please contact: [phone] Patient Ve Teacher Explanation Type Date Recorded Advance Directives, 04/23/2019 11:05 PM Living Will and Medical Power of Sewage Reticulation Drafting Officer Advance Directives, 08/31/2019 8:28 PM Living Will and Medical Power of Sewage Reticulation Drafting Officer
--- OUTSIDE RECORDS SUMMARY | 2020-06-24 16:53 | XMS REPORT | Clinical Summary ---
Author Author NOAH [facility] Address Unknown Phone Unavailable Care Team Providers Care Cyber Reverse Engineer Name Role Phone Antony Mosley MD PCP [...] Pre-transplant evaluation for chronic kidney disease 12/16/2019 [facility] Cardiology Encounter Lisa Chen MD CKD (chronic [...] Pre-transplant evaluation for chronic kidney disease 12/16/2019 [facility] Radiology Encounter Lisa Chen MD CKD (chronic [...] kidney disease on chronic dialysis, unspecified whether ship officer insulin use (HCC); Diabetic retinopathy of both [...] Transplant Evan Olmedo 10/02/2019 Abstract Transplant after 06/24/2019 Family History Medical History Relation Name Comments [...] Taken Vital Sign Reading 12/16/2019 11:23 AM SECURITY AND COMPLIANCE ANALYST Blood Pressure 173/70 12/16/2019 11:23 AM SECURITY AND COMPLIANCE ANALYST Pulse 90 11/25/2019 1:03 PM SECURITY AND COMPLIANCE ANALYST Temperature 36.6 C (97.9 F) 11/25/2019 1:03 PM SECURITY AND COMPLIANCE ANALYST Respiratory Rate 18 - Oxygen Saturation - - Inhaled Oxygen - Concentration 12/16/2019 9:00 AM SECURITY AND COMPLIANCE ANALYST Weight 79.8 kg (176 lb) 12/16/2019 9:00 AM SECURITY AND COMPLIANCE ANALYST Height 167.6 cm (5' 6") 12/16/2019 9:00 AM SECURITY AND COMPLIANCE ANALYST Body Mass Index 28.41 Plan of Treatment [...] VASCULAR 12/17/2019 REPORT - SCAN 9:22 PM SECURITY AND COMPLIANCE ANALYST ECHOCARDIOGRAM REPORT - 12/17/2019 SCAN 9:20 PM SECURITY AND COMPLIANCE ANALYST TRANSFUSION SERVICE 12/17/2019 REPORT - SCAN 6:05 PM SECURITY AND COMPLIANCE ANALYST STRESS ECHO Routine 12/16/2019 CKD (chronic ki dney 11:08 AM SECURITY AND COMPLIANCE ANALYST disease), stage IV (HCC) Hypertensive renal disease Diabetes mellitus due to underlying condition with chronic kidney disease on chronic dialysis, without long-term current use of insulin (HCC) Pre-transplant evaluation for chronic kidney disease 2D ECHO W/ DOPPLER Routine 12/16/2019 CKD (chroni c kidney (CW/PW/COLOR) 10:28 AM SECURITY AND COMPLIANCE ANALYST disease), stage IV (HCC) Hypertensive renal disease Diabetes mellitus due to underlying condition with chronic kidney disease on chronic dialysis, without long-term current use of insulin (HCC) Pre-transplant evaluation for chronic kidney disease TREADMILL Routine 12/16/2019 TOLERANCE(NON-NUCLEAR 10:00 AM SECURITY AND COMPLIANCE ANALYST TREADMILL) ECG 12-LEAD Routine 12/16/2019 CKD (chronic ki dney 9:18 AM SECURITY AND COMPLIANCE ANALYST disease), stage IV (HCC) Hypertensive renal disease Diabetes mellitus due to underlying condition with chronic kidney disease on chronic dialysis, without long-term current use of insulin (HCC) Pre-transplant evaluation for chronic kidney disease XR CHEST 2 VIEWS Routine 12/16/2019 CKD (chronic kidney 8:56 AM SECURITY AND COMPLIANCE ANALYST disease), stage IV (HCC) Hypertensive renal disease Diabetes mellitus due to underlying condition with chronic kidney disease on chronic dialysis, without long-term current use of insulin (HCC) Pre-transplant evaluation for chronic kidney disease US ABDOMEN COMPLETE Routine 12/16/2019 CKD (chron ic kidney 8:07 AM SECURITY AND COMPLIANCE ANALYST disease), stage IV (HCC) Hypertensive renal disease Diabetes mellitus due to underlying condition with chronic kidney disease on chronic dialysis, without long-term current use of insulin (HCC) Pre-transplant evaluation for chronic kidney disease BLOOD TYPING, AUTOMATED Routine 12/16/2019 CKD (c hronic kidney 7:13 AM SECURITY AND COMPLIANCE ANALYST disease), stage IV (HCC) Hypertensive renal disease Diabetes mellitus due to underlying condition with chronic kidney disease on chronic dialysis, without long-term current use of insulin (HCC) Pre-transplant evaluation for chronic kidney disease HEMOGLOBIN A1C Routine 12/16/2019 CKD (chronic ki dney 7:13 AM SECURITY AND COMPLIANCE ANALYST disease), stage IV (HCC) Hypertensive renal disease Diabetes mellitus due to underlying condition with chronic kidney disease on chronic dialysis, without long-term current use of insulin (HCC) Pre-transplant evaluation for chronic kidney disease LIPID PANEL Routine 12/16/2019 CKD (chronic ki dney 7:13 AM SECURITY AND COMPLIANCE ANALYST disease), stage IV (HCC) Hypertensive renal disease Diabetes mellitus due to underlying condition with chronic kidney disease on chronic dialysis, without long-term current use of insulin (HCC) Pre-transplant evaluation for chronic kidney disease PSA Routine 12/16/2019 CKD (chronic ki dney 7:13 AM SECURITY AND COMPLIANCE ANALYST disease), stage IV (HCC) Hypertensive renal disease Diabetes mellitus due to underlying condition with chronic kidney disease on chronic dialysis, without long-term current use of insulin (HCC) Pre-transplant evaluation for chronic kidney disease TRANSFUSION SERVICE 11/26/2019 REPORT - SCAN 6:07 PM SECURITY AND COMPLIANCE ANALYST BLOOD TYPING, AUTOMATED Routine 11/25/2019 CKD (c hronic kidney 11:50 AM SECURITY AND COMPLIANCE ANALYST disease), stage IV (HCC) Hypertensive renal disease Diabetes mellitus due to underlying condition with chronic kidney disease on chronic dialysis, without long-term current use of insulin (HCC) Pre-transplant evaluation for chronic kidney disease DIRECT AHG (FELIPA)/DIRECT Routine 11/25/2019 CKD (c hronic kidney ZEESHAN 11:50 AM SECURITY AND COMPLIANCE ANALYST disease), stage IV (HCC) Hypertensive renal disease Diabetes mellitus due to underlying condition with chronic kidney disease on chronic dialysis, without long-term current use of insulin (HCC) Pre-transplant evaluation for chronic kidney disease HLA TYPING CII Routine 11/25/2019 CKD (chronic ki dney 11:50 AM SECURITY AND COMPLIANCE ANALYST disease), stage IV (HCC) Hypertensive renal disease Diabetes mellitus due to underlying condition with chronic kidney disease on chronic dialysis, without long-term current use of insulin (HCC) Pre-transplant evaluation for chronic kidney disease HLA TYPING CI Routine 11/25/2019 CKD (chronic ki dney 11:50 AM SECURITY AND COMPLIANCE ANALYST disease), stage IV (HCC) Hypertensive renal disease Diabetes mellitus due to underlying condition with chronic kidney disease on chronic dialysis, without long-term current use of insulin (HCC) Pre-transplant evaluation for chronic kidney disease T SPOT TB Routine 11/25/2019 CKD (chronic ki dney 11:50 AM SECURITY AND COMPLIANCE ANALYST disease), stage IV (HCC) Hypertensive renal disease Diabetes mellitus due to underlying condition with chronic kidney disease on chronic dialysis, without long-term current use of insulin (HCC) Pre-transplant evaluation for chronic kidney disease PTH, INTACT Routine 11/25/2019 CKD (chronic ki dney 11:50 AM SECURITY AND COMPLIANCE ANALYST disease), stage IV (HCC) Hypertensive renal disease Diabetes mellitus due to underlying condition with chronic kidney disease on chronic dialysis, without long-term current use of insulin (HCC) Pre-transplant evaluation for chronic kidney disease HIV-1 ANTIGEN WITH Routine 11/25/2019 CKD (chroni c kidney HIV-1/2 ANTIBODY 11:50 AM SECURITY AND COMPLIANCE ANALYST disease), stage IV (HCC) Hypertensive renal disease Diabetes mellitus due to underlying condition with chronic kidney disease on chronic dialysis, without long-term current use of insulin (HCC) Pre-transplant evaluation for chronic kidney disease HEPATITIS C ANTIBODY Routine 11/25/2019 CKD (optical worker ricky kidney 11:50 AM SECURITY AND COMPLIANCE ANALYST disease), stage IV (HCC) Hypertensive renal disease Diabetes mellitus due to underlying condition with chronic kidney disease on chronic dialysis, without long-term current use of insulin (HCC) Pre-transplant evaluation for chronic kidney disease HEPATITIS B CORE Routine 11/25/2019 CKD (chronic kidney ANTIBODY, IGM 11:50 AM SECURITY AND COMPLIANCE ANALYST disease), stage IV (HCC) Hypertensive renal disease Diabetes mellitus due to underlying condition with chronic kidney disease on chronic dialysis, without long-term current use of insulin (HCC) Pre-transplant evaluation for chronic kidney disease HEPATITIS B SURFACE Routine 11/25/2019 CKD (chron ic kidney ANTIGEN 11:50 AM SECURITY AND COMPLIANCE ANALYST disease), stage IV (HCC) Hypertensive renal disease Diabetes mellitus due to underlying condition with chronic kidney disease on chronic dialysis, without long-term current use of insulin (HCC) Pre-transplant evaluation for chronic kidney disease HEPATITIS B SURFACE Routine 11/25/2019 CKD (chron ic kidney ANTIBODY 11:50 AM SECURITY AND COMPLIANCE ANALYST disease), stage IV (HCC) Hypertensive renal disease Diabetes mellitus due to underlying condition with chronic kidney disease on chronic dialysis, without long-term current use of insulin (HCC) Pre-transplant evaluation for chronic kidney disease CBC W/PLT COUNT & AUTO Routine 11/25/2019 CKD (ch ronic kidney DIFFERENTIAL 11:49 AM SECURITY AND COMPLIANCE ANALYST disease), stage IV (HCC) Hypertensive renal disease Diabetes mellitus due to underlying condition with chronic kidney disease on chronic dialysis, without long-term current use of insulin (HCC) Pre-transplant evaluation for chronic kidney disease AB SPECIFICITY CLASS I Routine 11/25/2019 CKD (ch ronic kidney 11:49 AM SECURITY AND COMPLIANCE ANALYST disease), stage IV (HCC) Hypertensive renal disease Diabetes mellitus due to underlying condition with chronic kidney disease on chronic dialysis, without long-term current use of insulin (HCC) Pre-transplant evaluation for chronic kidney disease TREPONEMA PALLIDUM - Routine 11/25/2019 CKD (optical worker ricky kidney SYPHILIS IGG 11:49 AM SECURITY AND COMPLIANCE ANALYST disease), stage IV (HCC) Hypertensive renal disease Diabetes mellitus due to underlying condition with chronic kidney disease on chronic dialysis, without long-term current use of insulin (HCC) Pre-transplant evaluation for chronic kidney disease RPR TITER Routine 11/25/2019 CKD (chronic ki dney 11:49 AM SECURITY AND COMPLIANCE ANALYST disease), stage IV (HCC) Hypertensive renal disease Diabetes mellitus due to underlying condition with chronic kidney disease on chronic dialysis, without long-term current use of insulin (HCC) Pre-transplant evaluation for chronic kidney disease FLOW PRA CLASS II WITH Routine 11/25/2019 CKD (ch ronic kidney REFLEX TO ANTIBODY 11:49 AM SECURITY AND COMPLIANCE ANALYST disease), stage IV (HCC) SPECIFICITY Hypertensive renal disease Diabetes mellitus due to underlying condition with chronic kidney disease on chronic dialysis, without long-term current use of insulin (HCC) Pre-transplant evaluation for chronic kidney disease FLOW PRA CLASS I WITH Routine 11/25/2019 CKD (chr onic kidney REFLEX TO ANTIBODY 11:49 AM SECURITY AND COMPLIANCE ANALYST disease), stage IV (HCC) SPECIFICITY Hypertensive renal disease Diabetes mellitus due to underlying condition with chronic kidney disease on chronic dialysis, without long-term current use of insulin (HCC) Pre-transplant evaluation for chronic kidney disease VARICELLA ZOSTER Routine 11/25/2019 CKD (chronic kidney ANTIBODY, IGG 11:49 AM SECURITY AND COMPLIANCE ANALYST disease), stage IV (HCC) Hypertensive renal disease Diabetes mellitus due to underlying condition with chronic kidney disease on chronic dialysis, without long-term current use of insulin (HCC) Pre-transplant evaluation for chronic kidney disease URIC ACID Routine 11/25/2019 CKD (chronic ki dney 11:49 AM SECURITY AND COMPLIANCE ANALYST disease), stage IV (HCC) Hypertensive renal disease Diabetes mellitus due to underlying condition with chronic kidney disease on chronic dialysis, without long-term current use of insulin (HCC) Pre-transplant evaluation for chronic kidney disease RPR Routine 11/25/2019 CKD (chronic ki dney 11:49 AM SECURITY AND COMPLIANCE ANALYST disease), stage IV (HCC) Hypertensive renal disease Diabetes mellitus due to underlying condition with chronic kidney disease on chronic dialysis, without long-term current use of insulin (HCC) Pre-transplant evaluation for chronic kidney disease PT/APTT Routine 11/25/2019 CKD (chronic ki dney 11:49 AM SECURITY AND COMPLIANCE ANALYST disease), stage IV (HCC) Hypertensive renal disease Diabetes mellitus due to underlying condition with chronic kidney disease on chronic dialysis, without long-term current use of insulin (HCC) Pre-transplant evaluation for chronic kidney disease PHOSPHORUS Routine 11/25/2019 CKD (chronic ki dney 11:49 AM SECURITY AND COMPLIANCE ANALYST disease), stage IV (HCC) Hypertensive renal disease Diabetes mellitus due to underlying condition with chronic kidney disease on chronic dialysis, without long-term current use of insulin (HCC) Pre-transplant evaluation for chronic kidney disease LACTATE DEHYDROGENASE Routine 11/25/2019 CKD (chr onic kidney (LDH) 11:49 AM SECURITY AND COMPLIANCE ANALYST disease), stage IV (HCC) Hypertensive renal disease Diabetes mellitus due to underlying condition with chronic kidney disease on chronic dialysis, without long-term current use of insulin (HCC) Pre-transplant evaluation for chronic kidney disease GAMMA GLUTAMYL Routine 11/25/2019 CKD (chronic ki dney TRANSFERASE (GGT) 11:49 AM SECURITY AND COMPLIANCE ANALYST disease), stage IV (HCC) Hypertensive renal disease Diabetes mellitus due to underlying condition with chronic kidney disease on chronic dialysis, without long-term current use of insulin (HCC) Pre-transplant evaluation for chronic kidney disease EBV ANTIBODY, IGM Routine 11/25/2019 CKD (chronic kidney 11:49 AM SECURITY AND COMPLIANCE ANALYST disease), stage IV (HCC) Hypertensive renal disease Diabetes mellitus due to underlying condition with chronic kidney disease on chronic dialysis, without long-term current use of insulin (HCC) Pre-transplant evaluation for chronic kidney disease EBV ANTIBODY, IGG Routine 11/25/2019 CKD (chronic kidney 11:49 AM SECURITY AND COMPLIANCE ANALYST disease), stage IV (HCC) Hypertensive renal disease Diabetes mellitus due to underlying condition with chronic kidney disease on chronic dialysis, without long-term current use of insulin (HCC) Pre-transplant evaluation for chronic kidney disease COMPREHENSIVE METABOLIC Routine 11/25/2019 CKD (c hronic kidney PANEL 11:49 AM SECURITY AND COMPLIANCE ANALYST disease), stage IV (HCC) Hypertensive renal disease Diabetes mellitus due to underlying condition with chronic kidney disease on chronic dialysis, without long-term current use of insulin (HCC) Pre-transplant evaluation for chronic kidney disease CYTOMEGALOVIRUS ANTIBODY, Routine 11/25/2019 CKD (chronic kidney IGM 11:49 AM SECURITY AND COMPLIANCE ANALYST disease), stage IV (HCC) Hypertensive renal disease Diabetes mellitus due to underlying condition with chronic kidney disease on chronic dialysis, without long-term current use of insulin (HCC) Pre-transplant evaluation for chronic kidney disease CYTOMEGALOVIRUS ANTIBODY, Routine 11/25/2019 CKD (chronic kidney IGG 11:49 AM SECURITY AND COMPLIANCE ANALYST disease), stage IV (HCC) Hypertensive renal disease Diabetes mellitus due to underlying condition with chronic kidney disease on chronic dialysis, without long-term current use of insulin (HCC) Pre-transplant evaluation for chronic kidney disease CBC W/PLT COUNT & AUTO Routine 11/25/2019 CKD (ch ronic kidney DIFFERENTIAL 11:49 AM SECURITY AND COMPLIANCE ANALYST disease), stage IV (HCC) Hypertensive renal disease Diabetes mellitus due to underlying condition with chronic kidney disease on chronic dialysis, without long-term current use of insulin (HCC) Pre-transplant evaluation for chronic kidney disease after 06/24/2019 Results * PERIPHERAL VASCULAR REPORT - SCAN (12/17/2019 9:22 PM SECURITY AND COMPLIANCE ANALYST) Narrative Performed At This result has an attachment that is n ot available. * ECHOCARDIOGRAM REPORT - SCAN (12/17/2019 9:20 PM SECURITY AND COMPLIANCE ANALYST) Narrative Performed At This result has an attachment that is n ot available. * TRANSFUSION SERVICE REPORT - SCAN (12/17/2019 6:05 PM SECURITY AND COMPLIANCE ANALYST) Only the most recent of 2 results within the time period is included. Narrative Performed At This result has an attachment that is n ot available. * Stress Echo With Tracing (12/16/2019 11:08 AM SECURITY AND COMPLIANCE ANALYST) Ejection Fraction [facility] ECHO HEARTLAB [facility] Specimen Narrative Performed At Stress Echocardiography Report [facility] ECHO HEARTLAB Demographics [facility] Patient Name ROSE HENRIQUEZ ate of Study 12/16/2019 [id number] GenderMale Visit Number [id number] RaceUnk nown [id number] Room Number Number Date of Birth1955 Referring Physician April Breaux Age64 year(s) Sas Programmer Levy Whaley, Physician Fellow Harrison Pond MD [...] External Ris In - 12/17/2019 7:14 AM SECURITY AND COMPLIANCE ANALYST Stress Echocardiography Report Demographics Patient Name SILVER HENRIQUEZ Date of Study 12/16/2019 Gender Male Visit Number [id number] Race Unknown Room Number Number Date of 1955 Referring Physician April Breaux Age 64 year(s) Sas Programmer Levy Alberto Interpreting Vijaya Whaley, Physician MD [...] Peak HR: 100 bpm HR BP Product: [id number] Peak BP: 206/78 mmHg Predicted HR: 158 [...] Performing Organization Address City/State/Zipcode Ph one Number [facility] [employer] [facility] * 2D Echo W/Doppler(CW/PW/Color) (12/16/2019 10:28 AM SECURITY AND COMPLIANCE ANALYST) Ejection Fraction [facility] [employer] [facility] Specimen Narrative Performed At Transthoracic Echocardiography Report (TTE) [facility] ECH O HEARTLAB Demographics [employer] [facility] Patient Name ROSE HENRIQUEZ ate of Study 12/16/2019 [id number] GenderMale Visit Number [id number] Alanis gonzalez [id number] Room Number Number Date of Birth1955 Referring Physician April Breaux Age64 year(s) Sas Programmer Levy Whaley, Physician MD Fellow Harrison Pond [...] External Ris In - 12/17/2019 7:21 AM SECURITY AND COMPLIANCE ANALYST Transthoracic Echocardiography Report (TTE) Demographics Patient Name SILVER HENRIQUEZ Date of Study 12/16/2019 Gender Male Visit Number [id number] Race Unknown Room Number Number Date of 1955 Referring Physician April Breaux Age 64 year(s) Sas Programmer Lvey Alberto Interpreting Vijaya Whaley, Physician MD Fellow [...] VTI (PW): 23.72 cm Performing Organization Address City/State/[facility] Ph one Number [facility] ECHO HEARTLAB [facility] * Treadmill tolerance(Non-Nuclear Treadmill) (12/16/2019 10:00 AM SECURITY AND COMPLIANCE ANALYST) Specimen Narrative Performed At Protocol Name DOBUT [...] but self-terminated. Confirmed by MD SALDANA RAYMOND ([id number]) on 12/22/2019 4:44:04 PM Procedure Note Interface, External Ris In - 12/22/2019 4:44 PM SECURITY AND COMPLIANCE ANALYST Protocol Name DOBUT TM-1 Time In Exercise [...] self- terminated. Confirmed by MD SALDANA RAYMOND ([id number]) on 12/22/2019 4:44:04 PM Performing Organization Address [facility] one Number GE MUSE * ECG 12 lead (12/16/2019 9:18 AM SECURITY AND COMPLIANCE ANALYST) Specimen Narrative Performed At Ventricular Rate 69 BPM GE MUSE Atrial Rate 69 BPM P-R Interval 282 ms QRS Duration 100 ms Q-T Interval 442 ms QTC Calculation(Bazett) 473 ms P [place] 71 degrees R [place] -43 degrees T [place] 60 degrees Sinus rhythm with 1st degree A-V block Left axis deviation Abnormal ECG No previous ECGs available Confirmed by MD Padilla Roberto ([id number]) on 12/17/2019 11:06:49 AM Procedure Note Interface, External Ris In - 12/17/2019 11:06 AM SECURITY AND COMPLIANCE ANALYST Ventricular Rate 69 BPM Atrial Rate 69 BPM P-R Interval 282 ms QRS Duration 100 ms Q-T Interval 442 ms QTC Calculation(Bazett) 473 ms P [place] 71 degrees R [place] -43 degrees T [place] 60 degrees Sinus rhythm with 1st degree A-V block Left axis deviation Abnormal ECG No previous ECGs available Confirmed by MD Padilla Roberto ([id number]) on 12/17/2019 11:06:49 AM Performing Organization Address [facility] Ph one Number GE MUSE * XR chest 2 views (12/16/2019 8:56 AM SECURITY AND COMPLIANCE ANALYST) Specimen Narrative Performed At FINAL REPORT GE [...] Report Verified Date/Time: 0 10:01:55 Reading Location: [facility] Radiolo gy Reading Room Procedure Note Interface, External Ris In - 12/16/2019 10:04 AM SECURITY AND COMPLIANCE ANALYST FINAL REPORT INDICATION: Pre kidney transplant evaluation. [...] Report Verified Date/Time: 12/16/2019 10:01:55 Reading Location: [facility] Radiology Reading Room Performing Organization Address City/State/Zipcode Ph one Number [place] * US abdomen complete (12/16/2019 8:07 AM SECURITY AND COMPLIANCE ANALYST) Specimen Narrative Performed At FINAL REPORT [place] Abdominal ultrasound dated 12/16/2019 History: Kidney transplant evaluation. COMPARISON: None Findings: Liver is normal in size and echogenicit y.The liver [id number] cm in length.No focal lesion is noted [...] Report Verified Date/Time: 0 09:36:15 Reading Location: [address] Radiolo gy Reading Room Procedure Note Interface, External Ris In - 12/16/2019 9:38 AM SECURITY AND COMPLIANCE ANALYST FINAL REPORT Abdominal ultrasound dated 12/16/2019 History: [...] Report Verified Date/Time: 12/16/2019 09:36:15 Reading Location: [address] Radiology Reading Room Performing Organization Address City/State/Zipcode Ph one Number RIS * Blood typing, automated (12/16/2019 7:13 AM SECURITY AND COMPLIANCE ANALYST) Only the most recent of 2 results within the time period is included. ABO/RH AUTOMATED (BEAKER) O POSITIVE [facility] Specimen Blood Performing Organization Address [facility] Ph one Number [address] [address] [facility] * PSA (12/16/2019 7:13 AM SECURITY AND COMPLIANCE ANALYST) PSA 0.3 0.0 - 4.0 ng/mL [facility] Specimen Blood Narrative Performed At Production Trainer ID - DB [facility] Performing Organization Address [facility] one Number [address] [address] [facility] * Hemoglobin A1c (12/16/2019 7:13 AM SECURITY AND COMPLIANCE ANALYST) Hemoglobin A1C 7.7 (H) 4.3 - 6.1 % [facility] Specimen Blood Performing Organization Address [facility] one Number [address] [facility] * Lipid panel (12/16/2019 7:13 AM SECURITY AND COMPLIANCE ANALYST) Triglycerides 120 mg/dL [facility] Cholesterol 105 mg/dL [facility] HDL 32 mg/dL [facility] LDL Calculated 49 mg/dL [facility] Specimen Blood Narrative Performed At Triglyceride Reference Range: [facility] Low Risk <150 [facility] [id number] High Risk 200-499 Very High Risk>=500 Cholesterol Reference Range: Low Risk <200 [id number] High Risk>240 HDL Cholesterol Reference Range: Low Risk >=60 High Risk <40 LDL Cholesterol Reference Range: Optimal<100 Near [id number] Ykncvubcyz407-153 [id number] Very High >=190 Production Trainer ID - HUY Yates Performing Organization Address City/[facility] Ph one Number [facility] [address] [place], [place] [address] [facility] * HLA TYPING CII (11/25/2019 11:50 AM SECURITY AND COMPLIANCE ANALYST) HLA-DR AG1 10 [facility] HLA TESTING HLA-DR AG2 1 [facility] HLA TESTING HLA-DQA1 AG 1-1 01 [facility] HLA TESTING HLA-DQA1 AG 1-2 01 [facility] HLA TESTING HLA-DQB1 AG 1-1 5 [facility] HLA-DQB1 AG 1-2 5 [facility] HLA-DPA1 AG 1-1 02 [facility] HLA-DPA1 AG 1-2 02 [facility] HLA-DPB1 AG 1-1 10:01 [facility] HLA-DPB1 AG 1-2 17:01 [facility] Specimen Blood Narrative Performed At Disclaimer: [facility] This test was developed and its perform ance characteristics determined by the [facility]. It has not been cleared or approved by the U.S. Food and Drug Administration. The FDA has determined that such clearance or approval is not necessary. This test is used for clinic al purposes. It should not be regarded as investigational or for research. [facility] is certified under the Clinical Laboratory Improvement Amendments of 19 88 (CLIA-88) as qualified to perform high complexity clinical laboratory testing. Performing Organization Address [facility] one Number [facility] ONE [facility] Shara, MS: [id number], [place] [address] CLIA#[id number] CAP#[id number] UNOS#[id number] * HLA TYPING CI (11/25/2019 11:50 AM SECURITY AND COMPLIANCE ANALYST) HLA-A AG1 2 [facility] HLA-A AG2 3 [facility] HLA-B AG1 35 [facility] HLA-B AG2 35 [facility] HLA-C AG1 4 [facility] HLA-C AG2 4 [facility] HLA-B BW1 6 [facility] HLA-B BW2 6 [facility] Specimen Blood Narrative Performed At Disclaimer: [facility] This test was developed and its perform ance characteristics determined by the [facility]. It has not been cleared [...] complexity clinical laboratory testing. Performing Organization Address City/State[facility] one Number [facility] ONE Mark Olmedo, MS: [id number], [place] [address] CLIA#[id number] CAP#[id number] UNOS#[id number] * T Spot TB (11/25/2019 11:50 AM SECURITY AND COMPLIANCE ANALYST) T-Spot TB Negative [facility] Neg Ctrl Spot Count 0 [facility] Panel A Spot 0 [facility] Panel B Spot 1 [facility] Pos Ctrl Spot Ct 0 [facility] Scan Result [facility] Specimen Blood Narrative Performed At This result has an attachment that is n ot available. Performing Organization Address City/[facility] Ph one Number [facility] [place] [address] LABORATORIES 100 * HIV-1 Antigen with HIV-1/2 Antibody (11/25/2019 11:50 AM SECURITY AND COMPLIANCE ANALYST) HIV-1 Antigen with HIV Nonreactive Nonreactive [facility] 1&2 Antibody [facility] Specimen Blood Narrative Performed At Production Trainer ID [facility] Performing Organization Address City/[facility] Ph one [place] [address] [facility] * Hepatitis C Antibody (11/25/2019 11:50 AM SECURITY AND COMPLIANCE ANALYST) Hepatitis C Ab Reactive (A) Nonreactive [facility] Specimen Blood Narrative Performed At Production Trainer ID [facility] Performing Organization Address City/[facility] Ph one [address] [facility] * Hepatitis B core antibody, IgM (11/25/2019 11:50 AM SECURITY AND COMPLIANCE ANALYST) Hep B C IgM Nonreactive Nonreactive [facility] Specimen Blood Narrative Performed At Production [facility] Performing Organization Address City/[facility] Ph one [place] [address] 0 [phone] [place] [address] * Hepatitis B surface antibody (11/25/2019 11:50 AM SECURITY AND COMPLIANCE ANALYST) Hep B S Ab <8.0 <8.0 mIU/mL [facility] Specimen Blood Narrative Performed At Production Trainer ID - [facility] [place] Performing Organization Address [facility] Ph one [address] * Hepatitis B surface antigen (11/25/2019 11:50 AM SECURITY AND COMPLIANCE ANALYST) HBsAg Screen Nonreactive Nonreactive [facility] Specimen Blood Narrative Performed At Production Trainer ID - [facility] [place] Performing Organization Address [facility] Ph one [address] * Direct AHG (FELIPA)/Direct Zeeshan (11/25/2019 11:50 AM SECURITY AND COMPLIANCE ANALYST) Direct AHG-IGG NEGATIVEComment: saline [facility] control-negative [facility] Direct AHG-C3B, C3D [facility] Specimen Blood Performing Organization Address City/[facility]/Zipcode Ph one [place] [phone] [facility] * PTH, Intact (11/25/2019 11:50 AM SECURITY AND COMPLIANCE ANALYST) PTH 462.7 (H) 8.5 - 72.5 pg/mL [facility] Specimen Blood Narrative Performed At Production Trainer ID - [facility] [place] Performing Organization Address City/[facility]/Zipcode Ph one [facility] [address] [place], [place] [address] [facility] * MHA - TP (11/25/2019 11:49 AM SECURITY AND COMPLIANCE ANALYST) TREPONEMA PALLIDUM, Reactive (AA) Nonreactive [facility] SYPHILIS IGG [facility] Specimen Blood Narrative Performed At Test performed by CALEB method. [facility] Performing Organization Address City/[facility] Ph one Number [facility] [address] [place], [place] [address] [facility] * FLOW PRA CLASS II WITH REFLEX TO ANTIBODY SPECIFICITY (11/25/2019 11:49 AM SECURITY AND COMPLIANCE ANALYST) Flow Class II Percent 0 [facility] NG Positive Specimen Blood Narrative Performed At Disclaimer: [facility] This test was developed and its perform ance characteristics determined by the [facility]. It has not been cleared [...] complexity clinical laboratory testing. Performing Organization Address City/[facility] Ph one Number [facility] ONE Mark Olmedo, MS: [id number], [place] [address] CLIA#[id number] CAP#[id number] UNOS#TXBL * FLOW PRA CLASS I WITH REFLEX TO ANTIBODY SPECIFICITY (11/25/2019 11:49 AM SECURITY AND COMPLIANCE ANALYST) Flow Class I Percent 10 [facility] G Positive Specimen Blood Narrative Performed At Disclaimer: [facility] This test was developed and its perform ance characteristics determined by the [facility]. It has not been cleared [...] complexity clinical laboratory testing. Performing Organization Address City/[facility] Ph one Number [facility] ONE Mark Shara, MS: [id number], [place] [address] CLIA#[id number] CAP#[id number] UNOS#TXBL * AB SPECIFICITY CLASS I (11/25/2019 11:49 AM SECURITY AND COMPLIANCE ANALYST) AB Specificity Class I NO CLASS I ANTIBODY DETECTED [facility] WITH MFIs > 4000 Specimen Blood Narrative Performed At Disclaimer: [facility] This test was developed and its perform ance characteristics determined by the [facility]. It has not been cleared [...] complexity clinical laboratory testing. Performing Organization Address [facility] Ph one Number [facility] ONE Mark Olmedo, MS: [id number], [place] [address] CLIA#[id number] CAP#[id number] UNOS#TXBL * RPR Titer (11/25/2019 11:49 AM SECURITY AND COMPLIANCE ANALYST) RPR Titer 1:4 [facility] Specimen Blood Performing Organization Address City/[facility] one Number [address] [address] [facility]ENTER * PT/aPTT (11/25/2019 11:49 AM SECURITY AND COMPLIANCE ANALYST) Protime 13.7 11.9 - 14.2 seconds [facility] INR 1.1 <=5.9 [facility] PTT 31.4 22.5 - 36.0 seconds [facility] Specimen Blood Narrative Performed At Effective 03/18/2019: PT Reference Range Change [facility] New: 11.9-14.2Previous: 11.7-14.7 [facility] MEDICAL CE NTER RECOMMENDED COUMADIN/WARFARIN INR THERA PY RANGES STANDARD DOSE: 2.0-3.0Includes: PRO PHYLAXIS for venous thrombosis, systemic embolization; TREATMENT for venous thro mbosis and/or pulmonary embolus. HIGH RISK: Target INR is 2.5-3.5 for pa tients wiht mechanical heart valves. Performing Organization Address City/State/Zipcode Ph one Number [facility] [address] [place], [place] [address] [facility] * CBC with platelet count + automated diff (11/25/2019 11:49 AM SECURITY AND COMPLIANCE ANALYST) WBC 10.2 3.5 - 10.5 K/L [facility] RBC 4.10 (L) 4.63 - 6.08 M/L [facility] Hemoglobin 11.5 (L) 13.7 - 17.5 GM/DL [facility] Hematocrit 35.6 (L) 40.1 - 51.0 % [facility] MCV 86.8 79.0 - 92.2 fL [facility] MCH 28.0 25.7 - 32.2 pg [facility] MCHC 32.3 32.3 - 36.5 GM/DL [facility] RDW 13.5 11.6 - 14.4 % [facility] Platelets 265 150 - 450 K/CU MM [facility] MPV 10.8 9.4 - 12.4 fL [facility] nRBC 0 0 - 0 /100 WBC [facility] % Neutros 60 % [facility] % Lymphs 28 % [facility] % Monos 9 % [facility] % Eos 3 % [facility] % Baso 1 % [facility] # Neutros 6.10 (H) 1.78 - 5.38 K/L [facility] # Lymphs 2.82 1.32 - 3.57 K/L [facility] # Monos 0.92 (H) 0.30 - 0.82 K/L [facility] # Eos 0.31 0.04 - 0.54 K/L [facility] # Baso 0.05 0.01 - 0.08 K/L [facility] Immature 0 0 - 1 % [facility]ALTH Granulocytes-Relative [facility] Specimen Blood Performing Organization Address [facility] one Number [address] * Cytomegalovirus antibody, IgM (11/25/2019 11:49 AM SECURITY AND COMPLIANCE ANALYST) CMV IGM Negative Negative, Equivocal [facility] Specimen Blood Narrative Performed At CMV IgM Result Interpretation: [facility] </= 0.8 Al Negative [facility] 0.9-1.0 Al Equivocal >/= 1.1 Al Positive Performing Organization Address [facility] one Number [address] * EBV-VCA antibody, IgM (11/25/2019 11:49 AM SECURITY AND COMPLIANCE ANALYST) KEELY HSIEH VIRAL CAPSID Negative Negative, Equivocal [facility] ANTIGEN IGM [facility] Specimen Blood Narrative Performed At Keely Hsieh Viral Capsid Antigen IgM Result Interpre tation: [facility] </= 0.8 Al Negative [facility] 0.9-1.0 Al Equivocal >/= 1.1 Al Positive Performing Organization Address [facility] one Number [place] [phone] * EBV-VCA antibody, IgG (11/25/2019 11:49 AM SECURITY AND COMPLIANCE ANALYST) KEELY HSIEH VIRAL CAPSID Positive (A) Negative, Equivocal [facility] ANTIGEN IGG [facility] Specimen Blood Narrative Performed At Keely Hsieh Viral Capsid Antigen IgG Result Interpre tation: [facility] </= 0.8 Al Negative [facility] 0.9-1.0 Al Equivocal >/= 1.1 Al Positive Performing Organization Address [facility] one Number [place] [address] [phone] [place] [address] * RPR (11/25/2019 11:49 AM SECURITY AND COMPLIANCE ANALYST) RPR Reactive (A) Nonreactive [facility] Specimen Blood Performing Organization Address [facility] one Number [address] * Cytomegalovirus antibody, IgG (11/25/2019 11:49 AM SECURITY AND COMPLIANCE ANALYST) CYTOMEGALOVIRUS, IGG Positive (A) Negative, Equivocal [facility] Specimen Blood Narrative Performed At CMV IgG Result Interpretation: [facility] </= 0.8 Al Negative [facility] 0.9-1.0 Al Equivocal >/=1.1 AlPositive Performing Organization Address [facility] one Number [address] * Varicella Zoster Antibody, IgG (11/25/2019 11:49 AM SECURITY AND COMPLIANCE ANALYST) Varicella IgG 7.2 [facility] Specimen Blood Narrative Performed At VARICELLA ZOSTER RESULT INTERPRETATIONS: [facility] <=0.8 AlNo nreactive:Presumed non-immune to VZV [facility] 0.9-1.0 AlEqui vocal >=1.1 AlRe active:Presumed immune to VZV Performing Organization Address [facility] one Number [place] [phone] [place] [address] * Uric Acid (11/25/2019 11:49 AM SECURITY AND COMPLIANCE ANALYST) Uric Acid 4.6 2.6 - 7.2 mg/dL [facility] Specimen Blood Narrative Performed At Production Trainer ID [facility] Performing Organization Address City/[facility] Ph one [address] * Phosphorus (11/25/2019 11:49 AM SECURITY AND COMPLIANCE ANALYST) Phosphorus 4.7 2.3 - 4.7 mg/dL [facility] Specimen Blood Narrative Performed At Production Trainer ID [facility] Performing Organization Address City/[facility] Ph one [address] * Lactate Dehydrogenase (LDH) (11/25/2019 11:49 AM SECURITY AND COMPLIANCE ANALYST) LDH 231 (H) 125 - 220 U/L [facility] Specimen Blood Narrative Performed At Production Trainer ID [facility] Performing Organization Address City/[facility] Ph one [address] * Gamma Glutamyl Transferase (GGT) (11/25/2019 11:49 AM SECURITY AND COMPLIANCE ANALYST) GGT 84 (H) 9 - 64 U/L [facility] Specimen Blood Narrative Performed At Production Trainer ID [facility] Performing Organization Address City/[facility] Cent[facility] Ph one [place] [address] [phone] [place] [address] * Comprehensive metabolic panel (11/25/2019 11:49 AM SECURITY AND COMPLIANCE ANALYST) Protein, Total 7.5 6.0 - 8.3 gm/dL [facility] Albumin 4.0 3.5 - 5.0 g/dL [facility] Alkaline Phosphatase 161 (H) 40 - 150 U/L [facility] Total Bilirubin 0.5 0.2 - 1.2 mg/dL [facility] Sodium 133 (L) 136 - 145 meq/L [facility] Potassium 3.2 (L) 3.5 - 5.1 meq/L [facility] Chloride 94 (L) 98 - 107 meq/L [facility] CO2 27 22 - 29 meq/L [facility] BUN 34 (H) 7 - 21 mg/dL [facility] Creatinine 5.10 (H) 0.57 - 1.25 mg/dL [facility] Glucose 243 (H) 70 - 105 mg/dL [facility] Calcium 8.0 (L) 8.4 - 10.2 mg/dL [facility] AST 18 5 - 34 U/L [facility] ALT 20 6 - 55 U/L [facility] EGFR 12Comment: ESTIMATED GFR IS mL/min/1.[address] [facility] NOT ACCURATE CREATININE [facility] CLEARANCE IN PREDICTING GLOMERULAR FILTRATION RATE. ESTIMATED GFR IS NOT APPLICABLE FOR DIALYSIS PATIENTS. Specimen Blood Narrative Performed At Production Trainer ID - ROSIANG [facility] Performing Organization Address City/State/Zipcode Ph one Number [facility] [address] [place], [place] [address] [facility] after 06/24/2019 Insurance Payer Benefit Subscriber ID Type Phone Address Plan / Group [employer]SP[employer]DE NAVAS xxxxxxxxx [facility] HEALTHSPRI [place] [id number]
--- OUTSIDE RECORDS SUMMARY | 2020-06-24 16:54 | XMS REPORT | Continuity of Care Document ---
Author Author [facility] t Organization [facility] Address [address] [place] [id number] Phone Unavailable Care Team Providers Care Scorer Helper Name Role Phone MD ANTONY SMITH PCP JOHAN RANGEL Attphys Unavailable Evan Olmedo Attphys Unavailable LevyUmang girard Attphys Unavailable Marlene Hale Attphys Unavailable Namita Chen MD Attphys Namita CHEN Attphys Unavailable Brett Smith MD Attphys Cande [facility] Skye Attphys Unavailable Shania SHEPHERD, P Gretta Attphys Unavailable Olman Scott DO Attphys [phone] Ras Maharaj MD Attphys JOHAN RANGELphys Unavailable Payers Payer Name Policy Type Policy Number Effective Date Expiration Date [facility] Ppo [id number] 2007 00:00[facility] Contracted xxxxxxxxx [facility] [employer] HMO MCR ADVxxxxxx /10/2018-PresentHMO xxxxxxxxxxx 2018 00:00:00 Mera Meth odist Problems Condition Name Condition Details Condition Category Status Onset Date Resolution Date Last Treatment Date Treating Clinician Comments Source ESRD (end stage renal disease) on dialysis ESRD (end s tage renal disease) on dialysis Disease Active 2019-10-21 00:00:00 Overview: currently on HD; planned transition to CCPD [facility] Diabetic retinopathy Diabetic retinopathy Disease Active 00:00:00 Overview: Bilateral; s/p laser surgery t o L eye; pending to R eye [facility] Diabetes mellitus Diabetes mellitus Disease Active 2013-10-21 00:00:00 [facility] Hyperlipidemia Hyperlipidemia Disease Active 2013-10-21 00:00:00 [facility] Hypertension Hypertension Disease Active 1989-10-21 00:00:00 [facility] Chronic renal failure Problem Active [facility] Fever Problem Active [facility] [place] [place] Fever of unknown origin Problem Active [facility] End-stage renal disease Problem Active [facility] Diabetic foot ulcer Problem Active [facility] Allergies, Adverse Reactions, Alerts Allergy Name Allergy Type Status Severity Reaction(s) Onset Date Inacti ve Date Treating Clinician Comments Source No Known Allergies DA Active U 2019-11-27 00:00:00 [facility] No Known Allergies DA Active U 2015-07-23 00:00:00 [facility] Family History Family Member Diagnosis Comments Start Date Stop Date Source Natural brother Diabetes [facility] Natural brother Hypertension [facility] Natural mother Diabetes [facility] Natural mother Hypertension [facility] Social History Social Habit Start Date Stop Date Quantity Comments Source History SDOH Alcohol Std Drinks [facility] History SDOH Alcohol Binge [facility] Sex Assigned At [facility] History SDOH Alcohol Frequency 2019-11-25 00:00:00 2019-11-25 00:00:0 0 1 [facility] Alcohol intake 2019-08-31 00:00:00 2019-08-31 00:00:00 Lifetime non-drinker (finding) [facility] [employer] Smoking Status Start Date Stop Date Source Never smoker [facility] Medications Ordered Medication Name Filled Medication Name Start Date Stop Da te Current Medication? Ordering Clinician Indication Dosage Frequency Signature (SIG) Comments Components Source Cephalexin Monohydrate (Keflex) 500 Mg CAPSULE Cephale prem Monohydrate (Keflex) 500 Mg CAPSULE 2020-06-14 07:33:00 Yes 500 Every 12 Hours [facility] Mupirocin Mupirocin 2020-06-14 07:33:00 Yes 0 Every 12 Hours At 6:00AM And 6:00PM [facility] calcium carbonate (TUMS) 500 mg chewable tablet 2019-11-25 10:56 :38 Yes 1{tbl} QD Take 1 tablet by mouth daily. [facility] insulin degludec (TRESIBA FLEXTOUCH U-200) 200 unit/mL (3 mL ) InPn 2019-11-25 10:54:50 Yes 16U Q24H 16 Units daily. [facility] ferrous fumarate 325 mg (106 mg iron) Tab 2019-11-25 10:54:50 Yes 650mg Q24H 650 mg daily. [facility] NIFEdipine (PROCARDIA-XL) 60 MG (OSM) 24 hr tablet 2019-11 10:54:49 Yes 60mg QD Take 60 mg by mouth daily. [facility] multivitamin (DAILY DIET SUPPORT ORAL) 2019-11-25 10:47:36 Yes QD daily. [facility] atorvastatin (LIPITOR) 80 MG tablet 2019-11-13 00:00:00 Yes QD daily. [facility] HYDROcodone-acetaminophen (NORCO 7.5-325) 7.5-325 mg per tab let 2019-11-10 00:00:00 Yes as needed. [facility] metoprolol (TOPROL-XL) 50 MG 24 hr tablet 2019-11-04 00:00:00 Yes TK 1 T PO ONCE D [facility] chlorthalidone (HYGROTON) 25 MG tablet 2019-11-04 00:00:00 Yes QD daily. [facility] chlorthalidone (HYGROTEN) 25 MG tablet 2019-08-31 20:50:59 Yes 25mg QD Take 25 mg by mouth daily. Ede Methmary mendoza insulin degludec (TRESIBA FLEXTOUCH U-100) 100 [...] MG tablet 2019-08-31 20:47:32 Ye s 800mg Q.[id number] Take 800 mg by mouth 3 (three) times a day with meals. Ede Felix Atorvastatin Calcium Atorvastatin Calcium Yes 80 Bedtime [facility] Calcium Carbonate (Tums) 200 Mg TAB.CHEW Calcium Carbo javier (Tums) 200 Mg TAB.CHEW Yes 750 Three Times A Day [facility] Chlorthalidone Chlorthalidone Yes 25 Daily [facility] Docusate Sodium Docusate Sodium Yes 100 Twice A Day [facility] Fluconazole Fluconazole Yes 100 Daily [facility] Hydrocodone Bit/Acetaminophen ([place] 10-325 Tablet) 1 Each TABLET Hydrocodone Bit/Acetaminophen ([place] 10-325 Tablet) 1 Each TABLET Yes 1 Every 6 Hours as needed for Severe Pain (7-10) C HI [facility] Insulin Degludec (Tresiba Flextouch U-100) 100 Unit/1 Ml INSULN.PEN Insulin Degludec (Tresiba Flextouch U-100) 100 Unit/1 Ml INSULN.PEN Yes 24 Daily [facility] Metoprolol Succinate Metoprolol Succinate Yes 50 Daily [facility] Nifedipine (Nifedipine Er) 30 Mg TAB.ER.24 Nifedipine (Nifedipine Er) 30 Mg TAB.ER.24 Yes 60 Daily [facility] Polyethylene Glycol 3350 (Miralax) 17 Gm POWD.PACK Jordan yethylene Glycol 3350 (Miralax) 17 Gm POWD.PACK Yes 17 Daily as nee ded for Constipation [facility] Khai Khai Yes Daily [facility] Sevelamer Carbonate (Renvela) 0.8 Gm POWD.PACK Sevelam er Carbonate (Renvela) 0.8 Gm POWD.PACK Yes .8 Three Times Daily With Me als [facility] Atorvastatin Calcium Atorvastatin Calcium Yes 80 Daily [facility] Insulin Degludec (Tresiba Flextouch U-100) 100 Unit/1 Ml INSULN.PEN Insulin Degludec (Tresiba Flextouch U-100) 100 Unit/1 Ml INSULN.PEN Yes 24 [facility] Metoprolol Succinate Metoprolol Succinate Yes 50 Daily [facility] Polyethylene Glycol 3350 (Miralax) 17 Gm POWD.PACK Jordan yethylene Glycol 3350 (Miralax) 17 Gm POWD.PACK Yes Daily as nee ded for Constipation [facility] Sevelamer Sevelamer Yes 800 Three Times Daily With Meals [facility] Ciprofloxacin Hcl (Cipro) 500 Mg TABLET Ciprofloxacin Hcl (C ipro) 500 Mg TABLET 2020-06-14 00:00:00 No 500 Daily [facility] Chlorthalidone Chlorthalidone 2020-05-21 00:00:00 No 25 Daily [facility] Nefediac Nefediac 2020-05-21 00:00:00 No 60 Daily [facility] Immunizations Ordered Immunization Name Filled Immunization Name Date Status Comments Source Tdap 2019-04-23 00:00:00 Completed [place] [employer] Vital Signs Vital Name Observation Time Observation Value Comments Source Body Temperature 2020-06-14 08:14:00 98.6 [degF] [facility] Weight 2020-06-14 01:57:00 175.38 [lb_av] [facility] BMI (Body Mass Index) 2020-06-14 01:57:00 28.3 kg/m2 [facility] Body Temperature 2020-05-21 15:18:00 98.6 [degF] [facility] Weight 2020-05-20 00:44:00 173.50 [lb_av] [facility] BMI (Body Mass Index) 2020-05-20 00:44:00 23.5 kg/m2 [facility] Systolic blood pressure 2019-12-16 11:23:00 173 mm[Hg] [facility] Diastolic blood pressure 2019-12-16 11:23:00 70 mm[Hg] [facility] Heart rate 2019-12-16 11:23:00 90 /min [facility] Body height 2019-12-16 09:00:00 167.6 cm [facility] Body weight Measured 2019-12-16 09:00:00 79.833 kg [facility] BMI 2019-12-16 09:00:00 28.41 kg/m2 [facility] Body temperature 2019-11-25 13:03:00 36.61 Lili [facility] Respiratory rate 2019-11-25 13:03:00 18 /min [facility] Systolic blood pressure 2019-08-31 21:05:00 189 mm[Hg] Ede Felix Diastolic blood pressure 2019-08-31 21:05:00 78 mm[Hg] Ede Felix Heart rate 2019-08-31 21:05:00 71 /min Ede Felxi Body temperature 2019-08-31 21:05:00 37 Lili Toni Felix Respiratory rate 2019-08-31 21:05:00 19 /min Toni Felix Oxygen saturation in Arterial blood by Pulse oximetry 2018-10 21:05:00 99 /min Ede Felix Body height 2019-08-31 15:20:00 167.6 cm Eed Felix Body weight 2019-08-31 15:20:00 81.647 kg Ede Felix BMI 2019-08-31 15:20:00 29.05 kg/m2 Ede Felix Procedures Procedure Date / Time Performed Performing Clinician [facility] e MRI non-joint region of extremity lower wo contrast 2020-06-13 0 0:00:00 [facility] PERIPHERAL VASCULAR REPORT - SCAN 2019-12-17 21:22:21 Provid er, Default Scanning [facility] ECHOCARDIOGRAM REPORT - SCAN 2019-12-17 21:20:34 ProviderConsuelo lt Scanning [facility] TRANSFUSION SERVICE REPORT - SCAN 2019-12-17 18:05:20 Provid er, Default Scanning [facility] STRESS ECHO 2019-12-16 11:08:14 Lisa Chen [facility] 2D ECHO W/ DOPPLER (CW/PW/COLOR) 2019-12-16 10:28:46 Andrey Chen [facility] TREADMILL TOLERANCE(NON-NUCLEAR TREADMILL) 2019-12-16 10:00: 09 Unknown, Hl7 Doctor [facility] ECG 12-LEAD 2019-12-16 09:18:16 Lisa Chen [facility] XR CHEST 2 VIEWS 2019-12-16 08:56:00 Lisa Chen [facility] US ABDOMEN COMPLETE 2019-12-16 08:07:[address] [facility] PSA 2019-12-16 07:13:00 Lisa Chen [facility] LIPID PANEL 2019-12-16 07:13:00 TimLisa mane [facility] HEMOGLOBIN A1C 2019-12-16 07:13:00 TimLisa mane [facility] BLOOD TYPING, AUTOMATED 2019-12-16 07:13:00 Lisa Chen [facility] TRANSFUSION SERVICE REPORT - SCAN 2019-11-26 18:07:11 Provid er, Default Scanning [facility] HEPATITIS B SURFACE ANTIBODY 2019-11-25 11:50:00 TimminSnow godoy Annmarie [facility] HEPATITIS B SURFACE ANTIGEN 2019-11-25 11:50:00 TimShital mane [facility] HEPATITIS B CORE ANTIBODY, IGM 2019-11-25 11:50:00 TimminsMary [facility] HEPATITIS C ANTIBODY 2019-11-25 11:50:00 TimLisa mane [facility] HIV-1 ANTIGEN WITH HIV-1/2 ANTIBODY 2019-11-25 11:50:00 TimLisa mane [facility] PTH, INTACT 2019-11-25 11:50:00 TimminLisa godoy [facility] T SPOT TB 2019-11-25 11:50:00 TimLisa mane [facility] HLA TYPING CI 2019-11-25 11:50:00 [facility] 2019-11-25 11:50:00 [facility] DIRECT AHG (FELIPA)/DIRECT ANANYA 2019-11-25 11:50:00 TimminMary godoy Annmarie [facility] BLOOD TYPING, AUTOMATED 2019-11-25 11:50:00 TimLisa mane [facility] CYTOMEGALOVIRUS ANTIBODY, IGG 2019-11-25 11:49:00 TimminsClair [facility] CYTOMEGALOVIRUS ANTIBODY, IGM 2019-11-25 11:49:00 [facility] moss [facility] COMPREHENSIVE METABOLIC PANEL 2019-11-25 11:49:00 [facility] Clair gayriki [facility] EBV ANTIBODY, IGM 2019-11-25 11:49:00 [facility] GAMMA GLUTAMYL TRANSFERASE (GGT) 2019-11-25 11:49:00 [facility] Andrey stevo [facility] LACTATE DEHYDROGENASE (LDH) 2019-11-25 11:49:00 Timmins, Shital carlos [facility] PHOSPHORUS 2019-11-25 11:49:00 [facility] PT/APTT 2019-11-25 11:49:00 [facility] RPR 2019-11-25 11:49:00 [facility] URIC ACID 2019-11-25 11:49:00 [facility] VARICELLA ZOSTER ANTIBODY, IGG 2019-11-25 11:49:00 [facility] Maryayo wilson [facility] FLOW PRA CLASS I WITH REFLEX TO ANTIBODY SPECIFICITY 2019-11 11:49:00 [facility] FLOW PRA CLASS II WITH REFLEX TO ANTIBODY SPECIFICITY 11-25 11:49:00 [facility] RPR TITER 2019-11-25 11:49:00 [facility] TREPONEMA PALLIDUM - SYPHILIS IGG 2019-11-25 11:49:00 [facility] AB SPECIFICITY CLASS I 2019-11-25 11:49:00 [facility] CBC W/PLT COUNT & AUTO DIFFERENTIAL 2019-11-25 11:49:00 [facility] URINALYSIS SCREEN AND MICROSCOPY, WITH REFLEX TO CULTURE 201 07-01-11 15:21:00 Jim Aguillon HC COMPLETE BLD COUNT W/AUTO DIFF 2019-08-31 15:19:00 Myrna Aguillon COMPREHENSIVE METABOLIC PANEL 2019-08-31 15:19:00 Jim Aguillon LIPASE LEVEL 2019-08-31 15:19:00 Jim Aguillon ESTIMATED GFR 2019-08-31 15:19:00 Jim Aguillon Plan of Care Planned Activity Planned Date Details Comments Source Future Scheduled Test 2022-12-16 00:00:00 Lipid panel (proce dure) [code = 78393918] [facility] [employer] Future Scheduled Test 2021-08-13 00:00:00 PNEUMOCOCCAL VACCI NE 2-64 YEARS AT RISK (3 of 3 - PPSV23) [code = PNEUMOCOCCAL VACCINE 2-64 YEARS AT RISK (3 of 3 - PPSV23)] [facility] [employer] Future Scheduled Test 2020-07-21 00:00:00 INFLUENZA VACCINE [code = INFLUENZA VACCINE] [facility] Scheduled Test 2020-06-21 00:00:00 INFLUENZA VACCINE (#1) [code = INFLUENZA VACCINE (#1)] [facility] [employer] Future Scheduled Test 2020-06-15 00:00:00 Hemoglobin A1c juliette surement (procedure) [code = 42630933] [facility] [employer] Future Scheduled Test 2019-10-22 00:00:00 MEDICARE ANNUAL WE LLNESS (YEAR 2 or FIRST YEAR if no IPPE) [code = MEDICARE ANNUAL WELLNESS (YEAR 2 or FIRST YEAR if no IPPE)] [facility] [employer] Future Scheduled Test 2017-04-17 00:00:00 SHINGLES VACCINES (#2) [code = SHINGLES VACCINES (#2)] [facility] Future Scheduled Test 2007 00:00:00 COLONOSCOPY SCREEN ING [code = COLONOSCOPY SCREENING] [facility] Future Scheduled Test 1967 00:00:00 DIABETIC FOOT EXAM [code = DIABETIC FOOT EXAM] [facility] Future Scheduled Test 1967 00:00:00 URINE MICROALBUMIN [code = URINE MICROALBUMIN] [facility] Scheduled Test 1967 00:00:00 DIABETIC EYE EXAM [code = DIABETIC EYE EXAM] [facility] Future Scheduled Test 1967 00:00:00 Diabetic foot exam ination (regime/therapy) [code = 966047463] [facility] ical [place] Future Scheduled Test 1967 00:00:00 Urine screening fo r protein (procedure) [code = 755610429] [facility] Future Scheduled Test 1957 00:00:00 DIABETIC RETINAL E YE EXAM [code = DIABETIC RETINAL EYE EXAM] [facility] Future Scheduled Test 1957 00:00:00 Screening for barbara gnant neoplasm of colon (procedure) [code = 062384152] [facility] Fever - Adult [facility] Instructions Foot Care for Diabetics [facility] Instructions Peritoneal Dialysis [facility] Instructions Antibiotic Resistance [facility] Instructions Diabetes and Diet [facility] Instructions Foot Care for Diabetics [facility] Encounters Start Date/Time End Date/Time Encounter Type Admission Type Attendi [facility] Care Department Encounter ID Source 2020-06-12 10:15:00 2020-06-14 09:51:00 Discharged Inpatient 1 JOHAN RANGEL [facility] [id number] [facility] 2019-08-31 00:00:00 2019-08-31 00:00:00 Emergency [facility] 064 [id number] [facility] Results Test Description Test Time Test Comments Results Result Comments Source Capillary blood glucose measurement by glucometer (mas s/volume) 2020-06-13 21:00:00 Test Item Bedside Glucose (test code = 12357-4) 142 70-120 Meter ID: [id number] leukocytes automated count (number/volume)2020-06-13 11:41:00* Test Item Value Reference Range Interpretation Comments White Blood Count (test code = 6690-2) 6.96 4.8-10.8 [facility] erythrocytes automated count (number/volume)2020-06-13 11:41:00* Test Item Value Reference Range Interpretation Comments Red Blood Count (test code = 789-8) 3.33 4.3-5.7 [facility] Hospital[facility] hemoglobin measurement (moles/volume)2020-06-13 11:41:00* Test Item Value Reference Range Interpretation Comments Hemoglobin (test code = 16904-0) 9.2 14.0-18.0 [facility] HospitalAutom[facility] blood hematocrit (volume fraction)2020-06-13 11:41:00* Test Item Value Reference Range Interpretation Comments Hematocrit (test code = 4544-3) 30.0 38.2-49.6 [facility] HospitalAutomated erythrocyte mean corpuscular [id number] 11:41:00* Test Item Value Reference Range Interpretation Comments Mean Corpuscular Volume (test code = 787-2) 90.1 81-99 [facility] HospitalAutom[facility] erythrocyte mean corpuscular hemoglobin (mass per erythrocyte)2020-06-13 11:41:00* Test Item Value Reference Range Interpretation Comments Mean Corpuscular Hemoglobin (test code = 785-6) 27.6 28-32 [facility] HospitalAutom[facility] erythrocyte mean corpuscular hemoglobin concentration measurement (mass/volume)2020-06-13 11:41:00* Test Item Value Reference Range Interpretation Comments Mean Corpuscular Hemoglobin Concent (test code = 786-4) 30.7 31-35 [facility] HospitalRDW [id number] 11:41:00* Test Item Value Reference Range Interpretation Comments Red Cell Distribution Width (test code = 67659-9) 14.0 11.7 -14.4 [facility] HospitalAutom[facility] blood platelet count (count/volume)2020-06-13 11:41:00* Test Item Value Reference Range Interpretation Comments Platelet Count (test code = 777-3) 247 140-360 [facility] neutrophil count as percentage of total [id number] 11:41:00* Test Item Value Reference Range Interpretation Comments Neutrophils (%) (Auto) (test code = 64875-0) 60.9 38.7-80.0 [facility] HospitalAutomated blood lymphocyte count as percentage ot total [id number] 11:41:00* Test Item Value Reference Range Interpretation Comments Lymphocytes (%) (Auto) (test code = 736-9) 28.3 18.0-39.1 [facility] HospitalAutomated blood monocyte count as percentage of total [id number] 11:41:00* Test Item Value Reference Range Interpretation Comments Monocytes (%) (Auto) (test code = 5905-5) 7.9 4.4-11.3 [facility] HospitalAutom[facility] blood eosinophil count as percentage of total [id number] 11:41:00* Test Item Value Reference Range Interpretation Comments Eosinophils (%) (Auto) (test code = 713-8) 2.4 0.0-6.0 [facility] HospitalAutomated blood basophil count as percentage of total [id number] 11:41:00* Test Item Value Reference Range Interpretation Comments Basophils (%) (Auto) (test code = 706-2) 0.4 0.0-1.0 [facility] HospitalFluoroscopic procedure less than one hour [id number] 11:41:00* Test Item Value Reference Range Interpretation Comments IM GRANULOCYTES % (test code = IM GRANULOCYTES %) 0.1 0.0- 1.0 [facility] HospitalAutom[facility] blood neutrophil count 2020-06-13 11:41:00* Test Item Value Reference Range Interpretation Comments Neutrophils # (Auto) (test code = 751-8) 4.2 2.1-6.9 [facility] HospitalBlood lymphocytes count (number/volume) 2020-06-13 11:41:00* Test Item Value Reference Range Interpretation Comments Lymphocytes # (Auto) (test code = 41589-6) 2.0 1.0-3.2 [facility]Bl[facility] [place] monocytes automated count (number/volume)2020-06-13 11:41:00* Test Item Value Reference Range Interpretation Comments Monocytes # (Auto) (test code = 742-7) 0.6 0.2-0.8 [facility] HospitalAutomated blood eosinophil count 2020-06-13 11:41:00* Test Item Value Reference Range Interpretation Comments Eosinophils # (Auto) (test code = 711-2) 0.2 0.0-0.4 [facility] HospitalAutomated blood basophil count (count/volume)2020-06-13 11:41:00* Test Item Value Reference Range Interpretation Comments Basophils # (Auto) (test code = 704-7) 0.0 0.0-0.1 [facility] HospitalFluoroscopic procedure less than one hour [id number] 11:41:00* Test Item Value Reference Range Interpretation Comments Absolute Immature Granulocyte (auto (marlon t code = Absolute Immature Granulocyte (auto) 0.01 0-0.1 [facility] sodium measurement (moles/volume)2020-06-13 11:41:00* Test Item Value Reference Range Interpretation Comments Sodium Level (test code = 2951-2) 141 136-145 [facility] plasma potassium measurement (moles/volume)2020-06-13 11:41:00* Test Item Value Reference Range Interpretation Comments Potassium Level (test code = 2823-3) 5.2 3.5-5.1 [facility] or plasma chloride measurement (moles/volume)2020-06-13 11:41:00* Test Item Value Reference Range Interpretation Comments Chloride Level (test code = 2075-0) 102 98-107 [facility] or plasma carbon dioxide, total measurement (moles/volume)2020-06-13 11:41:00* Test Item Value Reference Range Interpretation Comments Carbon Dioxide Level (test code = 2028-9) 28 22-29 [facility] or plasma anion [id number] 11:41:00* Test Item Value Reference Range Interpretation Comments Anion Gap (test code = 10820-3) 16.2 8-16 [facility] or plasma urea nitrogen measurement (mass/volume)2020-06-13 11:41:00* Test Item Value Reference Range Interpretation Comments Blood Urea Nitrogen (test code = 3094-0) 51 7- [facility] plasma creatinine measurement (mass/volume)2020-06-13 11:41:00* Test Item Value Reference Range Interpretation Comments Creatinine (test code = 2160-0) 6.31 0.72-1.25 [facility] or plasma urea nitrogen/creatinine mass [id number] 11:41:00* Test Item Value Reference Range Interpretation Comments BUN/Creatinine Ratio (test code = 3097-3) 8 6-25 [facility] HospitalEstimated glomerular filtration rate (GFR) zydibwopywisv1668-21-52 11:41:00* Test Item Value Reference Range Interpretation Comments Estimat Glomerular Filtration Rate (test code = 021542517) 9 >60 Ranges were taken from the National Kidney Disease Education Program and the [facility] literature.Reference ranges:60 or greater: Frlrit57-05 ( for 3 consecutive months): Chronic kidney disease 15 or less: Kidney failureUT Health East Texas Carthage HospitalGlucose xjjambuzttj2761-12-71 11:41:00* Test Item Value Reference Range Interpretation Comments Glucose Level (test code = MDJ0455) 157 74-118 [facility] Hospitalerum or plasma calcium measurement (mass/volume)2020-06-13 11:41:00* Test Item Value Reference Range Interpretation Comments Calcium Level (test code = 00130-7) 7.5 8.4-10.2 [facility] HospitalMRI FOOT LEFT [id number] 09:26:00 [facility] [address] [address] Patient Name: JED BASSETT JR MR #: [id number] : 1955 Age/Sex: 64/M Req #: [id number] Adm Physician: JOHAN RANGEL MD Ordered by: JOHAN RANGEL MD Report #: [id number] Location: MED/SURG2 Room/Bed: [facility] Procedure: [id number] MRI/MRI FOOT LEF T WO Exam Date: Exam Time: REPORT STATUS: Signed MRI of the left forefoot witho ut contrast. History: Foot infection. Infection at the bottom of the toes. Fever of unknown origin. Osteomyelitis. Hypertension. Diabetes. Technique : Multiplanar multisequence MRI of the foot without contrast. Comparison: Radiographs 06/12/2020 Findings: Abnormal skin thickening and blistering of the plantar aspect of the foot most pronounced at the first metatarsophal angeal joint level. This is best seen on series 3 image 13 through 16. No well -formed drainable fluid collection/abscess is seen. Chronic appearing def ormity of the fifth metatarsophalangeal joint. Scattered degenerative luu e. No osseous erosion. No focal bone marrow edema or cortical destruction i s seen to suggest osteomyelitis. Diffuse muscle atrophy. No ligament ous or tendon tear. The visualized neurovascular bundles are intact. I mpression: Chronic appearing deformity of the fifth metatarsophalangeal joint. Scattered degenerative change. No focal bone marrow edema or cortical destruc tion is seen to suggest osteomyelitis. Abnormal skin thickening and blist ering of the plantar aspect of the foot most pronounced at the first metatarso phalangeal joint level. This is best seen on series 3 image 13 through 16. No well-formed drainable fluid collection/abscess is seen. Findings are most cons istent with cellulitis. Signed by: Dr. Brittney Otero M.D. on 06/13/2020 9: 32 AM Dictated By: BRITTNEY OTERO MD, MD 1 Transcribed By: RICARDO on 06/13/20931 CO PY TO: JOHAN RANGEL MD Specimen source identification of body fluid 2020-06-13 05:00:00* Test Item Value Reference Range Interpretation Comments Body Fluid Type (test code = 90741-7) [facility]ONEAL [facility] of body fluid 2020-06-13 05:00:00* Test Item Value Reference Range Interpretation Comments Body Fluid Color (test code = 6824-7) COLORLESS [facility] HospitalDetermination of appearance of body fluid 2020-06-13 05:00:00* Test Item Value Reference Range Interpretation Comments Body Fluid Appearance (test code = 9335-1) CLEAR [facility] body fluid leukocytes count (number/volume)2020-06-13 05:00:00* Test Item Value Reference Range Interpretation Comments Body Fluid WBC (test code = 6743-9) 14 [facility] erythrocytes count (number/volume)2020-06-13 05:00:00* Test Item Value Reference Range Interpretation Comments Body Fluid RBC (test code = 6741-3) 19 [facility] body fluid neutrophils/100 moknneoemb3617-19-78 05:00:00* Test Item Value Reference Range Interpretation Comments Body Fluid Neutrophils (test code = 26351-2) 4 [facility] HospitalBody fluid lymphocyte ncbei4402-90-68 05:00:00* Test Item Value Reference Range Interpretation Comments Body Fluid Lymphocytes (test code = 55771178) 22 [facility] HospitalBody fluid monocyte cgvhd4706-55-24 05:00:00* Test Item Value Reference Range Interpretation Comments Body Fluid Monocytes (test code = 38505-7) 74 [facility] HospitalBody fluid other cells manual count 2020-06-13 05:00:00* Test Item Value Reference Range Interpretation Comments Body Fluid Other Cells (test code = 379039439) See Comment --- 06/13/20 1429 ---BF OTHER CELLS previously reported as: %5-8 MESOTHELIAL CELLSUT Health [facility] HospitalTotal cell uevmb5133-60-53 05:00:00 * Test Item Value Reference Range Interpretation Comments Body Fluid Total Cells Counted (test code = 59384-2) 50 [facility] HospitalFOOT LEFT AP UGH3904-20-56 10:46:00 [facility] [address] [place] [address] Patient Name: JED BASSETT JR MR #: [id number] : 1955 Age/Sex: 64/M Req #: [id number] Adm Physician: JOHAN RANGEL MD Ordered by: JOHAN RANGEL MD Report #: [id number] Location: [facility]/SURG2 Room/Bed: [facility] Procedure: [id number] DX/FOOT LEFT AP LAT Exam Date: 06/12/20 Exam Time: 1024 REPORT STATUS: Signed FOOT LEFT AP LAT - 3 views HISTORY: Left foot wound. Concern for a small areas. COMPARISON: None available. FINDINGS: Bones: There is no acute fracture. D iffuse periarticular osteopenia. Small plantar calcaneal enthesophyte. Gudelia ints: Abnormal fifth metatarsophalangeal joint with subchondral erosive change s of the fifth metatarsal head without superimposed Soft tissues: Ather osclerotic vascular calcifications. IMPRESSION: Abnormal fifth metata rsophalangeal joint with with mild erosive changes/cyst lysis of the fifth met atarsal head and base of the proximal phalanx may be infectious in etiology. C onsider further evaluation with MRI of foot without and with contrast. Si gned by: Dr. Jeramy Mortensen M.D. on 06/12/2020 10:50 AM Dictated By : JULIA MORTENSEN MD, MD 49 COPY TO: JOHAN RANGEL Serum or plasma creatine kinase measurement (enzymatic activity/volume)2020-06-11 11:40:00* Test Item Value Reference Range Interpretation Comments Creatine Kinase (test code = 2157-6) 23 30-200 [facility] Hospitalerum or plasma creatine kinase MB measurement (mass/volume)2020-06-11 11:40:00* Test Item Value Reference Range Interpretation Comments Creatine Kinase MB (test code = 29389-9) 0.40 0-5.0 [facility] HospitalTroponin I measurement by highly sensitive enzyme etblfmswhxp5404-63-23 11:40:00* Test Item Value Reference Range Interpretation Comments Troponin I (test code = 59325-3) 0.012 0-0.300 [facility] HospitalFluoroscopic procedure less than one hour rnnbwnvn7583-59-28 05:45:00* Test Item Value Reference Range Interpretation Comments Hemoglobin A1c Percent (test code = Hemoglobin A1c Percent) 7.6 4.0-7.0 [facility] Hospitalerum or plasma total bilirubin measurement (mass/volume)2020-06-11 05:45:00* Test Item Value Reference Range Interpretation Comments Total Bilirubin (test code = 1975-2) 0.4 0.2-1.2 [facility] HospitalFluoroscopic procedure less than one hour lccvkqio5749-03-28 05:45:00* Test Item Value Reference Range Interpretation Comments Aspartate Amino Transf (AST/SGOT) (test code = Aspartate Amino Transf (AST/SGOT)) 14 5-34 [facility] Hospitalerum or plasma alanine aminotransferase measurement (enzymatic activity/volume)2020-06-11 05:45:00* Test Item Value Reference Range Interpretation Comments Alanine Aminotransferase (ALT/SGPT) (test code = 1742-6) 7 0-55 [facility] Hospitalerum or plasma protein measurement (mass/volume)2020-06-11 05:45:00* Test Item Value Reference Range Interpretation Comments Total Protein (test code = 2885-2) 6.8 6.5-8.1 [facility] Hospitalerum or plasma albumin measurement (mass/volume)2020-06-11 05:45:00* Test Item Value Reference Range Interpretation Comments Albumin (test code = 1751-7) 2.7 3.5-5.0 [facility] HospitalPlasma globulin measurement (mass/volume) 2020-06-11 05:45:00* Test Item Value Reference Range Interpretation Comments Globulin (test code = 06823-9) 4.1 2.3-3.5 [facility] Hospitalerum or plasma albumin/globulin mass nolha9399-16-55 05:45:00* Test Item Value Reference Range Interpretation Comments Albumin/Globulin Ratio (test code = 1759-0) 0.7 0.8-2.0 [facility] Hospitalerum or plasma alkaline phosphatase measurement (enzymatic activity/volume)2020-06-11 05:45:00* Test Item Value Reference Range Interpretation Comments Alkaline Phosphatase (test code = 6768-6) 111 40-150 [facility] Hospitalerum or plasma triglyceride measurement (mass/volume)2020-06-11 05:45:00* Test Item Value Reference Range Interpretation Comments Triglycerides Level (test code = 2571-8) 76 0-149 [facility] Hospitalerum or plasma cholesterol measurement (mass/volume)2020-06-11 05:45:00* Test Item Value Reference Range Interpretation Comments Cholesterol Level (test code = 2093-3) 58 0-199 Less than 200 mg/dL Low Puuv944 - 239 mg/dL Borderline Ycyw265 m g/dl and greater High Risk [facility] Hospitalerum or plasma cholesterol in LDL measurement (mass/volume) 2020-06-11 05:45:00* Test Item Value Reference Range Interpretation Comments LDL Cholesterol (test code = 2089-1) 19 60-130 [facility] Hospitalerum or plasma cholesterol in HDL measurement (mass/volume)2020-06-11 05:45:00* Test Item Value Reference Range Interpretation Comments HDL Cholesterol (test code = 2085-9) 24 40-60 [facility] Hospitalerum or plasma total cholesterol/cholesterol in HDL mass buuom5857-79-98 05:45:00* Test Item Value Reference Range Interpretation Comments Cholesterol/HDL Ratio (test code = 9830-1) 2.4 3.9-4.7 [facility] HospitalUrine color mhjnynuzexgxn7002-17-79 01:20:00* Test Item Value Reference Range Interpretation Comments Urine Color (test code = 5778-6) YELLOW YELLOW DARK YELLOWUT Health East [facility] Carth[facility] HospitalUrine jsmxqtv3789-33-36 01:20:00* Test Item Value Reference Range Interpretation Comments Urine Clarity (test code = 03913-2) SL CLOUDY CLEAR [facility] Hospitalpecific gravity of Urine by Test strip 2020-06-11 01:20:00* Test Item Value Reference Range Interpretation Comments Urine Specific [place] (test code = 5811-5) 1.020 1.010-1.02 5 [facility] HospitalUrine pH measurement by automated test cudhn1587-95-50 01:20:00* Test Item Value Reference Range Interpretation Comments Urine pH (test code = 97383-7) 6.5 5-7 [facility] HospitalUrine leukocyte esterase detection by fpamdymh0161-42-14 01:20:00* Test Item Value Reference Range Interpretation Comments Urine Leukocyte Esterase (test code = 5799-2) NEGATIVE NEGATIVE [facility] HospitalUrine nitrite camfsqcnn0396-03-12 01:20:00* Test Item Value Reference Range Interpretation Comments Urine Nitrite (test code = 39314-8) NEGATIVE NEGATIVE [facility] HospitalUrine protein measurement by test strip (mass/volume)2020-06-11 01:20:00* Test Item Value Reference Range Interpretation Comments Urine Protein (test code = 5804-0) >=300 NEGATIVE [facility] HospitalUrine glucose wowxofsvj5390-89-30 01:20:00* Test Item Value Reference Range Interpretation Comments Urine Glucose (UA) (test code = 2349-9) NEGATIVE NEGATIVE [facility] HospitalUrine ketones detection by automated test zflaq7832-87-76 01:20:00* Test Item Value Reference Range Interpretation Comments Urine Ketones (test code = 64172-2) NEGATIVE NEGATIVE [facility] HospitalUrine urobilinogen measurement by test strip (mass/volume)2020-06-11 01:20:00* Test Item Value Reference Range Interpretation Comments Urine Urobilinogen (test code = 37451-0) 0.2 0.2-1 [facility] HospitalUrine total bilirubin measurement (mass/volume)2020-06-11 01:20:00* Test Item Value Reference Range Interpretation Comments Urine Bilirubin (test code = 1978-6) NEGATIVE NEGATIVE [facility] HospitalUrine erythrocytes fffunekqx8454-96-73 01:20:00* Test Item Value Reference Range Interpretation Comments Urine Blood (test code = 53701-9) TRACE NEGATIVE [facility] HospitalAutomated urine sediment leukocyte count by microscopy (number/high power field)2020-06-11 01:20:00* Test Item Value Reference Range Interpretation Comments Urine WBC (test code = 5821-4) 0-5 0-5 [facility] HospitalErythrocytes detection in urine sediment by light tmfdiofmzi6204-40-32 01:20:00* Test Item Value Reference Range Interpretation Comments Urine RBC (test code = 58309-2) 0-5 0-5 [facility] HospitalBacteria detection in urine sediment by light cdgwnvhrsa8085-28-21 01:20:00* Test Item Value Reference Range Interpretation Comments Urine Bacteria (test code = 23250-5) FEW NONE [facility] HospitalEpithelial cells detection in urine sediment by light ibcmrnwasc3776-95-49 01:20:00* Test Item Value Reference Range Interpretation Comments Urine Epithelial Cells (test code = 66432-6) FEW NONE [facility] HospitalAmorphous sediment detection in urine sediment by light fwqnhusgon9967-55-46 01:20:00* Test Item Value Reference Range Interpretation Comments Urine Amorphous Sediment (test code = 8246-1) MODERATE FEW [facility] HospitalCHEST SINGLE (PORTABLE)2020-06-10 18:47:00 [facility] [address] [place] [address] Patient Name: JED BASSETT MR #: [id number] : 1955 Age/Sex: 64/M Req #: [id number] Adm Physician: Ordered by: LILLIANA CRAFT DO Report #: [id number] Location: ER Room/Bed: Procedure: [id number] DX/CHEST SINGLE (P ORTABLE) Exam Date: 06/10/20 Exam Time: 1821 REPORT STATUS: Signed EXAMINATION: [facility] SINGLE (PORTABLE) COMPARISON: None INDICATION: Chills n/v [id number] DISCUSSION: Frontal view of the chest obtained at 1822 hours. HEART AND MEDIASTINUM: The heart is top normal in size. There are calcifications of the aortic arch LINES: Dual lumen central venous catheter terminates in the SVC LUNGS/PLEURA: The lungs are well inflated and clear. Pulmonary vascular markings are normal. No pneumonia or pulmonary e yoselin. No pleural effusion or pneumothorax. BONES AND SOFT TISSUES: No fo eleni osseous lesion. The soft tissues are normal. IMPRESSION: No acute cardiopulmonary disease. Signed by: Dr. Gemma Harrell MD on 06/10/2020 6:48 PM Dictated By: GEMMA HARRELL MD 47 Transcribed By: RICARDO on 06/10/201847 COPY TO: LILLIANA CRAFT DO Fluoroscopic procedure less than one hour yeoogazl9963-35-71 18:29:00* Test Item Value Reference Range Interpretation Comments Lactic Acid Level (test code = Lactic Acid Level) 1.7 0.5- 2.0 [facility] HospitalFluoroscopic procedure less than one hour xirxkcxv1466-06-33 18:29:00* Test Item Value Reference Range Interpretation Comments Coronavirus (PCR) (test code = Coronavirus (PCR)) NOT DETECTED NOTD ETECTED [facility] [employer] SARS-CoV-2 assay is a nucleic amplification test intended for the qualitative detection of RNA from SARS-CoV-2 from nasopharyngeal (GEOLOGY INSTRUCTOR) specimens. It is used under Emergency Use Authorization (EUA) by FDA.A positive result is indicative of the presence of SARS-CoV-2 RNA. Clinical correlation with patient history and other diagnostic information is necessary to determine patient infe ction status.A negative (Not Detected) result does not preclude SARS-CoV-2 infec tion. Clinical Correlation with patient history and other diagnostic information should be used in patient management decisions.Invalid: Unable to generate a va lid result on this specimen. Please submit a new specimen for reprat testing oc clinically indicated.Tesing performed by:[facility] [address] [place] [address] [id number], Rocael Martinez MD, PhD [facility] HospitalBlood uedeoyk1054-68-30 18:29:00* Test Item Value Reference Range Interpretation Comments Blood Culture (test code = 54618602) NO GROWTH AFTER 72 HOURS [facility] HospitalCapillary blood glucose measurement by glucometer (mass/volume)2020-05-21 14:49:00* Test Item Value Reference Range Interpretation Comments Bedside Glucose (test code = 40635-4) 292 70-120 Meter ID: [id number] [facility]Blfederal [facility] [place] leukocytes automated count (number/volume)2020-05-20 05:15:00* Test Item Value Reference Range Interpretation Comments White Blood Count (test code = 6690-2) 8.36 4.8-10.8 [facility] HospitalBlfederal medical center[facility] [place] erythrocytes automated count (number/volume)2020-05-20 05:15:00* Test Item Value Reference Range Interpretation Comments Red Blood Count (test code = 789-8) 3.38 4.3-5.7 [facility] HospitalBlood hemoglobin measurement (moles/volume)2020-05-20 05:15:00* Test Item Value Reference Range Interpretation Comments Hemoglobin (test code = 39836-6) 9.7 14.0-18.0 [facility] HospitalAutomated blood hematocrit (volume fraction)2020-05-20 05:15:00* Test Item Value Reference Range Interpretation Comments Hematocrit (test code = 4544-3) 30.7 38.2-49.6 [facility] HospitalAutomated erythrocyte mean corpuscular dzfvxj2280-35-83 05:15:00* Test Item Value Reference Range Interpretation Comments Mean Corpuscular Volume (test code = 787-2) 90.8 81-99 [facility] HospitalAutomated erythrocyte mean corpuscular hemoglobin (mass per erythrocyte)2020-05-20 05:15:00* Test Item Value Reference Range Interpretation Comments Mean Corpuscular Hemoglobin (test code = 785-6) 28.7 28-32 [facility] HospitalAutomated erythrocyte mean corpuscular hemoglobin concentration measurement (mass/volume)2020-05-20 05:15:00* Test Item Value Reference Range Interpretation Comments Mean Corpuscular Hemoglobin Concent (test code = 786-4) 31.6 31-35 [facility] HospitalRDW CkrGr-Hao0492-52-31 05:15:00* Test Item Value Reference Range Interpretation Comments Red Cell Distribution Width (test code = 81119-0) 14.0 11.7 -14.4 [facility] HospitalAutomated blood platelet count (count/volume)2020-05-20 05:15:00* Test Item Value Reference Range Interpretation Comments Platelet Count (test code = 777-3) 191 140-360 [facility] HospitalAutatrium healthed blood segmented neutrophil count as percentage of total pfhvdjzedb3232-50-64 05:15:00* Test Item Value Reference Range Interpretation Comments Neutrophils (%) (Auto) (test code = 15340-3) 52.3 38.7-80.0 [facility] HospitalAutomated blood lymphocyte count as percentage ot total ibpehwzlyr3152-76-29 05:15:00* Test Item Value Reference Range Interpretation Comments Lymphocytes (%) (Auto) (test code = 736-9) 30.6 18.0-39.1 [facility] HospitalAutomated blood monocyte count as percentage of total pcpkktdyrf1369-85-98 05:15:00* Test Item Value Reference Range Interpretation Comments Monocytes (%) (Auto) (test code = 5905-5) 14.8 4.4-11.3 [facility] HospitalAutomated blood eosinophil count as percentage of total yssfuvmppj9090-93-11 05:15:00* Test Item Value Reference Range Interpretation Comments Eosinophils (%) (Auto) (test code = 713-8) 1.4 0.0-6.0 [facility] HospitalAutomated blood basophil count as percentage of total aylgwetwnc8303-98-55 05:15:00* Test Item Value Reference Range Interpretation Comments Basophils (%) (Auto) (test code = 706-2) 0.5 0.0-1.0 [facility] HospitalFluoroscopic procedure less than one hour efteardv4339-85-87 05:15:00* Test Item Value Reference Range Interpretation Comments IM GRANULOCYTES % (test code = IM GRANULOCYTES %) 0.4 0.0- 1.0 [facility] HospitalAutomated blood neutrophil count 2020-05-20 05:15:00* Test Item Value Reference Range Interpretation Comments Neutrophils # (Auto) (test code = 751-8) 4.4 2.1-6.9 [facility] HospitalBlood lymphocytes count (number/volume) 2020-05-20 05:15:00* Test Item Value Reference Range Interpretation Comments Lymphocytes # (Auto) (test code = 59262-5) 2.6 1.0-3.2 [facility] HospitalBlfederal medical center, [place] monocytes automated count (number/volume)2020-05-20 05:15:00* Test Item Value Reference Range Interpretation Comments Monocytes # (Auto) (test code = 742-7) 1.2 0.2-0.8 [facility] HospitalAutomated blood eosinophil count 2020-05-20 05:15:00* Test Item Value Reference Range Interpretation Comments Eosinophils # (Auto) (test code = 711-2) 0.1 0.0-0.4 [facility] HospitalAutomated blood basophil count (count/volume)2020-05-20 05:15:00* Test Item Value Reference Range Interpretation Comments Basophils # (Auto) (test code = 704-7) 0.0 0.0-0.1 [facility] HospitalFluoroscopic procedure less than one hour phxhxbtf9371-26-11 05:15:00* Test Item Value Reference Range Interpretation Comments Absolute Immature Granulocyte (auto (marlon t code = Absolute Immature Granulocyte (auto) 0.03 0-0.1 [facility] Hospitalerum or plasma sodium measurement (moles/volume)2020-05-18 04:40:00* Test Item Value Reference Range Interpretation Comments Sodium Level (test code = 2951-2) 140 136-145 [facility] Hospitalerum or plasma potassium measurement (moles/volume)2020-05-18 04:40:00* Test Item Value Reference Range Interpretation Comments Potassium Level (test code = 2823-3) 4.7 3.5-5.1 [facility] Hospitalerum or plasma chloride measurement (moles/volume)2020-05-18 04:40:00* Test Item Value Reference Range Interpretation Comments Chloride Level (test code = 2075-0) 103 98-107 [facility] Hospitalerum or plasma carbon dioxide, total measurement (moles/volume)2020-05-18 04:40:00* Test Item Value Reference Range Interpretation Comments Carbon Dioxide Level (test code = 2028-9) 26 22-29 [facility] Hospitalerum or plasma anion slr1267-51-72 04:40:00* Test Item Value Reference Range Interpretation Comments Anion Gap (test code = 73330-3) 15.7 8-16 [facility] Hospitalerum or plasma urea nitrogen measurement (mass/volume)2020-05-18 04:40:00* Test Item Value Reference Range Interpretation Comments Blood Urea Nitrogen (test code = 3094-0) 40 7-26 [facility] Hospitalerum or plasma creatinine measurement (mass/volume)2020-05-18 04:40:00* Test Item Value Reference Range Interpretation Comments Creatinine (test code = 2160-0) 5.59 0.72-1.25 [facility] Hospitalerum or plasma urea nitrogen/creatinine mass ataor0038-57-68 04:40:00* Test Item Value Reference Range Interpretation Comments BUN/Creatinine Ratio (test code = 3097-3) 7 6-25 [facility] HospitalEstimated glomerular filtration rate (GFR) fuicunewutqkd0488-42-68 04:40:00* Test Item Value Reference Range Interpretation Comments Estimat Glomerular Filtration Rate (test code = 729001029) 10 >60 Ranges were taken from the National Kidney Disease Education Program and the [facility] literature.Reference ranges:60 or greater: Ulkmzh22-97 ( for 3 consecutive months): Chronic kidney disease 15 or less: Kidney failureUT Health East Texas Carthage HospitalGlucose fzmjzjqwljp5777-91-11 04:40:00* Test Item Value Reference Range Interpretation Comments Glucose Level (test code = IFZ7935) 149 74-118 [facility] Hospitalerum or plasma calcium measurement (mass/volume)2020-05-18 04:40:00* Test Item Value Reference Range Interpretation Comments Calcium Level (test code = 50752-5) 8.3 8.4-10.2 [facility] HospitalFluoroscopic procedure less than one hour wigzergv1691-93-97 04:40:00* Test Item Value Reference Range Interpretation Comments Hemoglobin A1c Percent (test code = Hemoglobin A1c Percent) 8.3 4.0-7.0 [facility] or plasma total bilirubin measurement (mass/volume)2020-05-18 04:40:00* Test Item Value Reference Range Interpretation Comments Total Bilirubin (test code = 1975-2) 0.5 0.2-1.2 [facility] HospitalFluoroscopic procedure less than one hour mgeqksyb6965-47-32 04:40:00* Test Item Value Reference Range Interpretation Comments Aspartate Amino Transf (AST/SGOT) (test code = Aspartate Amino Transf (AST/SGOT)) 14 5-34 [facility]er[facility] or plasma alanine aminotransferase measurement (enzymatic activity/volume)2020-05-18 04:40:00* Test Item Value Reference Range Interpretation Comments Alanine Aminotransferase (ALT/SGPT) (test code = 1742-6) 12 0-55 [facility]er[facility] or plasma protein measurement (mass/volume)2020-05-18 04:40:00* Test Item Value Reference Range Interpretation Comments Total Protein (test code = 2885-2) 6.7 6.5-8.1 [facility]er[facility] or plasma albumin measurement (mass/volume)2020-05-18 04:40:00* Test Item Value Reference Range Interpretation Comments Albumin (test code = 1751-7) 2.7 3.5-5.0 [facility] [place] [facility] HospitalPlasma globulin measurement (mass/volume) 2020-05-18 04:40:00* Test Item Value Reference Range Interpretation Comments Globulin (test code = 50753-5) 4.0 2.3-3.5 [facility]er[facility] or plasma albumin/globulin mass tpuma8050-60-97 04:40:00* Test Item Value Reference Range Interpretation Comments Albumin/Globulin Ratio (test code = 1759-0) 0.7 0.8-2.0 [facility]er[facility] or plasma alkaline phosphatase measurement (enzymatic activity/volume)2020-05-18 04:40:00* Test Item Value Reference Range Interpretation Comments Alkaline Phosphatase (test code = 6768-6) 103 40-150 [facility]er[facility] or plasma triglyceride measurement (mass/volume)2020-05-18 04:40:00* Test Item Value Reference Range Interpretation Comments Triglycerides Level (test code = 2571-8) 122 0-149 [facility]er[facility] or plasma cholesterol measurement (mass/volume)2020-05-18 04:40:00* Test Item Value Reference Range Interpretation Comments Cholesterol Level (test code = 2093-3) 74 0-199 Less than 200 mg/dL Low Kewo611 - 239 mg/dL Borderline Sxeo425 m g/dl and greater High Risk [facility] plasma cholesterol in LDL measurement (mass/volume) 2020-05-18 04:40:00* Test Item Value Reference Range Interpretation Comments LDL Cholesterol (test code = 2089-1) 34 60-130 [facility]er[facility] or plasma cholesterol in HDL measurement (mass/volume)2020-05-18 04:40:00* Test Item Value Reference Range Interpretation Comments HDL Cholesterol (test code = 2085-9) 16 40-60 [facility]erum or plasma total cholesterol/cholesterol in HDL mass tmnem7516-62-87 04:40:00* Test Item Value Reference Range Interpretation Comments Cholesterol/HDL Ratio (test code = 9830-1) 4.6 3.9-4.7 [facility] [place] [facility] HospitalFOOT LEFT [id number] 14:45:00 [facility] [address] [address] Patient Name: JED BASSETT JR MR #: [id number] : 1955 Age/Sex: 64/M Req #: [id number] Adm Physician: JOHAN RANGEL MD Ordered by: MAGDA SANABRIA MD Report #: [id number] Location: [facility] Room/Bed: [place] [place] [address] Procedure: [id number] DX/FOOT LEFT C OMPLETE Exam Date: 05/17/20 [...] POLANCO MD 46 Transcribed By: RICARDO on 05/17/207 CO PY TO: MAGDA SANABRIA MD Urine color pefvwbfjdmzfm9012-94-82 13:39:00* Test Item Value Reference Range Interpretation Comments Urine Color (test code = 5778-6) YELLOW YELLOW [facility] [place] [facility] HospitalUrine pmfdagq8690-34-35 13:39:00* Test Item Value Reference Range Interpretation Comments Urine Clarity (test code = 59640-7) CLEAR CLEAR [facility] Hospitalpecific gravity of Urine by Test strip 2020-05-17 13:39:00* Test Item Value Reference Range Interpretation Comments Urine Specific [place] (test code = 5811-5) 1.020 1.010-1.02 5 [facility] [place] [facility] HospitalUrine pH measurement by automated test fdhva6242-04-66 13:39:00* Test Item Value Reference Range Interpretation Comments Urine pH (test code = 88775-8) 6.5 5-7 [facility] [place] [facility] HospitalUrine leukocyte esterase detection by nepspizu8593-76-84 13:39:00* Test Item Value Reference Range Interpretation Comments Urine Leukocyte Esterase (test code = 5799-2) NEGATIVE NEGATIVE [facility] [place] [facility] HospitalUrine nitrite swpkzfcdl3521-44-47 13:39:00* Test Item Value Reference Range Interpretation Comments Urine Nitrite (test code = 90239-9) NEGATIVE NEGATIVE [facility] [place] [facility] HospitalUrine protein measurement by test strip (mass/volume)2020-05-17 13:39:00* Test Item Value Reference Range Interpretation Comments Urine Protein (test code = 5804-0) >=300 NEGATIVE [facility] [place] [facility] HospitalUrine glucose hldbyxchg6819-08-30 13:39:00* Test Item Value Reference Range Interpretation Comments Urine Glucose (UA) (test code = 2349-9) NEGATIVE NEGATIVE [facility] [place] [facility] HospitalUrine ketones detection by automated test uwlgc1745-32-79 13:39:00* Test Item Value Reference Range Interpretation Comments Urine Ketones (test code = 49217-1) TRACE NEGATIVE [facility] [place] [facility] HospitalUrine urobilinogen measurement by test strip (mass/volume)2020-05-17 13:39:00* Test Item Value Reference Range Interpretation Comments Urine Urobilinogen (test code = 59915-7) 0.2 0.2-1 [facility] [place] [facility] HospitalUrine total bilirubin measurement (mass/volume)2020-05-17 13:39:00* Test Item Value Reference Range Interpretation Comments Urine Bilirubin (test code = 1978-6) SMALL NEGATIVE [facility] [place] [facility] HospitalUrine erythrocytes kjxujucga3001-58-37 13:39:00* Test Item Value Reference Range Interpretation Comments Urine Blood (test code = 82877-1) SMALL NEGATIVE [facility] [place] [facility] HospitalAutomated urine sediment leukocyte count by microscopy (number/high power field)2020-05-17 13:39:00* Test Item Value Reference Range Interpretation Comments Urine WBC (test code = 5821-4) 6-10 0-5 [facility] [place] [facility] HospitalErythrocytes detection in urine sediment by light yjwgqzhbut0971-90-20 13:39:00* Test Item Value Reference Range Interpretation Comments Urine RBC (test code = 56897-3) 6-10 0-5 [facility] [place] [facility] HospitalBacteria detection in urine sediment by light hilwdscdah1755-49-80 13:39:00* Test Item Value Reference Range Interpretation Comments Urine Bacteria (test code = 87606-0) RARE NONE [facility] [place] [facility] HospitalEpithelial cells detection in urine sediment by light btwwliesbo0625-44-21 13:39:00* Test Item Value Reference Range Interpretation Comments Urine Epithelial Cells (test code = 24765-7) FEW NONE [facility] [place] [facility] HospitalCHEST SINGLE (PORTABLE)2020-05-17 12:54:00 [facility] [address] [address] Patient Name: JED BASSETT JR MR #: [id number] : 1955 Age/Sex: 64/M Req #: [id number] Adm Physician: JOHAN RANGEL MD Ordered by: MAGDA SANABRIA MD Report #: [id number] Location: MED/SURG3 Room/Bed: [facility] Procedure: [id number] DX/CHEST SINGL E (PORTABLE) Exam Date: 05/17/20 [...] (PT) in platelet poor plasma by coagulation ntysv4735-33-23 11:20:00* Test Item Value Reference Range Interpretation Comments Prothrombin Time (test code = 5902-2) 14.3 11.9-14.5 [facility] [place] [facility] HospitalINR in Platelet poor plasma by Coagulation vwayu3832-58-07 11:20:00* Test Item Value Reference Range Interpretation Comments Prothromb Time International Ratio (test code = 6301-6) 1.05 Oral Anticoagulant Therapy INR Values:1. Low Intensity Therapy 1.5 - 2.02 . Moderate Intensity Therapy 2.0 - 3.03. High Intensity Therapy(1) 2.5 - 3. 54. High Intensity Therapy(2) 3.0 - 4.05. Panic Value INR > 5.0 [facility] [place] [facility] HospitalActivated partial thromboplastin time (aPTT) in platelet poor plasma by coagulation qyfli0499-93-07 11:20:00* Test Item Value Reference Range Interpretation Comments Activated Partial Thromboplast Time (test code = 36427-8) 57.7 23.8-35.5 [facility] [place] [facility] HospitalFluoroscopic procedure less than one hour hcdiuetl7783-09-53 11:20:00* Test Item Value Reference Range Interpretation Comments Lactic Acid Level (test code = Lactic Acid Level) 2.3 0.5- 2.0 Results repeated and called to REZA HARRELL at 1302 on 05/17/20 by Daniel Montgomery . Read back and verified.[facility] [place] [facility] HospitalBNP Bld-mCnc 2020-05-17 11:20:00* Test Item Value Reference Range Interpretation Comments B-Type Natriuretic Peptide (test code = 04306-3) 608.5 0-100 [facility] Hospitalerum or plasma creatine kinase measurement (enzymatic activity/volume)2020-05-17 11:20:00* Test Item Value Reference Range Interpretation Comments Creatine Kinase (test code = 2157-6) 40 30-200 [facility] Hospitalerum or plasma creatine kinase MB measurement (mass/volume)2020-05-17 11:20:00* Test Item Value Reference Range Interpretation Comments Creatine Kinase MB (test code = 04265-6) 0.30 0-5.0 [facility] [place] [facility] HospitalTroponin I measurement by highly sensitive enzyme gtthewjefhz3489-83-08 11:20:00* Test Item Value Reference Range Interpretation Comments Troponin I (test code = 39730-1) 0.032 0-0.300 [facility] [place] [facility] HospitalFluoroscopic procedure less than one hour kuqyorxr6505-81-82 11:20:00* Test Item Value Reference Range Interpretation [...] under 564(g) of the ACT.Testing performed by [facility], [place] [address]IOWUT [facility] [place] [facility] HospitalBlood rntzvjd9713-94-00 11:20:00* Test Item Value Reference Range Interpretation Comments Blood Culture (test code = 59256639) NO GROWTH AFTER 72 HOURS [facility] [place] [facility] HospitalBacterial blood zxqpcrg4386-29-99 11:20:00* Test Item Value Reference Range Interpretation Comments Blood Culture (test code = 600-7) ENTEROBACTER CLOACAE [facility] [place] [facility] HospitalTreadmill tolerance(Non-Nuclear Treadmill)2019-12-22 16:44:12Interface, External Ris In - [...] was sustained, but self-terminated. Confirmed by MD SHANA, ROEL ([id number]) on 12/22/2019 4:44:04 [facility]EC[facility] mpsv2874-91-92 11:06:53Interface, External Ris In - 12/17/2019 11:06 AM CSTVentricular Rate 69 BPMAtrial Rate 69 BPMP-R Interval 282 msQRS Duration 100 msQ-T Interval 442 msQTC Calculation(Bazett) 473 msP [place] 71 degreesR [place] -43 degreesT [place] 60 degreesSinus rhythm with 1st degree A-V blockLeft axis deviationAbnormal ECGNo previous ECGs availableConfirmed by MD Randy, Alejandro ([id number]) on 12/17/2019 11:06:49 [facility]2D Echo W/Doppler(CW/PW/Color)2019-12-17 07:21:02Ejection FractionSLEH ECHO HEARTLAB MKCKESSON CPACSInterface, External Ris In - 12/17/2019 7:21 AM CSTTransthoracic Echocardiography Report (TTE) Demographics Patient Name JED BASSETT Date of Study 12/16/2019 Gender Male Visit Number [id number] Race Unknown Room Number Number Date of 1955 Referring Physician April Breaux Age 64 year(s) Microgrinder Operator Levy Alberto Interpreting Vijaya Whaley, Physician [...] l/min/m^2 RVOT RVOT VTI (PW): 23.72 cm [facility] Echo With Gzukqqm7478-13-38 07:14:29Ejection FractionSLEH ECHO HEARTLAB MKCKESSON CPACSInterface, External Ris In - 12/17/2019 7:14 AM CSTStress Echocardiography Report Demographics Patient Name JED BASSETT Date of Study 12/16/2019 Gender Male Visit Number [id number] Race Unknown Room Number Number Date of 1955 Referring Physician April Breaux Age 64 year(s) Microgrinder Operator Levy Alberto Interpreting Vijaya Whaley, Physician Fellow Harrison Pond MD Procedure [...] ! ! ! ! +-----+-----+------+ +------+-----+--------+--+--------+----+------+ Gann mmary This is a negative Echocardiographic Stress Test. Signature [facility]apiHemoglobin R2j2855-66-27 11:16:00* Test Item Value Reference Range Interpretation Comments Hemoglobin A1C (test code = 4548-4) 7.7 % 4.3-6.1 H Lab Interpretation (test code = 62214-2) Abnormal [facility]apiHEMOGLOBIN [id number] 11:16:00* Test Item Value Reference Range Interpretation Comments HEMOGLOBIN A1C (KATHI) (test code = 368) 7.7 % 4.3-6.1 H RAD, CHEST, 2 NGWXT5813-75-06 10:01:00Reason for Exam:->Pre kidney transplant evaluation.FINAL REPORT [...] MDReport Verified Date/Time: 12/16/2019 10:01:55 Reading Location: [facility] Radiology Reading Room chest 2 lxtko7537-16-16 10:01:00Interface, External Ris In - 12/16/2019 10:04 [...] MDReport Verified Date/Time: 12/16/2019 10:01:55 Reading Location: [facility] Radiology Reading Room Electronically signed by: JESSE CARRENO on 0 12/16/2019 10:01 AM [facility], ABDOMIN[facility], COMPLETE 2019-12-16 09:36:00Reason for Exam:->Kidney transplant [...] Gaytaneport Verified Date/Time: 12/16/2019 09:36:15 Reading Location: [address] Radiology Reading Room abdomen iwjhjhwu1539-83-90 09:36:00Interface, External Ris In - 12/16/2019 9:38 [...] Gaytaneport Verified Date/Time: 12/16/2019 09:36:15 Reading Location: [address] Radiology Reading Room [facility]apiPSA2020-02-26 08:48:00* Test Item Value Reference Range Interpretation Comments PSA (test code = 2857-1) 0.3 ng/mL 0-4 SOUTH (test code = SOUTH) Organisation And Methods Analyst ID - DB Lab Interpretation (test code = 19373-6) Normal [facility]apiPSA2020-02-26 08:48:00* Test Item Value Reference Range Interpretation Comments PROSTATE SPECIFIC ANTIGEN (BEAKER) (test code = 844) 0.3 ng/mL 0 .0-4.0 Organisation And Methods Analyst ID - DBBlood typing, unsvhuqoo2546-48-29 07:58:00* Test Item Value Reference Range Interpretation Comments ABO/RH AUTOMATED (BEAKER) (test code = 2260) O POSITIVE [facility]apiLipid ywkkd2357-87-00 07:56:00* Test Item Value Reference Range Interpretation Comments Triglycerides (test code = 2571-8) 120 mg/dL Cholesterol (test code = 2093-3) 105 mg/dL HDL (test code = 2085-9) 32 mg/dL LDL Calculated (test code = 58990-8) 49 mg/dL SOUTH (test code = SOUTH) Triglyceride Reference Range : Low Risk <150 Borderline 150-199 High Risk 200-499 Very High Risk >=500 Cholesterol Reference Range: Low Risk <200 Borderline 200-239 High Risk >240 HDL Cholesterol Reference Range: Low Risk >=60 High Risk <40 LDL Cholesterol Reference Range: Optimal <100 Near Optimal 100-129 Borderline 130-159 High 160-189 Very High >=190 Organisation And Methods Analyst CARON Lobo HUY Yates [facility]apiLIPID EPEKQ7778-05-88 07:56:00* Test Item Value Reference Range Interpretation [...] Borderline 130-159 High 160-189 Very High >=190 Organisation And Methods Analyst CARON AYERSA MHLA TYPING [id number] 22:51:00* Test Item Value Reference Range Interpretation [...] and its performance characteristics determined by the [facility] Laboratory. It has not been cleared [...] to perform high complexity clinical laboratory testing. [facility]apiHLA TYPING [id number] 22:51:00* Test Item Value Reference Range Interpretation [...] and its performance characteristics determined by the [facility] Laboratory. It has not been cleared [...] to perform high complexity clinical laboratory testing. [facility]- XR RIBS UNI W/CXR 3+V [id number] 19:52:00 FAX: Maldonado Goldman [place]: [address]: REG Name: JED WHITEHEAD JR [facility] FSED : [birth year] Age/S: 64/M [address] Unit #: [id number] [facility]: [facility] [address] Phys: Maldonado Goldman MD [place], [place] [address] Acct: [id number] Dis Date: Status: REG ER PHONE #: Exam Date: 12/04/2019 8360 FAX #: Reason: FALL, RIGHT RIB PAIN EXAMS: CPT CODE: [id number] XR RIBS UNI W/CXR 3+[place] [address] EXAM: Right-sided rib series, 4 vi ews; [...] 10th rib on the right. Location code: [facility] at 1949 Reported and signed by: Hardy Juarez M.D. CC: Maldonado Goldman MD Technologist: April Louis Trnarrd Date/Time/By: 12/04/2019 (1949) : By: SvetlanaGRW Orig Print D/T: S: 12/04/2019 (1953) PAGE 1 Signed Report HERNIA [id number] 14:34:00 RUN DATE: 12/03/19 [facility] Lab PAGE 1 RUN TIME: 1434 Specimen Inqui ry RUN USER: INTERFACE PATIENT: JED BASSETT JR ACCT #: [id number] LOC: GRZEGORZRaghavendra U #: [id number] AGE/SX: 64/M ROOM: RE12/02/19REG DR: Keron Galdamez MD : [birth year] BED: DIS: STATUS: [facility] TLOC: SPEC #: [id number] RECD: 12/02/19 STATUS: [facility] #: [id number] SUSAN: 12/02/19- SUBM DR: Keron Galdamez MD ENTERED: 12/02/19 SP TYPE: HERNIA SAC OTHR DR: Antony Cox MD ORDERED: GROSS COPIES TO: Keron Galdamez MD [address] [place], [place] [address] [place] [address] [place] [address] PROCEDURES: GROSS (12/03/19-1106) TISS UES: 1. INGUINAL REGION, NOS - RIGHT LIPOMA 2. INGUINAL REGION , NOS - LEFT LIPOMA CLINICAL HISTORY COLLECTION DATE: 12/02/19 FINAL DIAGNOSIS Right inguinal lipoma, inguinal hernia repair: ADIPOSE TISSUE CONSISTENT WITH HERNIA CONTENTS Left inguinal lipoma, ing uinal hernia repair: ADIPOSE TISSUE CONSISTENT WITH HERNIA CONTENTS [facility]/ D [id number] MACROSCOPIC Specimen (1) is received in fo rmalin labeled with the patient's name, "right lipoma" and consists of a porti on of yellow fatty tissue with smooth rounded margins that measures 11 cm in l ength with a diameter ranging from 1.5 up to 3.8 cm. The cut surface is homo genous. Stress Test Technician tissue is submitted for histologic evaluation as (1). CONTINUED ON NEXT PAGE RUN DATE : 12/03/19 [facility] PAGE 2 RUN TIME: 1434 Specimen Inquiry RUN USER: INTERFACE SPEC #: [id number] PATIENT: JED BASSETT JR #V [id number] (Continued) MACROSCOPIC (Continue d) Specimen (2) is received in formalin labeled with the patient's name, "left lipoma" and consists of a portion of yellow fatty tissue with smooth rou nded contours measuring 7 cm in length with diameters up to 1.5 cm. The cut s urfajorge is homogenous and yellow with no areas of hemorrhage and necrosis. R epresentative tissue is submitted as (2). GROSS PERFORMED AT [facility] [address] [place] [address] (p)[phone] MICROSCOPIC All of the stains, i ncluding any controls performed, stain appropriately. MICROSCOPIC PERFOR MED AT [facility] [address] [place] [address] (p)[phone] PERFORMING SITE Diagnosis performed at: [facility], [place] [address] [place] [address] [phone] Signed SIGNATURE ON FILE Margarito Moore MD 12/03/19 1434 END OF REPORT AB SPECIFICITY CLASS [id number] 11:01:00* Test Item Value Reference Range Interpretation Comments AB Specificity Class I (test code = 3457) NO CLASS I A NTIBODY DETECTED WITH MFIs > 4000 SOUTH (test code = SOUTH) Disclaimer: This test was de veloped and its performance characteristics determined by the [facility] Laboratory. It has not been cleared [...] to perform high complexity clinical laboratory testing. [facility]apiGLUBED2020-02-12 10:27:00* Test Item Value Reference Range Interpretation Comments GLUBED (test code = GLUBED) 180 mg/dL 74-106 H Performed by certified liquor bridge operator at [facility] XPCWWEFFT8924-33-40 07:57:00* Test Item Value Reference Range Interpretation Comments POTASSIUM (test code = K) 3.8 mmol/L 3.5-5.1 N [id number] 07:49:00* Test Item Value Reference Range Interpretation Comments GLUBED (test code = GLUBED) 204 mg/dL 74-106 H Performed by certified liquor bridge operator at [facility] FLOW PRA CLASS I WITH REFLEX TO ANTIBODY DPFBRHIDTZX7540-74-42 11:44:00* Test Item Value Reference Range Interpretation Comments Flow Class I Percent Positive (test code = 3229) 10 SOUTH (test code = SOUTH) Disclaimer: This test was de veloped and its performance characteristics determined by the [facility] Laboratory. It has not been cleared [...] to perform high complexity clinical laboratory testing. [facility]apiFLOW PRA CLASS II WITH REFLEX TO ANTIBODY [id number] 11:44:00* Test Item Value Reference Range Interpretation Comments Flow Class II Percent Positive (test code = 3231) 0 SOUTH (test code = SOUTH) Disclaimer: This test was de veloped and its performance characteristics determined by the [facility] Laboratory. It has not been cleared [...] to perform high complexity clinical laboratory testing. [facility]apiT Spot [id number] 19:29:00* Test Item Value Reference Range Interpretation Comments T-Spot TB (test code = 25107-4) Negative Neg Ctrl Spot Count (test code = 02720-9) 0 Panel A Spot (test code = 99902-3) 0 Panel B Spot (test code = 48087-3) [address] (test code = 11193-0) 0 Scan Result (test code = 7028634) [facility] [id number] 12:11:00* Test Item Value Reference Range Interpretation [...] CA) 7.5 mg/dL 8.5-10.1 L CBC W/AUTO [id number] 11:39:00* Test Item Value Reference Range Interpretation [...] NRBC#) 0.00 K/mm3 0.0-0.1 N Cytomegalovirus antibody, [id number] 04:11:00* Test Item Value Reference Range Interpretation Comments CYTOMEGALOVIRUS, IGG (test code = 3429) Positive Negative, Equi vocal A SOTUH (test code = SOUTH) CMV IgG Result Interpretatio n: </= 0.8 Al Negative 0.9- 1.0 Al Equivocal >/=1.1 Al Positive Lab Interpretation (test code = 12677-1) Abnormal [facility]apiEBV-VCA antibody, [id number] 04:11:00* Test Item Value Reference Range Interpretation Comments KEELY HSIEH VIRAL CAPSID ANTIGEN IGG (test code = 3415) Pos itive Negative, Equivocal A SOUTH (test code = SOUTH) Keely Hsieh Viral Capsid An tigen IgG Result Interpretation: </= 0.8 Al Negative 0.9-1.0 Al Equivocal >/= 1.1 Al Positive Lab Interpretation (test code = 39196-1) Abnormal [facility]apiEBV-VCA antibody, [id number] 04:11:00* Test Item Value Reference Range Interpretation Comments KEELY HSIEH VIRAL CAPSID ANTIGEN IGM (test code = 3418) Neg ative Negative, Equivocal SOUTH (test code = SOUTH) Keely Hsieh Viral Capsid An tigen IgM Result Interpretation: </= 0.8 Al Negative 0.9-1.0 Al Equivocal >/= 1.1 Al Positive Lab Interpretation (test code = 63611-7) Normal [facility]achapiCytomegalovirus antibody, [id number] 04:11:00* Test Item Value Reference Range Interpretation Comments CMV IGM (test code = 3437) Negative Negative, Equivocal SOUTH (test code = SOUTH) CMV IgM Result Interpretatio n: </= 0.8 Al Negative 0.9-1.0 Al Equivocal >/= 1.1 Al Positive Lab Interpretation (test code = 96475-7) Normal [facility]apiMHA - [id number] 04:11:00* Test Item Value Reference Range Interpretation Comments TREPONEMA PALLIDUM, SYPHILIS IGG (test code = 6561-5) Reactive Nonreactive AA SOUTH (test code = SOUTH) Test performed by CALEB method. Lab Interpretation (test code = 64515-4) Abnormal [facility]achapiCYTOMEGALOVIRUS ANTIBODY, [id number] 04:11:00* Test Item Value Reference Range Interpretation Comments CYTOMEGALOVIRUS, IGG (BEAKER) (test code = 3429) Positive Negat joe, Equivocal A CMV IgG Result Interpretation: </= 0.8 Al Negative 0.9-1.0 Al Equivocal > /=1.1 Al PositiveCYTOMEGALOVIRUS ANTIBODY, [id number] 04:11:00* Test Item Value Reference Range Interpretation Comments CYTOMEGALOVIRUS IGM ANTIBODY (Supponor) (test code = 3437) Neg ative Negative, Equivocal CMV IgM Result Interpretation: </= 0.8 Al Negative 0.9-1.0 Al Equivocal > /= 1.1 Al PositiveEBV ANTIBODY, [id number] 04:11:00* Test Item Value Reference Range Interpretation Comments KEELY HSIEH VIRAL CAPSID ANTIGEN IGG (Supponor) (test code = 3415) Positive Negative, Equivocal A Keely Hsieh Viral Capsid Antigen IgG Result Interpretation: </= 0.8 Al Negative 0.9-1.0 Al Equivocal >/= 1.1 Al PositiveEBV ANTIBODY, [id number] 04:11:00* Test Item Value Reference Range Interpretation Comments KEELY HSIEH VIRAL CAPSID ANTIGEN IGM (Supponor) (test code = 3418) Negative Negative, Equivocal Keely Hsieh Viral Capsid Antigen IgM Result Interpretation: </= 0.8 Al Negative 0.9-1.0 Al Equivocal >/= 1.1 Al PositiveTREPONEMA PALLIDUM - SYPHILIS [id number] 04:11:00* Test Item Value Reference Range Interpretation Comments TREPONEMA PALLIDUM, SYPHILIS IGG (Supponor) (test code = 3427) Reactive Nonreactive AA Test performed by CALEB method.Varicella Zoster Antibody, [id number] 03:46:00 * Test Item Value Reference Range Interpretation Comments Varicella IgG (test code = 30373-1) 7.2 SOUTH (test code = SOUTH) VARICELLA ZOSTER RESULT INTE RPRETATIONS: <=0.8 Al Nonreactive: Presumed non-immune to VZV 0.9-1.0 Al Equivocal >=1.1 Al Reactive: Presumed immune to VZV [facility] ANTIBODY, [id number] 03:46:00* Test Item Value Reference Range Interpretation Comments VARICELLA ZOSTER IGG (AL) (4FRONT PARTNERSAKER) (test code = 3197) 7.2 VARICELLA ZOSTER RESULT INTERPRETATIONS: <=0.8 Al Nonreactive: Presumed non-immune to VZV 0.9-1.0 Al Equivocal >=1.1 Al Reactive: Presumed immune to VZVRPR [id number] 02:59:00* Test Item Value Reference Range Interpretation Comments RPR Titer (test code = 18681-2) 1:4 [facility] [id number] 02:59:00* Test Item Value Reference Range Interpretation Comments RPR TITER (BEAKER) (test code = 1485) :4 [id number] 02:58:00* Test Item Value Reference Range Interpretation Comments RPR (test code = 47146-7) Reactive Nonreactive A Lab Interpretation (test code = 06489-4) Abnormal [facility]PR2020-02-07 02:58:00* Test Item Value Reference Range Interpretation Comments RPR SCREEN (BEAKER) (test code = 420) Reactive Nonreactive A Hepatitis C Cxxwimbb2212-39-46 15:09:00* Test Item Value Reference Range Interpretation Comments Hepatitis C Ab (test code = 91314-8) Reactive Nonreactive A SOUTH (test code = SOUTH) Organisation And Methods Analyst ID - HomeStarsIANG Lab Interpretation (test code = 16992-5) Abnormal [facility]api[facility]ATITIS C [id number] 15:09:00* Test Item Value Reference Range Interpretation Comments HEPATITIS C ANTIBODY (BEAKER) (test code = 367) Reactive Nonrea ctive Pathology Laboratory Aides Teacher ID - ROSIANGDirect AHG (FELIPA)/Direct Orqigq4857-34-62 14:09:00* Test Item Value Reference Range Interpretation Comments Direct [facility]-IGG (test code = 1006-6) NEGATIVE saline control-negative Direct [facility]-C3B, C3D (test code = 1003-3) NEGATVIE [facility]He[facility]tis B surface dtllwvly6654-62-29 13:48:00* Test Item Value Reference Range Interpretation Comments Hep B S Ab (test code = 33810-1) <8.0 <8.0 mIU/mL SOUTH (test code = SOUTH) Organisation And Methods Analyst ID - ROSIANG Lab Interpretation (test code = 02311-0) Normal [facility] SURFACE [id number] 13:48:00* Test Item Value Reference Range Interpretation Comments HEPATITIS B SURFACE ANTIBODY (BEAKER) (test code = 647) < mIU/mL <8.0 Organisation And Methods Analyst ID - ROSIANGHepatitis B surface lvyfrod1742-01-96 13:45:00* Test Item Value Reference Range Interpretation Comments HBsAg Screen (test code = 5195-3) Nonreactive Nonreactive SOUTH (test code = SOUTH) Organisation And Methods Analyst ID - ROSIANG Lab Interpretation (test code = 08341-6) Normal [facility]apiHep[facility] core antibody, [id number] 13:45:00* Test Item Value Reference Range Interpretation Comments Hep B C IgM (test code = 53730-0) Nonreactive Nonreactive SOUTH (test code = SOUTH) Organisation And Methods Analyst ID - ROSIANG Lab Interpretation (test code = 04980-2) Normal [facility]HIV-1 Antigen with HIV-1/2 Uxrqgegw2140-78-80 13:45:00* Test Item Value Reference Range Interpretation Comments HIV-1 Antigen with HIV 1&2 Antibody (test code = 29796-4) No nreactive Nonreactive SOUTH (test code = SOUTH) Organisation And Methods Analyst ID - ZOEYIANG Lab Interpretation (test code = 37432-2) Normal [facility]AT[facility] SURFACE [id number] 13:45:00* Test Item Value Reference Range Interpretation Comments HEPATITIS B SURFACE ANTIGEN (2) (BEAKER) (test code = 2585) Nonreactive Nonreactive Organisation And Methods Analyst ID - LEANDROEPATITIS B CORE ANTIBODY, [id number] 13:45:00* Test Item Value Reference Range Interpretation Comments HEPATITIS B CORE IGM ANTIBODY (BEAKER) (test code = 645) Non reactive Nonreactive Organisation And Methods Analyst ID - LEANDROIV-1 ANTIGEN WITH HIV-1/2 [id number] 13:45:00* Test Item Value Reference Range Interpretation Comments HIV-1 ANTIGEN WITH HIV 1\\T\\2 ANTIBODY (2) (BEAKER) (te st code = 2586) Nonreactive Nonreactive Organisation And Methods Analyst ID - ZOEYIANGPTH, [id number] 13:32:00* Test Item Value Reference Range Interpretation Comments PTH (test code = 2731-8) 462.7 pg/mL 8.5-72.5 H SOUTH (test code = SOUTH) Organisation And Methods Analyst ID - ROSIANG Lab Interpretation (test code = 76162-0) Abnormal [facility]apiPTH, [id number] 13:32:00* Test Item Value Reference Range Interpretation Comments PARATHYROID HORMONE INTACT (BEAKER) (test code = 577) 462.7 pg/mL 8.5-72.5 H Organisation And Methods Analyst ID - ROSIANGComprehensive metabolic qfjdf8023-16-50 13:30:00* Test Item Value Reference Range Interpretation Comments Protein, Total (test code = 2885-2) 7.5 6.0- 8.3 gm/dL Albumin (test code = 44380-0) 4.0 g/dL 3.5-5 Alkaline Phosphatase (test code = 6768-6) 161 U/L 40-150 H Total Bilirubin (test code = 1975-2) 0.5 mg/dL 0.2-1.2 Sodium (test code = 2951-2) 133 meq/L 136-145 L Potassium (test code = 2823-3) 3.2 meq/L 3.5-5.1 L Chloride (test code = 5-0) 94 meq/L 98-107 L CO2 (test code = 8-9) 27 meq/L 22-29 BUN (test code = 3094-0) 34 mg/dL 7-21 H Creatinine (test code = 2160-0) 5.10 mg/dL 0.57-1.25 H Glucose (test code = 2345-7) 243 mg/dL 70-105 H Calcium (test code = 40486-3) 8.0 mg/dL 8.4-10.2 L AST (test code = 1920-8) 18 U/L 5-34 ALT (test code = 1742-6) 20 U/L 6-55 EGFR (test code = 63769-9) 12 mL/min/1.73 sq m ESTIMATED GFR IS NOT ACCURATE CREATININE CLEARANCE IN PREDICTING GLOMERULAR FILTRATION RATE. ESTIMATED GFR IS NOT APPLICABLE FOR DIALYSIS PATIENTS. SOUTH (test code = SOUTH) Organisation And Methods Analyst ID - ROSIANG Lab Interpretation (test code = 22018-6) [facility]normal [facility] [id number] 13:30:00* Test Item Value Reference Range Interpretation [...] GFR IS NOT APPLICABLE FOR DIALYSIS PATIENTS. Organisation And Methods Analyst ID - ZOEYELIASamma Glutamyl Transferase (GGT)2019-11-25 13:19:00* Test Item Value Reference Range Interpretation Comments GGT (test code = 2324-2) 84 U/L 9-64 H SOUTH (test code = SOUTH) Organisation And Methods Analyst ID - HomeStarsJESS Lab Interpretation (test code = 72086-6) Abnormal [facility]apiLactate Dehydrogenase (LDH)2019-11-25 13:19:00* Test Item Value Reference Range Interpretation Comments LDH (test code = 2532-0) 231 U/L 125-220 H SOUTH (test code = SOUTH) Organisation And Methods Analyst ID - HomeStarsMAXWELLScroll.in Lab Interpretation (test code = 55643-5) Abnormal [facility]apiPhosphorus2020-02-05 13:19:00* Test Item Value Reference Range Interpretation Comments Phosphorus (test code = 2777-1) 4.7 mg/dL 2.3-4.7 SOUTH (test code = SOUTH) Organisation And Methods Analyst ID - HomeStarsMAXWELL Lab Interpretation (test code = 66385-5) Normal [facility]apiUric [id number] 13:19:00* Test Item Value Reference Range Interpretation Comments Uric Acid (test code = 3084-1) 4.6 mg/dL 2.6-7.2 SOUTH (test code = SOUTH) Organisation And Methods Analyst ID - PAPI Lab Interpretation (test code = 69773-2) Normal [facility]apiURIC [id number] 13:19:00* Test Item Value Reference Range Interpretation Comments URIC ACID (BEAKER) (test code = 773) 4.6 mg/dL 2.6-7.2 Organisation And Methods Analyst ID - RVUTUPFTMBRBEOWLP6223-62-33 13:19:00* Test Item Value Reference Range Interpretation Comments PHOSPHORUS (BEAKER) (test code = 604) 4.7 mg/dL 2.3-4.7 Organisation And Methods Analyst ID - ROSIANGGAMMA GLUTAMYL TRANSFERASE (GGT)2019-11-25 13:19:00* Test Item Value Reference Range Interpretation Comments GAMMA GLUTAMYL TRANSFERASE (BEAKER) (test code = 364) 84 U/L 9-64 H Organisation And Methods Analyst ID - ROSIANGLACTATE DEHYDROGENASE (LDH)2019-11-25 13:19:00* Test Item Value Reference Range Interpretation Comments LACTATE DEHYDROGENASE (BEAKER) (test code = 635) 231 U/L 125-2 20 H Organisation And Methods Analyst ID - ROSIANGPT/tQMG3318-57-75 13:04:00* Test Item Value Reference Range Interpretation Comments Protime (test code = 5902-2) 13.7 11.9- 14.2 seconds INR (test code = 6301-6) 1.1 <=5.9 PTT (test code = 19441-6) 31.4 22.5- 36.0 seconds SOUTH (test code = SOUTH) Effective 03/18/2019: PT Refe rence Range ChangeNew: 11.9- 14.2 Previous: 11.7-14.7 RECOMMENDED COUMADIN/WARFARIN INR THERAPY RANGESSTANDARD DOSE: 2.0-3.0 Includes: PROPHYLAXIS for venous thrombosis, sys temic embolization; TREATMENT for venous thrombosis and/or pulmonary embolus.HIGH RISK: Target INR is 2.5-3.5 for patients wiht mechanical heart valves. Lab Interpretation (test code = 23220-2) Normal [facility]apiPT/[id number] 13:04:00* Test Item Value Reference Range Interpretation [...] 450 K/CU MM MPV (test code = 65071-1) 10.8 fL 9.4-12.4 nRBC (test code = [...] % 0-1 Lab Interpretation (test code = 40329-4) Abnormal [facility] W/PLT COUNT & AUTO PNPJFUMULODU3925-04-03 12:54:00* Test Item Value Reference Range Interpretation [...] = 2801) 0 % 0-1 BASIC METABOLIC [id number] 19:24:00* Test Item Value Reference Range Interpretation [...] CA) 6.8 mg/dL 8.5-10.1 L BASIC METABOLIC [id number] 19:16:00* Test Item Value Reference Range Interpretation [...] code = CA) mg/dL 8.5-10.1 CBC W/AUTO [id number] 19:04:00* Test Item Value Reference Range Interpretation [...] DIFF REQUIRED (test code = MDIFF) NO [id number] 20:30:00* Test Item Value Reference Range Interpretation Comments GLUBED (test code = GLUBED) 197 mg/dL 74-106 H Performed by certified liquor bridge operator at [facility] [id number] 19:20:00* Test Item Value Reference Range Interpretation Comments GLUBED (test code = GLUBED) 170 mg/dL 74-106 H Performed by certified liquor bridge operator at [facility] [id number] 13:00:00* Test Item Value Reference Range Interpretation Comments GLUBED (test code = GLUBED) 146 mg/dL 74-106 H Performed by certified liquor bridge operator at [facility] BASIC METABOLIC [id number] 07:51:00* Test Item Value Reference Range Interpretation [...] CA) 8.0 mg/dL 8.5-10.1 L BASIC METABOLIC [id number] 07:47:00* Test Item Value Reference Range Interpretation [...] CA) 8.0 mg/dL 8.5-10.1 L CBC W/AUTO [id number] 07:32:00* Test Item Value Reference Range Interpretation [...] DIFF REQUIRED (test code = MDIFF) NO [id number] 20:29:00* Test Item Value Reference Range Interpretation Comments GLUBED (test code = GLUBED) 307 mg/dL 74-106 H Performed by certified liquor bridge operator at [facility] [id number] 17:51:00* Test Item Value Reference Range Interpretation Comments GLUBED (test code = GLUBED) 263 mg/dL 74-106 H Performed by certified liquor bridge operator at [facility] [id number] 12:58:00* Test Item Value Reference Range Interpretation Comments GLUBED (test code = GLUBED) 336 mg/dL 74-106 H Performed by certified liquor bridge operator at [facility] BASIC METABOLIC [id number] 07:58:00* Test Item Value Reference Range Interpretation [...] ADD ON TO THE AM LABSBASIC METABOLIC [id number] 07:27:00 * Test Item Value Reference Range [...] SPECIMEN COMMENTS: ADD ON TO THE AM [id number] 05:46:00* Test Item Value Reference Range Interpretation Comments GLUBED (test code = GLUBED) 183 mg/dL 74-106 H Performed by certified liquor bridge operator at [facility] CBC W/AUTO [id number] 04:50:00* Test Item Value Reference Range Interpretation [...] code = NRBC#) 0.00 K/mm3 0.0-0.1 N [id number] 20:20:00* Test Item Value Reference Range Interpretation Comments GLUBED (test code = GLUBED) 200 mg/dL 74-106 H Performed by certified liquor bridge operator at [facility] [id number] 17:48:00* Test Item Value Reference Range Interpretation Comments GLUBED (test code = GLUBED) 145 mg/dL 74-106 H Performed by certified liquor bridge operator at [facility] UR CREATININE CLEARANCE [id number] 15:13:00* Test Item Value Reference Range Interpretation Comments CREATININE CLEARANCE RESULT (test code = CREATCLR) 8 mL/min 100 -120 L CREATININE (test code = CREAT) 4.00 mg/dL 0.7-1.3 H UR CREATININE RANDOM (test code = CREATU) 50.0 mg/dL 30-125 N UR VOLUME 24HR (test code = VOL) 900 mL/24hrs 9419-4361 TOTAL VOLUME: 900mLUR CREATININE CLEARANCE [id number] 07:37:00* Test Item Value Reference Range Interpretation Comments CREATININE CLEARANCE RESULT (test code = CREATCLR) mL/min 100 -120 CREATININE (test code = CREAT) mg/dL 0.7-1.3 UR CREATININE RANDOM (test code = CREATU) 50.0 mg/dL 30-125 N UR VOLUME 24HR (test code = VOL) mL/24hrs 4021-3994 TOTAL VOLUME: [id number] 06:47:00* Test Item Value Reference Range Interpretation Comments GLUBED (test code = GLUBED) 91 mg/dL 74-106 N Performed by certified liquor bridge operator at [facility] BASIC METABOLIC [id number] 05:40:00* Test Item Value Reference Range Interpretation [...] CA) 7.5 mg/dL 8.5-10.1 L BASIC METABOLIC [id number] 05:35:00* Test Item Value Reference Range Interpretation [...] code = CA) mg/dL 8.5-10.1 CBC W/O [id number] 05:32:00* Test Item Value Reference Range Interpretation [...] code = MPV) 11.0 fL 6.7-11.0 N [id number] 21:27:00* Test Item Value Reference Range Interpretation Comments GLUBED (test code = GLUBED) 92 mg/dL 74-106 N Performed by certified liquor bridge operator at [facility] [id number] 17:07:00* Test Item Value Reference Range Interpretation Comments GLUBED (test code = GLUBED) 145 mg/dL 74-106 H Performed by certified liquor bridge operator at [facility] [id number] 13:57:00* Test Item Value Reference Range Interpretation Comments GLUBED (test code = GLUBED) 155 mg/dL 74-106 H Performed by certified liquor bridge operator at [facility] AB HEPATITIS B [id number] 13:10:00* Test Item Value Reference Range Interpretation Comments AB HEPATITIS B SURFACE (test code = HBSAB) Non Reactive () Non Reactive: Inconsistent with immunity, less than 10 mIU/mL Reactive: Consistent with immunity, greater than 9.9 mIU/mLPerformed At: [facility] [address] [id number] Shah MD Ph:[phone] HEPATITIS B CORE ANTIBODY,[id number] 13:10:00* Test Item Value Reference Range Interpretation Comments HEPATITIS B CORE ANTIBODY,TOT (test code = HBCAB) Positive Nega tive A Performed At: [facility] [address] [id number] Shah MD Ph:[phone] - GUIDANCE [facility] [id number] 08:44:00 Name: JED BASSETT JR [facility] : 1955 Age/S: 64 / M [address] Unit #: [id number] Loc: [place] [address] Phys: Russell Davis MD Acct: [id number] Dis Date: Status: ADM IN PHONE #: [phone] Exam Date: 11/02/2019 1642 FAX #: [phone] Reason: EXAMS: CPT CODE: [id number] US GUIDANCE VASC ACCESS 11286 Fluoro Time: DAP (Gy m2): Air Kerma (mGy): REASON FOR EXAM: ESRD Referring Physician: Russell Davis MD PROCEDURE: Ultrasound and fluoroscopic guided tunneled hemodialysis catheter placement with IV conscious sedation CPT code: 06250, 01556,74677 Fxcz-ho-uiiz procedure time is approximately: 45 minutes FINDINGS: [...] was used to access the vein. A jail dialysis catheter was tunneled under the subcutaneous [...] Mishel Castillo RT(R) Trnscb Date/Time: 11/03/2019 (0844) Guevara.VTL Orig Print D/T: S: 11/03/2019 (0848) PAGE 1 Signed Report - SP FLUORO GUID CTRL ACC DEV 2019-11-03 08:44:00 Name: JED BASSETT JR [facility] : 1955 Age/S: 64 / M [address] Unit #: [id number] Loc: [place] [address] Phys: Russell Davis MD Acct: [id number] Dis Date: Status: ADM IN PHONE #: [phone] Exam Date: 11/02/2019 1642 FAX #: [phone] Reason: EXAMS: CPT CODE: [id number] SP FLUORO GUID CTRL ACC DEV 47995 Fluoro Time: 6 DAP (Gy m2): 0.51 Air Kerma (mGy): 1 REASON FOR EXAM: ESRD Referring Physician: Russell Davis MD PROCEDURE: Ultrasound and fluoroscopic guided tunneled hemodialysis catheter placement with IV conscious sedation CPT code: 13193, 27177,26120 Bofd-uf-nmoo procedure time is approximately: 45 minutes FINDINGS: [...] was used to access the vein. A jail dialysis catheter was tunneled under the subcutaneous [...] Mishel Castillo RT(R) Trnscb Date/Time: 11/03/2019 (0844) Tyrell Orig Print D/T: S: 11/03/2019 (0847) PAGE 1 Signed Report [id number] 06:33:00* Test Item Value Reference Range Interpretation Comments GLUBED (test code = GLUBED) 101 mg/dL 74-106 N Performed by certified liquor bridge operator at [facility] COMPREHENSIVE METABOLIC [id number] 05:04:00* Test Item Value Reference Range Interpretation [...] due to change in reagent. COMPREHENSIVE METABOLIC [id number] 04:48:00* Test Item Value Reference Range Interpretation [...] TOTAL (test code = ALKP) IUnit/L 45-117 [id number] 21:03:00* Test Item Value Reference Range Interpretation Comments GLUBED (test code = GLUBED) 125 mg/dL 74-106 H Performed by certified liquor bridge operator at [facility] - XR CHEST 1 [id number] 20:25:00 FAX: Russell Arizmendi [phone] [place]: B St: ADM FAX: Antony Noble [phone] Name: JED BASSETT JR [facility] : 1955 Age/S: 64/[facility] [address] [facility]: [id number] Loc: V [place] [address] Phys: Marcellus Urena MD Acct: [id number] Dis Date: Status: ADM IN PHONE #: [phone] Exam Date: 11/02/2019 1700 FAX #: [phone] Reason: POST LINE PLACEMENT EXAMS: CPT CODE: [id number] XR CHEST 1 V 97025 EXAM: Chest x-ray, one view; INFORMATION: Post line placement; IMPRESSION: 1. The tip of a new tunneled right IJ hemodialysis catheter is positioned at the SVC/right atrial junction. 2. No evidence of a pneumothorax. 3. Otherwise significant improvement compared with yesterday's study with resolution of pulmonary edema and decrease in heart size. The heart is now borderline in size. Location code: [facility] at 2024 Reported and signed by: Hardy Juarez M.D. CC: Russell Davis MD; Antony Smith Technologist: DIPTI TracyR Trnscrd Date/Time/By: 11/02/2019 (2024) : By: ZoilaW Orig Print D/T: S: 11/02/2019 (2027) PAGE 1 Signed Report - CT ABD PELVIS W/O [id number] 16:12:00 Name: JED BASSETT JR [facility] : 1955 Age/S: 64 / M [address] [facility] #: [id number] Loc: [place] [address] Phys: Concepcion Shaw MD Acct: [id number] Dis Date: Status: ADM IN PHONE #: [phone] Exam Date: 11/02/2019 1430 FAX #: [phone] Reason: CONSTIPATION EXAMS: CPT CODE: [id number] CT ABD PELVIS W/O CONT 19820 EXAM: CT of the abdomen and pelvis [...] without evidence of diverticulit is. Location code: [facility] Electronically Sig omar by Leni Juarez on 11/02/2019 at 1612 Reported and signed by: Hardy Juarez M.D. CC: Russell Davis MD; Antony Smith; Concepcion Shaw MD Technolog ist:Marlen López RT(R),CT CTDI: DLP: Trnscb Date/Time: 0 11/02/2019 (1611) t.SDR.GRW Orig Print D/T: S: 11/02/2019 (1615) PAGE 1 Signed Report FE W/TOTAL IRON BINDING CAP.2019-11-02 15:46:00* Test Item Value Reference Range Interpretation Comments SERUM IRON (test code = IRON) 30 ug/dL 50-175 L TOTAL IRON BINDING CAPACITY (test code = TIBC) 271 mcg/dL 250-450 N IRON SATURATION (test code = FESAT) 11.07 % 13-45 L [id number] 15:46:00* Test Item Value Reference Range Interpretation Comments FERRITIN (test code = KEITH) 71 ng/mL 8-388 N CBC W/AUTO [id number] 14:30:00* Test Item Value Reference Range Interpretation [...] DIFF REQUIRED (test code = MDIFF) NO [id number] 13:55:00* Test Item Value Reference Range Interpretation Comments GLUBED (test code = GLUBED) 237 mg/dL 74-106 H Performed by certified liquor bridge operator at [facility] [id number] 06:18:00* Test Item Value Reference Range Interpretation Comments GLUBED (test code = GLUBED) 118 mg/dL 74-106 H Performed by certified liquor bridge operator at [facility] RENAL FUNCTION [id number] 05:02:00* Test Item Value Reference Range Interpretation [...] 8.5-10.1 L Res ults called to by V.[facility] 11/02/19 0502Critical results verified and read back by Nurse? PHOSPHORUS (test code = PHOS) 6.1 mg/dL 2.5-4.9 H RENAL FUNCTION [id number] 04:41:00* Test Item Value Reference Range Interpretation [...] = PHOS) mg/dL 2.5-4.9 AG HEPAT B [id number] 23:10:00* Test Item Value Reference Range Interpretation Comments AG HEPAT B SURF (test code = HBSAG) Nonreactive Index Nonreactive [id number] 20:29:00* Test Item Value Reference Range Interpretation Comments GLUBED (test code = GLUBED) 197 mg/dL 74-106 H Performed by certified liquor bridge operator at [facility] [id number] 19:30:00* Test Item Value Reference Range Interpretation Comments TROPONIN-I (test code = TROPI) 0.213 ng/mL 0-0.045 HH Results previously called COMMENTS TO WOOD PANEL INSPECTOR: COLLECT 3 HOURS AFTER PREVIOUS [id number] 14:31:00* Test Item Value Reference Range Interpretation Comments TROPONIN-I (test code = TROPI) 0.227 ng/mL 0-0.045 HH Results called to [id number] by MARIO 11/01/19 1430Critical results verified and read back by Nurse? Y COMMENTS TO WOOD PANEL INSPECTOR: COLLECT 3 HOURS AFTER PREVIOUS SAMPLECBC W/O [id number] 04:32:00* Test Item Value Reference Range Interpretation [...] MPV) 10.5 fL 6.7-11.0 N B-TYPE NATRIURETIC [id number] 04:30:00* Test Item Value Reference Range Interpretation Comments B-TYPE NATRIURETIC PEPTIDE (test code = BNP) 696 pg/mL 0-100 H BASIC METABOLIC [id number] 04:29:00* Test Item Value Reference Range Interpretation [...] CA) 6.2 mg/dL 8.0-10.5 LL HEPATIC FUNCTION [id number] 04:29:00* Test Item Value Reference Range Interpretation [...] code = ALKP) 202 U/L 50-139 H [id number] 04:29:00* Test Item Value Reference Range Interpretation Comments LIPASE (test code = LIP) 117 Unit/L 144-286 L [id number] 04:29:00* Test Item Value Reference Range Interpretation Comments TROPONIN-I (test code = TROPI) 0.02 ng/mL 0.00-0.056 N PROTHROMBIN [id number] 04:27:00* Test Item Value Reference Range Interpretation [...] (2.5-3.5) IS PATIENT ON ANTICOAGULANTS? NTHROMBOPLASTIN TIME [id number] 04:27:00* Test Item Value Reference Range Interpretation Comments THROMBOPLASTIN TIME PARTIAL (test code = PTT) 27.5 seconds 25.5-34. 3 N Therapeutic Range for patients on Heparin Therapy is 2 to2.5 times their baseline PTT level. IS PATIENT ON ANTICOAGULANTS? NBASIC METABOLIC [id number] 04:23:00* Test Item Value Reference Range Interpretation [...] CA) 6.2 mg/dL 8.0-10.5 LL HEPATIC FUNCTION [id number] 04:23:00* Test Item Value Reference Range Interpretation [...] TOTAL (test code = ALKP) IUnit/L 45-117 [id number] 04:23:00* Test Item Value Reference Range Interpretation Comments LIPASE (test code = LIP) U/L 73.0-393.0 [id number] 04:23:00* Test Item Value Reference Range Interpretation Comments TROPONIN-I (test code = TROPI) ng/mL 0-0.045 - XR CHEST 1 [id number] 04:19:00 FAX: Davy Rose MD [phone] [place]: [place] St: REG FAX: Catarina Martinez [phone] Name: JED BASSETT JR [facility] : 1955 Age/S: 64/M [address] [facility] Unit #: [id number] Loc: [facility] B Phys: Davy Adam MD [place], [place] [address] Acct: [id number] Dis Date: Status: REG ER PHONE #: Exam Date: 11/01/2019 6776 FAX #: Reason: CHEST PAIN EXAMS: CPT CODE: [id number] XR CHEST 1 V 50185 - XR CHEST 1 V, 11/01/2019 3:57 [...] By: [email or web address] Orig Print D/T: S: 11/01/2019 (0422) PAGE 1 Signed Report Comprehensive metabolic [id number] 16:41:22* Test Item Value Reference Range Interpretation Comments Sodium (test code = 2951-2) 138 135- 150 mEq/L Potassium (test code = 2823-3) 5.1 3.5- 5.0 mEq/L H Chloride (test code = 5-0) 105 98- 112 mEq/L CO2 (test code = 2027-9) 15 mmol/L 24-31 L Anion gap (test code = 64646-2) 18@ANIO 7- 15 mEq/L H BUN (test code = 3094-0) 93 mg/dL 7-18 H Creatinine (test code = 2160-0) 5.20 mg/dL 0.7-1.2 H Glucose (test code = 2345-7) 164 mg/dL 65-100 H Calcium (test code = 02683-8) 7.0 mg/dL 8.8-10.2 L Protein (test code [...] <0.3 0.2-1.2 Lab Interpretation (test code = 29695-0) Abnormal [facility] MethodistLipase [id number] 16:41:21* Test Item Value Reference Range Interpretation Comments Lipase (test code = 3040-3) 33 U/L 13-60 Monona MethodistEstimated [id number] 16:41:21* Test Item Value Reference Range Interpretation Comments Estimated GFR (test code = 5488) 11 mL/min/1.73 m2 A Catergory Units InterpretationG1 >=90 Normal or highG2 60-89 Mildly ommbwhddhR6z 45-59 Mildly to moderately jqtveqxgiC4f 30-44 Moderately to severely decreasedG4 15-29 Severely decreasedG5 <15 Kidney failureThe eGFR was calculated using the Chronic Kidney Disease Epidemiology Collaboration (CKD-EPI) equation. Interpretation is based on recommendations of the National Kidney Foundation-Kidney Disease Outcomes Quality Initiative (NKF-KDOQI) published in 2014. Lab Interpretation (test code = 53714-6) Abnormal Monona MethodistUrinalysis screen and microscopy, with reflex to culture 2019-08-31 16:37:50* Test Item Value Reference Range Interpretation Comments Specimen site (test code = 0626749) Clean catch Color, UA (test code = 5778-6) Yellow Appearance, UA (test code = 5767-9) Slightly-Cloudy Specific gravity, UA (test code = 5811-5) 1.015 1.001-1.035 pH, UA (test code = 5803-2) 5.0 5.0-8.5 Protein, UA (test code = 57053-2) 3+ Negative A Glucose, UA (test code = 75417-5) 1+ Negative A Ketones, UA (test code = 2514-8) Negative Negative Bilirubin, UA (test code = 5770-3) Negative Negative Blood, UA (test code = 5794-3) Negative Negative Nitrite, UA (test code = 5802-4) Negative Negative Urobilinogen, UA (test code = 32789-3) Negative <2.0 Leukocyte esterase, UA (test code = 5799-2) Negative Negative WBC, UA (test code = 5821-4) None seen 0- 1 /HPF RBC, UA (test code = 45973-8) 3 0- 5 /HPF Bacteria, UA (test code = 62132-1) Trace None seen Yeast, UA (test code = 87782-7) None seen Yeast with pseudohyphae, UA (test code = 12026-1) None seen Lab Interpretation (test code = 19726-9) Abnormal Monona MethodistCBC with platelet and [id number] 16:21:01* Test Item Value Reference Range Interpretation Comments WBC (test code = 72654-9) 7.6 4.2- 11.0 k/uL RBC (test code = 16304-6) 2.97 m/uL 4.04-5.86 L HGB (test code = 718-7) 8.1 g/dL 13-17.3 L HCT (test code = 4544-3) 26.5 % 34-45 L MCV (test code = 787-2) 89.2 fL 80-98 MCH (test code = 785-6) 27.3 pg 27-34 MCHC (test code = 786-4) 30.6 g/dL 31.5-36.5 L RDW - SD (test code = 36993-6) 46.1 fL 37-51 MPV (test code = 64362-2) 11.1 fL 7.4-10.4 H Platelet count (test code = 75477-2) 240 150- 400 k/uL Nucleated RBC (test code = 76191-3) 0.00 /100 WBC Neutrophils (test code = 37555-6) 62.5 % 36-66 Lymphocytes (test code = 15218-2) 26.3 % 24-44 Monocytes (test code = 67997-1) 8.5 % 0-6 H Eosinophils (test code = 38685-2) 2.0 % 0-6 Basophils (test code = 82611-8) 0.4 % 0-1.2 Immature granulocytes (test code = 62685-4) 0.3 % 0-1 Lab Interpretation (test code = 97716-6) Abnormal Ede Felix
[2020-06-24 16:59] LABS: BILIRUBIN,URINE SMALL (NEGATIVE); CLARITY,URINE SL CLOUDY (CLEAR); COLOR,URINE YELLOW (YELLOW); KETONES,URINE TRACE (NEGATIVE); LEUKOCYTE ESTERASE ,URINE NEGATIVE (NEGATIVE); NITRITE,URINE NEGATIVE (NEGATIVE); PROTEIN,URINE DIPSTICK >=300 (NEGATIVE); URINE UROBILINOGEN 0.2 mg/dL (0.2 - 1)
[2020-06-24 17:11] LABS: AMORPHOUS SEDIMENT,URINE FEW (FEW); BACTERIA,URINE FEW /HPF; EPITHELIAL CELLS,URINE FEW /LPF; MUCUS,URINE FEW (RARE)
[2020-06-24 17:11] LABS: ALBUMIN 3.4 g/dL (3.5-5.0); ANION GAP 17.4 mmol/L (8-16); CALCIUM 7.4 mg/dL (8.4-10.2); CREATININE, SERUM 4.09 mg/dL (0.72-1.25); POTASSIUM 3.4 mmol/L (3.5-5.1)
--- NOTE | 2020-06-24 17:33 | Diagnostic Imaging Report ---
EXAMINATION: CHEST 2 VIEWS INDICATION: SEPSIS COMPARISON: Chest x-ray dated 06/10/2020. FINDINGS: PA and lateral views TUBES and LINES: Right chest wall embedded dual lumen central venous catheter with distal tip in the SVC. LUNGS/PLEURA: Lungs are well inflated. There is no evidence of pneumonia or pulmonary edema.. There is no pleural effusion or pneumothorax. HEART AND MEDIASTINUM: The cardiomediastinal silhouette is unremarkable. BONES AND SOFT TISSUES: No acute osseous lesion. Soft tissues are unremarkable. UPPER ABDOMEN: No free air under the diaphragm. IMPRESSION: No acute thoracic abnormality. Signed by: Tad Benitez MD on 06/24/2020 5:29 PM
[2020-06-24] MEDS ORDERED: VANCOMYCIN 1GM/NS 250 ML 250 ML IV ONE (18:00)
[2020-06-24] MEDS: MEROPENEM 500MG/ NS 50ML 50 ML IV SCH (18:01)
[2020-06-24] MEDS ORDERED: ONDANSETRON HCL INJ 2MG/ML 2ML 2 MG/ML VIAL IV PRN (18:15)
[2020-06-24] MEDS ORDERED: ACETAMINOPHEN 325 MG TAB PO PRN (18:15)
--- OUTSIDE RECORDS SUMMARY | 2020-06-24 18:27 | XMS REPORT | Clinical Summary ---
Author Author [employer] [facility] Address Unknown Phone Unavailable Care Team Providers Care Music Adapter Name Role Phone Antony Mosley MD PCP [...] (Primary Dx); ESRD (end stage renal disease) ([facility]) 08/31/2019 Emergency Emergency Medicine [place] [...] Comments Vital Sign 189/78 08/31/2019 9:05 PM [employer] Blood Pressure 71 08/31/2019 9:05 PM [employer] Pulse 37 C (98.6 F) 08/31/2019 9:05 PM [employer] Temperature 19 08/31/2019 9:05 PM [employer] Respiratory Rate 99% 08/31/2019 9:05 PM [employer] Oxygen Saturation - - Inhaled Oxygen Concentration 81.6 kg (180 lb) 08/31/2019 3:20 PM [employer] Weight 167.6 cm (5' 6") 08/31/2019 3:20 PM [employer] Height 29.05 08/31/2019 3:20 PM [employer] Body Mass Index Plan of Treatment Health Maintenance Due Date Last Done Comments DIABETIC RETINAL EYE EXAM 1957 DIABETIC FOOT EXAM 1967 URINE MICROALBUMIN 1967 COLONOSCOPY SCREENING 2007 SHINGLES VACCINES (#2) 04/17/2017 02/15/2017 INFLUENZA VACCINE 07/21/2020 Procedures Comments Procedure Name Priority Date/Time Associated Diag nosis URINALYSIS SCREEN AND STAT 08/31/2019 MICROSCOPY, WITH REFLEX 3:21 PM [employer] TO CULTURE ESTIMATED GFR STAT 08/31/2019 3:19 PM [employer] LIPASE LEVEL STAT 08/31/2019 3:19 PM [employer] COMPREHENSIVE METABOLIC STAT 08/31/2019 PANEL 3:19 PM [employer] HC COMPLETE BLD COUNT STAT 08/31/2019 W/AUTO DIFF 3:19 PM [employer] after 06/24/2019 Results * Urinalysis screen and microscopy, with reflex to culture (08/31/2019 3:21 PM [employer]) Specimen site Clean catch [facility] Color, UA Yellow [facility] Appearance, UA Slightly-Cloudy [facility] Specific 1.015 1.001 - 1.035 [place] gravity, UA [facility] pH, UA 5.0 5.0 - 8.5 [facility] Protein, UA 3+ (A) Negative [facility] Glucose, UA 1+ (A) Negative [facility] Ketones, UA Negative Negative [facility] Bilirubin, UA Negative Negative [facility] Blood, UA Negative Negative [facility] Nitrite, UA Negative Negative [facility] Urobilinogen, Negative <2.0 [facility] Leukocyte Negative Negative [place] esterase, UA [facility] WBC, UA None seen 0 - 1 /HPF [facility] RBC, UA 3 0 - 5 /HPF [facility] Bacteria, UA Trace None seen [facility] Yeast, UA None seen [facility] Yeast with None seen [place] [facility] Specimen Urine Performing Organization Address City/[facility] Ph one Number [facility] DEPARTMENT OF [address] [place] [address] PATHOLOGY AND GENOMIC MEDICINE [address] * Estimated GFR (08/31/2019 3:19 PM [employer]) [facility] Estimated GFR 11 (A) mL/min/1.73 m2 [place] Comment: [facility] G1 >=90 Normal or high [...] 2014. Specimen Plasma specimen Performing Organization Address City/State/[facility] Ph one Number [facility] DEPARTMENT OF [address] [place] [address] PATHOLOGY AND GENOMIC MEDICINE [address] * CBC with platelet and differential (08/31/2019 3:19 PM [employer]) [facility] WBC 7.6 4.2 - 11.0 k/uL [facility] RBC 2.97 (L) 4.04 - 5.86 m/uL [facility] HGB 8.1 (L) 13.0 - 17.3 g/dL [facility] HCT 26.5 (L) 34.0 - 45.0 % [facility] MCV 89.2 80.0 - 98.0 fL [facility] MCH 27.3 27.0 - 34.0 pg [facility] MCHC 30.6 (L) 31.5 - 36.5 g/dL [facility] RDW - SD 46.1 37.0 - 51.0 fL [facility] MPV 11.1 (H) 7.4 - 10.4 fL [facility] Platelet count 240 150 - 400 k/uL [facility] Nucleated RBC 0.00 /100 WBC [facility] Neutrophils 62.5 36.0 - 66.0 % [facility] Lymphocytes 26.3 24.0 - 44.0 % [facility] Monocytes 8.5 (H) 0.0 - 6.0 % [facility] Eosinophils 2.0 0.0 - 6.0 % [facility] Basophils 0.4 0.0 - 1.2 % [facility] Immature 0.3 0.0 - 1.0 % [place] granulocytes [facility] Specimen Blood Performing Organization Address City/State/[facility] Ph one Number [facility] DEPARTMENT OF [address] [place] [phone] PATHOLOGY AND GENOMIC MEDICINE [address] * Lipase level (08/31/2019 3:19 PM [employer]) Lipase 33 13 - 60 U/L [facility] Specimen Plasma specimen Performing Organization Address City/State/[facility] Ph one Number [facility] DEPARTMENT OF [address] [place] [address] PATHOLOGY AND GENOMIC MEDICINE [facility] [address] [place] [address] HOSPITAL * Comprehensive metabolic panel (08/31/2019 3:19 PM [employer]) Sodium 138 135 - 150 mEq/L [facility] Potassium 5.1 (H) 3.5 - 5.0 mEq/L [facility] Chloride 105 98 - 112 mEq/L [facility] CO2 15 (L) 24 - 31 mmol/L [facility] Anion gap 18@ANIO (H) 7 - 15 mEq/L [facility] BUN 93 (H) 7 - 18 mg/dL [facility] Creatinine 5.20 (H) 0.70 - 1.20 mg/dL [facility] Glucose 164 (H) 65 - 100 mg/dL [facility] Calcium 7.0 (L) 8.8 - 10.2 mg/dL [facility] Protein 6.5 6.3 - 8.3 g/dL [facility] Albumin 3.1 (L) 3.5 - 5.0 g/dL [facility] A/G ratio 0.9 0.7 - 3.8 [facility] Alkaline 103 0 - 129 U/L [place] phosphatase [facility] AST 17 10 - 50 U/L [facility] ALT 9 5 - 50 U/L [facility] Total bilirubin <0.3 0.2 - 1.2 mg/dL [facility] Specimen Plasma specimen Performing Organization Address City/State/Zipcode Ph one Number [facility] DEPARTMENT OF [facility] [place] [phone] PATHOLOGY AND GENOMIC MEDICINE [facility] [place] [address] HOSPITAL after 06/24/2019 Insurance Type Payer Benefit Subscriber ID Effective Phone Address Plan / Dates Group HMO [employer] CIGNA xxxxxxxxxxx [id number] [facility] Advance Directives For more information, please contact: [phone] 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
--- OUTSIDE RECORDS SUMMARY | 2020-06-24 18:27 | XMS REPORT | Clinical Summary ---
Author Author NOAH [facility] Address Unknown Phone Unavailable Care Team Providers Care Quality Facilitator Name Role Phone Antony Mosley MD PCP [...] Pre-transplant evaluation for chronic kidney disease 12/16/2019 [facility] Cardiology Encounter Lisa Chen MD CKD (chronic [...] Pre-transplant evaluation for chronic kidney disease 12/16/2019 [facility] Radiology Encounter Lisa Chen MD CKD (chronic [...] kidney disease on chronic dialysis, unspecified whether shear operator automatic insulin use (HCC); Diabetic retinopathy of both [...] Taken Vital Sign Reading 12/16/2019 11:23 AM VEGETABLE PICKER Blood Pressure 173/70 12/16/2019 11:23 AM VEGETABLE PICKER Pulse 90 11/25/2019 1:03 PM VEGETABLE PICKER Temperature 36.6 C (97.9 F) 11/25/2019 1:03 PM VEGETABLE PICKER Respiratory Rate 18 - Oxygen Saturation - - Inhaled Oxygen - Concentration 12/16/2019 9:00 AM VEGETABLE PICKER Weight 79.8 kg (176 lb) 12/16/2019 9:00 AM VEGETABLE PICKER Height 167.6 cm (5' 6") 12/16/2019 9:00 AM VEGETABLE PICKER Body Mass Index 28.41 Plan of Treatment [...] VASCULAR 12/17/2019 REPORT - SCAN 9:22 PM VEGETABLE PICKER ECHOCARDIOGRAM REPORT - 12/17/2019 SCAN 9:20 PM VEGETABLE PICKER TRANSFUSION SERVICE 12/17/2019 REPORT - SCAN 6:05 PM VEGETABLE PICKER STRESS ECHO Routine 12/16/2019 CKD (chronic ki dney 11:08 AM VEGETABLE PICKER disease), stage IV (HCC) Hypertensive renal disease Diabetes mellitus due to underlying condition with chronic kidney disease on chronic dialysis, without long-term current use of insulin (HCC) Pre-transplant evaluation for chronic kidney disease 2D ECHO W/ DOPPLER Routine 12/16/2019 CKD (chroni c kidney (CW/PW/COLOR) 10:28 AM VEGETABLE PICKER disease), stage IV (HCC) Hypertensive renal disease Diabetes mellitus due to underlying condition with chronic kidney disease on chronic dialysis, without long-term current use of insulin (HCC) Pre-transplant evaluation for chronic kidney disease TREADMILL Routine 12/16/2019 TOLERANCE(NON-NUCLEAR 10:00 AM VEGETABLE PICKER TREADMILL) ECG 12-LEAD Routine 12/16/2019 CKD (chronic ki dney 9:18 AM VEGETABLE PICKER disease), stage IV (HCC) Hypertensive renal disease Diabetes mellitus due to underlying condition with chronic kidney disease on chronic dialysis, without long-term current use of insulin (HCC) Pre-transplant evaluation for chronic kidney disease XR CHEST 2 VIEWS Routine 12/16/2019 CKD (chronic kidney 8:56 AM VEGETABLE PICKER disease), stage IV (HCC) Hypertensive renal disease Diabetes mellitus due to underlying condition with chronic kidney disease on chronic dialysis, without long-term current use of insulin (HCC) Pre-transplant evaluation for chronic kidney disease US ABDOMEN COMPLETE Routine 12/16/2019 CKD (chron ic kidney 8:07 AM VEGETABLE PICKER disease), stage IV (HCC) Hypertensive renal disease Diabetes mellitus due to underlying condition with chronic kidney disease on chronic dialysis, without long-term current use of insulin (HCC) Pre-transplant evaluation for chronic kidney disease BLOOD TYPING, AUTOMATED Routine 12/16/2019 CKD (c hronic kidney 7:13 AM VEGETABLE PICKER disease), stage IV (HCC) Hypertensive renal disease Diabetes mellitus due to underlying condition with chronic kidney disease on chronic dialysis, without long-term current use of insulin (HCC) Pre-transplant evaluation for chronic kidney disease HEMOGLOBIN A1C Routine 12/16/2019 CKD (chronic ki dney 7:13 AM VEGETABLE PICKER disease), stage IV (HCC) Hypertensive renal disease Diabetes mellitus due to underlying condition with chronic kidney disease on chronic dialysis, without long-term current use of insulin (HCC) Pre-transplant evaluation for chronic kidney disease LIPID PANEL Routine 12/16/2019 CKD (chronic ki dney 7:13 AM VEGETABLE PICKER disease), stage IV (HCC) Hypertensive renal disease Diabetes mellitus due to underlying condition with chronic kidney disease on chronic dialysis, without long-term current use of insulin (HCC) Pre-transplant evaluation for chronic kidney disease PSA Routine 12/16/2019 CKD (chronic ki dney 7:13 AM VEGETABLE PICKER disease), stage IV (HCC) Hypertensive renal disease Diabetes mellitus due to underlying condition with chronic kidney disease on chronic dialysis, without long-term current use of insulin (HCC) Pre-transplant evaluation for chronic kidney disease TRANSFUSION SERVICE 11/26/2019 REPORT - SCAN 6:07 PM VEGETABLE PICKER BLOOD TYPING, AUTOMATED Routine 11/25/2019 CKD (c hronic kidney 11:50 AM VEGETABLE PICKER disease), stage IV (HCC) Hypertensive renal disease Diabetes mellitus due to underlying condition with chronic kidney disease on chronic dialysis, without long-term current use of insulin (HCC) Pre-transplant evaluation for chronic kidney disease DIRECT AHG (FELIPA)/DIRECT Routine 11/25/2019 CKD (c hronic kidney ZEESHAN 11:50 AM VEGETABLE PICKER disease), stage IV (HCC) Hypertensive renal disease Diabetes mellitus due to underlying condition with chronic kidney disease on chronic dialysis, without long-term current use of insulin (HCC) Pre-transplant evaluation for chronic kidney disease HLA TYPING CII Routine 11/25/2019 CKD (chronic ki dney 11:50 AM VEGETABLE PICKER disease), stage IV (HCC) Hypertensive renal disease Diabetes mellitus due to underlying condition with chronic kidney disease on chronic dialysis, without long-term current use of insulin (HCC) Pre-transplant evaluation for chronic kidney disease HLA TYPING CI Routine 11/25/2019 CKD (chronic ki dney 11:50 AM VEGETABLE PICKER disease), stage IV (HCC) Hypertensive renal disease Diabetes mellitus due to underlying condition with chronic kidney disease on chronic dialysis, without long-term current use of insulin (HCC) Pre-transplant evaluation for chronic kidney disease T SPOT TB Routine 11/25/2019 CKD (chronic ki dney 11:50 AM VEGETABLE PICKER disease), stage IV (HCC) Hypertensive renal disease Diabetes mellitus due to underlying condition with chronic kidney disease on chronic dialysis, without long-term current use of insulin (HCC) Pre-transplant evaluation for chronic kidney disease PTH, INTACT Routine 11/25/2019 CKD (chronic ki dney 11:50 AM VEGETABLE PICKER disease), stage IV (HCC) Hypertensive renal disease Diabetes mellitus due to underlying condition with chronic kidney disease on chronic dialysis, without long-term current use of insulin (HCC) Pre-transplant evaluation for chronic kidney disease HIV-1 ANTIGEN WITH Routine 11/25/2019 CKD (chroni c kidney HIV-1/2 ANTIBODY 11:50 AM VEGETABLE PICKER disease), stage IV (HCC) Hypertensive renal disease Diabetes mellitus due to underlying condition with chronic kidney disease on chronic dialysis, without long-term current use of insulin (HCC) Pre-transplant evaluation for chronic kidney disease HEPATITIS C ANTIBODY Routine 11/25/2019 CKD (scrap kettle tender ricky kidney 11:50 AM VEGETABLE PICKER disease), stage IV (HCC) Hypertensive renal disease Diabetes mellitus due to underlying condition with chronic kidney disease on chronic dialysis, without long-term current use of insulin (HCC) Pre-transplant evaluation for chronic kidney disease HEPATITIS B CORE Routine 11/25/2019 CKD (chronic kidney ANTIBODY, IGM 11:50 AM VEGETABLE PICKER disease), stage IV (HCC) Hypertensive renal disease Diabetes mellitus due to underlying condition with chronic kidney disease on chronic dialysis, without long-term current use of insulin (HCC) Pre-transplant evaluation for chronic kidney disease HEPATITIS B SURFACE Routine 11/25/2019 CKD (chron ic kidney ANTIGEN 11:50 AM VEGETABLE PICKER disease), stage IV (HCC) Hypertensive renal disease Diabetes mellitus due to underlying condition with chronic kidney disease on chronic dialysis, without long-term current use of insulin (HCC) Pre-transplant evaluation for chronic kidney disease HEPATITIS B SURFACE Routine 11/25/2019 CKD (chron ic kidney ANTIBODY 11:50 AM VEGETABLE PICKER disease), stage IV (HCC) Hypertensive renal disease Diabetes mellitus due to underlying condition with chronic kidney disease on chronic dialysis, without long-term current use of insulin (HCC) Pre-transplant evaluation for chronic kidney disease CBC W/PLT COUNT & AUTO Routine 11/25/2019 CKD (ch ronic kidney DIFFERENTIAL 11:49 AM VEGETABLE PICKER disease), stage IV (HCC) Hypertensive renal disease Diabetes mellitus due to underlying condition with chronic kidney disease on chronic dialysis, without long-term current use of insulin (HCC) Pre-transplant evaluation for chronic kidney disease AB SPECIFICITY CLASS I Routine 11/25/2019 CKD (ch ronic kidney 11:49 AM VEGETABLE PICKER disease), stage IV (HCC) Hypertensive renal disease Diabetes mellitus due to underlying condition with chronic kidney disease on chronic dialysis, without long-term current use of insulin (HCC) Pre-transplant evaluation for chronic kidney disease TREPONEMA PALLIDUM - Routine 11/25/2019 CKD (scrap kettle tender ricky kidney SYPHILIS IGG 11:49 AM VEGETABLE PICKER disease), stage IV (HCC) Hypertensive renal disease Diabetes mellitus due to underlying condition with chronic kidney disease on chronic dialysis, without long-term current use of insulin (HCC) Pre-transplant evaluation for chronic kidney disease RPR TITER Routine 11/25/2019 CKD (chronic ki dney 11:49 AM VEGETABLE PICKER disease), stage IV (HCC) Hypertensive renal disease Diabetes mellitus due to underlying condition with chronic kidney disease on chronic dialysis, without long-term current use of insulin (HCC) Pre-transplant evaluation for chronic kidney disease FLOW PRA CLASS II WITH Routine 11/25/2019 CKD (ch ronic kidney REFLEX TO ANTIBODY 11:49 AM VEGETABLE PICKER disease), stage IV (HCC) SPECIFICITY Hypertensive renal disease Diabetes mellitus due to underlying condition with chronic kidney disease on chronic dialysis, without long-term current use of insulin (HCC) Pre-transplant evaluation for chronic kidney disease FLOW PRA CLASS I WITH Routine 11/25/2019 CKD (chr onic kidney REFLEX TO ANTIBODY 11:49 AM VEGETABLE PICKER disease), stage IV (HCC) SPECIFICITY Hypertensive renal disease Diabetes mellitus due to underlying condition with chronic kidney disease on chronic dialysis, without long-term current use of insulin (HCC) Pre-transplant evaluation for chronic kidney disease VARICELLA ZOSTER Routine 11/25/2019 CKD (chronic kidney ANTIBODY, IGG 11:49 AM VEGETABLE PICKER disease), stage IV (HCC) Hypertensive renal disease Diabetes mellitus due to underlying condition with chronic kidney disease on chronic dialysis, without long-term current use of insulin (HCC) Pre-transplant evaluation for chronic kidney disease URIC ACID Routine 11/25/2019 CKD (chronic ki dney 11:49 AM VEGETABLE PICKER disease), stage IV (HCC) Hypertensive renal disease Diabetes mellitus due to underlying condition with chronic kidney disease on chronic dialysis, without long-term current use of insulin (HCC) Pre-transplant evaluation for chronic kidney disease RPR Routine 11/25/2019 CKD (chronic ki dney 11:49 AM VEGETABLE PICKER disease), stage IV (HCC) Hypertensive renal disease Diabetes mellitus due to underlying condition with chronic kidney disease on chronic dialysis, without long-term current use of insulin (HCC) Pre-transplant evaluation for chronic kidney disease PT/APTT Routine 11/25/2019 CKD (chronic ki dney 11:49 AM VEGETABLE PICKER disease), stage IV (HCC) Hypertensive renal disease Diabetes mellitus due to underlying condition with chronic kidney disease on chronic dialysis, without long-term current use of insulin (HCC) Pre-transplant evaluation for chronic kidney disease PHOSPHORUS Routine 11/25/2019 CKD (chronic ki dney 11:49 AM VEGETABLE PICKER disease), stage IV (HCC) Hypertensive renal disease Diabetes mellitus due to underlying condition with chronic kidney disease on chronic dialysis, without long-term current use of insulin (HCC) Pre-transplant evaluation for chronic kidney disease LACTATE DEHYDROGENASE Routine 11/25/2019 CKD (chr onic kidney (LDH) 11:49 AM VEGETABLE PICKER disease), stage IV (HCC) Hypertensive renal disease Diabetes mellitus due to underlying condition with chronic kidney disease on chronic dialysis, without long-term current use of insulin (HCC) Pre-transplant evaluation for chronic kidney disease GAMMA GLUTAMYL Routine 11/25/2019 CKD (chronic ki dney TRANSFERASE (GGT) 11:49 AM VEGETABLE PICKER disease), stage IV (HCC) Hypertensive renal disease Diabetes mellitus due to underlying condition with chronic kidney disease on chronic dialysis, without long-term current use of insulin (HCC) Pre-transplant evaluation for chronic kidney disease EBV ANTIBODY, IGM Routine 11/25/2019 CKD (chronic kidney 11:49 AM VEGETABLE PICKER disease), stage IV (HCC) Hypertensive renal disease Diabetes mellitus due to underlying condition with chronic kidney disease on chronic dialysis, without long-term current use of insulin (HCC) Pre-transplant evaluation for chronic kidney disease EBV ANTIBODY, IGG Routine 11/25/2019 CKD (chronic kidney 11:49 AM VEGETABLE PICKER disease), stage IV (HCC) Hypertensive renal disease Diabetes mellitus due to underlying condition with chronic kidney disease on chronic dialysis, without long-term current use of insulin (HCC) Pre-transplant evaluation for chronic kidney disease COMPREHENSIVE METABOLIC Routine 11/25/2019 CKD (c hronic kidney PANEL 11:49 AM VEGETABLE PICKER disease), stage IV (HCC) Hypertensive renal disease Diabetes mellitus due to underlying condition with chronic kidney disease on chronic dialysis, without long-term current use of insulin (HCC) Pre-transplant evaluation for chronic kidney disease CYTOMEGALOVIRUS ANTIBODY, Routine 11/25/2019 CKD (chronic kidney IGM 11:49 AM VEGETABLE PICKER disease), stage IV (HCC) Hypertensive renal disease Diabetes mellitus due to underlying condition with chronic kidney disease on chronic dialysis, without long-term current use of insulin (HCC) Pre-transplant evaluation for chronic kidney disease CYTOMEGALOVIRUS ANTIBODY, Routine 11/25/2019 CKD (chronic kidney IGG 11:49 AM VEGETABLE PICKER disease), stage IV (HCC) Hypertensive renal disease Diabetes mellitus due to underlying condition with chronic kidney disease on chronic dialysis, without long-term current use of insulin (HCC) Pre-transplant evaluation for chronic kidney disease CBC W/PLT COUNT & AUTO Routine 11/25/2019 CKD (ch ronic kidney DIFFERENTIAL 11:49 AM VEGETABLE PICKER disease), stage IV (HCC) Hypertensive renal disease Diabetes mellitus due to underlying condition with chronic kidney disease on chronic dialysis, without long-term current use of insulin (HCC) Pre-transplant evaluation for chronic kidney disease after 06/24/2019 Results * PERIPHERAL VASCULAR REPORT - SCAN (12/17/2019 9:22 PM VEGETABLE PICKER) Narrative Performed At This result has an attachment that is n ot available. * ECHOCARDIOGRAM REPORT - SCAN (12/17/2019 9:20 PM VEGETABLE PICKER) Narrative Performed At This result has an attachment that is n ot available. * TRANSFUSION SERVICE REPORT - SCAN (12/17/2019 6:05 PM VEGETABLE PICKER) Only the most recent of 2 results within the time period is included. Narrative Performed At This result has an attachment that is n ot available. * Stress Echo With Tracing (12/16/2019 11:08 AM VEGETABLE PICKER) Ejection Fraction [facility] Specimen Narrative Performed At Stress Echocardiography Report [facility] Demographics [facility] Patient Name ROSE HENRIQUEZ ate of Study 12/16/2019 [id number] GenderMale Visit Number [id number] RaceUnk nown [id number] Room Number Number Date of Birth1955 Referring Physician April Breaux Age64 year(s) Warp Coiler Levy Whaley, Physician Fellow [place] MD [...] External Ris In - 12/17/2019 7:14 AM VEGETABLE PICKER Stress Echocardiography Report Demographics Patient Name SILVER HENRIQUEZ Date of Study 12/16/2019 Gender Male Visit Number [id number] Race Unknown Room Number Number Date of 1955 Referring Physician April Breaux Age 64 year(s) Warp Coiler Levy Alberto Interpreting Vijaya Whaley, Physician MD [...] Peak HR: 100 bpm HR BP Product: 73730 Peak BP: 206/78 mmHg Predicted HR: 158 [...] Performing Organization Address City/State/Zipcode Ph one Number [facility] [employer] [facility] * 2D Echo W/Doppler(CW/PW/Color) (12/16/2019 10:28 AM VEGETABLE PICKER) Ejection Fraction [facility] [employer] [facility] Specimen Narrative Performed At Transthoracic Echocardiography Report (TTE) [facility] Demographics [place] [facility] Patient Name ROSE HENRIQUEZ ate of Study 12/16/2019 [id number] GenderMale Visit Number [id number] Alanis gonzalez [id number] Room Number Number Date of Birth1955 Referring Physician April Breaux Age64 year(s) Warp Coiler Levy Whaley, Physician MD Fellow [place] [...] LVEDV Bernal's:77.83 ml LVEDVI: 41 ml/m^2 LVESV Beranl's:25.42 ml LVESVI: 13 ml/m^2 LVEF Bernal's: 67.3 [...] External Ris In - 12/17/2019 7:21 AM VEGETABLE PICKER Transthoracic Echocardiography Report (TTE) Demographics Patient Name SILVER HENRIQUEZ Date of Study 12/16/2019 Gender Male Visit Number [id number] Race Unknown Room Number Number Date of 1955 Referring Physician April Breaux Age 64 year(s) Warp Coiler Levy Alberto Interpreting Vijaya Whaley, Physician MD [...] VTI (PW): 23.72 cm Performing Organization Address City/State/[facility] Ph one Number [facility] * Treadmill tolerance(Non-Nuclear Treadmill) (12/16/2019 10:00 AM VEGETABLE PICKER) Specimen Narrative Performed At Protocol Name DOBUT [...] but self-terminated. Confirmed by MD SALDANA RAYMOND ([id number]) on 12/22/2019 4:44:04 PM Procedure Note Interface, External Ris In - 12/22/2019 4:44 PM VEGETABLE PICKER Protocol Name DOBUT TM-1 Time In Exercise [...] self- terminated. Confirmed by MD SALDANA RAYMOND ([id number]) on 12/22/2019 4:44:04 PM Performing Organization Address [facility] one Number GE MUSE * ECG 12 lead (12/16/2019 9:18 AM VEGETABLE PICKER) Specimen Narrative Performed At Ventricular Rate 69 BPM GE MUSE Atrial Rate 69 BPM P-R Interval 282 ms QRS Duration 100 ms Q-T Interval 442 ms QTC Calculation(Bazett) 473 ms P [place] 71 degrees R [place] -43 degrees T [place] 60 degrees Sinus rhythm with 1st degree A-V block Left axis deviation Abnormal ECG No previous ECGs available Confirmed by MD Padilla Roberto ([id number]) on 12/17/2019 11:06:49 AM Procedure Note Interface, External Ris In - 12/17/2019 11:06 AM VEGETABLE PICKER Ventricular Rate 69 BPM Atrial Rate 69 BPM P-R Interval 282 ms QRS Duration 100 ms Q-T Interval 442 ms QTC Calculation(Bazett) 473 ms P [place] 71 degrees R [place] -43 degrees T [place] 60 degrees Sinus rhythm with 1st degree A-V block Left axis deviation Abnormal ECG No previous ECGs available Confirmed by MD Padilla Roberto ([id number]) on 12/17/2019 11:06:49 AM Performing Organization Address [facility] Ph one Number GE MUSE * XR chest 2 views (12/16/2019 8:56 AM VEGETABLE PICKER) Specimen Narrative Performed At FINAL REPORT GE [...] Report Verified Date/Time: 0 10:01:55 Reading Location: [facility] Radiolo gy Reading Room Procedure Note Interface, External Ris In - 12/16/2019 10:04 AM VEGETABLE PICKER FINAL REPORT INDICATION: Pre kidney transplant evaluation. [...] Report Verified Date/Time: 12/16/2019 10:01:55 Reading Location: [facility] Radiology Reading Room Performing Organization Address City/State/Zipcode Ph one Number uMentioned * US abdomen complete (12/16/2019 8:07 AM VEGETABLE PICKER) Specimen Narrative Performed At FINAL REPORT uMentioned Abdominal ultrasound dated 12/16/2019 History: Kidney transplant evaluation. COMPARISON: None Findings: Liver is normal in size and echogenicit y.The liver fudcdptr47 cm in length.No focal lesion is noted [...] Report Verified Date/Time: 0 09:36:15 Reading Location: [address] Radiolo gy Reading Room Procedure Note Interface, External Ris In - 12/16/2019 9:38 AM VEGETABLE PICKER FINAL REPORT Abdominal ultrasound dated 12/16/2019 History: [...] Report Verified Date/Time: 12/16/2019 09:36:15 Reading Location: [address] Radiology Reading Room Performing Organization Address City/State/Zipcode Ph one Number RIS * Blood typing, automated (12/16/2019 7:13 AM VEGETABLE PICKER) Only the most recent of 2 results within the time period is included. ABO/RH AUTOMATED (BEAKER) O POSITIVE [facility] Specimen Blood Performing Organization Address [facility] Ph one Number [address] [address] [facility] * PSA (12/16/2019 7:13 AM VEGETABLE PICKER) PSA 0.3 0.0 - 4.0 ng/mL [facility] Specimen Blood Narrative Performed At Post Office Markup Clerk ID - [id number] [facility] Performing Organization Address [facility] one Number [address] [address] [facility] * Hemoglobin A1c (12/16/2019 7:13 AM VEGETABLE PICKER) Hemoglobin A1C 7.7 (H) 4.3 - 6.1 % [facility] Specimen Blood Performing Organization Address [facility] one Number [address] [address] [facility] * Lipid panel (12/16/2019 7:13 AM VEGETABLE PICKER) Triglycerides 120 mg/dL [facility] Cholesterol 105 mg/dL [facility] HDL 32 mg/dL [facility] LDL Calculated 49 mg/dL [facility] Specimen Blood Narrative Performed At Triglyceride Reference Range: [facility] Low Risk <150 [facility] [id number] High Risk 200-499 Very High Risk>=500 Cholesterol Reference Range: Low Risk <200 [id number] High Risk>240 HDL Cholesterol Reference Range: Low Risk >=60 High Risk <40 LDL Cholesterol Reference Range: Optimal<100 Near [id number] Very High >=190 Post Office Markup Clerk ID - HUY Yates Performing Organization Address City/[facility] Ph one Number [facility] [address] [place], [place] [address] [facility] * HLA TYPING CII (11/25/2019 11:50 AM VEGETABLE PICKER) HLA-DR AG1 10 [facility] HLA-DR AG2 1 [facility] HLA-DQA1 AG 1-1 01 [facility] HLA-DQA1 AG 1-2 01 [facility] HLA-DQB1 AG 1-1 5 [facility] HLA-DQB1 AG 1-2 5 [facility] HLA-DPA1 AG 1-1 02 [facility] HLA-DPA1 AG 1-2 02 [facility] HLA-DPB1 AG 1-1 10:01 [facility] HLA-DPB1 AG 1-2 17:01 [facility] Specimen Blood Narrative Performed At Disclaimer: [facility] This test was developed and its perform ance characteristics determined by the [facility]. It has not been cleared or approved by the U.S. Food and Drug Administration. The FDA has determined that such clearance or approval is not necessary. This test is used for clinic al purposes. It should not be regarded as investigational or for research. This [facility] is certified under the Clinical Laboratory Improvement Amendments of 19 88 (CLIA-88) as qualified to perform high complexity clinical laboratory testing. Performing Organization Address [facility] one Number [facility] HLA TESTING ONE [facility] Shara, MS: [id number], [place] [address] CLIA#[id number] CAP#[id number] UNOS#[id number] * HLA TYPING CI (11/25/2019 11:50 AM VEGETABLE PICKER) HLA-A AG1 2 [facility] HLA TEST[facility] HLA-A AG2 3 [facility] HLA-B AG1 35 [facility] HLA TEST[facility] HLA-B AG2 35 [facility] HLA TEST[facility] HLA-C AG1 4 [facility] HLA TEST[facility] HLA-C AG2 4 [facility] HLA TEST[facility] HLA-B BW1 6 [facility] HLA TEST[facility] HLA-B BW2 6 [facility] HLA TEST[facility] Specimen Blood Narrative Performed At Disclaimer: [facility] HLA TESTING This test was developed and its perform ance characteristics determined by the [facility]. It has not been cleared or [...] complexity clinical laboratory testing. Performing Organization Address City/State/[facility] Ph one Number [facility] HLA TESTING ONE Mark Olmedo, MS: [id number], [place] [address] CLIA#[id number] CAP#[id number] UNOS#[id number] * T Spot TB (11/25/2019 11:50 AM VEGETABLE PICKER) T-Spot TB Negative [facility] Neg Ctrl Spot Count 0 [facility] Panel A Spot 0 [facility] B Spot 1 [facility] Pos Ctrl Spot Ct 0 [facility] Scan Result [facility] Specimen Blood Narrative Performed At This result has an attachment that is n ot available. Performing Organization Address City/[facility] Ph one Number [facility] [place] [address] LABORATORIES 100 * HIV-1 Antigen with HIV-1/2 Antibody (11/25/2019 11:50 AM VEGETABLE PICKER) HIV-1 Antigen with HIV Nonreactive Nonreactive [facility] 1&2 Antibody [facility] Specimen Blood Narrative Performed At Post Office Markup Clerk ID [facility] Performing Organization Address City/[facility] Ph one [place] [address] [facility] * Hepatitis C Antibody (11/25/2019 11:50 AM VEGETABLE PICKER) Hepatitis C Ab Reactive (A) Nonreactive [facility] Specimen Blood Narrative Performed At Post Office Markup Clerk ID [facility] Performing Organization Address City/[facility] Ph one [address] [facility] * Hepatitis B core antibody, IgM (11/25/2019 11:50 AM VEGETABLE PICKER) Hep B C IgM Nonreactive Nonreactive [facility] Specimen Blood Narrative Performed At Post Office Markup Clerk ID [facility] Performing Organization Address City/[facility] Ph one [place] [address] 0 [phone] [place] [address] * Hepatitis B surface antibody (11/25/2019 11:50 AM VEGETABLE PICKER) Hep B S Ab <8.0 <8.0 mIU/mL [facility] Specimen Blood Narrative Performed At Post Office Markup Clerk ID - [facility] Performing Organization Address [facility] Ph one [address] * Hepatitis B surface antigen (11/25/2019 11:50 AM VEGETABLE PICKER) HBsAg Screen Nonreactive Nonreactive [facility] Specimen Blood Narrative Performed At Post Office Markup Clerk ID - [facility] Performing Organization Address [facility] Ph one [address] * Direct [facility]HG (FELIPA)/Direct Zeeshan (11/25/2019 11:50 AM VEGETABLE PICKER) Direct AHG-IGG NEGATIVEComment: saline [facility] control-negative [facility] Direct [facility]HG-C3B, C3D NEGATVIE [facility] Specimen Blood Performing Organization Address City/[facility]/Zipcode Ph one [place] [address] [phone] [facility] * PTH, Intact (11/25/2019 11:50 AM VEGETABLE PICKER) PTH 462.7 (H) 8.5 - 72.5 pg/mL [facility] Specimen Blood Narrative Performed At Post Office Markup Clerk ID - [facility] Performing Organization Address City/[facility]/Zipcode Ph one [facility] [address] [place], [place] [address] [facility] * MHA - TP (11/25/2019 11:49 AM VEGETABLE PICKER) TREPONEMA PALLIDUM, Reactive (AA) Nonreactive [facility] SYPHILIS IGG [facility] Specimen Blood Narrative Performed At Test performed by CALEB method. [facility] Performing Organization Address City/[facility] Ph one Number [facility] [address] [place], [place] [address] [facility] * FLOW PRA CLASS II WITH REFLEX TO ANTIBODY SPECIFICITY (11/25/2019 11:49 AM VEGETABLE PICKER) Flow Class II Percent 0 [facility] HLA TESTI NG Positive Specimen Blood Narrative Performed At Disclaimer: [facility] HLA TESTING This test was developed and its perform ance characteristics determined by the [facility]. It has not been cleared or [...] complexity clinical laboratory testing. Performing Organization Address City/[facility] Ph one Number [facility] HLA TESTING ONE Mark Olmedo, MS: [id number], [place] [address] CLIA#[id number] CAP#[id number] UNOS#[id number] * FLOW PRA CLASS I WITH REFLEX TO ANTIBODY SPECIFICITY (11/25/2019 11:49 AM VEGETABLE PICKER) Flow Class I Percent 10 [facility] HLA TESTIN G Positive Specimen Blood Narrative Performed At Disclaimer: [facility] HLA TESTING This test was developed and its perform ance characteristics determined by the [facility]. It has not been cleared or [...] complexity clinical laboratory testing. Performing Organization Address City/[facility] Ph one Number [facility] HLA TESTING ONE Mark Shara, MS: [id number], [place] [address] CLIA#[id number] CAP#[id number] UNOS#[id number] * AB SPECIFICITY CLASS I (11/25/2019 11:49 AM VEGETABLE PICKER) AB Specificity Class I NO CLASS I ANTIBODY DETECTED [facility] HLA TESTING WITH MFIs > 4000 Specimen Blood Narrative Performed At Disclaimer: [facility] HLA TESTING This test was developed and its perform ance characteristics determined by the [facility]. It has not been cleared or [...] complexity clinical laboratory testing. Performing Organization Address [facility] Ph one Number [facility] HLA TESTING ONE Mark Olmedo, MS: [id number], [place] [address] CLIA#[id number] CAP#[id number] UNOS#[id number] * RPR Titer (11/25/2019 11:49 AM VEGETABLE PICKER) RPR Titer 1:4 [facility] Specimen Blood Performing Organization Address City/[facility] one Number [address] [address] [facility] * PT/aPTT (11/25/2019 11:49 AM VEGETABLE PICKER) Protime 13.7 11.9 - 14.2 seconds [facility] INR 1.1 <=5.9 [facility] PTT 31.4 22.5 - 36.0 seconds [facility] Specimen Blood Narrative Performed At Effective 03/18/2019: PT Reference Range Change [facility] New: 11.9-14.2Previous: 11.7-14.7 [facility] MEDICAL CE NTER RECOMMENDED COUMADIN/WARFARIN INR THERA PY RANGES STANDARD DOSE: 2.0-3.0Includes: PRO PHYLAXIS for venous thrombosis, systemic embolization; TREATMENT for venous thro mbosis and/or pulmonary embolus. HIGH RISK: Target INR is 2.5-3.5 for pa tients wiht mechanical heart valves. Performing Organization Address City/State/Zipcode Ph one Number [facility] [address] [place], [place] [address] [facility] * CBC with platelet count + automated diff (11/25/2019 11:49 AM VEGETABLE PICKER) WBC 10.2 3.5 - 10.5 K/L [facility] RBC 4.10 (L) 4.63 - 6.08 M/L [facility] Hemoglobin 11.5 (L) 13.7 - 17.5 GM/DL [facility] Hematocrit 35.6 (L) 40.1 - 51.0 % [facility] MCV 86.8 79.0 - 92.2 fL [facility] MCH 28.0 25.7 - 32.2 pg [facility] MCHC 32.3 32.3 - 36.5 GM/DL [facility] RDW 13.5 11.6 - 14.4 % [facility] Platelets 265 150 - 450 K/CU MM [facility] MPV 10.8 9.4 - 12.4 fL [facility] nRBC 0 0 - 0 /100 WBC [facility] % Neutros 60 % [facility] % Lymphs 28 % [facility] % Monos 9 % [facility] % Eos 3 % [facility] % Baso 1 % [facility] # Neutros 6.10 (H) 1.78 - 5.38 K/L [facility] # Lymphs 2.82 1.32 - 3.57 K/L [facility] # Monos 0.92 (H) 0.30 - 0.82 K/L [facility] # Eos 0.31 0.04 - 0.54 K/L [facility] # Baso 0.05 0.01 - 0.08 K/L [facility] Immature 0 0 - 1 % [facility] Granulocytes-Relative [facility] Specimen Blood Performing Organization Address [facility] one Number [address] * Cytomegalovirus antibody, IgM (11/25/2019 11:49 AM VEGETABLE PICKER) CMV IGM Negative Negative, Equivocal [facility] Specimen Blood Narrative Performed At CMV IgM Result Interpretation: [facility] </= 0.8 Al Negative [facility] 0.9-1.0 Al Equivocal >/= 1.1 Al Positive Performing Organization Address [facility] one Number [address] * EBV-VCA antibody, IgM (11/25/2019 11:49 AM VEGETABLE PICKER) KEELY HSIEH VIRAL CAPSID Negative Negative, Equivocal [facility] ANTIGEN IGM [facility] Specimen Blood Narrative Performed At Keely Hsieh Viral Capsid Antigen IgM Result Interpre tation: [facility] </= 0.8 Al Negative [facility] 0.9-1.0 Al Equivocal >/= 1.1 Al Positive Performing Organization Address [facility] one Number [place] [phone] * EBV-VCA antibody, IgG (11/25/2019 11:49 AM VEGETABLE PICKER) KEELY HSIEH VIRAL CAPSID Positive (A) Negative, Equivocal [facility] ANTIGEN IGG [facility] Specimen Blood Narrative Performed At Keely Hsieh Viral Capsid Antigen IgG Result Interpre tation: [facility] </= 0.8 Al Negative [facility] 0.9-1.0 Al Equivocal >/= 1.1 Al Positive Performing Organization Address [facility] one Number [place] [address] [address] [phone] [place] [address] * RPR (11/25/2019 11:49 AM VEGETABLE PICKER) RPR Reactive (A) Nonreactive [facility] Specimen Blood Performing Organization Address [facility] one Number [address] * Cytomegalovirus antibody, IgG (11/25/2019 11:49 AM VEGETABLE PICKER) CYTOMEGALOVIRUS, IGG Positive (A) Negative, Equivocal [facility] Specimen Blood Narrative Performed At CMV IgG Result Interpretation: [facility] </= 0.8 Al Negative [facility] 0.9-1.0 Al Equivocal >/=1.1 AlPositive Performing Organization Address [facility] one Number [address] * Varicella Zoster Antibody, IgG (11/25/2019 11:49 AM VEGETABLE PICKER) Varicella IgG 7.2 [facility] Specimen Blood Narrative Performed At VARICELLA ZOSTER RESULT INTERPRETATIONS: [facility] <=0.8 AlNo nreactive:Presumed non-immune to VZV [facility] 0.9-1.0 AlEqui vocal >=1.1 AlRe active:Presumed immune to VZV Performing Organization Address [facility] one Number [place] [address] 0 [phone] [place] [address] * Uric Acid (11/25/2019 11:49 AM VEGETABLE PICKER) Uric Acid 4.6 2.6 - 7.2 mg/dL [facility] Specimen Blood Narrative Performed At Post Office Markup Clerk ID [facility] Performing Organization Address City/[facility] Ph one [address] * Phosphorus (11/25/2019 11:49 AM VEGETABLE PICKER) Phosphorus 4.7 2.3 - 4.7 mg/dL [facility] Specimen Blood Narrative Performed At Post Office Markup Clerk ID [facility] Performing Organization Address City/[facility] Ph one [address] * Lactate Dehydrogenase (LDH) (11/25/2019 11:49 AM VEGETABLE PICKER) LDH 231 (H) 125 - 220 U/L [facility] Specimen Blood Narrative Performed At Post Office Markup Clerk ID [facility] Performing Organization Address City/[facility] Ph one [address] * Gamma Glutamyl Transferase (GGT) (11/25/2019 11:49 AM VEGETABLE PICKER) GGT 84 (H) 9 - 64 U/L [facility] Specimen Blood Narrative Performed At Post Office Markup Clerk ID [facility] Performing Organization Address City/[facility] Ph one [place] [address] 0 [phone] [place] [address] * Comprehensive metabolic panel (11/25/2019 11:49 AM VEGETABLE PICKER) Protein, Total 7.5 6.0 - 8.3 gm/dL [facility] Albumin 4.0 3.5 - 5.0 g/dL [facility] Alkaline Phosphatase 161 (H) 40 - 150 U/L [facility] Total Bilirubin 0.5 0.2 - 1.2 mg/dL [facility] Sodium 133 (L) 136 - 145 meq/L [facility] Potassium 3.2 (L) 3.5 - 5.1 meq/L [facility] Chloride 94 (L) 98 - 107 meq/L [facility] CO2 27 22 - 29 meq/L [facility] BUN 34 (H) 7 - 21 mg/dL [facility] Creatinine 5.10 (H) 0.57 - 1.25 mg/dL [facility] Glucose 243 (H) 70 - 105 mg/dL [facility] Calcium 8.0 (L) 8.4 - 10.2 mg/dL [facility] AST 18 5 - 34 U/L [facility] ALT 20 6 - 55 U/L [facility] EGFR 12Comment: ESTIMATED GFR IS mL/min/1.73 sq m [facility] NOT ACCURATE CREATININE [facility] CLEARANCE IN PREDICTING GLOMERULAR FILTRATION RATE. ESTIMATED GFR IS NOT APPLICABLE FOR DIALYSIS PATIENTS. Specimen Blood Narrative Performed At Post Office Markup Clerk ID - ROSIANG [facility] Performing Organization Address City/State/Zipcode Ph one Number [facility] [address] [place], [place] [address] [facility] after 06/24/2019 Insurance Payer Benefit Subscriber ID Type Phone Address Plan / Group [employer]F [employer]SP[employer]DE NAVAS xxxxxxxxx [facility] HEALTHSPRI Contracted [place] ALL [id number] [phone]
--- OUTSIDE RECORDS SUMMARY | 2020-06-24 18:28 | XMS REPORT | Continuity of Care Document ---
Author Author [facility] t Organization [facility] Address [address] [place] [address] Phone Unavailable Care Team Providers Care Professor Of Rhetoric Name Role Phone MD ANTONY SMITH PCP Mary SANABRIA Attphys Unavailable JOHAN RANGEL Attphys Unavailable Evan Olmedo Attphys Unavailable Umang Levy Attphys Unavailable Marlene Hale Attphys Unavailable Namita Chen MD Attphys Namita CHEN Attphys Unavailable Brett Smith MD Attphys Cande [facility] Attphys Unavailable Shania SHEPHERD, P Gretta Attphys Unavailable Olman Scott DO Attphys Ras Maharaj MD Attphys JOHAN RANGEL Admphys Unavailable Payers Payer Name Policy Type Policy Number Effective Date Expiration Date Hugh [place] Ppo [id number] 2007 00:00:00 [facility] ALLxxxxxxxxxMaps Contracted xxxxxxxxx [facility] [employer] HMO MCR ADVxxxxxx /10/2018-PresentHMO xxxxxxxxxxx 2018 00:00:00 Mera Meth odist Problems Condition Name Condition Details Condition Category Status Onset Date Resolution Date Last Treatment Date Treating Clinician Comments Source ESRD (end stage renal disease) on dialysis ESRD (end s tage renal disease) on dialysis Disease Active 2019-10-21 00:00:00 Overview: currently on HD; planned transition to CCPD [facility] Diabetic retinopathy Diabetic retinopathy Disease Active 00:00:00 Overview: Bilateral; s/p laser surgery t o L eye; pending to R eye [facility] Diabetes mellitus Diabetes mellitus Disease Active 2013-10-21 00:00:00 [facility] Hyperlipidemia Hyperlipidemia Disease Active 2013-10-21 00:00:00 [facility] Hypertension Hypertension Disease Active 1989-10-21 00:00:00 [facility] Fever of unknown origin Problem Active [facility] End-stage renal disease Problem Active [facility] Diabetic foot ulcer Problem Active [facility] Chronic renal failure Problem Active [facility] Fever Problem Active [facility] Allergies, Adverse Reactions, Alerts Allergy Name Allergy Type Status Severity Reaction(s) Onset Date Inacti ve Date Treating Clinician Comments Source No Known Allergies DA Active U 2019-11-27 00:00:00 [facility] No Known Allergies DA Active U 2015-07-23 00:00:00 [facility] Family History Family Member Diagnosis Comments Start Date Stop Date Source Natural brother Diabetes [facility] Natural brother Hypertension [facility] Natural mother Diabetes [facility] Natural mother Hypertension [facility] Social History Social Habit Start Date Stop Date Quantity Comments Source History SDOH Alcohol Std Drinks [facility] History SDOH Alcohol Binge [facility] Sex Assigned At [facility] History SDOH Alcohol Frequency 2019-11-25 00:00:00 2019-11-25 00:00:0 0 1 [facility] Alcohol intake 2019-08-31 00:00:00 2019-08-31 00:00:00 Lifetime non-drinker (finding) Ede Felix Smoking Status Start Date Stop Date Source Never smoker [facility] Medications Ordered Medication Name Filled Medication Name Start Date Stop Da te Current Medication? Ordering Clinician Indication Dosage Frequency Signature (SIG) Comments Components Source Cephalexin Monohydrate (Keflex) 500 Mg CAPSULE Cephale prem Monohydrate (Keflex) 500 Mg CAPSULE 2020-06-14 07:33:00 Yes 500 Every 12 Hours [facility] Mupirocin Mupirocin 2020-06-14 07:33:00 Yes 0 Every 12 Hours At 6:00AM And 6:00PM [facility] calcium carbonate (TUMS) 500 mg chewable tablet 2019-11-25 10:56 :38 Yes 1{tbl} QD Take 1 tablet by mouth daily. [facility] insulin degludec (TRESIBA FLEXTOUCH U-200) 200 unit/mL (3 mL ) InPn 2019-11-25 10:54:50 Yes 16U Q24H 16 Units daily. [facility] ferrous fumarate 325 mg (106 mg iron) Tab 2019-11-25 10:54:50 Yes 650mg Q24H 650 mg daily. [facility] NIFEdipine (PROCARDIA-XL) 60 MG (OSM) 24 hr tablet 2019-11 10:54:49 Yes 60mg QD Take 60 mg by mouth daily. [facility] multivitamin (DAILY DIET SUPPORT ORAL) 2019-11-25 10:47:36 Yes QD daily. [facility] atorvastatin (LIPITOR) 80 MG tablet 2019-11-13 00:00:00 Yes QD daily. [facility] HYDROcodone-acetaminophen (NORCO 7.5-325) 7.5-325 mg per tab let 2019-11-10 00:00:00 Yes as needed. [facility] metoprolol (TOPROL-XL) 50 MG 24 hr tablet 2019-11-04 00:00:00 Yes TK 1 T PO ONCE D [facility] chlorthalidone (HYGROTON) 25 MG tablet 2019-11-04 00:00:00 Yes QD daily. [facility] chlorthalidone (HYGROTEN) 25 MG tablet [...] MG tablet 2019-08-31 20:47:32 Ye s 800mg Q.[id number] Take 800 mg by mouth 3 (three) times a day with meals. Ede Felix Atorvastatin Calcium Atorvastatin Calcium Yes 80 Daily [facility] Insulin Degludec (Tresiba Flextouch U-100) 100 Unit/1 Ml INSULN.PEN Insulin Degludec (Tresiba Flextouch U-100) 100 Unit/1 Ml INSULN.PEN Yes 24 [facility] Metoprolol Succinate Metoprolol Succinate Yes 50 Daily [facility] Polyethylene Glycol 3350 (Miralax) 17 Gm POWD.PACK Jordan yethylene Glycol 3350 (Miralax) 17 Gm POWD.PACK Yes Daily as nee ded for Constipation [facility] Sevelamer Sevelamer Yes 800 Three Times Daily With Meals [facility] Atorvastatin Calcium Atorvastatin Calcium Yes 80 Bedtime [facility] Calcium Carbonate (Tums) 200 Mg TAB.CHEW Calcium Carbo javier (Tums) 200 Mg TAB.CHEW Yes 750 Three Times A Day [facility] Chlorthalidone Chlorthalidone Yes 25 Daily [facility] Docusate Sodium Docusate Sodium Yes 100 Twice A Day [facility] Fluconazole Fluconazole Yes 100 Daily [facility] Hydrocodone Bit/Acetaminophen (Bristol 10-325 Tablet) 1 Each TABLET Hydrocodone Bit/Acetaminophen (Bristol 10-325 Tablet) 1 Each TABLET Yes 1 Every 6 Hours as needed for Severe Pain (7-10) C HI [facility] Insulin Degludec (Tresiba Flextouch U-100) 100 Unit/1 Ml INSULN.PEN Insulin Degludec (Tresiba Flextouch U-100) 100 Unit/1 Ml INSULN.PEN Yes 24 Daily [facility] Metoprolol Succinate Metoprolol Succinate Yes 50 Daily [facility] Nifedipine (Nifedipine Er) 30 Mg TAB.ER.24 Nifedipine (Nifedipine Er) 30 Mg TAB.ER.24 Yes 60 Daily [facility] Polyethylene Glycol 3350 (Miralax) 17 Gm POWD.PACK Jordan yethylene Glycol 3350 (Miralax) 17 Gm POWD.PACK Yes 17 Daily as nee ded for Constipation [facility] Khai Khai Yes Daily [facility] Sevelamer Carbonate (Renvela) 0.8 Gm POWD.PACK Sevelam er Carbonate (Renvela) 0.8 Gm POWD.PACK Yes .8 Three Times Daily With Me als [facility] Ciprofloxacin Hcl (Cipro) 500 Mg TABLET Ciprofloxacin Hcl (C ipro) 500 Mg TABLET 2020-06-14 00:00:00 No 500 Daily [facility] Chlorthalidone Chlorthalidone 2020-05-21 00:00:00 No 25 Daily [facility] Nefediac Nefediac 2020-05-21 00:00:00 No 60 Daily [facility] Immunizations Ordered Immunization Name Filled Immunization Name Date Status Comments Source Tdap 2019-04-23 00:00:00 Completed [place] [facility] V[facility] Sign[facility] Vital Name Observation Time Observation Value Comments Source Body Temperature 2020-06-14 08:14:00 98.6 [degF] [facility] Weight 2020-06-14 01:57:00 175.38 [lb_av] [facility] BMI (Body Mass Index) 2020-06-14 01:57:00 28.3 kg/m2 [facility] Body Temperature 2020-05-21 15:18:00 98.6 [degF] [facility] Weight 2020-05-20 00:44:00 173.50 [lb_av] [facility] BMI (Body Mass Index) 2020-05-20 00:44:00 23.5 kg/m2 [facility] Systolic blood pressure 2019-12-16 11:23:00 173 mm[Hg] [facility] Diastolic blood pressure 2019-12-16 11:23:00 70 mm[Hg] [facility] Heart rate 2019-12-16 11:23:00 90 /min [facility] Body height 2019-12-16 09:00:[address] [facility] Body weight Measured 2019-12-16 09:00:00 79.833 kg [facility] BMI 2019-12-16 09:00:00 28.41 kg/m2 [facility] Body temperature 2019-11-25 13:03:00 36.61 Lili [facility] Respiratory rate 2019-11-25 13:03:00 18 /min [facility] Systolic blood pressure 2019-08-31 21:05:00 189 mm[Hg] Ede Felix Diastolic blood pressure 2019-08-31 21:05:00 78 mm[Hg] E[facility] Heart rate 2019-08-31 21:05:00 71 /min E[facility] Felix Body temperature 2019-08-31 21:05:00 37 Lili Toni Felix Respiratory rate 2019-08-31 21:05:00 19 /min [place] [facility] Oxygen saturation in Arterial blood by Pulse oximetry 2018-10 21:05:00 99 /min Ede Felix Body height 2019-08-31 15:20:00 167.6 cm Ede Felix Body weight 2019-08-31 15:20:00 81.647 kg Ede Felix BMI 2019-08-31 15:20:00 29.05 kg/m2 Ede Felix Procedures Procedure Date / Time Performed Performing Clinician [facility] e MRI non-joint region of extremity lower wo contrast 2020-06-13 0 0:00:00 [facility] PERIPHERAL VASCULAR REPORT - SCAN 2019-12-17 21:22:21 Provid er, Default Scanning [facility] ECHOCARDIOGRAM REPORT - SCAN 2019-12-17 21:20:34 Provider, Defau lt Scanning [facility] TRANSFUSION SERVICE REPORT - SCAN 2019-12-17 18:05:20 Provid er, Default Scanning [facility] STRESS ECHO 2019-12-16 11:08:14 Lisa Chen [facility] 2D ECHO W/ DOPPLER (CW/PW/COLOR) 2019-12-16 10:28:46 Andrey Chen [facility] TREADMILL TOLERANCE(NON-NUCLEAR TREADMILL) 2019-12-16 10:00: 09 Unknown, Hl7 Doctor [facility] ECG 12-LEAD 2019-12-16 09:18:16 Lisa Chen [facility] XR CHEST 2 VIEWS 2019-12-16 08:56:00 Lisa Chen [facility] US ABDOMEN COMPLETE 2019-12-16 08:07:00 Lias Chen [facility] PSA 2019-12-16 07:13:00 Lisa Chen [facility] LIPID PANEL 2019-12-16 07:13:00 Lisa Chen [facility] HEMOGLOBIN A1C 2019-12-16 07:13:00 Lisa Chen [facility] BLOOD TYPING, AUTOMATED 2019-12-16 07:13:00 Lisa Chen [facility] TRANSFUSION SERVICE REPORT - SCAN 2019-11-26 18:07:11 Provid er, Default Scanning [facility] HEPATITIS B SURFACE ANTIBODY 2019-11-25 11:50:00 TimSnow mane Annmarie [facility] HEPATITIS B SURFACE ANTIGEN 2019-11-25 11:50:00 Shital Chen [facility] HEPATITIS B CORE ANTIBODY, IGM 2019-11-25 11:50:00 TimMary mane [facility] HEPATITIS C ANTIBODY 2019-11-25 11:50:00 [facility] HIV-1 ANTIGEN WITH HIV-1/2 ANTIBODY 2019-11-25 11:50:00 Lisa Chen [facility] PTH, INTACT 2019-11-25 11:50:00 TimLisa mane [facility] T SPOT TB 2019-11-25 11:50:00 Lisa Chen [facility] HLA TYPING CI 2019-11-25 11:50:00 [facility] HLA TYPING CII 2019-11-25 11:50:00 [facility] (FELIPA)/DIRECT ANANYA 2019-11-25 11:50:00 TimMary mane [facility] BLOOD TYPING, AUTOMATED 2019-11-25 11:50:00 Lisa Chen [facility] CYTOMEGALOVIRUS ANTIBODY, IGG 2019-11-25 11:49:00 TimClair mane [facility] CYTOMEGALOVIRUS ANTIBODY, IGM 2019-11-25 11:49:00 Timm[place] Clair moss [facility] COMPREHENSIVE METABOLIC PANEL 2019-11-25 11:49:00 [place] Clair gayriki [facility] EBV ANTIBODY, IGM 2019-11-25 11:49:00 [facility] GAMMA GLUTAMYL TRANSFERASE (GGT) 2019-11-25 11:49:00 Timmins Andrey stevo [facility] LACTATE DEHYDROGENASE (LDH) 2019-11-25 11:49:00 [place] Shital carlos [facility] PHOSPHORUS 2019-11-25 11:49:00 [facility] PT/APTT 2019-11-25 11:49:00 [facility] RPR 2019-11-25 11:49:00 [facility] URIC ACID 2019-11-25 11:49:00 [facility] VARICELLA ZOSTER ANTIBODY, IGG 2019-11-25 11:49:00 [facility] FLOW PRA CLASS I WITH REFLEX TO ANTIBODY SPECIFICITY 2019-11 11:49:00 [facility] FLOW PRA CLASS II WITH REFLEX TO ANTIBODY SPECIFICITY 11-25 11:49:00 [facility] RPR TITER 2019-11-25 11:49:00 [facility] TREPONEMA PALLIDUM - SYPHILIS IGG 2019-11-25 11:49:00 [facility] AB SPECIFICITY CLASS I 2019-11-25 11:49:00 [facility] CBC W/PLT COUNT & AUTO DIFFERENTIAL 2019-11-25 11:49:00 [facility] URINALYSIS SCREEN AND MICROSCOPY, WITH REFLEX TO CULTURE 201 07-01-11 15:21:00 Jim Aguillon HC COMPLETE BLD COUNT W/AUTO DIFF 2019-08-31 15:19:00 Myrna Aguillon COMPREHENSIVE METABOLIC PANEL 2019-08-31 15:19:00 Jim Aguillon LIPASE LEVEL 2019-08-31 15:19:00 Jim Aguillon ESTIMATED GFR 2019-08-31 15:19:00 Jim Aguillon Plan of Care Planned Activity Planned Date Details Comments Source Future Scheduled Test 2022-12-16 00:00:00 Lipid panel (proce dure) [code = 04170835] [facility] Future Scheduled Test 2021-08-13 00:00:00 PNEUMOCOCCAL VACCI NE 2-64 YEARS AT RISK (3 of 3 - PPSV23) [code = PNEUMOCOCCAL VACCINE 2-64 YEARS AT RISK (3 of 3 - PPSV23)] [facility] Future Scheduled Test 2020-07-21 00:00:00 INFLUENZA VACCINE [code = INFLUENZA VACCINE] [facility] Scheduled Test 2020-06-21 00:00:00 INFLUENZA VACCINE (#1) [code = INFLUENZA VACCINE (#1)] [facility] Future Scheduled Test 2020-06-15 00:00:00 Hemoglobin A1c juliette surement (procedure) [code = 02301638] [facility] Future Scheduled Test 2019-10-22 00:00:00 MEDICARE ANNUAL WE LLNESS (YEAR 2 or FIRST YEAR if no IPPE) [code = MEDICARE ANNUAL WELLNESS (YEAR 2 or FIRST YEAR if no IPPE)] [facility] Future Scheduled Test 2017-04-17 00:00:00 SHINGLES VACCINES (#2) [code = SHINGLES VACCINES (#2)] [facility] Future Scheduled Test 2007 00:00:00 COLONOSCOPY SCREEN ING [code = COLONOSCOPY SCREENING] [facility] Future Scheduled Test 1967 00:00:00 DIABETIC FOOT EXAM [code = DIABETIC FOOT EXAM] [facility] Future Scheduled Test 1967 00:00:00 URINE MICROALBUMIN [code = URINE MICROALBUMIN] [facility] Scheduled Test 1967 00:00:00 DIABETIC EYE EXAM [code = DIABETIC EYE EXAM] [facility] Future Sched[facility] Test 1967 00:00:00 Diabetic foot exam ination (regime/therapy) [code = 038917451] [facility] ical Rolfe Future Scheduled Test 1967 00:00:00 Urine screening fo r protein (procedure) [code = 293565558] [facility] Future Scheduled Test 1957 00:00:00 DIABETIC RETINAL E YE EXAM [code = DIABETIC RETINAL EYE EXAM] [facility] Scheduled Test 1957 00:00:00 Screening for barbara gnant neoplasm of colon (procedure) [code = 469731618] [facility] Instructions Diabetes and Diet [facility] Instructions Foot Care for Diabetics [facility] Instructions Fever - Adult [facility] Instructions Foot Care for Diabetics [facility] Instructions Peritoneal Dialysis [facility] Encounters Start Date/Time End Date/Time Encounter Type Admission Type Attendi [facility] Facility Care Department Encounter ID Source 2020-06-12 10:15:00 2020-06-14 09:51:00 Discharged Inpatient 1 JOHAN RANGEL [facility] [id number] [facility] 2019-08-31 00:00:00 2019-08-31 00:00:00 Emergency [facility] [id number] [facility] Results Test Description Test Time Test Comments Results Result Comments Source CHEST 2 VIEWS 2020-06-24 17:25:00 [facility] [address] [place] [address] Patient Name: JED BASSETT JR MR #: [id number] : 1955 Age/Sex: 64/M Req #: [id number] Adm Physician: Ordered by: MAGDA SANABRIA MD Report #: [id number] Location: ER Room/Bed: Procedure: [id number] DX/CHEST 2 VIEWS Exam Date: 06/24/20 Exam Time: 1651 REPORT STATUS: Signed EXAMINATION: CHEST 2 VIEWS INDICATION: SEPSIS COMPARISON: Chest x-ray dated 06/10/2020. FINDINGS: PA and lateral views TUBES and LINES: Right chest wall embedded dual lumen central venous catheter with distal tip in the SVC. LUNGS/PLEURA: Lungs are well inflated. There is no evidence of pneumonia or pulmonary edema.. There is no pleural effusion or pneumothorax. HEART AND MEDIASTINUM: The cardiomediastinal silhouette is unremarkable. BONES AND SOFT TISSUES: No acute osseous lesion. Soft tissues are unremarkable. UPPER ABDOMEN: No free air under the diaphragm. IMPRESSION: No acute thoracic abnormality. Signed by: Tad Mccormick MD on 06/24/2020 5:29 PM Dictated By: TAD MCCORMICK MD 28 Transcribed By: RICARDO on 06/24/201728 COPY TO: MAGDA SANABRIA MD Capillary blood glucose measurement by glucometer (mas s/volume) 2020-06-13 21:00:00 Test Item Bedside Glucose (test code = 99253-6) 142 70-120 Meter ID: [id number] [facility] HospitalBlood leukocytes automated count (number/volume)2020-06-13 11:41:00* Test Item Value Reference Range Interpretation Comments White Blood Count (test code = 6690-2) 6.96 4.8-10.8 [facility] count (number/volume)2020-06-13 11:41:00* Test Item Value Reference Range Interpretation Comments Red Blood Count (test code = 789-8) 3.33 4.3-5.7 [facility] measurement (moles/volume)2020-06-13 11:41:00* Test Item Value Reference Range Interpretation Comments Hemoglobin (test code = 42853-9) 9.2 14.0-18.0 [facility] hematocrit (volume fraction)2020-06-13 11:41:00* Test Item Value Reference Range Interpretation Comments Hematocrit (test code = 4544-3) 30.0 38.2-49.6 [facility] erythrocyte mean corpuscular [id number] 11:41:00* Test Item Value Reference Range Interpretation Comments Mean Corpuscular Volume (test code = 787-2) 90.1 81-99 [facility] mean corpuscular hemoglobin (mass per erythrocyte)2020-06-13 11:41:00* Test Item Value Reference Range Interpretation Comments Mean Corpuscular Hemoglobin (test code = 785-6) 27.6 28-32 [facility] eryth[facility] mean corpuscular hemoglobin concentration measurement (mass/volume)2020-06-13 11:41:00* Test Item Value Reference Range Interpretation Comments Mean Corpuscular Hemoglobin Concent (test code = 786-4) 30.7 31-35 [facility] HospitalRDW [id number] 11:41:00* Test Item Value Reference Range Interpretation Comments Red Cell Distribution Width (test code = 71845-0) 14.0 11.7 -14.4 [facility] platelet count (count/volume)2020-06-13 11:41:00* Test Item Value Reference Range Interpretation Comments Platelet Count (test code = 777-3) 247 140-360 [facility] neutrophil count as percentage of total [id number] 11:41:00* Test Item Value Reference Range Interpretation Comments Neutrophils (%) (Auto) (test code = 04231-2) 60.9 38.7-80.0 [facility] lymphocyte count as percentage ot total [id number] 11:41:00* Test Item Value Reference Range Interpretation Comments Lymphocytes (%) (Auto) (test code = 736-9) 28.3 18.0-39.1 [facility] monocyte count as percentage of total [id number] 11:41:00* Test Item Value Reference Range Interpretation Comments Monocytes (%) (Auto) (test code = 5905-5) 7.9 4.4-11.3 [facility] eosinophil count as percentage of total [id number] 11:41:00* Test Item Value Reference Range Interpretation Comments Eosinophils (%) (Auto) (test code = 713-8) 2.4 0.0-6.0 [facility] basophil count as percentage of total [id number] 11:41:00* Test Item Value Reference Range Interpretation Comments Basophils (%) (Auto) (test code = 706-2) 0.4 0.0-1.0 [facility] HospitalFluoroscopic procedure less than one hour [id number] 11:41:00* Test Item Value Reference Range Interpretation Comments IM GRANULOCYTES % (test code = IM GRANULOCYTES %) 0.1 0.0- 1.0 [facility] neutrophil count 2020-06-13 11:41:00* Test Item Value Reference Range Interpretation Comments Neutrophils # (Auto) (test code = 751-8) 4.2 2.1-6.9 [facility] count (number/volume) 2020-06-13 11:41:00* Test Item Value Reference Range Interpretation Comments Lymphocytes # (Auto) (test code = 15407-5) 2.0 1.0-3.2 [facility] monocytes automated count (number/volume)2020-06-13 11:41:00* Test Item Value Reference Range Interpretation Comments Monocytes # (Auto) (test code = 742-7) 0.6 0.2-0.8 [facility] eosinophil count 2020-06-13 11:41:00* Test Item Value Reference Range Interpretation Comments Eosinophils # (Auto) (test code = 711-2) 0.2 0.0-0.4 [facility] basophil count (count/volume)2020-06-13 11:41:00* Test Item Value Reference Range Interpretation Comments Basophils # (Auto) (test code = 704-7) 0.0 0.0-0.1 [facility] HospitalFluor[facility] procedure less than one hour [id number] 11:41:00* Test Item Value Reference Range Interpretation Comments Absolute Immature Granulocyte (auto (marlon t code = Absolute Immature Granulocyte (auto) 0.01 0-0.1 [facility] sodium measurement (moles/volume)2020-06-13 11:41:00* Test Item Value Reference Range Interpretation Comments Sodium Level (test code = 2951-2) 141 136-145 [facility] plasma potassium measurement (moles/volume)2020-06-13 11:41:00* Test Item Value Reference Range Interpretation Comments Potassium Level (test code = 2823-3) 5.2 3.5-5.1 [facility] or plasma chloride measurement (moles/volume)2020-06-13 11:41:00* Test Item Value Reference Range Interpretation Comments Chloride Level (test code = 2075-0) 102 98-107 [facility] or plasma carbon dioxide, total measurement (moles/volume)2020-06-13 11:41:00* Test Item Value Reference Range Interpretation Comments Carbon Dioxide Level (test code = 2028-9) 28 22-29 [facility] or plasma anion [id number] 11:41:00* Test Item Value Reference Range Interpretation Comments Anion Gap (test code = 06446-2) 16.2 8-16 [facility] plasma urea nitrogen measurement (mass/volume)2020-06-13 11:41:00* Test Item Value Reference Range Interpretation Comments Blood Urea Nitrogen (test code = 3094-0) 51 7-26 [facility] plasma creatinine measurement (mass/volume)2020-06-13 11:41:00* Test Item Value Reference Range Interpretation Comments Creatinine (test code = 2160-0) 6.31 0.72-1.25 [facility] or plasma urea nitrogen/creatinine mass [id number] 11:41:00* Test Item Value Reference Range Interpretation Comments BUN/Creatinine Ratio (test code = 3097-3) 8 6-25 [facility] HospitalEstimated glomerular filtration rate (GFR) acrqneojoyvso9154-37-46 11:41:00* Test Item Value Reference Range Interpretation Comments Estimat Glomerular Filtration Rate (test code = 341553666) 9 >60 Ranges were taken from the National Kidney Disease Education Program and the [facility] literature.Reference ranges:60 or greater: Ptdiuz17-79 ( for 3 consecutive months): Chronic kidney disease 15 or less: Kidney failureCuero Regional HospitalGlucose zaekadhbszj7299-41-94 11:41:00* Test Item Value Reference Range Interpretation Comments Glucose Level (test code = QVC3119) 157 74-118 [facility] or plasma calcium measurement (mass/volume)2020-06-13 11:41:00* Test Item Value Reference Range Interpretation Comments Calcium Level (test code = 64364-0) 7.5 8.4-10.2 [facility] HospitalMRI FOOT LEFT DE1820-20-31 09:26:00 [facility] [address] [place] [address] Patient Name: JED BASSETT JR MR #: [id number] : 1955 Age/Sex: 64/M Req #: [id number] Adm Physician: JOHAN RANGEL MD Ordered by: JOHAN RANGEL MD Report #: [id number] Location: MED/SURG2 Room/Bed: [facility] Procedure: [id number] MRI/MRI FOOT LEF T WO Exam Date: [...] istent with cellulitis. Signed by: Dr. Brittney Pat M.D. on 06/13/2020 9: 32 AM Dictated By: BRITTNEY PAT MD, MD 1 Transcribed By: RICARDO on 06/13/20931 CO PY TO: JOHAN RANGEL MD Specimen source identification of body fluid 2020-06-13 05:00:00* Test Item Value Reference Range Interpretation Comments Body Fluid Type (test code = 57748-8) PERITONEAL [facility] HospitalEvaluation of color of body fluid 2020-06-13 05:00:00* Test Item Value Reference Range Interpretation Comments Body Fluid Color (test code = 6824-7) COLORLESS [facility] HospitalDetermination of appearance of body fluid 2020-06-13 05:00:00* Test Item Value Reference Range Interpretation Comments Body Fluid Appearance (test code = 9335-1) CLEAR [facility] body fluid leukocytes count (number/volume)2020-06-13 05:00:00* Test Item Value Reference Range Interpretation Comments Body Fluid WBC (test code = 6743-9) 14 [facility] body fluid erythrocytes count (number/volume)2020-06-13 05:00:00* Test Item Value Reference Range Interpretation Comments Body Fluid RBC (test code = 6741-3) 19 [facility] body fluid neutrophils/100 xynbwamqei5481-65-64 05:00:00* Test Item Value Reference Range Interpretation Comments Body Fluid Neutrophils (test code = 27213-6) 4 [facility] HospitalBody fluid lymphocyte iwwri0048-54-19 05:00:00* Test Item Value Reference Range Interpretation Comments Body Fluid Lymphocytes (test code = 78348694) 22 [facility] HospitalBody fluid monocyte lvxqx4780-88-00 05:00:00* Test Item Value Reference Range Interpretation Comments Body Fluid Monocytes (test code = 03875-7) 74 [facility] HospitalBody fluid other cells manual count 2020-06-13 05:00:00* Test Item Value Reference Range Interpretation Comments Body Fluid Other Cells (test code = 882939326) See Comment --- 06/13/20 1429 ---BF OTHER CELLS previously reported as: %5-8 MESOTHELIAL CELLSCuero Regional HospitalTotal cell caijf0447-33-36 05:00:00 * Test Item Value Reference Range Interpretation Comments Body Fluid Total Cells Counted (test code = 39937-0) 50 [facility] HospitalFOOT LEFT AP KWD1759-99-95 10:46:00 [facility] [address] [address] Patient Name: JED BASSETT JR MR #: [id number] : 1955 Age/Sex: 64/M Req #: [id number] Adm Physician: JOHAN RANGEL MD Ordered by: JOHAN RANGEL MD Report #: [id number] Location: MED/SURG2 Room/Bed: [facility] Procedure: [id number] DX/FOOT LEFT AP LAT Exam Date: 06/12/20 [...] with contrast. Si gned by: Dr. Jeramy Lerma M.D. on 06/12/2020 10:50 AM Dictated By : JULIA LERMA MD, MD 105 COPY TO: JOHAN RANGEL Serum or plasma creatine kinase measurement (enzymatic activity/volume)2020-06-11 11:40:00* Test Item Value Reference Range Interpretation Comments Creatine Kinase (test code = 2157-6) 23 30-200 [facility] Hospitalerum or plasma creatine kinase MB measurement (mass/volume)2020-06-11 11:40:00* Test Item Value Reference Range Interpretation Comments Creatine Kinase MB (test code = 48925-6) 0.40 0-5.0 [facility] HospitalTroponin I measurement by highly sensitive enzyme qhbrjhmebeo1868-65-29 11:40:00* Test Item Value Reference Range Interpretation Comments Troponin I (test code = 81145-5) 0.012 0-0.300 [facility] HospitalFluoroscopic procedure less than one hour dyfzpbtx1005-31-54 05:45:00* Test Item Value Reference Range Interpretation Comments Hemoglobin A1c Percent (test code = Hemoglobin A1c Percent) 7.6 4.0-7.0 [facility] Hospitalerum or plasma total bilirubin measurement (mass/volume)2020-06-11 05:45:00* Test Item Value Reference Range Interpretation Comments Total Bilirubin (test code = 1975-2) 0.4 0.2-1.2 [facility] HospitalFluoroscopic procedure less than one hour yycvyzkb4264-67-82 05:45:00* Test Item Value Reference Range Interpretation Comments Aspartate Amino Transf (AST/SGOT) (test code = Aspartate Amino Transf (AST/SGOT)) 14 5-34 [facility] Hospitalerum or plasma alanine aminotransferase measurement (enzymatic activity/volume)2020-06-11 05:45:00* Test Item Value Reference Range Interpretation Comments Alanine Aminotransferase (ALT/SGPT) (test code = 1742-6) 7 0-55 [facility] Hospitalerum or plasma protein measurement (mass/volume)2020-06-11 05:45:00* Test Item Value Reference Range Interpretation Comments Total Protein (test code = 2885-2) 6.8 6.5-8.1 [facility] Hospitalerum or plasma albumin measurement (mass/volume)2020-06-11 05:45:00* Test Item Value Reference Range Interpretation Comments Albumin (test code = 1751-7) 2.7 3.5-5.0 [facility] HospitalPlasma globulin measurement (mass/volume) 2020-06-11 05:45:00* Test Item Value Reference Range Interpretation Comments Globulin (test code = 57649-4) 4.1 2.3-3.5 [facility] Hospitalerum or plasma albumin/globulin mass xkjjx8645-44-01 05:45:00* Test Item Value Reference Range Interpretation Comments Albumin/Globulin Ratio (test code = 1759-0) 0.7 0.8-2.0 [facility] Hospitalerum or plasma alkaline phosphatase measurement (enzymatic activity/volume)2020-06-11 05:45:00* Test Item Value Reference Range Interpretation Comments Alkaline Phosphatase (test code = 6768-6) 111 40-150 [facility] Hospitalerum or plasma triglyceride measurement (mass/volume)2020-06-11 05:45:00* Test Item Value Reference Range Interpretation Comments Triglycerides Level (test code = 2571-8) 76 0-149 [facility] Hospitalerum or plasma cholesterol measurement (mass/volume)2020-06-11 05:45:00* Test Item Value Reference Range Interpretation Comments Cholesterol Level (test code = 2093-3) 58 0-199 Less than 200 mg/dL Low Xgsc859 - 239 mg/dL Borderline Fxwa976 m g/dl and greater High Risk [facility] Hospitalerum or plasma cholesterol in LDL measurement (mass/volume) 2020-06-11 05:45:00* Test Item Value Reference Range Interpretation Comments LDL Cholesterol (test code = 2089-1) 19 60-130 [facility] Hospitalerum or plasma cholesterol in HDL measurement (mass/volume)2020-06-11 05:45:00* Test Item Value Reference Range Interpretation Comments HDL Cholesterol (test code = 2085-9) 24 40-60 [facility] Hospitalerum or plasma total cholesterol/cholesterol in HDL mass aoygg8742-32-77 05:45:00* Test Item Value Reference Range Interpretation Comments Cholesterol/HDL Ratio (test code = 9830-1) 2.4 3.9-4.7 [facility] HospitalUrine color nsnfuapzqusgg3984-17-61 01:20:00* Test Item Value Reference Range Interpretation Comments Urine Color (test code = 5778-6) YELLOW YELLOW DARK YELLOWCuero Regional HospitalUrine bqitlst4972-80-72 01:20:00* Test Item Value Reference Range Interpretation Comments Urine Clarity (test code = 20986-4) SL CLOUDY CLEAR [facility] Hospitalpecific gravity of Urine by Test strip 2020-06-11 01:20:00* Test Item Value Reference Range Interpretation Comments Urine Specific [place] (test code = 5811-5) 1.020 1.010-1.02 5 [facility] HospitalUrine pH measurement by automated test xoacp3633-62-98 01:20:00* Test Item Value Reference Range Interpretation Comments Urine pH (test code = 50179-5) 6.5 5-7 [facility] HospitalUrine leukocyte esterase detection by wnbvockr0668-93-46 01:20:00* Test Item Value Reference Range Interpretation Comments Urine Leukocyte Esterase (test code = 5799-2) NEGATIVE NEGATIVE [facility] HospitalUrine nitrite yoglztymj1176-56-44 01:20:00* Test Item Value Reference Range Interpretation Comments Urine Nitrite (test code = 46889-6) NEGATIVE NEGATIVE [facility] HospitalUrine protein measurement by test strip (mass/volume)2020-06-11 01:20:00* Test Item Value Reference Range Interpretation Comments Urine Protein (test code = 5804-0) >=300 NEGATIVE [facility] HospitalUrine glucose fsuzhlibh0064-20-52 01:20:00* Test Item Value Reference Range Interpretation Comments Urine Glucose (UA) (test code = 2349-9) NEGATIVE NEGATIVE [facility] HospitalUrine ketones detection by automated test orfkc9704-57-89 01:20:00* Test Item Value Reference Range Interpretation Comments Urine Ketones (test code = 19454-4) NEGATIVE NEGATIVE [facility] HospitalUrine urobilinogen measurement by test strip (mass/volume)2020-06-11 01:20:00* Test Item Value Reference Range Interpretation Comments Urine Urobilinogen (test code = 34223-4) 0.2 0.2-1 [facility] HospitalUrine total bilirubin measurement (mass/volume)2020-06-11 01:20:00* Test Item Value Reference Range Interpretation Comments Urine Bilirubin (test code = 1978-6) NEGATIVE NEGATIVE [facility] HospitalUrine erythrocytes ddlzkbivj8195-52-36 01:20:00* Test Item Value Reference Range Interpretation Comments Urine Blood (test code = 29666-4) TRACE NEGATIVE [facility] sediment leukocyte count by microscopy (number/high power field)2020-06-11 01:20:00* Test Item Value Reference Range Interpretation Comments Urine WBC (test code = 5821-4) 0-5 0-5 [facility] HospitalErythrocytes detection in urine sediment by light qfchxxwqyg1693-08-96 01:20:00* Test Item Value Reference Range Interpretation Comments Urine RBC (test code = 11917-7) 0-5 0-5 [facility] HospitalBacteria detection in urine sediment by light shukboyfdr6480-02-49 01:20:00* Test Item Value Reference Range Interpretation Comments Urine Bacteria (test code = 12801-5) FEW NONE [facility] HospitalEpithelial cells detection in urine sediment by light fmivhkzicc5367-00-44 01:20:00* Test Item Value Reference Range Interpretation Comments Urine Epithelial Cells (test code = 97935-4) FEW NONE [facility] HospitalAmorphous sediment detection in urine sediment by light zaquiluyem0245-03-71 01:20:00* Test Item Value Reference Range Interpretation Comments Urine Amorphous Sediment (test code = 8246-1) MODERATE FEW [facility] HospitalCHEST SINGLE (PORTABLE)2020-06-10 18:47:00 [facility] [address] [place] [address] Patient Name: JED BASSETT MR #: [id number] : 1955 Age/Sex: 64/M Req #: [id number] Adm Physician: Ordered by: LILLIANA CRAFT DO Report #: [id number] Location: ER Room/Bed: Procedure: DX/CHEST SINGLE (P ORTABLE) Exam Date: 06/10/20 Exam Time: 1821 REPORT STATUS: Signed EXAMINATION: [facility] SINGLE (PORTABLE) COMPARISON: None INDICATION: Chills n/v [...] DO Fluoroscopic procedure less than one hour xjaokmua9394-07-92 18:29:00* Test Item Value Reference Range Interpretation Comments Lactic Acid Level (test code = Lactic Acid Level) 1.7 0.5- 2.0 [facility] HospitalFluoroscopic procedure less than one hour zmphwhai2900-93-31 18:29:00* Test Item Value Reference Range Interpretation Comments Coronavirus (PCR) (test code = Coronavirus (PCR)) NOT DETECTED NOTD [employer] Aptima SARS-CoV-2 assay is a nucleic amplification test intended for the qualitative detection of RNA from SARS-CoV-2 from nasopharyngeal (MID LEVEL PRO[employer] MANAGER) specimens. It is used under Emergency Use [...] for reprat testing oc clinically indicated.Tesing performed by:[facility] [address] [place] [address] [id number], Rocael Martinez MD, PhD [facility] HospitalBlood xfmlucz8889-05-45 18:29:00* Test Item Value Reference Range Interpretation Comments Blood Culture (test code = 61096961) NO GROWTH AFTER 72 HOURS [facility] HospitalCapillary blood glucose measurement by glucometer (mass/volume)2020-05-21 14:49:00* Test Item Value Reference Range Interpretation Comments Bedside Glucose (test code = 77123-1) 292 70-120 Meter ID: [id number] [facility] HospitalBlsh[facility] leukocytes automated count (number/volume)2020-05-20 05:15:00* Test Item Value Reference Range Interpretation Comments White Blood Count (test code = 6690-2) 8.36 4.8-10.8 [facility] erythrocytes automated count (number/volume)2020-05-20 05:15:00* Test Item Value Reference Range Interpretation Comments Red Blood Count (test code = 789-8) 3.38 4.3-5.7 [facility] HospitalBlood hemoglobin measurement (moles/volume)2020-05-20 05:15:00* Test Item Value Reference Range Interpretation Comments Hemoglobin (test code = 49724-3) 9.7 14.0-18.0 [facility] HospitalAutnovant health for[facility] medical centered blood hematocrit (volume fraction)2020-05-20 05:15:00* Test Item Value Reference Range Interpretation Comments Hematocrit (test code = 4544-3) 30.7 38.2-49.6 [facility] HospitalAutomated erythrocyte mean corpuscular hpgcvf4532-50-76 05:15:00* Test Item Value Reference Range Interpretation Comments Mean Corpuscular Volume (test code = 787-2) 90.8 81-99 [facility] HospitalAutomated erythrocyte mean corpuscular hemoglobin (mass per erythrocyte)2020-05-20 05:15:00* Test Item Value Reference Range Interpretation Comments Mean Corpuscular Hemoglobin (test code = 785-6) 28.7 28-32 [facility] HospitalAutomated erythrocyte mean corpuscular hemoglobin concentration measurement (mass/volume)2020-05-20 05:15:00* Test Item Value Reference Range Interpretation Comments Mean Corpuscular Hemoglobin Concent (test code = 786-4) 31.6 31-35 [facility] HospitalRDW CjaCo-Iak9821-11-31 05:15:00* Test Item Value Reference Range Interpretation Comments Red Cell Distribution Width (test code = 76885-2) 14.0 11.7 -14.4 [facility] HospitalAutomated blood platelet count (count/volume)2020-05-20 05:15:00* Test Item Value Reference Range Interpretation Comments Platelet Count (test code = 777-3) 191 140-360 [facility] HospitalAutomated blood segmented neutrophil count as percentage of total csdtmonpjj4616-88-70 05:15:00* Test Item Value Reference Range Interpretation Comments Neutrophils (%) (Auto) (test code = 80401-7) 52.3 38.7-80.0 [facility] HospitalAutomated blood lymphocyte count as percentage ot total jacrvpflig6144-31-07 05:15:00* Test Item Value Reference Range Interpretation Comments Lymphocytes (%) (Auto) (test code = 736-9) 30.6 18.0-39.1 [facility] HospitalAutomated blood monocyte count as percentage of total funaefpifd2688-69-00 05:15:00* Test Item Value Reference Range Interpretation Comments Monocytes (%) (Auto) (test code = 5905-5) 14.8 4.4-11.3 [facility] HospitalAutomated blood eosinophil count as percentage of total hzmlinooto2733-88-49 05:15:00* Test Item Value Reference Range Interpretation Comments Eosinophils (%) (Auto) (test code = 713-8) 1.4 0.0-6.0 [facility] HospitalAutomated blood basophil count as percentage of total vgqgxvygsb4860-03-16 05:15:00* Test Item Value Reference Range Interpretation Comments Basophils (%) (Auto) (test code = 706-2) 0.5 0.0-1.0 [facility] HospitalFluoroscopic procedure less than one hour vulidsxc4766-82-29 05:15:00* Test Item Value Reference Range Interpretation Comments IM GRANULOCYTES % (test code = IM GRANULOCYTES %) 0.4 0.0- 1.0 [facility] HospitalAutomated blood neutrophil count 2020-05-20 05:15:00* Test Item Value Reference Range Interpretation Comments Neutrophils # (Auto) (test code = 751-8) 4.4 2.1-6.9 [facility] HospitalBlood lymphocytes count (number/volume) 2020-05-20 05:15:00* Test Item Value Reference Range Interpretation Comments Lymphocytes # (Auto) (test code = 09254-2) 2.6 1.0-3.2 [facility] HospitalBlsh[facility] monocytes automated count (number/volume)2020-05-20 05:15:00* Test Item Value Reference Range Interpretation Comments Monocytes # (Auto) (test code = 742-7) 1.2 0.2-0.8 [facility] HospitalAutomated blood eosinophil count 2020-05-20 05:15:00* Test Item Value Reference Range Interpretation Comments Eosinophils # (Auto) (test code = 711-2) 0.1 0.0-0.4 [facility] HospitalAutomated blood basophil count (count/volume)2020-05-20 05:15:00* Test Item Value Reference Range Interpretation Comments Basophils # (Auto) (test code = 704-7) 0.0 0.0-0.1 [facility] HospitalFluoroscopic procedure less than one hour jcnuarrx0504-72-95 05:15:00* Test Item Value Reference Range Interpretation Comments Absolute Immature Granulocyte (auto (marlon t code = Absolute Immature Granulocyte (auto) 0.03 0-0.1 [facility] Hospitalerum or plasma sodium measurement (moles/volume)2020-05-18 04:40:00* Test Item Value Reference Range Interpretation Comments Sodium Level (test code = 2951-2) 140 136-145 [facility] Hospitalerum or plasma potassium measurement (moles/volume)2020-05-18 04:40:00* Test Item Value Reference Range Interpretation Comments Potassium Level (test code = 2823-3) 4.7 3.5-5.1 [facility] Hospitalerum or plasma chloride measurement (moles/volume)2020-05-18 04:40:00* Test Item Value Reference Range Interpretation Comments Chloride Level (test code = 2075-0) 103 98-107 [facility] Hospitalerum or plasma carbon dioxide, total measurement (moles/volume)2020-05-18 04:40:00* Test Item Value Reference Range Interpretation Comments Carbon Dioxide Level (test code = 2028-9) 26 22-29 [facility] Hospitalerum or plasma anion dak4191-27-68 04:40:00* Test Item Value Reference Range Interpretation Comments Anion Gap (test code = 69631-0) 15.7 8-16 [facility] Hospitalerum or plasma urea nitrogen measurement (mass/volume)2020-05-18 04:40:00* Test Item Value Reference Range Interpretation Comments Blood Urea Nitrogen (test code = 3094-0) 40 7-26 [facility] Hospitalerum or plasma creatinine measurement (mass/volume)2020-05-18 04:40:00* Test Item Value Reference Range Interpretation Comments Creatinine (test code = 2160-0) 5.59 0.72-1.25 [facility] Hospitalerum or plasma urea nitrogen/creatinine mass uoxro2602-32-71 04:40:00* Test Item Value Reference Range Interpretation Comments BUN/Creatinine Ratio (test code = 3097-3) 7 6-25 [facility] HospitalEstimated glomerular filtration rate (GFR) xvirvjiqjmsaz3249-87-31 04:40:00* Test Item Value Reference Range Interpretation Comments Estimat Glomerular Filtration Rate (test code = 319869921) 10 >60 Ranges were taken from the National Kidney Disease Education Program and the [facility] literature.Reference ranges:60 or greater: Lguvzo38-99 ( for 3 consecutive months): Chronic kidney disease 15 or less: Kidney failureCuero Regional HospitalGlucose ieotzhubfew2309-55-48 04:40:00* Test Item Value Reference Range Interpretation Comments Glucose Level (test code = QJT9074) 149 74-118 [facility] Hospitalerum or plasma calcium measurement (mass/volume)2020-05-18 04:40:00* Test Item Value Reference Range Interpretation Comments Calcium Level (test code = 44912-5) 8.3 8.4-10.2 [facility] HospitalFluoroscopic procedure less than one hour degumwfp3700-55-82 04:40:00* Test Item Value Reference Range Interpretation Comments Hemoglobin A1c Percent (test code = Hemoglobin A1c Percent) 8.3 4.0-7.0 [facility] Hospitalerum or plasma total bilirubin measurement (mass/volume)2020-05-18 04:40:00* Test Item Value Reference Range Interpretation Comments Total Bilirubin (test code = 1975-2) 0.5 0.2-1.2 [facility] HospitalFluoroscopic procedure less than one hour xwkqrhfe4726-42-37 04:40:00* Test Item Value Reference Range Interpretation Comments Aspartate Amino Transf (AST/SGOT) (test code = Aspartate Amino Transf (AST/SGOT)) 14 5-34 [facility] Hospitalerum or plasma alanine aminotransferase measurement (enzymatic activity/volume)2020-05-18 04:40:00* Test Item Value Reference Range Interpretation Comments Alanine Aminotransferase (ALT/SGPT) (test code = 1742-6) 12 0-55 [facility] Hospitalerum or plasma protein measurement (mass/volume)2020-05-18 04:40:00* Test Item Value Reference Range Interpretation Comments Total Protein (test code = 2885-2) 6.7 6.5-8.1 [facility] Hospitalerum or plasma albumin measurement (mass/volume)2020-05-18 04:40:00* Test Item Value Reference Range Interpretation Comments Albumin (test code = 1751-7) 2.7 3.5-5.0 [facility] HospitalPlasma globulin measurement (mass/volume) 2020-05-18 04:40:00* Test Item Value Reference Range Interpretation Comments Globulin (test code = 83808-5) 4.0 2.3-3.5 [facility] Hospitalerum or plasma albumin/globulin mass nkyvm3519-46-42 04:40:00* Test Item Value Reference Range Interpretation Comments Albumin/Globulin Ratio (test code = 1759-0) 0.7 0.8-2.0 [facility] Hospitalerum or plasma alkaline phosphatase measurement (enzymatic activity/volume)2020-05-18 04:40:00* Test Item Value Reference Range Interpretation Comments Alkaline Phosphatase (test code = 6768-6) 103 40-150 [facility] Hospitalerum or plasma triglyceride measurement (mass/volume)2020-05-18 04:40:00* Test Item Value Reference Range Interpretation Comments Triglycerides Level (test code = 2571-8) 122 0-149 [facility] Hospitalerum or plasma cholesterol measurement (mass/volume)2020-05-18 04:40:00* Test Item Value Reference Range Interpretation Comments Cholesterol Level (test code = 2093-3) 74 0-199 Less than 200 mg/dL Low Onco181 - 239 mg/dL Borderline Hcpv788 m g/dl and greater High Risk [facility] Hospitalerum or plasma cholesterol in LDL measurement (mass/volume) 2020-05-18 04:40:00* Test Item Value Reference Range Interpretation Comments LDL Cholesterol (test code = 2089-1) 34 60-130 [facility] Hospitalerum or plasma cholesterol in HDL measurement (mass/volume)2020-05-18 04:40:00* Test Item Value Reference Range Interpretation Comments HDL Cholesterol (test code = 2085-9) 16 40-60 [facility] Hospitalerum or plasma total cholesterol/cholesterol in HDL mass skkoq9432-89-85 04:40:00* Test Item Value Reference Range Interpretation Comments Cholesterol/HDL Ratio (test code = 9830-1) 4.6 3.9-4.7 [facility] HospitalFOOT LEFT BQQDOEYP6614-46-66 14:45:00 [facility] [address] [address] Patient Name: JED BASSETT JR MR #: [id number] : 1955 Age/Sex: 64/M Req #: [id number] Adm Physician: JOHAN RANGEL MD Ordered by: MAGDA SANABRIA MD Report #: [id number] Location: [facility] Room/Bed: [address] [address] Procedure: [id number] DX/FOOT LEFT C OMPLETE Exam Date: 05/17/20 [...] PY TO: MAGDA SANABRIA MD Urine color rruxkcssffqqa8818-23-00 13:39:00* Test Item Value Reference Range Interpretation Comments Urine Color (test code = 5778-6) YELLOW YELLOW [facility] HospitalUrine jgwoeun6566-63-23 13:39:00* Test Item Value Reference Range Interpretation Comments Urine Clarity (test code = 23654-6) CLEAR CLEAR [facility] Hospitalpecific gravity of Urine by Test strip 2020-05-17 13:39:00* Test Item Value Reference Range Interpretation Comments Urine Specific [place] (test code = 5811-5) 1.020 1.010-1.02 5 [facility] measurement by automated test nzdrk1428-35-05 13:39:00* Test Item Value Reference Range Interpretation Comments Urine pH (test code = 31430-7) 6.5 5-7 [facility] leukocyte esterase detection by jngldfbo2662-61-90 13:39:00* Test Item Value Reference Range Interpretation Comments Urine Leukocyte Esterase (test code = 5799-2) NEGATIVE NEGATIVE [facility] nitrite prbjzmuto9785-66-70 13:39:00* Test Item Value Reference Range Interpretation Comments Urine Nitrite (test code = 29358-6) NEGATIVE NEGATIVE [facility] protein measurement by test strip (mass/volume)2020-05-17 13:39:00* Test Item Value Reference Range Interpretation Comments Urine Protein (test code = 5804-0) >=300 NEGATIVE [facility] glucose cldpjkhag1004-93-77 13:39:00* Test Item Value Reference Range Interpretation Comments Urine Glucose (UA) (test code = 2349-9) NEGATIVE NEGATIVE [facility] HospitalUrine ketones detection by automated test feuke4064-75-17 13:39:00* Test Item Value Reference Range Interpretation Comments Urine Ketones (test code = 37841-3) TRACE NEGATIVE [facility] HospitalUrine urobilinogen measurement by test strip (mass/volume)2020-05-17 13:39:00* Test Item Value Reference Range Interpretation Comments Urine Urobilinogen (test code = 52707-9) 0.2 0.2-1 [facility] total bilirubin measurement (mass/volume)2020-05-17 13:39:00* Test Item Value Reference Range Interpretation Comments Urine Bilirubin (test code = 1978-6) SMALL NEGATIVE [facility] HospitalUrine erythrocytes tfvmjjrlo7284-98-29 13:39:00* Test Item Value Reference Range Interpretation Comments Urine Blood (test code = 66436-8) SMALL NEGATIVE [facility] HospitalAutomated urine sediment leukocyte count by microscopy (number/high power field)2020-05-17 13:39:00* Test Item Value Reference Range Interpretation Comments Urine WBC (test code = 5821-4) 6-10 0-5 [facility] HospitalErythrocytes detection in urine sediment by light pybaqcpccc7548-56-25 13:39:00* Test Item Value Reference Range Interpretation Comments Urine RBC (test code = 54955-9) 6-10 0-5 [facility] HospitalBacteria detection in urine sediment by light gkqblefisd3371-41-03 13:39:00* Test Item Value Reference Range Interpretation Comments Urine Bacteria (test code = 77872-8) RARE NONE [facility] HospitalEpithelial cells detection in urine sediment by light jmoqwksiyo1909-38-45 13:39:00* Test Item Value Reference Range Interpretation Comments Urine Epithelial Cells (test code = 15804-9) FEW NONE [facility] HospitalCHEST SINGLE (PORTABLE)2020-05-17 12:54:00 [facility] [address] [address] Patient Name: JED BASSETT JR MR #: [id number] : 1955 Age/Sex: 64/M Req #: [id number] Adm Physician: JOHAN RANGEL MD Ordered by: MAGDA SANABRIA MD Report #: [id number] Location: [facility] Room/Bed: [facility] Procedure: [id number] DX/CHEST SINGL E (PORTABLE) Exam Date: 05/17/20 [...] (PT) in platelet poor plasma by coagulation wqiuo3855-95-62 11:20:00* Test Item Value Reference Range Interpretation Comments Prothrombin Time (test code = 5902-2) 14.3 11.9-14.5 [facility] HospitalINR in Platelet poor plasma by Coagulation mfxgp8213-48-08 11:20:00* Test Item Value Reference Range Interpretation Comments Prothromb Time International Ratio (test code = 6301-6) 1.05 Oral Anticoagulant Therapy INR Values:1. Low Intensity Therapy 1.5 - 2.02 . Moderate Intensity Therapy 2.0 - 3.03. High Intensity Therapy(1) 2.5 - 3. 54. High Intensity Therapy(2) 3.0 - 4.05. Panic Value INR > 5.0 [facility] HospitalActivated partial thromboplastin time (aPTT) in platelet poor plasma by coagulation pyrlu7232-77-68 11:20:00* Test Item Value Reference Range Interpretation Comments Activated Partial Thromboplast Time (test code = 19702-0) 57.7 23.8-35.5 [facility] HospitalFluoroscopic procedure less than one hour xypfysnc4838-82-77 11:20:00* Test Item Value Reference Range Interpretation Comments Lactic Acid Level (test code = Lactic Acid Level) 2.3 0.5- 2.0 Results repeated and called to REZA HARRELL at 1302 on 05/17/20 by Daniel Montgomery . Read back and verified.[facility] HospitalBNP Bld-mCnc 2020-05-17 11:20:00* Test Item Value Reference Range Interpretation Comments B-Type Natriuretic Peptide (test code = 37543-1) 608.5 0-100 [facility] or plasma creatine kinase measurement (enzymatic activity/volume)2020-05-17 11:20:00* Test Item Value Reference Range Interpretation Comments Creatine Kinase (test code = 2157-6) 40 30-200 [facility] Hospitalerum or plasma creatine kinase MB measurement (mass/volume)2020-05-17 11:20:00* Test Item Value Reference Range Interpretation Comments Creatine Kinase MB (test code = 59181-6) 0.30 0-5.0 [facility] HospitalTroponin I measurement by highly sensitive enzyme zicpvwruhbo5427-74-61 11:20:00* Test Item Value Reference Range Interpretation Comments Troponin I (test code = 92839-5) 0.032 0-0.300 [facility] HospitalFluoroscopic procedure less than one hour dgainsci2620-69-03 11:20:00* Test Item Value Reference Range Interpretation [...] under 564(g) of the ACT.Testing performed by [address] [address]RDECuero Regional HospitalBlood kcgusqg2844-43-76 11:20:00* Test Item Value Reference Range Interpretation Comments Blood Culture (test code = 95527523) NO GROWTH AFTER 72 HOURS [facility] HospitalBacterial blood kejcaqy3563-22-89 11:20:00* Test Item Value Reference Range Interpretation Comments Blood Culture (test code = 600-7) ENTEROBACTER CLOACAE [facility] HospitalTreadmill tolerance(Non-Nuclear Treadmill)2019-12-22 16:44:12Interface, External Ris In [...] MD SALDANA RAYMOND ([id number]) on 12/22/2019 4:44:[address] [facility] cxlb0511-99-03 11:06:53Interface, External Ris In - 12/17/2019 11:06 AM CSTVentricular Rate 69 BPMAtrial Rate 69 BPMP-R Interval 282 msQRS Duration 100 msQ-T Interval 442 msQTC Calculation(Bazett) 473 msP Solomon 71 degreesR Solomon -43 degreesT Solomon 60 degreesSinus rhythm with 1st degree A-V blockLeft axis deviationAbnormal ECGNo previous ECGs availableConfirmed by MD Padilla Roberto ([id number]) on 12/17/2019 11:06:49 [facility] Echo W/Doppler(CW/PW/Color)2019-12-17 07:21:02Ejection FractionSLEH ECHO HEARTLAB MKCKESSON CPACSInterface, External Ris In - 12/17/2019 7:21 AM CSTTransthoracic Echocardiography Report (TTE) Demographics Patient Name JED BASSETT Date of Study 12/16/2019 Gender Male Visit Number [id number] Race Unknown Room Number Number Date of 1955 Referring Physician April Breaux Age 64 year(s) Olive Picker Levy Alberto Interpreting Vijaya Whaley, Physician MD [...] l/min/m^2 RVOT RVOT VTI (PW): 23.72 cm [facility] Echo With Khflnkb6046-20-15 07:14:29Ejection FractionSLEH ECHO HEARTLAB MKCKESSON CPACSInterface, External Ris In - 12/17/2019 7:14 AM CSTStress Echocardiography Report Demographics Patient Name JED BASSETT Date of Study 12/16/2019 Gender Male Visit Number [id number] Race Unknown Room Number Number Date of 1955 Referring Physician April Breaux Age 64 year(s) Olive Picker Levy Alberto Interpreting Vijaya Whaley, Physician MD [...] is a negative Echocardiographic Stress Test. Signature [facility] CenterHemoglobin [id number] 11:16:00* Test Item Value Reference Range Interpretation Comments Hemoglobin A1C (test code = 4548-4) 7.7 % 4.3-6.1 H Lab Interpretation (test code = 70960-9) Abnormal [facility] CenterHEMOGLOBIN [id number] 11:16:00* Test Item Value Reference Range Interpretation Comments HEMOGLOBIN A1C (BEAKER) (test code = 368) 7.7 % 4.3-6.1 H RAD, CHEST, 2 [id number] 10:01:00Reason for Exam:->Pre kidney transplant evaluation.FINAL REPORT [...] acute intrathoracic abnormality. Signed: JR Ev, Jesse Neri Verified Date/Time: 12/16/2019 10:01:55 Reading Location: [facility] Radiology Reading Room chest 2 icthn0478-91-99 10:01:00Interface, External Ris In - 12/16/2019 10:04 [...] MDReport Verified Date/Time: 12/16/2019 10:01:55 Reading Location: [facility] Radiology Reading Room Electronically signed by: JESSE CARRENO on 0 12/16/2019 10:01 AM [facility] CenterU/S, ABDOMINAL, COMPLETE 2019-12-16 09:36:00Reason for Exam:->Kidney transplant [...] left renal cyst, otherwise unremarkable. Signed: Marianna Gaytanort Verified Date/Time: 12/16/2019 09:36:15 Reading Location: [address] Radiology Reading Room abdomen ltqqxdco2564-52-26 09:36:00Interface, External Ris In - 12/16/2019 9:38 [...] Gaytaneport Verified Date/Time: 12/16/2019 09:36:15 Reading Location: [address] Radiology Reading Room [facility] CenterPSA2020-02-26 08:48:00* Test Item Value Reference Range Interpretation Comments PSA (test code = 2857-1) 0.3 ng/mL 0-4 SOUTH (test code = SOUTH) Foot Specialist ID - DB Lab Interpretation (test code = 56874-7) Normal [facility] CenterPSA2020-02-26 08:48:00* Test Item Value Reference Range Interpretation Comments PROSTATE SPECIFIC ANTIGEN (BEAKER) (test code = 844) 0.3 ng/mL 0 .0-4.0 Foot Specialist ID - DBBlood typing, gbvtdymqb0321-87-95 07:58:00* Test Item Value Reference Range Interpretation Comments ABO/RH AUTOMATED (BEAKER) (test code = 2260) O POSITIVE [facility] CenterLipid cmkfa2339-57-46 07:56:00* Test Item Value Reference Range Interpretation Comments Triglycerides (test code = 2571-8) 120 mg/dL Cholesterol (test code = 2093-3) 105 mg/dL HDL (test code = 2085-9) 32 mg/dL LDL Calculated (test code = 69144-3) 49 mg/dL SOUTH (test code = SOUTH) Triglyceride Reference Range : Low Risk <150 Borderline 150-199 High Risk 200-499 Very High Risk >=500 Cholesterol Reference Range: Low Risk <200 Borderline 200-239 High Risk >240 HDL Cholesterol Reference Range: Low Risk >=60 High Risk <40 LDL Cholesterol Reference Range: Optimal <100 Near Optimal 100-129 Borderline 130-159 High 160-189 Very High >=190 Foot Specialist ID Lashell Yates [facility] CenterLIPID PVAJL5396-77-00 07:56:00* Test Item Value Reference Range Interpretation [...] Borderline 130-159 High 160-189 Very High >=190 Foot Specialist ID Lashell SCOTTLA TYPING [id number] 22:51:00* Test Item Value Reference Range Interpretation [...] and its performance characteristics determined by the [facility] Laboratory. It has not been cleared [...] to perform high complexity clinical laboratory testing. [facility] CenterHLA TYPING [id number] 22:51:00* Test Item Value Reference Range Interpretation [...] and its performance characteristics determined by the [facility] Laboratory. It has not been cleared [...] to perform high complexity clinical laboratory testing. [facility]- XR RIBS UNI W/CXR 3+V [id number] 19:52:00 FAX: Maldonado Goldman Julian: [place] St: REG Name: JED WHITEHEAD JR [facility] FS : [birth year] Age/S: 64/M [address] Unit #: [id number] Loc: [facility] [address] Phys: Maldonado Goldman MD [place], [place] [address] Acct: [id number] Dis Date: Status: REG ER PHONE #: Exam Date: 12/04/2019 0003 FAX #: Reason: FALL, RIGHT RIB PAIN EXAMS: CPT CODE: [id number] XR RIBS UNI W/CXR 3+[place] [address] EXAM: Right-sided rib series, 4 vi ews; [...] on the right. Location code: [facility] at 1949 Reported and signed by: Hardy Juarez M.D. CC: Maldonado Goldman MD Technologist: April Louis Trnscrd Date/Time/By: 12/04/2019 (1949) : By: SvetlanaGRW Orig Print D/T: S: 12/04/2019 (1953) PAGE 1 Signed Report HERNIA [id number] 14:34:00 RUN DATE: 12/03/19 [facility] PAGE 1 RUN TIME: 1434 Specimen Inqui ry RUN USER: INTERFACE PATIENT: JED BASSETT JR ACCT #: [id number] LOC: CHERELLE U #: [id number] AGE/SX: 64/M ROOM: RE12/02/19REG DR: Keron Galdamez MD : [birth year] BED: DIS: STATUS: [facility] TLOC: SPEC #: [id number] RECD: 12/02/19 STATUS: DENICE [facility] #: [id number] SUSAN: 12/02/19- SUBM DR: Keron Galdamez MD ENTERED: 12/02/19 SP TYPE: HERNIA SAC OTHR DR: Antony Cox MD ORDERED: GROSS COPIES TO: Keron Galdamez MD [address] [place], [place] [id number] [place] [address] [place] [address] PROCEDURES: GROSS (12/03/19-1106) TISS UES: 1. INGUINAL REGION, NOS - RIGHT LIPOMA 2. INGUINAL REGION , NOS - LEFT LIPOMA CLINICAL HISTORY COLLECTION DATE: 12/02/19 FINAL DIAGNOSIS Right inguinal lipoma, inguinal hernia repair: ADIPOSE TISSUE CONSISTENT WITH HERNIA CONTENTS Left inguinal lipoma, ing uinal hernia repair: ADIPOSE TISSUE CONSISTENT WITH HERNIA CONTENTS DMW/sm D [id number] MACROSCOPIC Specimen (1) is received in [facility] labeled with the patient's name, "right lipoma" and consists of a porti on of yellow fatty tissue with smooth rounded margins that measures 11 cm in l ength with a diameter ranging from 1.5 up to 3.8 cm. The cut surface is homo genous. Poultry Cutter tissue is submitted for histologic evaluation as (1). CONTINUED ON NEXT PAGE RUN DATE : 12/03/19 [facility] PAGE 2 RUN TIME: 1434 Specimen Inquiry RUN USER: INTERFACE SPEC #: [id number] PATIENT: JED BASSETT JR #V [id number] (Continued) MACROSCOPIC (Continue d) Specimen (2) is [...] is submitted as (2). GROSS PERFORMED AT [facility] [address] [place] [address] (p)[phone] MICROSCOPIC All of the stains, i ncluding any controls performed, stain appropriately. MICROSCOPIC PERFOR MED AT [facility] [address] [place] [address] (p)[phone] PERFORMING SITE Diagnosis performed at: [facility], [place] [address] [facility] [place] [address] [phone] Signed SIGNATURE ON FILE Margarito Moore MD 12/03/19 1434 END OF REPORT AB SPECIFICITY CLASS [id number] 11:01:00* Test Item Value Reference Range Interpretation Comments AB Specificity Class I (test code = 3457) NO CLASS I A NTIBODY DETECTED WITH MFIs > 4000 SOUTH (test code = SOUTH) Disclaimer: This test was de veloped and its performance characteristics determined by the [facility] Laboratory. It has not been cleared [...] to perform high complexity clinical laboratory testing. [facility] CenterGLUBED2020-02-12 10:27:00* Test Item Value Reference Range Interpretation Comments GLUBED (test code = GLUBED) 180 mg/dL 74-106 H Performed by certified cash register operator at [facility] OMFKRFZNL4063-01-58 07:57:00* Test Item Value Reference Range Interpretation Comments POTASSIUM (test code = K) 3.8 mmol/L 3.5-5.1 N [id number] 07:49:00* Test Item Value Reference Range Interpretation Comments GLUBED (test code = GLUBED) 204 mg/dL 74-106 H Performed by certified cash register operator at [facility] FLOW PRA CLASS I WITH REFLEX TO ANTIBODY EBWPMGLUZKE5024-27-78 11:44:00* Test Item Value Reference Range Interpretation Comments Flow Class I Percent Positive (test code = 3229) 10 SOUTH (test code = SOUTH) Disclaimer: This test was de veloped and its performance characteristics determined by the [facility] Laboratory. It has not been cleared [...] to perform high complexity clinical laboratory testing. [facility] CenterFLOW PRA CLASS II WITH REFLEX TO ANTIBODY FOROCWAYSAH2030-10-46 11:44:00* Test Item Value Reference Range Interpretation Comments Flow Class II Percent Positive (test code = 3231) 0 SOUTH (test code = SOUTH) Disclaimer: This test was de veloped and its performance characteristics determined by the [facility] Laboratory. It has not been cleared [...] to perform high complexity clinical laboratory testing. [facility] CenterT Spot [id number] 19:29:00* Test Item Value Reference Range Interpretation Comments T-Spot TB (test code = 68160-1) Negative Neg Ctrl Spot Count (test code = 86195-1) 0 Panel A Spot (test code = 11759-6) 0 Panel B Spot (test code = 56054-7) [address] (test code = 95112-2) 0 Scan Result (test code = 2810845) [facility] CenterBASI METABOLIC [id number] 12:11:00* Test Item Value Reference Range Interpretation [...] CA) 7.5 mg/dL 8.5-10.1 L CBC W/AUTO [id number] 11:39:00* Test Item Value Reference Range Interpretation [...] NRBC#) 0.00 K/mm3 0.0-0.1 N Cytomegalovirus antibody, [id number] 04:11:00* Test Item Value Reference Range Interpretation Comments CYTOMEGALOVIRUS, IGG (test code = 3429) Positive Negative, Equi vocal A SOUTH (test code = SOUTH) CMV IgG Result Interpretatio n: </= 0.8 Al Negative 0.9- 1.0 Al Equivocal >/=1.1 Al Positive Lab Interpretation (test code = 24226-7) Abnormal [facility] antibody, [id number] 04:11:00* Test Item Value Reference Range Interpretation Comments KEELY ANAYA VIRAL CAPSID ANTIGEN IGG (test code = 3415) Pos itive Negative, Equivocal A SOUTH (test code = SOUTH) Keely Anaya Viral Capsid An tigen IgG Result Interpretation: </= 0.8 Al Negative 0.9-1.0 Al Equivocal >/= 1.1 Al Positive Lab Interpretation (test code = 71775-5) Abnormal [facility] CenterEBV-VCA antibody, [id number] 04:11:00* Test Item Value Reference Range Interpretation Comments KEELY ANAYA VIRAL CAPSID ANTIGEN IGM (test code = 3418) Neg ative Negative, Equivocal SOUTH (test code = SOUTH) Keely Anaya Viral Capsid An tigen IgM Result Interpretation: </= 0.8 Al Negative 0.9-1.0 Al Equivocal >/= 1.1 Al Positive Lab Interpretation (test code = 10066-2) Normal [facility] CenterCytomegalovirus antibody, [id number] 04:11:00* Test Item Value Reference Range Interpretation Comments CMV IGM (test code = 3437) Negative Negative, Equivocal SOUTH (test code = SOUTH) CMV IgM Result Interpretatio n: </= 0.8 Al Negative 0.9-1.0 Al Equivocal >/= 1.1 Al Positive Lab Interpretation (test code = 92541-3) Normal [facility] CenterMHA - [id number] 04:11:00* Test Item Value Reference Range Interpretation Comments TREPONEMA PALLIDUM, SYPHILIS IGG (test code = 6561-5) Reactive Nonreactive AA SOUTH (test code = SOUTH) Test performed by CALEB method. Lab Interpretation (test code = 36843-6) Abnormal [facility] CenterCYTOMEGALOVIRUS ANTIBODY, [id number] 04:11:00* Test Item Value Reference Range Interpretation Comments CYTOMEGALOVIRUS, IGG (BEAKER) (test code = 3429) Positive Negat joe, Equivocal A CMV IgG Result Interpretation: </= 0.8 Al Negative 0.9-1.0 Al Equivocal > /=1.1 Al PositiveCYTOMEGALOVIRUS ANTIBODY, [id number] 04:11:00* Test Item Value Reference Range Interpretation Comments CYTOMEGALOVIRUS IGM ANTIBODY (BEAKER) (test code = 3437) Neg ative Negative, Equivocal CMV IgM Result Interpretation: </= 0.8 Al Negative 0.9-1.0 Al Equivocal > /= 1.1 Al PositiveEBV ANTIBODY, [id number] 04:11:00* Test Item Value Reference Range Interpretation Comments KEELY ANAYA VIRAL CAPSID ANTIGEN IGG (KATHI) (test code = 3415) Positive Negative, Equivocal A Keely Anaya Viral Capsid Antigen IgG Result Interpretation: </= 0.8 Al Negative 0.9-1.0 Al Equivocal >/= 1.1 Al PositiveEBV ANTIBODY, [id number] 04:11:00* Test Item Value Reference Range Interpretation Comments KEELY ANAYA VIRAL CAPSID ANTIGEN IGM (KATHI) (test code = 3418) Negative Negative, Equivocal Keely Anaya Viral Capsid Antigen IgM Result Interpretation: </= 0.8 Al Negative 0.9-1.0 Al Equivocal >/= 1.1 Al PositiveTREPONEMA PALLIDUM - SYPHILIS [id number] 04:11:00* Test Item Value Reference Range Interpretation Comments TREPONEMA PALLIDUM, SYPHILIS IGG (KATHI) (test code = 3427) Reactive Nonreactive AA Test performed by CALEB method.Varicella Zoster Antibody, [id number] 03:46:00 * Test Item Value Reference Range Interpretation Comments Varicella IgG (test code = 10172-8) 7.2 SOUTH (test code = SOUTH) VARICELLA ZOSTER RESULT INTE RPRETATIONS: <=0.8 Al Nonreactive: Presumed non-immune to VZV 0.9-1.0 Al Equivocal >=1.1 Al Reactive: Presumed immune to VZV [facility] CenterVARICELLA ZOSTER ANTIBODY, [id number] 03:46:00* Test Item Value Reference Range Interpretation Comments VARICELLA ZOSTER IGG (AL) (KATHI) (test code = 3197) 7.2 VARICELLA ZOSTER RESULT INTERPRETATIONS: <=0.8 Al Nonreactive: Presumed non-immune to VZV 0.9-1.0 Al Equivocal >=1.1 Al Reactive: Presumed immune to VZVRPR [id number] 02:59:00* Test Item Value Reference Range Interpretation Comments RPR Titer (test code = 55130-5) 1:4 [facility] CenterRPR [id number] 02:59:00* Test Item Value Reference Range Interpretation Comments RPR TITER (KATHI) (test code = 1485) :4 [id number] 02:58:00* Test Item Value Reference Range Interpretation Comments RPR (test code = 22682-0) Reactive Nonreactive A Lab Interpretation (test code = 83599-7) Abnormal [facility] CenterRPR2020-02-07 02:58:00* Test Item Value Reference Range Interpretation Comments RPR SCREEN (BEAKER) (test code = 420) Reactive Nonreactive A Hepatitis C Exyhvxvd2773-72-12 15:09:00* Test Item Value Reference Range Interpretation Comments Hepatitis C Ab (test code = 73345-8) Reactive Nonreactive A SOUTH (test code = SOUTH) Foot Specialist ID - ROSIANG Lab Interpretation (test code = 06386-4) Abnormal [facility] CenterHEPATITIS C [id number] 15:09:00* Test Item Value Reference Range Interpretation Comments HEPATITIS C ANTIBODY (BEAKER) (test code = 367) Reactive Nonrea ctive Certified Adapted Physical Educator ID - ROSIANGDirect AHG (FELIPA)/Direct Ymvdqy4153-55-65 14:09:00* Test Item Value Reference Range Interpretation Comments Direct AHG-IGG (test code = 1006-6) NEGATIVE saline control-negative Direct AHG-C3B, C3D (test code = 1003-3) NEGATVIE [facility] CenterHepatitis B surface fzupcgqu3342-73-86 13:48:00* Test Item Value Reference Range Interpretation Comments Hep B S Ab (test code = 72938-1) <8.0 <8.0 mIU/mL SOUTH (test code = SOUTH) Foot Specialist ID - ROSIANG Lab Interpretation (test code = 03679-9) [facility] SURFACE [id number] 13:48:00* Test Item Value Reference Range Interpretation Comments HEPATITIS B SURFACE ANTIBODY (BEAKER) (test code = 647) < mIU/mL <8.0 Foot Specialist ID - ROSIANGHepatitis B surface dmvskzc6946-01-38 13:45:00* Test Item Value Reference Range Interpretation Comments HBsAg Screen (test code = 5195-3) Nonreactive Nonreactive SOUTH (test code = SOUTH) Foot Specialist ID - ROSIANG Lab Interpretation (test code = 29181-7) Normal [facility] B core antibody, [id number] 13:45:00* Test Item Value Reference Range Interpretation Comments Hep B C IgM (test code = 20229-9) Nonreactive Nonreactive SOUTH (test code = SOUTH) Foot Specialist ID - PAPI Lab Interpretation (test code = 52502-1) Normal [facility] CenterHIV-1 Antigen with HIV-1/2 Zgsmiuyh5830-15-96 13:45:00* Test Item Value Reference Range Interpretation Comments HIV-1 Antigen with HIV 1&2 Antibody (test code = 70952-8) No nreactive Nonreactive SOUTH (test code = SOUTH) Foot Specialist ID - PAPI Lab Interpretation (test code = 60519-8) Normal [facility] CenterHEPATITIS B SURFACE [id number] 13:45:00* Test Item Value Reference Range Interpretation Comments HEPATITIS B SURFACE ANTIGEN (2) (BEAKER) (test code = 2585) Nonreactive Nonreactive Foot Specialist ID - AFSANEHEPATITIS B CORE ANTIBODY, [id number] 13:45:00* Test Item Value Reference Range Interpretation Comments HEPATITIS B CORE IGM ANTIBODY (BEAKER) (test code = 645) Non reactive Nonreactive Foot Specialist ID - AFSANEHIV-1 ANTIGEN WITH HIV-1/2 YGUGHBHC0065-26-34 13:45:00* Test Item Value Reference Range Interpretation Comments HIV-1 ANTIGEN WITH HIV 1\\T\\2 ANTIBODY (2) (BEAKER) (te st code = 2586) Nonreactive Nonreactive Foot Specialist ID - AFSANEHEVERGREENHEALTH, Xwhjcq7488-01-83 13:32:00* Test Item Value Reference Range Interpretation Comments PTH (test code = 2731-8) 462.7 pg/mL 8.5-72.5 H SOUTH (test code = SOUTH) Foot Specialist ID - AFSANEHG Lab Interpretation (test code = 84562-6) [facility] [id number] 13:32:00* Test Item Value Reference Range Interpretation Comments PARATHYROID HORMONE INTACT (BEAKER) (test code = 577) 462.7 pg/mL 8.5-72.5 H Foot Specialist ID - AFSANEHomprehensive metabolic [id number] 13:30:00* Test Item Value Reference Range Interpretation Comments Protein, Total (test code = 2885-2) 7.5 6.0- 8.3 gm/dL Albumin (test code = 97286-4) 4.0 g/dL 3.5-5 Alkaline Phosphatase (test code [...] mg/dL 70-105 H Calcium (test code = 16433-6) 8.0 mg/dL 8.4-10.2 L AST (test code = 1920-8) 18 U/L 5-34 ALT (test code = 1742-6) 20 U/L 6-55 EGFR (test code = 27944-3) 12 mL/min/1.73 sq m ESTIMATED GFR IS NOT ACCURATE CREATININE CLEARANCE IN PREDICTING GLOMERULAR FILTRATION RATE. ESTIMATED GFR IS NOT APPLICABLE FOR DIALYSIS PATIENTS. SOUTH (test code = SOUTH) Foot Specialist ID - ROSIANG Lab Interpretation (test code = 33695-8) [facility] [id number] 13:30:00* Test Item Value Reference Range Interpretation [...] GFR IS NOT APPLICABLE FOR DIALYSIS PATIENTS. Foot Specialist ID - AFSANEHamma Glutamyl Transferase (GGT)2019-11-25 13:19:00* Test Item Value Reference Range Interpretation Comments GGT (test code = 2324-2) 84 U/L 9-64 H SOUTH (test code = SOUTH) Foot Specialist ID - avandeo Lab Interpretation (test code = 12925-0) Abnormal [facility] CenterLact[facility] Dehydrogenase (LDH)2019-11-25 13:19:00* Test Item Value Reference Range Interpretation Comments LDH (test code = 2532-0) 231 U/L 125-220 H SOUTH (test code = SOUTH) Foot Specialist ID - Infakt.plMAXWELLDailyBurn Lab Interpretation (test code = 35120-9) [facility]normal [facility] CenterPhosphorus2020-[facility]-05 13:19:00* Test Item Value Reference Range Interpretation Comments Phosphorus (test code = 2777-1) 4.7 mg/dL 2.3-4.7 SOUTH (test code = SOUTH) Foot Specialist ID - Infakt.plIANDailyBurn Lab Interpretation (test code = 03870-1) Normal [facility] CenterUric [id number] 13:19:00* Test Item Value Reference Range Interpretation Comments Uric Acid (test code = 3084-1) 4.6 mg/dL 2.6-7.2 SOUTH (test code = SOUTH) Foot Specialist ID - ROSMAXWELLG Lab Interpretation (test code = 90443-0) Normal [facility] CenterURIC [id number] 13:19:00* Test Item Value Reference Range Interpretation Comments URIC ACID (BEAKER) (test code = 773) 4.6 mg/dL 2.6-7.2 Foot Specialist ID - HDRZTBPMZOJKMHRSB5038-55-04 13:19:00* Test Item Value Reference Range Interpretation Comments PHOSPHORUS (BEAKER) (test code = 604) 4.7 mg/dL 2.3-4.7 Foot Specialist ID - ROSIANGGAMMA GLUTAMYL TRANSFERASE (GGT)2019-11-25 13:19:00* Test Item Value Reference Range Interpretation Comments GAMMA GLUTAMYL TRANSFERASE (BEAKER) (test code = 364) 84 U/L 9-64 H Foot Specialist ID - ROSIANGLACTATE DEHYDROGENASE (LDH)2019-11-25 13:19:00* Test Item Value Reference Range Interpretation Comments LACTATE DEHYDROGENASE (BEAKER) (test code = 635) 231 U/L 125-2 20 H Foot Specialist ID - ROSIANGPT/zASZ3359-64-71 13:04:00* Test Item Value Reference Range Interpretation Comments Protime (test code = 5902-2) 13.7 11.9- 14.2 seconds INR (test code = 6301-6) 1.1 <=5.9 PTT (test code = 05906-1) 31.4 22.5- 36.0 seconds SOUTH (test code = SOUTH) Effective 03/18/2019: PT Refe rence Range ChangeNew: 11.9- 14.2 Previous: 11.7-14.7 RECOMMENDED COUMADIN/WARFARIN INR THERAPY RANGESSTANDARD DOSE: 2.0-3.0 Includes: PROPHYLAXIS for venous thrombosis, sys temic embolization; TREATMENT for venous thrombosis and/or pulmonary embolus.HIGH RISK: Target INR is 2.5-3.5 for patients wiht mechanical heart valves. Lab Interpretation (test code = 69374-4) Normal [facility] CenterPT/[id number] 13:04:00* Test Item Value Reference Range Interpretation [...] 450 K/CU MM MPV (test code = 02551-8) 10.8 fL 9.4-12.4 nRBC (test code = [...] % 0-1 Lab Interpretation (test code = 99220-7) Abnormal [facility] W/PLT COUNT & AUTO [id number] 12:54:00* Test Item Value Reference Range Interpretation [...] = 2801) 0 % 0-1 BASIC METABOLIC [id number] 19:24:00* Test Item Value Reference Range Interpretation [...] CA) 6.8 mg/dL 8.5-10.1 L BASIC METABOLIC [id number] 19:16:00* Test Item Value Reference Range Interpretation [...] code = CA) mg/dL 8.5-10.1 CBC W/AUTO [id number] 19:04:00* Test Item Value Reference Range Interpretation [...] DIFF REQUIRED (test code = MDIFF) NO [id number] 20:30:00* Test Item Value Reference Range Interpretation Comments GLUBED (test code = GLUBED) 197 mg/dL 74-106 H Performed by certified cash register operator at [facility] [id number] 19:20:00* Test Item Value Reference Range Interpretation Comments GLUBED (test code = GLUBED) 170 mg/dL 74-106 H Performed by certified cash register operator at [facility] [id number] 13:00:00* Test Item Value Reference Range Interpretation Comments GLUBED (test code = GLUBED) 146 mg/dL 74-106 H Performed by certified cash register operator at [facility] BASIC METABOLIC [id number] 07:51:00* Test Item Value Reference Range Interpretation [...] CA) 8.0 mg/dL 8.5-10.1 L BASIC METABOLIC [id number] 07:47:00* Test Item Value Reference Range Interpretation [...] CA) 8.0 mg/dL 8.5-10.1 L CBC W/AUTO [id number] 07:32:00* Test Item Value Reference Range Interpretation [...] DIFF REQUIRED (test code = MDIFF) NO [id number] 20:29:00* Test Item Value Reference Range Interpretation Comments GLUBED (test code = GLUBED) 307 mg/dL 74-106 H Performed by certified cash register operator at [facility] [id number] 17:51:00* Test Item Value Reference Range Interpretation Comments GLUBED (test code = GLUBED) 263 mg/dL 74-106 H Performed by certified cash register operator at [facility] [id number] 12:58:00* Test Item Value Reference Range Interpretation Comments GLUBED (test code = GLUBED) 336 mg/dL 74-106 H Performed by certified cash register operator at [facility] BASIC METABOLIC [id number] 07:58:00* Test Item Value Reference Range Interpretation [...] ADD ON TO THE AM LABSBASIC METABOLIC [id number] 07:27:00 * Test Item Value Reference Range [...] SPECIMEN COMMENTS: ADD ON TO THE AM [id number] 05:46:00* Test Item Value Reference Range Interpretation Comments GLUBED (test code = GLUBED) 183 mg/dL 74-106 H Performed by certified cash register operator at [facility] CBC W/AUTO [id number] 04:50:00* Test Item Value Reference Range Interpretation [...] code = NRBC#) 0.00 K/mm3 0.0-0.1 N [id number] 20:20:00* Test Item Value Reference Range Interpretation Comments GLUBED (test code = GLUBED) 200 mg/dL 74-106 H Performed by certified cash register operator at [facility] [id number] 17:48:00* Test Item Value Reference Range Interpretation Comments GLUBED (test code = GLUBED) 145 mg/dL 74-106 H Performed by certified cash register operator at [facility] UR CREATININE CLEARANCE [id number] 15:13:00* Test Item Value Reference Range Interpretation Comments CREATININE CLEARANCE RESULT (test code = CREATCLR) 8 mL/min 100 -120 L CREATININE (test code = CREAT) 4.00 mg/dL 0.7-1.3 H UR CREATININE RANDOM (test code = CREATU) 50.0 mg/dL 30-125 N UR VOLUME 24HR (test code = VOL) 900 mL/24hrs 0234-9141 TOTAL VOLUME: 900mLUR CREATININE CLEARANCE [id number] 07:37:00* Test Item Value Reference Range Interpretation Comments CREATININE CLEARANCE RESULT (test code = CREATCLR) mL/min 100 -120 CREATININE (test code = CREAT) mg/dL 0.7-1.3 UR CREATININE RANDOM (test code = CREATU) 50.0 mg/dL 30-125 N UR VOLUME 24HR (test code = VOL) mL/24hrs 1156-5081 TOTAL VOLUME: [id number] 06:47:00* Test Item Value Reference Range Interpretation Comments GLUBED (test code = GLUBED) 91 mg/dL 74-106 N Performed by certified cash register operator at [facility] BASIC METABOLIC [id number] 05:40:00* Test Item Value Reference Range Interpretation [...] CA) 7.5 mg/dL 8.5-10.1 L BASIC METABOLIC [id number] 05:35:00* Test Item Value Reference Range Interpretation [...] code = CA) mg/dL 8.5-10.1 CBC W/O [id number] 05:32:00* Test Item Value Reference Range Interpretation [...] code = MPV) 11.0 fL 6.7-11.0 N [id number] 21:27:00* Test Item Value Reference Range Interpretation Comments GLUBED (test code = GLUBED) 92 mg/dL 74-106 N Performed by certified cash register operator at [facility] [id number] 17:07:00* Test Item Value Reference Range Interpretation Comments GLUBED (test code = GLUBED) 145 mg/dL 74-106 H Performed by certified cash register operator at [facility] [id number] 13:57:00* Test Item Value Reference Range Interpretation Comments GLUBED (test code = GLUBED) 155 mg/dL 74-106 H Performed by certified cash register operator at [facility] AB HEPATITIS B [id number] 13:10:00* Test Item Value Reference Range Interpretation Comments AB HEPATITIS B SURFACE (test code = HBSAB) Non Reactive () Non Reactive: Inconsistent with immunity, less than 10 mIU/mL Reactive: Consistent with immunity, greater than 9.9 mIU/mLPerformed At: [facility] [address] [id number] Shah MD Ph:[phone] HEPATITIS B CORE ANTIBODY,[id number] 13:10:00* Test Item Value Reference Range Interpretation Comments HEPATITIS B CORE ANTIBODY,TOT (test code = HBCAB) Positive Nega tive A Performed At: [facility] [address] [id number] Shah MD Ph:[phone] - GUIDANCE [facility] [id number] 08:44:00 Name: JED BASSETT [facility] : 1955 Age/S: 64 / M [address] [facility] [id number] Loc: [place] [address] Phys: Russell Davis MD Acct: [id number] Dis Date: Status: ADM IN PHONE #: [phone] Exam Date: 11/02/2019 1642 FAX #: [phone] Reason: EXAMS: CPT CODE: [id number] US GUIDANCE VASC ACCESS 92289 Fluoro Time: DAP (Gy m2): Air Kerma (mGy): REASON FOR EXAM: ESRD Referring Physician: Russell Davis MD PROCEDURE: Ultrasound and fluoroscopic guided tunneled hemodialysis catheter placement with IV conscious sedation CPT code: 72939, 07232,89627 Ynpf-re-abxs procedure time is approximately: 45 minutes FINDINGS: [...] was used to access the vein. A prison dialysis catheter was tunneled under the subcutaneous [...] Technologist: Mishel Castillo RT(R) Trnscb Date/Time: 11/03/2019 (44) Tyrell Orig Print D/T: S: 11/03/2019 (8322) PAGE 1 Signed Report - SP FLUORO GUID CTRL ACC DEV 2019-11-03 08:44:00 Name: JED BASSETT [facility] : 1955 Age/S: 64 / M [address] [facility] Unit #: [id number] Loc: LINDA [place] [address] Phys: Russell Davis MD Acct: [id number] Dis Date: Status: ADM IN PHONE #: [phone] Exam Date: 11/02/2019 1642 FAX #: [phone] Reason: EXAMS: CPT CODE: [id number] SP FLUORO GUID CTRL ACC DEV 22564 Fluoro Time: 6 DAP (Gy m2): 0.51 Air Kerma (mGy): 1 REASON FOR EXAM: ESRD Referring Physician: Russell Davis MD PROCEDURE: Ultrasound and fluoroscopic guided tunneled hemodialysis catheter placement with IV conscious sedation CPT code: 71019, 74327,13517 Rcyo-qr-bfmb procedure time is approximately: 45 minutes FINDINGS: [...] was used to access the vein. A petroleum terminal plant operator dialysis catheter was tunneled under the subcutaneous [...] Mishel Castillo RT(R) Trnscb Date/Time: 11/03/2019 (0844) [email or web address] Orig Print D/T: S: 11/03/2019 (0864) PAGE 1 Signed Report [id number] 06:33:00* Test Item Value Reference Range Interpretation Comments GLUBED (test code = GLUBED) 101 mg/dL 74-106 N Performed by certified cash register operator at [facility] COMPREHENSIVE METABOLIC [id number] 05:04:00* Test Item Value Reference Range Interpretation [...] due to change in reagent. COMPREHENSIVE METABOLIC [id number] 04:48:00* Test Item Value Reference Range Interpretation [...] TOTAL (test code = ALKP) IUnit/L 45-117 [id number] 21:03:00* Test Item Value Reference Range Interpretation Comments GLUBED (test code = GLUBED) 125 mg/dL 74-106 H Performed by certified cash register operator at [facility] - XR CHEST 1 [id number] 20:25:00 FAX: Russell Arizmendi [phone] [place]: B St: ADM FAX: Antony Noble [phone] Name: JED BASSETT JR [facility] : 1955 Age/S: 64/M [address] Unit #: [id number] Loc: V.2064 LINDA Jorge [address] Phys: Marcellus Urena MD Acct: [id number] Dis Date: Status: ADM IN PHONE #: [phone] Exam Date: 11/02/2019 1700 FAX #: [phone] Reason: POST LINE PLACEMENT EXAMS: CPT CODE: [id number] XR CHEST 1 V 61307 EXAM: Chest x-ray, one view; INFORMATION: Post line placement; IMPRESSION: 1. The tip of a new tunneled right IJ hemodialysis catheter is positioned at the SVC/right atrial junction. 2. No evidence of a pneumothorax. 3. Otherwise significant improvement compared with yesterday's study with resolution of pulmonary edema and decrease in heart size. The heart is now borderline in size. Location code: [facility] at 2024 Reported and signed by: Hardy Juarez M.D. CC: Russell Davis MD; Antony Smith Technologist: DIPTI TracyR Trnscrd Date/Time/By: 11/02/2019 (2024) : By: Chon Orig Print D/T: S: 11/02/2019 (2027) PAGE 1 Signed Report - CT ABD PELVIS W/O [id number] 16:12:00 Name: JED BASSETT [facility] : 1955 Age/S: 64 / M [address] Unit #: [id number] Loc: LINDA Jorge [address] Phys: Concepcion Shaw MD Acct: [id number] Dis Date: Status: ADM IN PHONE #: [phone] Exam Date: 11/02/2019 1430 FAX #: [phone] Reason: CONSTIPATION EXAMS: CPT CODE: [id number] CT ABD PELVIS W/O CONT 86868 EXAM: CT of the abdomen and pelvis [...] of diverticulit is. Location code: [facility] Electronically Sig omar by Leni Juarez on 11/02/2019 at 1612 Reported and signed by: Hardy Juarez M.D. CC: Russell Davis MD; Antony Smith; Concepcion Shaw MD Technolog ist:Marlen López RT(R),CT CTDI: DLP: Trnscb Date/Time: 0 11/02/2019 (1612) [email or web address] Orig Print D/T: S: 11/02/2019 (3255) PAGE 1 Signed Report FE W/TOTAL IRON BINDING CAP.2019-11-02 15:46:00* Test Item Value Reference Range Interpretation Comments SERUM IRON (test code = IRON) 30 ug/dL 50-175 L TOTAL IRON BINDING CAPACITY (test code = TIBC) 271 mcg/dL 250-450 N IRON SATURATION (test code = FESAT) 11.07 % 13-45 L [id number] 15:46:00* Test Item Value Reference Range Interpretation Comments FERRITIN (test code = KEITH) 71 ng/mL 8-388 N CBC W/AUTO [id number] 14:30:00* Test Item Value Reference Range Interpretation [...] DIFF REQUIRED (test code = MDIFF) NO [id number] 13:55:00* Test Item Value Reference Range Interpretation Comments GLUBED (test code = GLUBED) 237 mg/dL 74-106 H Performed by certified cash register operator at [facility] [id number] 06:18:00* Test Item Value Reference Range Interpretation Comments GLUBED (test code = GLUBED) 118 mg/dL 74-106 H Performed by certified cash register operator at [facility] RENAL FUNCTION [id number] 05:02:00* Test Item Value Reference Range Interpretation [...] 8.5-10.1 L Res ults called to by VAnnmarieLAB.[facility] 11/02/19 0502Critical results verified and read back by Nurse? PHOSPHORUS (test code = PHOS) 6.1 mg/dL 2.5-4.9 H RENAL FUNCTION [id number] 04:41:00* Test Item Value Reference Range Interpretation [...] = PHOS) mg/dL 2.5-4.9 AG HEPAT B [id number] 23:10:00* Test Item Value Reference Range Interpretation Comments AG HEPAT B SURF (test code = HBSAG) Nonreactive Index Nonreactive [id number] 20:29:00* Test Item Value Reference Range Interpretation Comments GLUBED (test code = GLUBED) 197 mg/dL 74-106 H Performed by certified cash register operator at [facility] [id number] 19:30:00* Test Item Value Reference Range Interpretation Comments TROPONIN-I (test code = TROPI) 0.213 ng/mL 0-0.045 Results previously called COMMENTS TO TOPPER PACKER: COLLECT 3 HOURS AFTER PREVIOUS [id number] 14:31:00* Test Item Value Reference Range Interpretation Comments TROPONIN-I (test code = TROPI) 0.227 ng/mL 0-0.045 Results called to [id number] by MARIO 11/01/19 1430Critical results verified and read back by Nurse? Y COMMENTS TO TOPPER PACKER: COLLECT 3 HOURS AFTER PREVIOUS SAMPLECBC W/O [id number] 04:32:00* Test Item Value Reference Range Interpretation [...] MPV) 10.5 fL 6.7-11.0 N B-TYPE NATRIURETIC [id number] 04:30:00* Test Item Value Reference Range Interpretation Comments B-TYPE NATRIURETIC PEPTIDE (test code = BNP) 696 pg/mL 0-100 H BASIC METABOLIC [id number] 04:29:00* Test Item Value Reference Range Interpretation [...] CA) 6.2 mg/dL 8.0-10.5 LL HEPATIC FUNCTION [id number] 04:29:00* Test Item Value Reference Range Interpretation [...] code = ALKP) 202 U/L 50-139 H [id number] 04:29:00* Test Item Value Reference Range Interpretation Comments LIPASE (test code = LIP) 117 Unit/L 144-286 L [id number] 04:29:00* Test Item Value Reference Range Interpretation Comments TROPONIN-I (test code = TROPI) 0.02 ng/mL 0.00-0.056 N PROTHROMBIN [id number] 04:27:00* Test Item Value Reference Range Interpretation [...] (2.5-3.5) IS PATIENT ON ANTICOAGULANTS? NTHROMBOPLASTIN TIME [id number] 04:27:00* Test Item Value Reference Range Interpretation Comments THROMBOPLASTIN TIME PARTIAL (test code = PTT) 27.5 seconds 25.5-34. 3 N Therapeutic Range for patients on Heparin Therapy is 2 to2.5 times their baseline PTT level. IS PATIENT ON ANTICOAGULANTS? NBASIC METABOLIC [id number] 04:23:00* Test Item Value Reference Range Interpretation [...] CA) 6.2 mg/dL 8.0-10.5 LL HEPATIC FUNCTION [id number] 04:23:00* Test Item Value Reference Range Interpretation [...] TOTAL (test code = ALKP) IUnit/L 45-117 [id number] 04:23:00* Test Item Value Reference Range Interpretation Comments LIPASE (test code = LIP) U/L 73.0-393.0 [id number] 04:23:00* Test Item Value Reference Range Interpretation Comments TROPONIN-I (test code = TROPI) ng/mL 0-0.045 - XR CHEST 1 [id number] 04:19:00 FAX: Davy Rose MD [phone] [place]: [place] St: REG FAX: Catarina Martinez [phone] Name: BASSETT,JED [facility] FS : 1955 Age/S: 64/M [address] [facility] Unit #: [id number] Loc: [facility] [address] Phys: Davy Adam MD [place], [place] [address] Acct: [id number] Dis Date: Status: REG ER PHONE #: Exam Date: 11/01/2019 0418 FAX #: Reason: CHEST PAIN EXAMS: CPT CODE: [id number] XR CHEST 1 V 91322 - XR CHEST 1 V, 11/01/2019 3:57 [...] (0422) PAGE 1 Signed Report Comprehensive metabolic [id number] 16:41:22* Test Item Value Reference Range Interpretation Comments Sodium (test code = 2951-2) 138 135- 150 mEq/L Potassium (test code = 2823-3) 5.1 3.5- 5.0 mEq/L H Chloride (test code = 2075-0) 105 98- 112 mEq/L CO2 (test code = 2027-9) 15 mmol/L 24-31 L Anion gap (test code = 06863-9) 18@ANIO 7- 15 mEq/L H BUN (test code = 3094-0) 93 mg/dL 7-18 H Creatinine (test code = 2160-0) 5.20 mg/dL 0.7-1.2 H Glucose (test code = 2345-7) 164 mg/dL 65-100 H Calcium (test code = 28161-2) 7.0 mg/dL 8.8-10.2 L Protein (test code [...] <0.3 0.2-1.2 Lab Interpretation (test code = 26602-1) Abnormal [place] [facility] [id number] 16:41:21* Test Item Value Reference Range Interpretation Comments Lipase (test code = 3040-3) 33 U/L 13-60 [place] MethodistEstimated [id number] 16:41:21* Test Item Value Reference Range Interpretation Comments Estimated GFR (test code = 5488) 11 mL/min/1.73 m2 A Catergory Units InterpretationG1 >=90 Normal or highG2 60-89 Mildly zwswpfhspR1i 45-59 Mildly to moderately gdiowfxotP1y 30-44 Moderately to severely decreasedG4 15-29 Severely decreasedG5 <15 Kidney failureThe eGFR was calculated using the Chronic Kidney Disease Epidemiology Collaboration (CKD-EPI) equation. Interpretation is based on recommendations of the National Kidney Foundation-Kidney Disease Outcomes Quality Initiative (NKF-KDOQI) published in 2014. Lab Interpretation (test code = 09606-6) Abnormal [place] MethodistUrinalysis screen and microscopy, with reflex to culture 2019-08-31 16:37:50* Test Item Value Reference Range Interpretation Comments Specimen site (test code = 4580411) Clean catch Color, UA (test code = 5778-6) Yellow Appearance, UA (test code = 5767-9) Slightly-Cloudy Specific gravity, UA (test code = 5811-5) 1.015 1.001-1.035 pH, UA (test code = 5803-2) 5.0 5.0-8.5 Protein, UA (test code = 51883-2) 3+ Negative A Glucose, UA (test code = 16755-0) 1+ Negative A Ketones, UA (test code = 2514-8) Negative Negative Bilirubin, UA (test code = 5770-3) Negative Negative Blood, UA (test code = 5794-3) Negative Negative Nitrite, UA (test code = 5802-4) Negative Negative Urobilinogen, UA (test code = 29181-1) Negative <2.0 Leukocyte esterase, UA (test code = 5799-2) Negative Negative WBC, UA (test code = 5821-4) None seen 0- 1 /HPF RBC, UA (test code = 84735-3) 3 0- 5 /HPF Bacteria, UA (test code = 17884-2) Trace None seen Yeast, UA (test code = 58628-7) None seen Yeast with pseudohyphae, UA (test code = 16481-0) None seen Lab Interpretation (test code = 12148-1) Abnormal [place] [facility]CBC with platelet and pzhugggwfakz4267-90-60 16:21:01* Test Item Value Reference Range Interpretation Comments WBC (test code = 33660-7) 7.6 4.2- 11.0 k/uL RBC (test code = 52389-3) 2.97 m/uL 4.04-5.86 L HGB (test code = 718-7) 8.1 g/dL 13-17.3 L HCT (test code = 4544-3) 26.5 % 34-45 L MCV (test code = 787-2) 89.2 fL 80-98 MCH (test code = 785-6) 27.3 pg 27-34 MCHC (test code = 786-4) 30.6 g/dL 31.5-36.5 L RDW - SD (test code = 36691-9) 46.1 fL 37-51 MPV (test code = 21972-3) 11.1 fL 7.4-10.4 H Platelet count (test code = 43245-3) 240 150- 400 k/uL Nucleated RBC (test code = 62914-7) 0.00 /100 WBC Neutrophils (test code = 22104-8) 62.5 % 36-66 Lymphocytes (test code = 80039-0) 26.3 % 24-44 Monocytes (test code = 93084-2) 8.5 % 0-6 H Eosinophils (test code = 28373-0) 2.0 % 0-6 Basophils (test code = 58180-2) 0.4 % 0-1.2 Immature granulocytes (test code = 36875-8) 0.3 % 0-1 Lab Interpretation (test code = 37343-2) Abnormal Ede Felix
--- NOTE | 2020-06-24 18:45 | Emergency Department Note ---
History of Present Illnes History of Present Illness Chief Complaint: General Medicine Complaints History of Present Illness This is a 64 year old male Patient in from home with complaints of fever that started today at dialysis. Patient was recently admitted at [facility] and discharged on 06/14/2020 after a 4 day stay where he was treated for an infection. Patient has a chronic wound to his left foot but it was worked up at the last visit with an MRI that the patient reports was told was negative. Patient does have a temporary HD catheter to his right chest that has been in since October of 2019. Historian: Patient, Family Member Arrival Mode: Car Asic Engineer Required: No Onset (how long ago): hour(s) Quality: FEVER Radiation: Reports non-radiation Severity: mild Onset quality: gradual Timing of current episode: intermittent Progression: waxing and waning Chronicity: new Context: Reports recent illness Relieving factors: none Exacerbating factors: none Associated symptoms: Reports denies other symptoms Past Medical/Family History Physician Review I have reviewed the patient's past medical and family history. Any updates have been documented here. Past Medical History Recent Fever: Yes Clinical Suspicion of Infectio: Yes New/Unexplained Change in Ment: No Past Medical History: Hypertension, Diabetes, Hemodyalisis, Hyperlipedemia, Chronic Back Pain Other Medical History: DIALYSIS, RIGHT CHEST WALL CATHETER M/W/F PERITONEAL DIALYSIS LEFT FOOT WOUND Other Surgery: RIGHT FOOT TOE AMPUTATIONS Social History Smoking Cessation: Never Smoker Counseling Performed: No Alcohol Use: None Any Illegal Drug Use: No TB Exposure/Symptoms: No Physically hurt or threatened: No Family History Family history of heart diseas: No Other Any Pre-Existing Lines (PICC,: Yes (R CHEST WALL HD, PD) Review of Systems Review of Systems Constitutional: Reports as per HPI, Reports fever EENTM: Reports no symptoms Cardiovascular: Reports no symptoms Respiratory: Reports no symptoms Gastrointestinal: Reports no symptoms Genitourinary: Reports no symptoms Musculoskeletal: Reports no symptoms Integumentary: Reports no symptoms Neurological: Reports no symptoms Psychological: Reports no symptoms Endocrine: Reports no symptoms Hematological/Lymphatic: Reports no symptoms Physical Exam Related Data Allergies: Coded Allergies: No Known Allergies (Unverified , 06/10/20) Triage Vital Signs Vital Signs Date Time Temp Pulse Resp B/P (MAP) Pulse Ox O2 Delivery O2 Flow Rate FiO2 06/24/20 16:04 101.3 75 16 128/64 99 Room Air Vital signs reviewed: Yes Physical Exam CONSTITUTIONAL Constitutional: Present well-developed, Present well-nourished HENT HENT: Present normocephalic, Present atraumatic, Present oropharynx clear/moist, Present nose normal HENT L/R: Present left ext ear normal, Present right ext ear normal EYES Eyes: Reports PERRL, Reports conjunctivae normal NECK Neck: Present ROM normal, Present supple PULMONARY Pulmonary: Present effort normal, Present breath sounds normal, Present other (RIGHT TUNNELED EJ HD CATH WITHOUT TENDERNESS OR ERYTHEMA) CARDIOVASCULAR Cardiovascular: Present regular rhythm, Present heart sounds normal, Present capillary refill normal, Present normal rate GASTROINTESTINAL Abdominal: Present soft, Present nontender, Present bowel sounds normal, Present other (NO TENDERNESS AROUND PD CATHETER) GENITOURINARY Genitourinary: Present exam deferred SKIN Skin: Present warm, Present dry MUSCULOSKELETAL Musculoskeletal: Present ROM normal, Present other (LEFT FOOT WITH PLANTAR U LCER ~2X3 CM NO PURULENT DS/C) NEUROLOGICAL Neurological: Present alert, Present oriented x 3, Present no gross motor or sensory deficits PSYCHOLOGICAL Psychological: Present mood/affect normal, Present judgement normal Results Laboratory Result Diagram: 06/24/20 1616 06/24/20 1616 Laboratory Laboratory Tests Test 06/24/20 16:40 06/24/20 16:16 Urine Color Yellow (YELLOW) Urine Clarity Sl cloudy (CLEAR) Urine pH 5 (5 - 7) Urine Specific Danielson 1.025 (1.010-1.025) Urine Protein >=300 (NEGATIVE) Urine Glucose (UA) Negative (NEGATIVE) Urine Ketones Trace (NEGATIVE) Urine Blood Trace (NEGATIVE) Urine Nitrite Negative (NEGATIVE) Urine Bilirubin Small (NEGATIVE) Urine Urobilinogen 0.2 mg/dL (0.2 - 1) Urine Leukocyte Esterase Negative (NEGATIVE) Urine RBC 6-10 /HPF (0-5) Urine WBC 6-10 /HPF (0-5) Urine Epithelial Cells Few /LPF (NONE) Urine Amorphous Sediment Few (FEW) Urine Bacteria Few /HPF (NONE) Urine Mucus Few (RARE) White Blood Count 17.40 x10e3/uL (4.8-10.8) Red Blood Count 3.14 x10e6/uL (4.3-5.7) Hemoglobin 8.7 g/dL (14.0-18.0) Hematocrit 28.0 % (38.2-49.6) Mean Corpuscular Volume 89.2 fL (81-99) Mean Corpuscular Hemoglobin 27.7 pg (28-32) Mean Corpuscular Hemoglobin Concent 31.1 g/dL (31-35) Red Cell Distribution Width 13.9 % (11.7-14.4) Platelet Count 318 x10e3/uL (140-360) Neutrophils (%) (Auto) 89.8 % (38.7-80.0) Lymphocytes (%) (Auto) 4.0 % (18.0-39.1) Monocytes (%) (Auto) 5.2 % (4.4-11.3) Eosinophils (%) (Auto) 0.1 % (0.0-6.0) Basophils (%) (Auto) 0.2 % (0.0-1.0) Neutrophils # (Auto) 15.6 (2.1-6.9) Lymphocytes # (Auto) 0.7 (1.0-3.2) Monocytes # (Auto) 0.9 (0.2-0.8) Eosinophils # (Auto) 0.0 (0.0-0.4) Basophils # (Auto) 0.0 (0.0-0.1) Absolute Immature Granulocyte (auto 0.13 x10e3/uL (0-0.1) Sodium Level 138 mmol/L (136-145) Potassium Level 3.4 mmol/L (3.5-5.1) Chloride Level 98 mmol/L (98-107) Carbon Dioxide Level 26 mmol/L (22-29) Anion Gap 17.4 mmol/L (8-16) Blood Urea Nitrogen 21 mg/dL (7-26) Creatinine 4.09 mg/dL (0.72-1.25) Estimat Glomerular Filtration Rate 15 ML/MIN (60-) BUN/Creatinine Ratio 5 (6-25) Glucose Level 250 mg/dL (74-118) Calcium Level 7.4 mg/dL (8.4-10.2) Total Bilirubin 0.3 mg/dL (0.2-1.2) Aspartate Amino Transf (AST/SGOT) 15 IU/L (5-34) Alanine Aminotransferase (ALT/SGPT) 9 IU/L (0-55) Alkaline Phosphatase 124 IU/L (40-150) Total Protein 6.7 g/dL (6.5-8.1) Albumin 3.4 g/dL (3.5-5.0) Globulin 3.3 g/dL (2.3-3.5) Albumin/Globulin Ratio 1.0 (0.8-2.0) Lab results reviewed: Yes Imaging Imaging results reviewed: Yes Procedures 12 Lead ECG Interpretation ECG Interpretation : ECG: ECG 1 Asic Engineer: Interpreted by ED physician Date: Jun 24, 2020 Time: 17:16 Rhythm: sinus rhythm (1ST DEGREE AVB) Rate: normal BPM: 71 QRS axis: left ST segments normal: Yes T waves normal: Yes Clinical Impression: abnormal ECG Additional Comments POOR RWP Assessment & Plan Medical Decision Making MDM DIALYSIS PATIENT (BOTH HD ON SAT/SAT, AND PD //) WITH FEVER - ? SOURCE, NO TENDERNESS AT PD OR HD CATH SITES, NO ABD TENDERNESS, HE DOES HAVE A LEFT PLANTAR FOOT ULCER BUT DOES NOT APPEAR CELLULITIS BUT COULD STILL BE OSTEOMYELITIS, HE STILL MAKES URINE - CHECK CBC, CHEM, UA/CX, BLOOD CX'S, CXR, ECG - EVAL SOURCE OF FEVER, PNEUMONIA, UTI, LINE INFECTION, ELECTROLYTE ABNL. WILL COVER WITH MERREM AND VANCO Reassessment Reassessment ADMIT TO DR RANGEL ([facility]), ALSO SPOKE WITH DR CAMPBELL FOR RENAL Assessment & Plan Final Impression: (1) Foot ulcer, left (2) ESRD (end stage renal disease) on dialysis (3) UTI (urinary tract infection) (4) Fever Depart Disposition: ADMITTED Last Vital Signs Date Time Temp Pulse Resp B/P (MAP) Pulse Ox O2 Delivery O2 Flow Rate FiO2 06/24/20 18:02 100.1 72 17 134/62 100 Room Air Home Meds Active Scripts Cephalexin Monohydrate (KEFLEX) 500 Mg Capsule, 500 MG PO Q12H, #7 Prov:JOHAN RANGEL MD 06/14/20 Mupirocin (MUPIROCIN) 22 Gm Oint...g., 0 GM TOP Q12HR@0600,1800 for 15 Days Prov:JOHAN RANGEL MD 06/14/20 Reported Medications Fluconazole (FLUCONAZOLE) 100 Mg Tablet, 100 MG PO DAILY, TAB 06/11/20 [toya] 65 No Conflict Check, MG PO DAILY 8/22/20 Calcium Carbonate (TUMS) 200 Mg Tab.chew, 750 MG PO TID 06/11/20 Insulin Degludec (Tresiba Flextouch U-100) 100 Unit/1 Ml Insuln.pen, 24 UNITS SQ DAILY 06/11/20 Docusate Sodium (DOCUSATE SODIUM) 100 Mg Capsule, 100 MG PO BID, CAP 06/11/20 Hydrocodone Bit/Acetaminophen (NORCO 10-325 TABLET) 1 Each Tablet, 1 TAB PO Q6H PRN for SEVERE PAIN (7-10), TAB 06/11/20 Polyethylene Glycol 3350 (MIRALAX) 17 Gm Powd.pack, 17 GM PO DAILY PRN for CONSTIPATION, GM 06/11/20 Chlorthalidone (CHLORTHALIDONE) 25 Mg Tablet, 25 MG PO DAILY 06/11/20 Metoprolol Succinate (METOPROLOL SUCCINATE) 50 Mg Tab.er.24h, 50 MG PO DAILY, MG 06/11/20 Nifedipine (NIFEDIPINE ER) 30 Mg Tab.er.24, 60 MG PO DAILY 06/11/20 Atorvastatin Calcium (ATORVASTATIN CALCIUM) 20 Mg Tablet, 80 MG PO HS, #30 TAB 06/11/20 Sevelamer Carbonate (RENVELA) 0.8 Gm Powd.pack, 0.8 MG PO TIDWM, #90 TAB 06/11/20 Medications in the ED Acetaminophen 975 mg ONCE ONCE PO Last administered on 06/24/20at 17:31; Admin Dose 975 MG; Start 06/24/20 at 16:30; Stop 06/24/20 at 16:31; Status DC Vancomycin HCl 250 ml @ 167 mls/hr ONCE ONCE IV Last administered on 06/24/20at 18:01; Admin Dose 167 MLS/HR; Start 06/24/20 at 18:00; Stop 06/24/20 at 19:29 MAGDA SANABRIA MD Jun 24, 2020 18:45
--- NOTE | 2020-06-24 20:30 | Diagnostic Imaging Report ---
FOOT LEFT COMPLETE - Multiple views HISTORY: DIAB FOOT ULCER COMPARISON: None available. FINDINGS: The bones are demineralized. There is an age-indeterminate lucency at the distal aspect of fifth metatarsal could represent a nonunion fracture. Otherwise no dehiscence or lucency noted. There is a heel spur. Vascular calcifications are present. IMPRESSION: An age-indeterminate lucency at the distal aspect of fifth metatarsal could represent a nonunion fracture. Otherwise no dehiscence or lucency noted to suggest osteomyelitis. Signed by: Tad Benitez MD on 06/24/2020 8:27 PM
[2020-06-24] MEDS: INSULIN REGULAR, HUMAN 100 UNIT/1 ML 3ML VIAL SQ SCH (22:45)
[2020-06-24] MEDS ORDERED: DEXTROSE 50% SYRINGE 50 ML IV PRN (22:45)
[2020-06-24 22:57] VITALS: BP 157/51
[2020-06-24 23:01] VITALS: BP 157/51
[2020-06-25] VITALS (7 sets, daily range): BP systolic 156–190; BP diastolic 60–75
[2020-06-25 01:05] LABS: CREATINE KINASE MB 0.2 ng/mL (0-5.0)
--- NOTE | 2020-06-25 04:31 | NUR ---
CALL MD RANGEL. LEFT MESSAGE. AWAITING CALL BACK.
[2020-06-25 06:06] LABS: BASOPHILS # (AUTO) 0.1 (0.0-0.1); BASOPHILS % 0.3 % (0.0-1.0); EOSINOPHILS # (AUTO) 0.1 (0.0-0.4); EOSINOPHILS % 0.8 % (0.0-6.0); HEMOGLOBIN 8.5 g/dL (14.0-18.0); LYMPHOCYTES # (AUTO) 2.5 (1.0-3.2); LYMPHOCYTES % 13.8 % (18.0-39.1); MEAN CORPUSCULAR HEMOGLOBIN 28.7 pg (28-32); MEAN CORPUSCULAR HGB CONC 31.5 g/dL (31-35); MEAN CORPUSCULAR VOLUME 91.2 fL (81-99); MONOCYTES # (AUTO) 0.9 (0.2-0.8); MONOCYTES % 5.2 % (4.4-11.3); NEUTROPHILS # (AUTO) 14.1 (2.1-6.9); NEUTROPHILS % 79.3 % (38.7-80.0); PLATELET COUNT 277 x10e3/uL (140-360); RED BLOOD COUNT 2.96 x10e6/uL (4.3-5.7); RED CELL DISTRIBUTION WIDTH 13.8 % (11.7-14.4)
--- NOTE | 2020-06-25 06:34 | NUR ---
CALL MD CAMPBELL REGARDING CONSULT. LEFT MESSAGE WITH ANSWERING SERVICE. AWAITING CALLBACK.
[2020-06-25 06:35] LABS: ALBUMIN 3.1 g/dL (3.5-5.0); ANION GAP 12.6 mmol/L (8-16); CALCIUM 7.3 mg/dL (8.4-10.2); CREATININE, SERUM 4.24 mg/dL (0.72-1.25); POTASSIUM 3.6 mmol/L (3.5-5.1)
[2020-06-25 06:53] LABS: CREATINE KINASE MB 0.5 ng/mL (0-5.0)
--- NOTE | 2020-06-25 07:26 | NUR ---
REPORT GIVEN TO DAYSHIFT NURSE. ALERT AND RESTING IN BED. NO SIGNS IV INFILTRATION. BED LOCKED AND IN LOW POSITION. CALL LIGHT WITHIN REACH.
[2020-06-25] MEDS: INSULIN REGULAR, HUMAN 100 UNIT/1 ML 3ML VIAL SQ SCH ×4 (07:30→21:00)
--- NOTE | 2020-06-25 08:47 | NUR ---
PLACED CALL TO [facility] TO INFORM CENTER THAT PATIENT WILL NEED "HEMODIALYSIS NAINA TODAY" PER ORDER OF DR. CAMPBELL.
[2020-06-25] MEDS: MEROPENEM 500MG/ NS 50ML 50 ML IV SCH ×2 (09:00→21:15)
[2020-06-25] MEDS ORDERED: SODIUM CHLORIDE 0.9% 250ML 250 ML ONE (09:49)
--- NOTE | 2020-06-25 11:11 | NUR ---
H&P cc: fever HPI: 64yoM, PCP , Nephr , with recurrent fever and chills. Pt was admitted in late May for DFU and cellulitis of toe. Fever/chills again occurred during HD. PMH: DM2, Diabetic nephropathy, ESRD on HD T/Th/S, DFU s/p Right TMA, DFU, chronic celllitis of1st MTP PSHx: right chest HD catheter, PD catheter, Right TMA, Allergies; see emr Fh/SH; ; no cigs meds see MAR ROS; no PAGE/cp/sob/skin rash/cough/dizziness/back pain/confusion/vision changes/mood changes v/s; revd PE tired appearing anicteric ns1s2 mod bs soft nt nd no edema of legs; RIGHT TMA WELL HEALED; LEFT PLANTAR SURFACE OF 1ST MTP WITH SKIN BREAKDOWN APPEARING CHRONIC PD CATHETER ABDOMEN- NO SURROUNDING ERYTHEMA/TENDERNESS; RIGHT CHEST HD CATHETER, NO SURROUNDING ERYTHEMA/TENDERNESS skin dry n. affect a&ox3; ward labs/meds revd A/P: 64yoM Sepsis- empiric abx; workup. Concern for HD catheter infection. DFU left foot 1st MTP- chronic; IV abx; continue f/u with podiatry outpt. check Xray negative for osteoarthritis as in May 2020. DM2- hab1c/lipids; insulin; ADA diet Diabetic nephropathy ESRD - HD per nephrology HLD- cont statin prop; scd; dispo: f/u COVID testing; ID consultation. JOHAN RANGEL MD, PHD.
--- NOTE | 2020-06-25 11:36 | Consultation ---
DATE OF CONSULTATION: 06/25/2020 SUBJECTIVE: Mr. Silver Henriquez is a 64-year-old gentleman, who had some fevers. He has been diagnosed to have UTI. Cultures are pending. 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 Dialysis on Saturday, , and Saturdays. Denies any shortness of breath or nausea. Denies any fever or chills. White count today is 17.7, hemoglobin 8.5, potassium 3.6, and creatinine 4.24. He is currently lying supine, in no apparent distress. Denies shortness of breath, nausea, or vomiting. PAST MEDICAL HISTORY: Diabetes, diabetic kidney disease, end-stage renal disease, has been started on 500 mg of meropenem q.12 hours, received one time dose of vancomycin yesterday. I am going to re-dose him after dialysis today. He is on insulin sliding scale. SOCIAL HISTORY: Does not smoke or drink. FAMILY HISTORY: Significant for diabetes. PHYSICAL EXAMINATION: GENERAL: Awake, alert, and oriented x3, lying supine, in no apparent distress. VITAL SIGNS: Blood pressure 130/60, pulse rate 80. HEAD AND NECK: Cornea clear. Oral mucosa moist. LUNGS: Relatively clear. HEART: S1 and S2 audible. ABDOMEN: Soft, nontender. PD catheter exit site with dry dressing. Exit site appears fine. EXTREMITIES: Lower extremity examination, no edema. IMPRESSION AND PLAN: End-stage renal disease with history of fever, possible urinary tract infection. Culture is pending. White count elevated, on meropenem and vancomycin. I will give additional dose of gentamicin one time dose after dialysis today. Dialysis nurse has been called. Continue with antibiotics. Please see orders. MD LIZ Parker/DIANE /[id number]
[2020-06-25] MEDS ORDERED: GENTAMICIN 120MG/NS 100ML 100 ML IV ONE (12:00)
[2020-06-25] MEDS ORDERED: ACETAMINOPHEN 325 MG TAB PO PRN (12:15)
[2020-06-25 12:31] LABS: CREATINE KINASE MB 0.7 ng/mL (0-5.0)
[2020-06-25] MEDS: HYDROCODONE/APAP 10MG-325MG TAB PO PRN ×2 (13:18→19:20)
--- NOTE | 2020-06-25 14:43 | NUR ---
Nutrition Screen Note RD Recommendation for Physician: -Recommend renal/diabetic diet Plan of Care: RD following, monitoring for tolerance and adequacy Nutrition reason for involvement: Diagnosis - ESRD Primary Diagnose(s): ESRD, fever, UTI PMH: Diabetes, diabetic kidney disease, end-stage renal disease, Ht: 67 in Wt: 175 lb BMI: 27.4 kg/m2 IBW:[address] Assessment: (06/25/20) Chart reviewed. Labs and meds reviewed. Pt is a 64 year old male admitted with ESRD, fever, and UTI. Pt reports a good appetite with 100% meal intake. No weight loss reported and pt stated he usually weighs 170 lbs. Pt currently has a weight of 175 lbs in chart. No N/V/D/C or chewing/swallowing issues noted. Pt declined the need for diet education. Will continue to monitor. Current Diet: renal Malnutrition Evaluation (06/25/20) The patient does not meet criteria for a specified degree of malnutrition at this time. Will re-evaluate at follow-up as appropriate. Diet Education Needs Assessment: Pt declined the need for diet education. Nutrition Care Level: low Signed: Kiki Rodriges, RD, LD
--- NOTE | 2020-06-25 14:47 | Consultation ---
DATE OF CONSULTATION: 06/25/2020 REASON FOR CONSULTATION: Concern UTI and fever. HISTORY OF PRESENT ILLNESS: This patient, who is a 64-year-old, who has history of end-stage renal disease on dialysis, currently on peritoneal dialysis, but he had a line and they are going to do hemodialysis until we start peritoneal dialysis next week. He is coming with fever and chills for one day. No urgency. No frequency. He is currently feeling much better. The patient, who is being admitted. PAST MEDICAL HISTORY: End-stage renal disease, on hemodialysis and going for peritoneal dialysis. ALLERGIES: NKA. SOCIAL HISTORY: There is no smoking, drug abuse, or alcohol abuse. FAMILY HISTORY: Otherwise unremarkable. REVIEW OF SYSTEMS: HEENT: Negative. PULMONARY: Negative. CARDIAC: Negative. GI: Negative. : Negative. SKIN: There is no rash. Currently, he denies any. LABORATORY DATA: When he first came, white count 17.7 and hemoglobin 8.5. Sodium 139 and potassium 3.6. PHYSICAL EXAMINATION: GENERAL: He is currently alert and oriented. VITAL SIGNS: Stable, currently afebrile. HEENT: He is not icteric. NECK: Supple. CHEST: Clear bilateral. HEART: S1 and S2. ABDOMEN: Soft. Bowel sounds present. EXTREMITIES: No edema. SKIN: No rash. IMPRESSION: Fever, chills, concerned about urinary tract infection, concerned about other. Agree with blood cultures, urine cultures. Agree with meropenem. Recheck CBC. Recheck chem panel. Further recommendations to follow. MD AISSATOU Gallegos/DIANE /[id number]
[2020-06-25] MEDS ORDERED: SODIUM CHLORIDE 0.9% 1000ML 2,000 ML IV PRN (18:45)
[2020-06-25] MEDS ORDERED: HEPARIN SOD (PORCINE) 1000 UNIT/ML SDV IV PRN (18:45)
[2020-06-25] MEDS: HYDRALAZINE HCL 25 MG TAB PO PRN (21:15)
--- NOTE | 2020-06-25 21:30 | NUR ---
PATIENT RESTING IN BED IN STABLE CONDITION, NO SIGNS OF DISTRESS NOTED. IV ANTIBIOTICS ARE RUNNING AT ORDERED RATE, PATIENT VOICES PAIN AT A LEVEL OF 8, WAS PREVIOUSLY MEDICATED ORDERED. PATIENT FINISHING UP DIALYSIS. BED IS IN LOW POSITION, BOTH SIDE RAILS ARE UP, CALL LIGHT IS WITHIN EASY REACH, WILL CONTINUE TO MONITOR.
[2020-06-25] MEDS: DOCUSATE SODIUM 100 MG CAP PO PRN (22:52)
[2020-06-26] VITALS (8 sets, daily range): BP systolic 138–193; BP diastolic 53–81
[2020-06-26] MEDS: HYDRALAZINE HCL 25 MG TAB PO PRN (05:50)
[2020-06-26] MEDS: INSULIN REGULAR, HUMAN 100 UNIT/1 ML 3ML VIAL SQ SCH ×4 (07:30→20:11)
[2020-06-26] MEDS ORDERED: HYDRALAZINE HCL 25 MG TAB PO SCH (09:00)
[2020-06-26] MEDS: MEROPENEM 500MG/ NS 50ML 50 ML IV SCH ×2 (09:10→21:00)
[2020-06-26] MEDS: HYDROCODONE/APAP 10MG-325MG TAB PO PRN ×3 (09:20→22:28)
--- NOTE | 2020-06-26 10:05 | NUR ---
IM- progress note O/N see below ROS; no PAGE/cp/sob/skin rash/cough/dizziness/back pain/confusion/vision changes/mood changes v/s; revd PE tired appearing anicteric ns1s2 mod bs soft nt nd no edema of legs; RIGHT TMA WELL HEALED; LEFT PLANTAR SURFACE OF 1ST MTP WITH SKIN BREAKDOWN APPEARING CHRONIC PD CATHETER ABDOMEN- NO SURROUNDING ERYTHEMA/TENDERNESS; RIGHT CHEST HD CATHETER, NO SURROUNDING ERYTHEMA/TENDERNESS skin dry n. affect a&ox3; ward labs/meds revd A/P: 64yoM Sepsis- empiric abx; workup. Concern for HD catheter infection. DFU left foot 1st MTP- chronic; IV abx; continue f/u with podiatry outpt. check Xray negative for osteoarthritis as in May 2020. DM2- hab1c/lipids; insulin; ADA diet Diabetic nephropathy ESRD - HD per nephrology HLD- cont statin prop; scd; dispo: f/u COVID testing; ID consultation. 9-6 F/u cultures; plans to remove HD tunneled catheter and switch to peritoneal HD catheter use soon, d/w . JOHAN RANGEL MD, PHD.
--- NOTE | 2020-06-26 13:36 | Progress Note ---
DATE: 06/26/2020 SUBJECTIVE: The patient is seen and evaluated. Available labs and notes reviewed. Discussed with the patient. REVIEW OF SYSTEMS: No complaints of fever. Chills resolved. The patient wants to go home and he states that he is absolutely fine and has no diarrhea. He has normal bowel movement. He eats well and ambulate okay. PHYSICAL EXAMINATION: VITAL SIGNS: Temperature is 98.6. The patient had a temperature 101.3 on admission, which has been resolved; pulse of 65, respirations 20, and blood pressure 156/60. GENERAL: The patient is alert and oriented, in no acute distress. ABDOMEN: Soft and nontender and no distention. HEENT: Moist, no pallor, no JVD. EXTREMITIES: Left foot ulcer, no obvious . MEDICATIONS: Reviewed. From Infectious Disease point of view, the patient is on meropenem. LABORATORY STUDIES: White count of 17.73. No significant change. Hemoglobin 8.5, platelets 377. Currently, BMP available. Coronavirus PCR not detected on 06/24/2020. MICROBIOLOGY: Blood culture 06/24 and urine culture 06/24, both of them are negative so far. IMAGING: Chest x-ray, no acute thoracic abnormality on 06/24/2020. X-ray of the left foot showed an age indeterminate lucency induced by aspect of the 5th metatarsal nonunion fracture. Otherwise, no dehiscence or lucency noted to suggest osteomyelitis. ASSESSMENT AND PLAN: 1. Fever and chills, resolved. 2. End-stage renal disease, Renal on the case. 3. Diabetes. 4. Constipation, resolved. 5. The patient received one single dose of gentamicin yesterday with dialysis. Also, the patient remains on meropenem. Cultures negative. Chest x-ray is negative. X-ray of the left foot negative. Continue with antibiotics. Please refer to chart for more information. Dictated by Tad Sands PA-C (Al) Bravo Sen MD /MODL /[id number]
[2020-06-26] MEDS ORDERED: VANCOMYCIN 1GM/NS 250 ML 250 ML IV ONE (15:30)
[2020-06-26] MEDS: HYDRALAZINE HCL 25 MG TAB PO SCH ×2 (15:46→20:52)
[2020-06-26] MEDS: DOCUSATE SODIUM 100 MG CAP PO PRN (21:01)
[2020-06-27] VITALS (7 sets, daily range): BP systolic 130–160; BP diastolic 46–80
[2020-06-27] MEDS: HYDRALAZINE HCL 25 MG TAB PO SCH ×4 (00:32→17:26)
[2020-06-27] MEDS: INSULIN REGULAR, HUMAN 100 UNIT/1 ML 3ML VIAL SQ SCH ×4 (07:30→20:14)
[2020-06-27] MEDS: MEROPENEM 500MG/ NS 50ML 50 ML IV SCH ×2 (09:47→20:25)
[2020-06-27] MEDS: HYDROCODONE/APAP 10MG-325MG TAB PO PRN ×2 (10:01→18:13)
--- NOTE | 2020-06-27 11:03 | NUR ---
D/C SUmmary Principal Dx: Sepsis- empiric abx; workup. Concern for HD catheter infection. Secondary Dx: Chronic DFU left foot 1st MTP- chronic; IV abx; continue f/u with podiatry outpt. check Xray negative for osteoarthritis as in May 2020. DM2- hab1c/lipids; insulin; ADA diet Diabetic nephropathy ESRD - HD per nephrology HLD- cont statin prop; scd; dispo: f/u COVID testing; ID consultation. 9-6 F/u cultures; plans to remove HD tunneled catheter and switch to peritoneal HD catheter use soon, d/w . 9-7 pt on merrem; rec'd vanco; all cx negative; check WBC d/c home with IV antibiotics at HD (as discussed with ) Plans to remove HD catheter later this week, then use PD catheter stable D/c>35mins f/u pcp 2-3 days and Nephrology as directed. JOHAN RANGEL MD, PHD.
[2020-06-27 11:10] LABS: BASOPHILS % 0.5 % (0.0-1.0); EOSINOPHILS # (AUTO) 0.3 (0.0-0.4); EOSINOPHILS % 2.9 % (0.0-6.0); HEMATOCRIT 28.3 % (38.2-49.6); HEMOGLOBIN 8.7 g/dL (14.0-18.0); LYMPHOCYTES % 34.2 % (18.0-39.1); MEAN CORPUSCULAR HEMOGLOBIN 27.5 pg (28-32); MEAN CORPUSCULAR HGB CONC 30.7 g/dL (31-35); MEAN CORPUSCULAR VOLUME 89.6 fL (81-99); MONOCYTES # (AUTO) 0.8 (0.2-0.8); MONOCYTES % 9.6 % (4.4-11.3); NEUTROPHILS # (AUTO) 4.5 (2.1-6.9); NEUTROPHILS % 52.3 % (38.7-80.0); PLATELET COUNT 305 x10e3/uL (140-360); RED BLOOD COUNT 3.16 x10e6/uL (4.3-5.7); RED CELL DISTRIBUTION WIDTH 14.1 % (11.7-14.4)
--- NOTE | 2020-06-27 13:30 | NUR ---
IMM letter delivered and explained to pt. He verbalized understanding. States he's ready to go home. Copy given to pt. Signed copy placed in chart.
--- NOTE | 2020-06-27 17:46 | Progress Note ---
DATE: 06/27/2020 SUBJECTIVE: Mr. Henriquez is doing well. There are no new complaints. REVIEW OF SYSTEMS: HEENT: Negative. PULMONARY: Negative. CARDIAC: Negative. PHYSICAL EXAMINATION: GENERAL: He is currently alert, oriented. VITAL SIGNS: Stable, currently afebrile. HEENT: He is not icteric. NECK: Supple. CHEST: Clear. HEART: S1, S2. ABDOMEN: Soft. Bowel sounds present. EXTREMITIES: No edema. SKIN: No rash. IMPRESSION: Sepsis, on admission. Cultures are negative. Urine cultures are negative. Leukocytosis resolved. The source of infection is not clear. The patient could be discharged home. We will discharge on Augmentin 875 mg p.o. daily for 7 days. MD AISSATOU Gallegos/DIANE /[id number]
--- NOTE | 2020-06-27 20:30 | NUR ---
Dialysis completed.2 litre removed.aaox3.no resp.distress.no pain voiced.call placed to (Aliya)and spoke regarding discharge the patient.
--- NOTE | 2020-06-27 21:30 | NUR ---
PT DISCHARGED HOME SAFELY WITH FAMILY MEMBER. TELEMETRY AND IV REMOVED, TIP INTACT. DRESSING APPLIED. RX GIVEN. DISCHARGE INSTRUCTIONS GIVEN AND PATIENT VERBALIZED UNDERSTANDING. PT ESCORTED VIA WHEEL CHAIR WITH THE TECH TO THE PRIVATE AUTO AT THE FRONT ENTRANCE. PT DENIED FURTHER NEEDS.
== END 2020-06-27 22:05 | disposition home or self-care (01) | DRG 871 ==
LOC: ER 16:45 → ERHOLD 18:04 → MED/SURG2 23:06
PROVIDERS: ADMIT Internal Medicine; ATTEND Internal Medicine
PROC: 5A1D70Z Performance of Urinary Filtration, Intermittent, Less than 6 Hours Per Day (ICD-10-PCS; principal; 2020-06-25)
PROC: 5A1D70Z Performance of Urinary Filtration, Intermittent, Less than 6 Hours Per Day (ICD-10-PCS; 2020-06-27)
DX: A41.9 Sepsis, unspecified organism (principal); N18.6 End stage renal disease; I12.0 Hypertensive chronic kidney disease with stage 5 chronic kidney disease or end stage renal disease; N39.0 Urinary tract infection, site not specified; L03.115 Cellulitis of right lower limb; E11.22 Type 2 diabetes mellitus with diabetic chronic kidney disease; Z99.2 Dependence on renal dialysis; E78.5 Hyperlipidemia, unspecified; Z89.421 Acquired absence of other right toe(s); E11.21 Type 2 diabetes mellitus with diabetic nephropathy; E11.621 Type 2 diabetes mellitus with foot ulcer; Z83.3 Family history of diabetes mellitus; K59.00 Constipation, unspecified; Z11.59 Encounter for screening for other viral diseases; L97.521 Non-pressure chronic ulcer of other part of left foot limited to breakdown of skin
CPT/HCPCS: 36415; 71046; 80053; 81001; 82550; 82553; 82948; 84484; 85025; 86704; 86706; 87040; 87071; 87086; 87186; 87205; 87340; 90962; 93005; 96372; 99284; J1580; J1644; J1817; J3370; J7030; J7050; U0002

== ENCOUNTER → 2020-09-02 | Day surgery (SDC) | payer MEDICARE ==
[~2020-09-02] MED LIST changes: +BUPIVACAINE HCL 0.5% INJ 30 ML VIAL INJ ONE; +CEFAZOLIN SOD 1 GM/NS 50ML 100 ML IV ONE; +GENTAMICIN40 MG/1 ML IV; +IRON PO; +SODIUM CHLORIDE 0.9% 500ML 500 ML ONE; +TAZICEF IV
[2020-09-02 13:18] LABS: BASOPHILS % 0.3 % (0.0-1.0); EOSINOPHILS # (AUTO) 0.2 (0.0-0.4); EOSINOPHILS % 2.9 % (0.0-6.0); HEMATOCRIT 44.5 % (38.2-49.6); HEMOGLOBIN 14.1 g/dL (14.0-18.0); LYMPHOCYTES # (AUTO) 1.9 (1.0-3.2); LYMPHOCYTES % 27.6 % (18.0-39.1); MEAN CORPUSCULAR HEMOGLOBIN 26.3 pg (28-32); MEAN CORPUSCULAR HGB CONC 31.7 g/dL (31-35); MEAN CORPUSCULAR VOLUME 82.9 fL (81-99); MONOCYTES # (AUTO) 0.6 (0.2-0.8); MONOCYTES % 8.3 % (4.4-11.3); NEUTROPHILS # (AUTO) 4.2 (2.1-6.9); NEUTROPHILS % 60.6 % (38.7-80.0); PLATELET COUNT 193 x10e3/uL (140-360); RED BLOOD COUNT 5.37 x10e6/uL (4.3-5.7); RED CELL DISTRIBUTION WIDTH 14.7 % (11.7-14.4)
[2020-09-02 13:36] LABS: INR 1.05; PROTHROMBIN TIME 14.2 seconds (11.9-14.5)
[2020-09-02 13:37] LABS: PARTIAL THROMBOPLASTIN TIME 31.5 seconds (23.8-35.5)
[2020-09-02 13:40] LABS: ANION GAP 16.2 mmol/L (8-16); CALCIUM 7.5 mg/dL (8.4-10.2); CREATININE, SERUM 6.2 mg/dL (0.72-1.25); POTASSIUM 3.2 mmol/L (3.5-5.1)
[2020-09-02 16:07] VITALS: BP 120/64
--- NOTE | 2020-09-02 21:20 | Operative Report ---
DATE OF PROCEDURE: 09/02/2020 SURGEON: Keron Galdamez MD PREOPERATIVE DIAGNOSIS: End-stage renal disease, infected tunneled peritoneal dialysis catheter. POSTOPERATIVE DIAGNOSIS: End-stage renal disease, infected tunneled peritoneal dialysis catheter. PROCEDURES: 1. Removal of tunneled peritoneal dialysis catheter. 2. Laparoscopic placement of tunneled peritoneal dialysis catheter. PRECINCT POLICE SERGEANT: None. ANESTHESIA: General. INDICATIONS AND FINDINGS: The patient is a 65-year-old male, who has had persistent signs of infection decided that possibly secondary to his tunneled peritoneal dialysis catheter. At surgery, the catheter in place was removed intact. There was some clear fluid within the peritoneal cavity. There was no purulence seen. There was no erythema around the catheter. The new catheter was placed without difficulty with end of the catheter positioned in the pelvis. TECHNIQUE: After adequate general endotracheal anesthesia, the patient in supine position, the abdomen was prepped and draped in sterile fashion with Betadine solution. Incision was made along the course of the catheter, which was in place and superficial cuff was freed from the subcutaneous tissue. The catheter was then followed deeper into the abdominal wall, where the second cuff was beneath the fascia. This cuff was freed from the fascia and the catheter was removed intact. The fascia was then closed with a qkoewd-ta-caizl suture of 0 Vicryl. There was no purulence seen. There was a small amount of fluid that was clear and drained from the peritoneal cavity. This wound was then closed with juwan. On the left side of the abdomen, where the area of previous surgery, the skin and subcutaneous tissues were infiltrated with 0.5% Marcaine. Incision was made, which was above the level of the umbilicus and left side of the abdomen. The abdominal wall was elevated and Veress needle was introduced. Pneumoperitoneum was then created. A 5 mm trocar and cannula were then passed through this wound. Laparoscopic camera was introduced. Initial laparoscopy revealed a small amount of clear fluid in the pelvis. The bowel was seen appeared normal. Liver appeared normal. A 5 mm trocar and cannula were placed in the left lower quadrant under direct vision. A small amount of fluid was aspirated. To the right of the umbilicus just above the level of the umbilicus, skin and subcutaneous tissues were infiltrated with 0.5% Marcaine. Incision was made and the new catheter was tunneled through this wound through the abdominal wall into the peritoneal cavity position, so that the deep cuff was above the peritoneum. Other superficial cuff was within the subcutaneous tissue. The catheter was grasped and delivered into the peritoneal cavity to position as stated above with the end of the catheter positioned in the pelvis. Hemostasis was seen to be adequate. The catheter was flushed easily and fluid drained easily. Instruments and cannulas were removed. Pneumoperitoneum was evacuated. The catheter was flushed again. Once again, found to flush easily and fluid easily drained from the catheter. The catheter was held in place. The skin exit site using a 2-0 nylon. A sterile dressing was placed around the catheter. The trocar site wounds were closed with subcuticular sutures of 4-0 Vicryl and Dermabond and sterile dressing were applied. The patient tolerated the entire procedure well. Estimated blood loss was less than 5 mL. There were no complications. All counts were correct. The patient was taken to the recovery room in satisfactory condition. MD STEVE Becerra/DIANE /[id number]
== END | disposition home or self-care (01) ==
LOC: OR 12:22
PROVIDERS: ATTEND Surgery
DX: E11.22 Type 2 diabetes mellitus with diabetic chronic kidney disease (principal); T85.71XA Infection and inflammatory reaction due to peritoneal dialysis catheter, initial encounter; I12.0 Hypertensive chronic kidney disease with stage 5 chronic kidney disease or end stage renal disease; N18.6 End stage renal disease; R00.1 Bradycardia, unspecified; Y83.8 Other surgical procedures as the cause of abnormal reaction of the patient, or of later complication, without mention of misadventure at the time of the procedure; Z01.810 Encounter for preprocedural cardiovascular examination; Z01.812 Encounter for preprocedural laboratory examination; Z20.828 Contact with and (suspected) exposure to other viral communicable diseases; Z99.2 Dependence on renal dialysis
CPT/HCPCS: 36415; 49324; 49422; 80048; 82948; 85025; 85610; 85730; 93005; J0690; J7040; U0002

== ENCOUNTER 2021-03-16 11:58 | Emergency (ER) | payer MEDICARE ==
[~2021-03-16] VITALS: Ht 170.2 cm; Wt 79.4 kg
[~2021-03-16 11:58] MED LIST changes: -BUPIVACAINE HCL 0.5% INJ 30 ML VIAL INJ ONE; -CEFAZOLIN SOD 1 GM/NS 50ML 100 ML IV ONE; -SODIUM CHLORIDE 0.9% 500ML 500 ML ONE
[2021-03-16 12:37] LABS: BASOPHILS % 0.2 % (0.0-1.0); EOSINOPHILS % 0.3 % (0.0-6.0); HEMATOCRIT 28.7 % (38.2-49.6); HEMOGLOBIN 9.3 g/dL (14.0-18.0); LYMPHOCYTES # (AUTO) 1.2 (1.0-3.2); MEAN CORPUSCULAR HEMOGLOBIN 26.6 pg (28-32); MEAN CORPUSCULAR HGB CONC 32.4 g/dL (31-35); MEAN CORPUSCULAR VOLUME 82.2 fL (81-99); MONOCYTES # (AUTO) 0.7 (0.2-0.8); MONOCYTES % 4.4 % (4.4-11.3); NEUTROPHILS # (AUTO) 13.3 (2.1-6.9); NEUTROPHILS % 86.4 % (38.7-80.0); PLATELET COUNT 481 x10e3/uL (140-360); RED BLOOD COUNT 3.49 x10e6/uL (4.3-5.7); RED CELL DISTRIBUTION WIDTH 13.4 % (11.7-14.4)
[2021-03-16 12:44] LABS: ALBUMIN 1.6 g/dL (3.5-5.0); ALBUMIN/GLOBULIN RATIO 0.3 (0.8-2.0); ANION GAP 11.6 mmol/L (8-16); CREATININE, SERUM 5.55 mg/dL (0.72-1.25)
[2021-03-16 12:45] LABS: POTASSIUM 2.6 mmol/L (3.5-5.1)
[2021-03-16] MEDS ORDERED: POTASSIUM CHLORIDE 20 MEQ TAB CR PO ONE (12:45)
[2021-03-16] MEDS ORDERED: SODIUM CHLORIDE 0.9% 50ML 50 ML ONE (13:11)
[2021-03-16] MEDS ORDERED: IOPAMIDOL 370 MG/ML 200 ML INFUS..BTL INJ ONE (13:12)
[2021-03-16] MEDS ORDERED: MORPHINE SULFATE INJ 4 MG/ML INJ 1ML IV STA (13:59)
[2021-03-16 14:17] LABS: PROTHROMBIN TIME 13.8 seconds (11.9-14.5)
[2021-03-16] MEDS ORDERED: PIPERACILLIN/TAZOBAC 3.375 GM in SODIUM CHLORIDE 0.9% 50ML 50 ML IV STA (16:43)
[2021-03-16] MEDS ORDERED: PIPERACILLIN/TAZO 4.5 GM 100 ML IV ONE (17:00)
[2021-03-16] MEDS ORDERED: CIPRO500 MG PO (17:11)
[2021-03-16] MEDS ORDERED: ONDANSETRON ODT4 MG PO (17:11)
[2021-03-16] MEDS ORDERED: TYLENOL # 31 EA PO (17:11)
== END 2021-03-16 17:39 | disposition home or self-care (01) ==
LOC: ER 12:10
DX: R10.9 Unspecified abdominal pain (principal); I12.0 Hypertensive chronic kidney disease with stage 5 chronic kidney disease or end stage renal disease; E11.22 Type 2 diabetes mellitus with diabetic chronic kidney disease; L97.529 Non-pressure chronic ulcer of other part of left foot with unspecified severity; N18.6 End stage renal disease; Z99.2 Dependence on renal dialysis; E78.5 Hyperlipidemia, unspecified; E11.621 Type 2 diabetes mellitus with foot ulcer; E87.6 Hypokalemia
CPT/HCPCS: 36415; 74177; 76705; 80053; 82948; 83690; 85025; 85610; 99284; J2270; J2543; Q9967